=== PATIENT | male | born 1955 | race Caucasian/White ===

== ENCOUNTER 2023-05-16 00:08 | Inpatient (IN) | payer MEDICARE, SELFPAY ==
[2023-05-16] VITALS (25 sets, daily range): BP systolic 68–131; BP diastolic 35–68; PULSE 85–136; RESP 15–25; TEMP 36.3–37.9; O2SAT 93–100; BMI 30.8
--- NOTE | ~2023-05-16 | US_ITS ---
US abdomen limited DATE: 05/16/2023 09:21 INDICATION: Gallbladder wall thickening on 05/16/2023 CT abdomen pelvis examination. Abdominal disten tion. TECHNIQUE: Real-time imaging of liver, pancreas, gallbladder areas COMPARISON: 05/16/2023 CT abdomen pelvis. FINDINGS: No hepatic space-occupying mass lesion is detected. Normal hepatopedal portal venous flow d irection. There is gallbladder wall thickening, measuring up to proxy 4.5 mm. No gallstones are identified. Neg ative sonographic Rock's sign. The common bile duct measures 4.9 mm, within normal range. The there is limited visualization of the left lobe of the liver and pancreas due to overlying bowel gas. IMPRESSION: Nonspecific gallbladder wall thickening; no cholelithiasis demonstrated Reviewed, dictated and finalized at [facility]. Reviewed, dictated and finalized at [facility]. IMPRESSION: Nonspecific gallbladder wall thickening; no cholelithiasis demonstr ated
--- NOTE | ~2023-05-16 | CT_ITS ---
EXAMINATION: CT abdomen pelvis wo con DATE: 05/16/2023 03:12 INDICATION: Abdominal distention TECHNIQUE: Computed tomography (CT) of the abdomen and pelvis was performed without intravenous contr ast. (There is contrast on board from earlier CTA chest examination today.) Automated exposure contro l and iterative reconstruction technique were employed. Exam dose: 1412.18 mGy-cm total exam DLP. COMPARISON: None. FINDINGS: There is prominent diffuse gallbladder wall thickening with mild pericholecystic fat strand ing suggesting possible acute cholecystitis. No bile duct or pancreatic duct dilatation. No hepatic or pancreatic space-occupying mass lesion. Nor mal splenic size. Normal morphology of the adrenal glands. Mild bilateral renal scarring. There is an indeterminate hypoattenuating exophytic up to 4 cm cystic mass along the posterior aspect of the upper pole of the left kidney with soft tissue capsule of varying thickness. Normal caliber of the abdominal aorta. No intraperitoneal or retroperitoneal or pelvic mass lesion or adenopathy or ascites. The urinary bladder is unremarkable. There is a very prominent amount of fecal material in the rectum and colon. The stool haven't distend ed rectum measures up to 8 cm diameter. No bowel obstruction or intraperitoneal free air is detected. Small fat-containing right inguinal hernia. Degenerative changes of the thoracic and lumbar spine. No suspicious osteolytic or osteoblastic lesions are noted. IMPRESSION: Chronic gallbladder wall thickening suggesting possible acute cholecystitis Prominent of fecal material in the colon; stool-distended rectum measuring up to 8 cm diameter Indeterminate 4 cm exophytic upper pole left renal cystic mass; consider further evaluation with cecilia l MRI Dr. Mccarty telephoned Dr. Cervantes, emergency room physician, on 05/16/2023 at 0849 hours and indicated that the 4 cm cystic lesion of the left kidney superior pole is indeterminate, cystic neoplasm canno t be excluded, and renal MRI should be considered. Reviewed, dictated and finalized at [facility]. Reviewed, dictated and finalized at [facility]. IMPRESSION: Chronic gallbladder wall thickening suggesting possible acute chol ecystitis Prominent of fecal material in the colon; stool-distended rectum measuring up t o 8 cm diameter Indeterminate 4 cm exophytic upper pole left renal cystic mass; consider furthe r evaluation with renal MRI Dr. Mccarty telephoned Dr. Cervantes, emergency room physician, on 05/16/2023 at 08 49 hours and indicated that the 4 cm cystic lesion of the left kidney superior pole is indeterminate, cystic neoplasm cannot be excluded, and renal MRI should be considered.
--- NOTE | ~2023-05-16 | XR_ITS ---
XR chest 2V DATE: 05/16/2023 01:14 INDICATION: Shortness of breath TECHNIQUE: Portable upright AP chest on 05/16/2023 and 0105 hours COMPARISON: 12/08/2007 PA and lateral chest FINDINGS: Stimulator devices overlie each side of the chest with leads extending cephalad bilaterally . Normal heart size. There is moderate elevation right leaf of the diaphragm. No pulmonary infiltrate or consolidation, pleural effusion or pulmonary vascular congestion or pneumo thorax is evident. IMPRESSION: No active cardiopulmonary disease Reviewed, dictated and finalized at location A.
--- NOTE | ~2023-05-16 | US_ITS ---
EXAMINATION: US perc cholecystostomy w imag DATE: 05/17/2023 15:46 INDICATION: Acute cholecystitis TECHNIQUE: The procedure including the risks and benefits was discussed with the patient. Risks discu ssed included bleeding including hemorrhage and bile peritonitis. Oral and written consent were obtai vilma. The patient was confirmed to be receiving appropriate antibiotic coverage. The skin overlying t he liver and gallbladder was prepped and draped in usual sterile fashion. Anesthetic was administere d with 1% lidocaine subcutaneously. An 8.5 Fr catheter was inserted into the gallbladder by trocar t echnique. The metal stiffener and trocar needle were removed, and the pigtail tip was locked. Bile wa s aspirated and sent for culture. The catheter was stitched to the skin with suture. Antibiotic ointm ent and a sterile dressing were applied. There were no immediate complications. FINDINGS: The gallbladder is dilated with wall thickening and stones and sludge, consistent with acut e cholecystitis. Ultrasound images demonstrate the catheter within the gallbladder. 55 mL cloudy dark yellowish bile was aspirated. The catheter was then attached to suction drainage and was transient m inimal amount of additional fluid at the conclusion of the procedure. Final images show the formed pi gtail catheter tip in the now largely decompressed gallbladder. IMPRESSION: 1. Successful ultrasound-guided cholecystostomy tube placement. 2. 55 mL bile was sent for aerobic, anaerobic, and fungal cultures. 3. The catheter will be managed by Dr. Camara. A catheter cholangiogram may be performed not less than 48 hours after tube placement if clinically indicated to assess cystic duct patency. If cholecystect ca is not eventually performed and the infectious episode has resolved, the tube may be removed over a guidewire, preferably not less than 3 weeks after placement to allow time for a mature catheter tr act to form to prevent bile leakage and peritonitis. Reviewed, dictated and finalized at location A. IMPRESSION: 1. Successful ultrasound-guided cholecystostomy tube placement. 2. 55 mL bile was sent for aerobic, anaerobic, and fungal cultures. 3. The catheter will be managed by Dr. Camara. A catheter cholangiogram may be pe rformed not less than 48 hours after tube placement if clinically indicated to assess cystic duct patency. If cholecystectomy is not eventually performed and the infectious episode has resolved, the tube may be removed over a guidewire, preferably not less than 3 weeks after placement to allow time for a mature ca theter tract to form to prevent bile leakage and peritonitis.
--- NOTE | ~2023-05-16 | US_ITS ---
US renal BI 05/17/2023 16:39 Procedure: Realtime transabdominal ultrasound of the kidneys and bladder. Indication: Renal cyst Comparison: Ultrasound dated 05/16/2023 Findings: Renal echotexture is normal bilaterally without hydronephrosis, contour deforming mass or r enal calculus. The right kidney measures 10.1 cm and left kidney measures 8.8 cm. Bladder within nor mal limits. There is a hypoechoic left renal mass measuring 3.5 cm with echogenic debris dependently. There is posterior acoustic enhancement. Impression: 1: Complicated 3.5 cm cyst of the left kidney. Recommend correlation with MRI without and with contra st. Reviewed, dictated and finalized at location A. Impression: 1: Complicated 3.5 cm cyst of the left kidney. Recommend correlation with MRI w ithout and with contrast.
--- NOTE | ~2023-05-16 | XR_ITS ---
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 RESULT: Lines, tubes, and devices: Bilateral stimulator packs, leads extend cephalad out of the [id number] w. Right upper quadrant pigtail drain. Lungs and pleura: Low volumes with crowding. Granulomatous calcifications. Cardiomediastinal silhouette: Stable. Other: No acute osseous or upper abdominal finding. IMPRESSION: No acute cardiopulmonary process. Reviewed, dictated and finalized at location K. PROFESSOR
--- NOTE | ~2023-05-16 | US_ITS ---
EXAMINATION:US venous doppler LE BI INDICATION:Leg swelling TECHNIQUE: Multiple grayscale, color flow and Doppler images of the right and left lower extremity de ep venous systems were obtained and reviewed. COMPARISON:No prior studies for comparison. FINDINGS: The common femoral, superficial femoral and popliteal veins demonstrate normal respiratory variation, augmentation and compressibility. Color flow is also seen within the posterior tibial, pe roneal, greater saphenous and profunda veins. IMPRESSION: 1: No lower extremity deep venous thrombosis. Reviewed, dictated and finalized at location A.
--- NOTE | ~2023-05-16 | CT_ITS ---
EXAMINATION: CTA chest PE protocol DATE: 05/16/2023 02:12 INDICATION: Shortness of breath. TECHNIQUE: Computed tomography angiography (CTA) of the chest was performed with 100 mL Omnipaque-350 intravenous contrast timed to evaluate the pulmonary arteries. Coronal maximum intensity projection 3D-reconstructions were created by the technologist. Automated exposure control and iterative reconst ruction technique were employed. Exam dose: 790.39 mGy-cm total exam DLP. COMPARISON: 05/16/2020 portable AP chest FINDINGS: There is diagnostic contrast enhancement of the pulmonary arteries. Motion limits evaluatio n of the right lower lobe for pulmonary emboli but otherwise no pulmonary embolism is identified. No thoracic aortic aneurysm or dissection is detected. Normal heart size. No pericardial or pleural e ffusion. No hilar or mediastinal mass lesion or lymphadenopathy. There is elevation of the right diaphragm. There is patchy right lower lobe infiltrate and/atelectasis and minimal dependent left lower lobe ate lectasis. There is thickening of the wall of the gallbladder suggesting possible acute cholecystitis. Consider gallbladder ultrasound examination for further evaluation. Normal morphology of the adrenal glands. Bilateral anterior chest wall stimulator devices with leads extending cephalad. IMPRESSION: No evidence of pulmonary embolism is detected Right lower lobe patchy infiltrate and/or atelectasis Gallbladder wall thickening suggesting possible acute cholecystitis; consider gallbladder ultrasound examination Reviewed, dictated and finalized at Location A. Reviewed, dictated and finalized at location A. IMPRESSION: No evidence of pulmonary embolism is detected Right lower lobe patchy infiltrate and/or atelectasis Gallbladder wall thickening suggesting possible acute cholecystitis; consider g allbladder ultrasound examination
--- NOTE | ~2023-05-16 | XR_ITS ---
EXAMINATION: XR catheter cholangiogram DATE: 05/25/2023 09:03 INDICATION: Assess cystic duct patency TECHNIQUE: 8 fluoroscopic images of the right upper quadrant were obtained during injection of 35 mL Omnipaque 240 into the patient's existing percutaneous cholecystostomy tube. Contrast in bowel was th en aspirated from the gallbladder and the tube was flushed with 10 mL sterile saline and reattached t o gravity drainage. The amount of fluoroscopy time used during this procedure was 0.4 minutes. Total DAP was 4.7 Gycm^2 COMPARISON: Ultrasound dated 05/17/2023 FINDINGS: Contrast fills the gallbladder and delineates a nonobstructing mobile 8 mm gallstone initially at the neck of the gallbladder which is located at the fundus on the final image. Contrast fills the common bile duct which empties into the duodenum with no evident obstructing stones or strictures. There is some reflux of contrast into the normal-appearing biliary tree. IMPRESSION: 1. Patent cystic and common bile ducts with distal formed loop of the cholecystostomy tube and a nono bstructing 8 mm mobile gallstone within the gallbladder. Reviewed, dictated and finalized at location A. STAIN MIXER IMPRESSION: 1. Patent cystic and common bile ducts with distal formed loop of the cholecyst ostomy tube and a nonobstructing 8 mm mobile gallstone within the gallbladder.
--- NOTE | ~2023-05-16 | XR_ITS ---
EXAMINATION: XR chest 1V portable DATE: 05/17/2023 01:59 INDICATION: Shortness of breath. TECHNIQUE: A single frontal view of the chest was obtained. COMPARISON: Chest 2 views 05/16/2023, CT abdomen and pelvis 05/16/2023 FINDINGS: The lung volumes are small. There is elevation of right hemidiaphragm. There is mild atelec tasis at right lung base. No pleural effusion or pneumothorax. The heart size is normal. Calcified le ft hilar lymph nodes are consistent with old granulomatous disease. Electronic devices overlie the ch est bilaterally with wires extending in the neck. IMPRESSION: 1. Small lung volumes with relative mild elevation of right hemidiaphragm and mild atelectasis at rig ht lung base. Reviewed, dictated and finalized at location E. IMPRESSION: 1. Small lung volumes with relative mild elevation of right hemidiaphragm and m ild atelectasis at right lung base.
--- NOTE | 2023-05-16 00:31 | ECG_ITS ---
Measurements Intervals [place] Rate: 123 P: 22 [place]: 119 QRS: 0 QRSD: 98 T: 39 QT: 367 QTc: 527 Interpretive Statements POSSIBLE sINUS TACHYCARDIA MARKED bASELINE ARTIFACT AFFECTS INTERPRETATION POOR R-WAVE PROGRESSION ABNORMAL ECG COMPARED TO ECG 05/31/2019 16:41:53 SINUS TACHYCARDIA NOW PRESENT Electronically Signed On 05-16-2023 13:42:47 CDT by Shawn Montano M.D.
--- NOTE | 2023-05-16 00:39 | ED.GENADULT ---
HPI - General Adult General Chief complaint: Chest Pain Stated complaint: sob Time Seen by Provider: 05/16/23 00:14 Source: patient Mode of arrival: EMS Limitations: no limitations History of Present Illness HPI narrative: 67-year-old male with history of advanced Parkinson's disease presenting to emergency department for shortness of breath. Has been going on all day long today Got worse over the last few hours. Reportedly he has not taken his carbidopa levodopa today. This has happened few times in the past and they are not sure exactly what causes it. He does not have a history of asthma or COPD. Denies any chest pain. Says he feels like his muscles are very rigid. All other symptoms and complaints are negative as per ROS. Related Data Home Medications Medication Instructions Recorded Confirmed gabapentin 100 mg capsule mg 05/16/23 Allergies Allergy/AdvReac Type Severity Reaction Status Date / Time No Known Allergies Allergy Unknown Verified 12/16/07 15:53 NKFA Allergy Unknown Uncoded 03/07/07 15:41 Review of Systems Review of Systems: All systems reviewed & are unremarkable except as noted in HPI and below PMFSH Past Medical History Medical History Arthritis Diabetes mellitus Kidney stones Parkinson's disease Right knee meniscal tear Surgical History Surgical History H/O arthroscopy of right knee Hx of transurethral resection of prostate S/P deep brain stimulator placement Social History Social History Gender identity (if verbalized by the patient): Male Exam Narrative: Constitutional: Generally well appearing, no acute distress Head: Atraumatic, no deformities. Eyes: Pupils equal, round, and reactive to light. Neck: Supple, no tracheal deviation, no JVD. ENMT: Mucous membranes moist Cardiovascular: S1, S2 auscultated. No murmurs, rubs, or gallops. No S3/S4. Normal Distal pulses. No peripheral edema. Respiratory: Mild respiratory distress with minimal chest rise and fall, mostly only moving through the abdomen with breathing. Lungs are clear with no wheezes, rales, rhonchi. Gastrointestinal: Abdomen was soft and non-tender. Non-distended. No rebound or guarding. Genitourinary: Deferred Musculoskeletal: Normal muscle tone and bulk. No obvious deformities or tenderness over extremities. Skin: No rashes. Neurological: Diffusely stiff musculature. Sensation intact throughout. Difficulty moving extremities due to muscle stiffness Mental Status: Awake, alert and oriented x3. Follows commands Course Vital Signs Vital signs: Vital Signs Temperature 37.9 C H 05/16/23 00:09 Pulse Rate 136 H 05/16/23 00:09 Respiratory Rate 25 H 05/16/23 00:09 Blood Pressure 120/68 05/16/23 00:09 Pulse Oximetry 100 05/16/23 00:09 Oxygen Delivery Room Air 05/16/23 00:09 Temperature 37.9 C H 05/16/23 00:09 Pulse Rate 100 05/16/23 06:16 Respiratory Rate 15 05/16/23 06:16 Blood Pressure 104/58 L 05/16/23 06:16 Pulse Oximetry 96 05/16/23 06:16 Oxygen Delivery Room Air 05/16/23 00:09 Medical Decision Making [facility] Narrative Medical decision making narrative: 67-year-old male presenting with difficulty breathing today. He did not take his carbidopa levodopa for his Parkinson's today. This has happened once in the past. On exam, he is diffusely stiff musculature. Family reports this is not typical of him and he usually can get around pretty well. Lungs are clear but he is not moving his chest very much with breathing. His abdomen is moving muscles with breathing. Saturating well on room air however. He is tachycardic. My suspicion initially is Parkinson's crisis as he did not take his medication this morning. Will give him a dose of carbidopa levodopa. Family has no idea what his current dos
[2023-05-16 00:50] LABS: Basophils Percent Auto 0.3 % (0.2-1.2); Eosinophils Percent Auto 0.1 % (0-4.4); Hematocrit 44.9 % (42.0-52.0); Hemoglobin 13.2 g/dL (14.0-18.0); Immature Granulocyte Absolute 0.01 K/mm3 (0.00-0.031); Immature Granulocyte Percent A 0.1 % (0-0.5); Lymphocytes Absolute Auto 0.62 K/mm3 (0.9-3.2); Lymphocytes Percent Auto 8.7 % (18.3-44.2); Mean Corpuscular HGB Conc 29.4 g/dl (32-36); Mean Corpuscular Hemoglobin 25.7 pg (26-34); Mean Corpuscular Volume 87.5 fl (80-100); Mean Platelet Volume 10.2 fl (7.4-10.4); Monocytes Percent Auto 0.3 % (2.6-8.5); Neutrophils Absolute Auto 6.4 K/mm3 (1.3-6.7); Neutrophils Percent Auto 90.5 % (45.5-73.1); Platelet Count Result 444 k/mm3 (150-375); Red Blood Count 5.13 M/mm3 (4.6-6.20); White Blood Count 7.1 K/mm3 (4.5-10.0)
[2023-05-16 01:02] LABS: INR 1.1; Prothrombin Time 14.6 Seconds (11.1-14.7)
[2023-05-16 01:03] LABS: Partial Thromboplastin Time 22.9 SECONDS (22.3-36.8)
[2023-05-16] MEDS: CARBIDOPA/LEVODOPA 25/100 MG CR TABLET 1 TABLET PO (01:05)
[2023-05-16] MEDS: SODIUM CHLORIDE 0.9% IV 1,000 ML 999 ML IV CONT (01:05)
[2023-05-16 01:18] LABS: Troponin I < 0.012 ng/mL (0.000-0.034)
[2023-05-16 01:27] LABS: Influenza A QL RT-PCR Negative (Negative); Influenza B QL RT-PCR Negative (Negative); RSV RNA, RT-PCR Negative (Negative); SARS-CoV-2 RNA PCR Negative (Negative)
[2023-05-16 01:49] LABS: Alanine Aminotransferase 42 U/L (6-50); Albumin Level 4.5 g/dL (3.5-5.1); Alkaline Phosphatase 133 U/L (38-126); Anion Gap 25 mmol/L (8-16); Aspartate Amino Transferase 52 U/L (17-59); Bilirubin,Total 0.9 mg/dL (0.2-1.3); Blood Urea Nitrogen 16 mg/dL (9-20); Calcium 9.6 mg/dL (8.4-10.2); Carbon Dioxide 15 mmol/L (22-30); Chloride 97 mmol/L (98-107); Estimated CRCL calculation 64 ml/min; Estimated Glomerular Filt Rate > 60; Glucose 347 mg/dL (65-110); Lipase 66 U/L (23-300); Potassium 4.1 mmol/L (3.4-5.0); Sodium 137 mmol/L (137-145)
[2023-05-16 04:16] LABS: Troponin I 0.035 ng/mL (0.000-0.034)
[2023-05-16] MEDS: SODIUM CHLORIDE 0.9% IV 500 ML 999 ML IV CONT (04:25)
[2023-05-16 06:18] LABS: Fractional Inspired Oxygen 21 %; HCO3 VBG 20.8 mEq/l (24.0-30.0); PO2 VBG 50.8 mmHg (35.0-45.0)
[2023-05-16 06:22] LABS: Device ROOM AIR; PCO2 VBG 29.2 mmHg (42.0-48.0)
[2023-05-16 06:31] LABS: Beta-Hydroxybutyrate/Acetoacetate 0.36 mmol/L (0.02-0.27)
--- NOTE | 2023-05-16 06:40 | PC.NURSE ---
Bedside glucose is 335. ERP and primary RN notified.
[2023-05-16 06:41] LABS: Glucose Point of Care 335 mg/dl (65-105)
[2023-05-16 06:50] LABS: Appearance Urine Clear (Clear); Bacteria Urine None Seen /hpf; Bilirubin Urine Negative (Negative); Blood Urine Trace (Negative); Color Urine Yellow (Yellow); Glucose Urine UA 3+ mg/dL (Negative); Ketones Urine 1+ mg/dL (Negative); Leukocyte Esterase Ur Negative LEU/UL (Negative); Nitrate Urine Negative (Negative); Protein Urine 1+ mg/dL (Negative); RBC Urine 0-2 /hpf (0-2); Squamous Epithelial Cell Urine None seen /hpf (Few); WBC Urine 0-5 /hpf; pH Urine 6.5 (5.0-9.0)
[2023-05-16] MEDS: INSULIN HUMAN REGULAR (*BKC) 100 UNITS/ML 10 UNITS SUB-Q (06:59)
[2023-05-16 07:03] LABS: Add Urine Microscopic? YES; Specific Grav Ur 1.057 (1.001-1.035)
[2023-05-16] MEDS: SODIUM CHLORIDE 0.9% IV 1,000 ML 125 ML IV CONT (07:03)
--- NOTE | 2023-05-16 09:16 | ADMGEN ---
This patient, Jayden Cherry, was admitted to IMU Room 205-02. Patient/family oriented to hospital policies and general routines including ID bracelet, bed and alarms, visiting hours, pain management, procedures, bathroom and other care routines, personal items, smoking policy, room service/diet, and visiting hours. Information on how to activate the Rapid Response Team has been discussed. Patient/Family are encouraged to report perceived risks to care and to ask questions if they do not understand what they are told or what they should do.
--- NOTE | 2023-05-16 11:25 | PM.IMHP ---
H&P: HPI History of Present Illness Date/Time: 05/16/23 11:25 Chief Complaint: SOB Narrative: 63-year-old male with past medical history of Parkinson's disease, type 2 diabetes was brought to ER because of shortness of breath. Patient was lethargic and was hardly able to provide history, however he said he came in because of SOB which was corroborated by a family member at bedside. He also complained of RUQ pain otherwise denies any dysuria, lightheadedness or falls. Patient is mostly wheelchair bound. ER eval notable for HR 123, EKG showed ST with acute ST-T changes, CTA Chest showed RLL infiltrates, CT AP showed possible Acute cholecystitis, fecal-distended colon, with left renal mass. US abd showed non specific gall bladder thickening with no cholecystitis. Patient was admitted prior to result of CT imagings. Review of Systems Review of Systems: all other systems were reviewed and negative except as noted in phillip HPI above e PMFSH Past Medical History Medical History Arthritis Diabetes mellitus Kidney stones Parkinson's disease Right knee meniscal tear Surgical History Surgical History H/O arthroscopy of right knee Hx of transurethral resection of prostate S/P deep brain stimulator placement Social History Social History Gender identity (if verbalized by the patient): Male Meds Home Medications and Allergies Home Medications Medication Instructions Recorded Confirmed Type amantadine HCl 100 mg capsule 100 mg PO DAILY 05/16/23 05/16/23 History carbidopa ER 50 mg-levodopa 200 mg tablet PO 05/16/23 History tablet,extended release cyanocobalamin (vitamin B-12) 100 100 mcg PO DAILY 05/16/23 05/16/23 History mcg tablet (Vitamin B-12) escitalopram oxalate 20 mg tablet mg 05/16/23 History gabapentin 100 mg capsule mg 05/16/23 History insulin degludec 200 unit/mL (3 unit subcut 05/16/23 History mL) subcutaneous pen (Tresiba FlexTouch U-200 insulin) memantine 10 mg tablet mg 05/16/23 History omeprazole 40 mg capsule,delayed mg 05/16/23 History release polyethylene glycol 3350 17 gram 17 g PO DAILY 05/16/23 05/16/23 History oral powder packet (Miralax) venlafaxine 150 mg mg PO 05/16/23 History capsule,extended release 24 hr vitamin B complex-vitamin C 100 tablet 05/16/23 History mg-folic acid 1 mg tablet zolpidem 10 mg tablet mg 05/16/23 History Allergies Allergy/AdvReac Type Severity Reaction Status Date / Time No Known Allergies Allergy Unknown Verified 12/16/07 15:53 NKFA Allergy Unknown Uncoded 03/07/07 15:41 Vital Signs Vital Signs - 24 hr 05/16/23 00:09 05/16/23 03:29 05/16/23 06:16 Temperature 100.2 F H Pulse Rate 136 H 110 H 100 Respiratory Rate 25 H 22 H 15 Blood Pressure 120/68 106/62 104/58 L Pulse Oximetry 100 95 96 Oxygen Delivery Room Air 05/16/23 07:05 05/16/23 07:00 05/16/23 08:00 Temperature Pulse Rate 96 96 93 Respiratory Rate 15 22 H 20 Blood Pressure 94/52 L 93/57 L 97/61 L Pulse Oximetry 96 93 98 Oxygen Delivery 05/16/23 09:00 05/16/23 09:32 Temperature 99.8 F H Pulse Rate 85 95 Respiratory Rate 16 22 H Blood Pressure 101/62 105/62 Pulse Oximetry 93 Oxygen Delivery Exam Narrative: General: alert but lethargic Eyes: EOMI, PERRLA ENNT External ears normal, Neck is supple, no masses, Respiratory systems: Clear to auscultation Cardiovascular S1, S2, normal rhythm, no murmur, rub, or gallop; no thrill or palpable murmurs on palpation. Gastrointestinal: soft, non-tender, and non-distended abdomen with no masses; BS present Skin: no rash, lesions, ulcerations, subcutaneous nodules or induration Musculoskeletal: upper extremities appears to be in contractures Neurologic: Alert and oriented x3, non focal Mental Status Exa
--- NOTE | 2023-05-16 11:31 | WPDURCON ---
Assessment and Plan Assessment and plan (1) Renal mass: Code(s): N28.89 - Other specified disorders of kidney and ureter Status: Acute Assessment and Plan: 4cm left renal mass is present. It appears cystic on my review of the images. After resolution of his current clinical issues, further follow up with US or dedicated renal mass protocol CT scan could be considered. MRI is likely contraindicated with the deep brain stimulator. Urology Consult Note HPI Date Seen: 05/16/23 Requesting Physician: Regina Allen DO Primary Care Provider: Phoenix Glasgow, Consult Narrative Narrative: Jayden Cherry is a 67 year old male currently admitted for shortness of breath and right sided abdominal pain who had an incidentally noted left renal mass. He has not had any left sided pain. No hematuria. He has long standing Parkinson's disease and has a deep brain stimulator. He is severely disabled due to the Parkinson's. Review of Systems Constitutional: Constitutional: Reports body ache(s) Respiratory: Respiratory: Reports dyspnea Gastrointestinal: Gastrointestinal: Reports abdominal pain PMFSH Past Medical History Medical History Arthritis Diabetes mellitus Kidney stones Parkinson's disease Right knee meniscal tear Surgical History Surgical History H/O arthroscopy of right knee Hx of transurethral resection of prostate S/P deep brain stimulator placement Social History Social History Gender identity (if verbalized by the patient): Male Meds Home Medications and Allergies Home Medications Medication Instructions Recorded Confirmed Type amantadine HCl 100 mg capsule 100 mg PO DAILY 05/16/23 05/16/23 History carbidopa ER 50 mg-levodopa 200 mg tablet PO 05/16/23 History tablet,extended release cyanocobalamin (vitamin B-12) 100 100 mcg PO DAILY 05/16/23 05/16/23 History mcg tablet (Vitamin B-12) escitalopram oxalate 20 mg tablet mg 05/16/23 History gabapentin 100 mg capsule mg 05/16/23 History insulin degludec 200 unit/mL (3 unit subcut 05/16/23 History mL) subcutaneous pen (Tresiba FlexTouch U-200 insulin) memantine 10 mg tablet mg 05/16/23 History omeprazole 40 mg capsule,delayed mg 05/16/23 History release polyethylene glycol 3350 17 gram 17 g PO DAILY 05/16/23 05/16/23 History oral powder packet (Miralax) venlafaxine 150 mg mg PO 05/16/23 History capsule,extended release 24 hr vitamin B complex-vitamin C 100 tablet 05/16/23 History mg-folic acid 1 mg tablet zolpidem 10 mg tablet mg 05/16/23 History Allergies Allergy/AdvReac Type Severity Reaction Status Date / Time No Known Allergies Allergy Unknown Verified 12/16/07 15:53 NKFA Allergy Unknown Uncoded 03/07/07 15:41 Vital Signs Vital Signs - 24 hr 05/16/23 00:09 05/16/23 03:29 05/16/23 06:16 Temperature 37.9 C H Pulse Rate 136 H 110 H 100 Respiratory Rate 25 H 22 H 15 Blood Pressure 120/68 106/62 104/58 L Pulse Oximetry 100 95 96 Oxygen Delivery Room Air 05/16/23 07:05 05/16/23 07:00 05/16/23 08:00 Temperature Pulse Rate 96 96 93 Respiratory Rate 15 22 H 20 Blood Pressure 94/52 L 93/57 L 97/61 L Pulse Oximetry 96 93 98 Oxygen Delivery 05/16/23 09:00 05/16/23 09:32 Temperature 37.7 C H Pulse Rate 85 95 Respiratory Rate 16 22 H Blood Pressure 101/62 105/62 Pulse Oximetry 93 Oxygen Delivery Exam Const: General: uncomfortable Resp: Effort & Inspection: normal respiratory effort Neuro: Other: slow speech Extrem: Other: contracted Psych: Affect: normal affect Results Labs 05/16/23 00:32 05/16/23 00:32 Labs: Short CBC 05/16/23 Range/Units 00:32 WBC 7.1 (4.5-10.0) K/mm3 Hgb 13.2 L (14.0-18.0) g/dL Hct 4
[2023-05-16] MEDS: levoFLOXacin 750 MG/D5W 150 ML 750 MG/150 ML BAG 100 MG IVPB (12:19)
[2023-05-16] MEDS: MORPHINE SULFATE (*CRX) 2 MG/ML INJ IV PUSH (14:38)
[2023-05-16] MEDS: metroNIDAZOLE 500 MG/ISO 100ML 500 MG/100 ML BAG 100 MG IVPB (14:40)
[2023-05-16 14:44] LABS: Glucose Point of Care 222 mg/dl (65-105)
--- NOTE | 2023-05-16 15:40 | PCOTNOTE ---
Spoke with pt. and family. Pt. is dependent for all ADLs and functional transfers with assistance from spouse, using dee lift and electric wheel chair for functional mobility. Spouse declines any needs for therapy services at this time. Nursing aware. Hospitalist notified and in agreement.
--- NOTE | 2023-05-16 15:44 | PM.CNGS ---
Assessment and Plan Assessment and plan (1) Abnormal findings on imaging of biliary tract: Code(s): R93.2 - Abnormal findings on diagnostic imaging of liver and biliary tract Status: Acute Assessment and Plan: CT scan as well as ultrasound of the right upper quadrant suspicious for acalculous cholecystitis. I discussed this with the patient's , his brother and his friend. Patient would not survive an abdominal surgery due to his advanced Parkinson's with severe stiffness, rigidity, and inability to mobilize secretions. I explained to the patient's that and hepatobiliary scan would be very helpful in determining cholecystitis. Should this study show cystic duct obstruction, an ultrasound-guided cholecystostomy tube could be placed by Radiology which would alleviate acute cholecystitis. I briefly discussed the management of that cholecystostomy tube with his . They would be in favor of that if indicated. Hepatobiliary scan will be done tomorrow and if positive, try to proceed with cholecystostomy tube placement. (2) Pneumonia: Qualifiers: Laterality: bilateral Lung location: unspecified part of lung Pneumonia type: due to unspecified organism Qualified Code(s): J18.9 - Pneumonia, unspecified organism Code(s): J18.9 - Pneumonia, unspecified organism Status: Acute Assessment and Plan: Shortness of breath with evidence of patchy right lower lobe infiltrate on CTA of the chest. Receiving antibiotics. (3) Parkinson's disease: Qualifiers: Dyskinesia presence: with dyskinesia Fluctuating manifestations: with fluctuating manifestations Qualified Code(s): G20.B2 - Parkinson's disease with dyskinesia, with fluctuations Code(s): G20.A1 - Parkinson's disease without dyskinesia, without mention of fluctuations Status: Chronic Assessment and Plan: Very advanced. Neurology to see. (4) Acute non-ST elevation myocardial infarction (NSTEMI): Code(s): I21.4 - Non-ST elevation (NSTEMI) myocardial infarction Status: Acute Assessment and Plan: Managed by medical service and possibly Cardiology. History of Present Illness Consult details Consult date: 05/16/23 Reason for consult: other (Abnormal biliary imaging) Requesting physician: Maria C Nur MD Narrative: Patient is a 67-year-old man who has advanced Parkinson's disease and came to the emergency room late last night with shortness of breath. He had a CTA of the chest which did not show a pulmonary embolism. It did show a patchy right lower lobe infiltrate as well as gallbladder wall thickening suspicious for cholecystitis. Patient had a cardiac workup as well and appears he has a NSTEMI. Chest x-ray and chest CT did not show pulmonary edema. Patient went on to have an ultrasound today of the gallbladder which again showed gallbladder wall thickening but no gallstones. It was concerning for cholecystitis. I spoke with patient's brother and close friend. Patient has had Parkinson's disease for 20 years. This is an exceptionally long time as 10 years is usually length of time before stiffness and spasticity with contractures set in. He did have a deep brain stimulator placed which may have helped prolonged his function with Parkinson's. His does tell me he has been contracted and very stiff for quite some time. He has trouble speaking as well as controlling his secretions. He mostly is in a wheelchair. He additionally has diabetes and takes insulin. Currently he is not really able to answer questions other than yes/no. He could not give me an answer as far as having any abdominal pain. He has not had any vomiting. He is seen now in consultation. Review of Systems Review of Systems: All systems reviewed & are unremarkable except as noted in HPI and below (As per HPI) ROS unobtainable: Yes unobtainable due to medical condition PMFSH Past Medical History Medical History (Re
[2023-05-16 16:57] LABS: Glucose Point of Care 176 mg/dl (65-105)
[2023-05-16] MEDS: VANCOMYCIN 1,000 MG/NS 250 ML 1,000 MG/250 ML BAG 250 MG IVPB (18:39)
[2023-05-16] MEDS: VANCOMYCIN 1,250 MG/NS 250 ML 1,250 MG/250 ML BAG 166.67 MG IVPB (20:39)
[2023-05-16] MEDS: SODIUM CHLORIDE 0.9% IV 500 ML IV CONT ×2 (21:08→22:18)
[2023-05-16 21:19] LABS: Glucose Point of Care 175 mg/dl (65-105)
[2023-05-16 21:29] LABS: Lactic Acid Reflex 3.2 mmol/L (0.7-2.0)
[2023-05-16 21:36] LABS: Anion Gap 11 mmol/L (8-16); Blood Urea Nitrogen 27 mg/dL (9-20); Calcium 8.1 mg/dL (8.4-10.2); Carbon Dioxide 18 mmol/L (22-30); Chloride 101 mmol/L (98-107); Estimated CRCL calculation 47 ml/min; Estimated Glomerular Filt Rate 47; Glucose 162 mg/dL (65-110); Potassium 3.8 mmol/L (3.4-5.0); Sodium 130 mmol/L (137-145)
[2023-05-16 21:55] LABS: Hemoglobin A1C 9.7 % (<5.7)
--- NOTE | 2023-05-16 22:08 | ECG_ITS ---
Measurements Intervals [place] Rate: 94 P: [place]: 0 QRS: 5 QRSD: 93 T: 8 QT: 342 QTc: 429 Interpretive Statements SUPRAVENTRICULAR RHYTHM ARTIFACT GREATLY LIMITS INTERPRETATION ABNORMAL ECG COMPARED TO ECG 05/16/2023 01:42:31 SUPRAVENTRICULAR RHYTHM NOW PRESENT Electronically Signed On 05-17-2023 8:50:30 CDT by Bill Moy M.D.
[2023-05-16] MEDS: ENOXAPARIN 100 MG/ML SYRINGE 90 MG SUB-Q (22:37)
[2023-05-16 22:44] LABS: MRSA (PCR) NOT DETECTED (NOT DETECTE)
[2023-05-16 23:15] LABS: Creatine Kinase 3008 U/L (55-170)
--- NOTE | 2023-05-16 23:34 | PC.NURSE ---
Spoke with Es Cherry (spouse). Advised her that the patient has had blood pressures in the 70s systolic since I came on shift. I have been in contact with Bela FALL regarding changes. NS 1000 ml fluid bolus given without improvement in blood pressure. Patient denies chest pain. Troponin has gone from 0.090 to 11.5, CK 3008, creatinine 1.1-1.5, Lactic 3.2. EKG was done however unable to read due to artifact from the patient's brain stimulator. Plan is to transfer the patient to ICU 4 for insertion of central line and vasopressors. I will be calling cardiology to get them on board. Patient and are in agreement of treatment plan.
--- NOTE | 2023-05-16 23:50 | P.PNCROSS_ITS ---
Event Note Event Note Event Note: I received a call from the patient's nurse with reports of soft blood pressures. Chart was extensively reviewed. Patient presented to the emergency department with shortness of breath and chest pain, admitted for ?cardiac rule out.? He developed a low-grade fever overnight. Chest x-ray and urinalysis were not concerning for infection. CT of the abdomen and pelvis showed chronic gallbladder wall thickening with suggestions of possible acute cholecystitis. He was started on levofloxacin, metronidazole, and vancomycin. Blood cultures are pending. HIDA scan has been ordered for a.m.. Troponin was noted to be elevated and a repeat troponin this evening was 11.50. EKG is unreadable due to artifact from his neurostimulator. Over the course of the evening his blood pressures have gradually declined. He was given a 1 L bolus of normal saline though his blood pressures remain in the 70 systolic. Aside from feeling tired and mild abdominal pain, the patient has no current complaints. He looks chronically ill and nontoxic. Pupils are reactive. He has mild nystagmus, more so on the left with occasional twitching of the left eyelid. Mucous membranes are tacky. He is in a regular rate and rhythm. Lung sounds are coarse anteriorly. He has masked facies and is stiff and rigid. Pulses intact. Extremities are warm. I had a discussion with the patient and he and his are amenable to central line placement for vasopressor therapy. Case was discussed withantonio Quintero, i ntensivist, and he agrees with the plan and has accepted the patient in consult to the ICU for shock. Differential diagnosis includes septic shock due to cholecystitis though cardiogenic shock is a consideration given marked increase in troponin albeit he is not having any chest discomfort. Cardiology will also be consulted. He was started on enoxaparin 1 milligram/kilogram b.i.d. I will ask the nurse to do noninvasive cardiac output monitoring to see if he will be further volume responsive. Critical Care Time Critical Care Time: Yes Total Critical Care Time: 35 Attestation: Due to a high probability of clinically significant, life threatening deterioration, the patient required my highest level of preparedness to intervene emergently and I personally spent this critical care time directly and personally managing the patient. This critical care time included obtaining a history; examining the patient; pulse oximetry; ordering and review of studies; arranging urgent treatment with development of a management plan; evaluation of patient's response to treatment; frequent reassessment; and discussions with other providers. It was exclusive of separately billable procedures and treating other patients and teaching time. Please see Assessment and Plan section and the rest of the note for further information on patient assessment and treatment.
[2023-05-17] VITALS (36 sets, daily range): BP systolic 78–153; BP diastolic 51–75; PULSE 82–108; RESP 13–25; TEMP 36.6–37.4; O2SAT 94–98
--- NOTE | 2023-05-17 | ECHO_ITS ---
Patient Info Name: Jayden Cherry Age: 67 years : 1955 Gender: Male Ht: 67 in Wt: 202 lbs BSA: 2.11 m2 HR: 94 bpm BP: 122 / 71 mmHg Heart Rhythm: Sinus Rhythm Technical Quality: Fair Exam Date: 05/17/2023 7:48 AM Exam Location: [facility] Patient Status: Inpatient Admit Date: 05/17/2023 Staff Ordering Physician: Regina Allen DO Director Print: Sharon Troncoso RDCS Attending Provider: Regina Allen DO Referring Physician: Alejandro GUNN; Exam Type: CA echo dop color flow w con Study Info Indications - shock Complete two-dimensional, color flow and Doppler transthoracic echocardiogram is performed with contrast to opacify the left ventricle and to improve the deliniation of the left ventricle endocardial borders. Contrast/Agitated Saline Contrast/Ag. Saline: Definity Amount: 2.00 ml Administered By: Sharon Troncoso RDCS Existing IV Access: Yes IV Access Condition: patent with no signs of infiltration Summary 1. Left ventricular chamber dimension is normal. 2. Left ventricular systolic function is normal, estimated at 60-65%. 3. There is moderately increased left ventricular wall thickness. 4. The left ventricular diastolic function is grade I diastolic dysfunction. 5. The basal inferolateral wall, and mid inferolateral wall are hypokinetic. 6. The mitral valve annulus is mildly calcified. 7. There is moderate aortic valve sclerosis. 8. There is mild tricuspid valve regurgitation. Left Ventricle Left ventricular chamber dimension is normal. Left ventricular systolic function is normal, estimated at 60-65%. There is moderately increased left ventricular wall thickness. The left ventricular diastolic function is grade I diastolic dysfunction. The basal inferolateral wall, and mid inferolateral wall are hypokinetic. All other castillo appear normal. Right Ventricle Right ventricular chamber dimension is normal. Right ventricular systolic function is normal. Left Atria Left atrial chamber dimension is normal. Right Atria Right atrial chamber dimension is normal. Atrial Septum Intact interatrial septum visualized by color flow imaging. Aortic Valve The aortic valve is trileaflet. There is moderate aortic valve sclerosis. There is no aortic valve stenosis. There is trace aortic valve regurgitation. Pulmonic Valve The pulmonic valve is normal. There is no pulmonic valve stenosis. There is trace pulmonic regurgitation. Mitral Valve There is no mitral valve stenosis. There is trace mitral valve regurgitation. The mitral valve annulus is mildly calcified. Tricuspid Valve The tricuspid valve leaflets are normal. There is no significant tricuspid valve stenosis. There is mild tricuspid valve regurgitation. Pericardium/Pleural The pericardium appears normal. There is no pericardial effusion. Inferior Vena Cava Normal inferior vena cava with >50% collapse upon inspiration consistent with normal right atrial pressure, 10 mmHg. Aorta The aortic root size at the sinus of Valsalva is normal. Left Ventricular Outflow Tract Name Value Normal LVOT 2D LVOT Diameter 2.14 cm LVOT Doppler LVOT Peak Gradient
--- NOTE | 2023-05-17 00:17 | PC.NURSE ---
Spoke with Dr. Montano regarding the patient. Update given, all questions answered, EKGs sent to Dr. Montano for evaluation.
[2023-05-17 00:18] LABS: Reflex Lactic Acid Yes or No Add Lactic
[2023-05-17] MEDS: metroNIDAZOLE 500 MG/ISO 100ML 500 MG/100 ML BAG 100 MG IVPB ×4 (00:19→21:24)
[2023-05-17] MEDS: SODIUM CHLORIDE 0.9% IV 1,000 ML 125 ML IV CONT (00:20)
--- NOTE | 2023-05-17 00:31 | PC.NURSE ---
This patient, Jayden Cherry, was transferred to ICU 4 on 05/16/23 at 2345. Personal belongings sent with patient. Report given to Johny CROCKER. Appropriate documentation sent with patient.
--- NOTE | 2023-05-17 00:33 | ECG_ITS ---
Measurements Intervals Irma Rate: 95 P: DE: 0 QRS: 221 QRSD: 94 T: -5 QT: 326 QTc: 410 Interpretive Statements SINUS RHYTHM ARTIFACT LIMITS INTERPRETATION ABNORMAL ECG COMPARED TO ECG 05/16/2023 22:30:14 ATRIAL FLUTTER NOW PRESENT Electronically Signed On 05-17-2023 8:51:26 CDT by Bill Moy M.D.
[2023-05-17 00:54] LABS: Lactic Acid 3.5 mmol/L (0.7-2.0)
[2023-05-17 01:18] LABS: Vancomycin Trough 26.1 ug/mL (10.0-20.0)
--- NOTE | 2023-05-17 01:30 | PC.NURSE ---
Addendum entered by Johny Sykes RN 05/17/23 03:02: Patient had been previously anticoagulated with dosed Lovenox. Agree to give 325 Aspirin chewable. Continue with Levophed if needed. Original Note: Dr. Adrian updated regarding labs, vitals, patient condition, medications. Agree with current plan of care. If patient develops chest, notify cardiology.
[2023-05-17] MEDS: NOREPINEPHRINE 8 MG/D5W 250 ML 8 MG/250 ML BAG 9.38 MG IV CONT (01:49)
--- NOTE | 2023-05-17 02:00 | PC.NURSE ---
Patient started on Low dose Levophed for blood pressure support as patient is not fluid responsive via cheetah.
[2023-05-17] MEDS: ALBUTEROL SULFATE NEB 2.5 MG/3 ML INH INHALATION ×2 (02:04→23:24)
[2023-05-17] MEDS: IPRATROPIUM BR 0.02% INH SOLN 0.5 MG/2.5 ML VIAL INHALATION ×2 (02:04→23:24)
--- NOTE | 2023-05-17 02:42 | P.PCNBED_ITS ---
Procedures Central Line Placement Right Femoral: Central Line Date: 05/17/23 Central Line Time: 01:15 Discussed w/ the patient/family/POA,the placement of a central venous catheter, including its clinical necessity/indication & associated potential risks, benifits and alternatives.: Yes The patient/family/POA understand(s) and acknowledge(s) the need to proceed with central venous catheter insertion as an important element of the patient's clinical management.: Yes Consent: I have discussed with the patient and/or surrogate, the non-emergent placement of a central venous catheter, including its clinical necessity/indication and associated potential risks and complications. The patient and/or surrogate understand(s) and acknowledge(s) the need to proceed with central venous catheter insertion as an important element of the patient's clinical management. Time Out Performed: Yes Patient Position: trendelenburg Patient placed on monitor/pulse ox: Yes Provider Prep: mask, sterile gown, sterile gloves, Max. sterile barrier precautions, cap and hand hygiene with conventional soap/water or alcohol based hand rub Central line prep: 2% Chlorhexidine scrub Local anesthesia used: lidocaine 1% Amount of anesthesia used (ml): 4 Sterile US Technique with sterile gel/sterile probe covers: Yes Central line lumen inserted: triple English: 7 Length (cm): 20 Depth of Insertion (cm): 19 Post Procedure: sutured in place, good blood return, all ports aspirated, flushed, capped, transparent dressing, hemostatic product, antimicrobial product, securement product and aseptic technique maintained throughout procedure
[2023-05-17] MEDS: ASPIRIN 81 MG CHEWABLE TABLET 324 MG PO (02:43)
--- NOTE | 2023-05-17 02:51 | PM.EVENT ---
Event Note Event Note Event Note: A took over care the patient after patient was transferred to the ICU. Patient remained hypotensive. She does score demonstrate 3% indicating a non fluid responsive state. The patient's blood pressures were in the 80s systolic. Obtain consent for central line placement. Due to patient having bilateral deep brain stimulators in place I avoided in IJ and placed femoral line. The patient remained hypotensive after line placement in blood pressures actually dropped to the low 70s. Levophed has been ordered. Lactic acid is high but stable. The patient's troponin had climbed to 11 tendon repeat was 12.5. I feel patient's troponin elevation is secondary to shock and hypotension. The patient reports pain in his right upper quadrant and lower ribs with deep breathing. The patient seemed to be involuntary guarding right upper quadrant. CT demonstrated chronic gallbladder wall thickening possible acute cholecystitis. The patient is on appropriate antibiotic therapy. However, cardiogenic shock cannot be ruled out. Cardiology has been consulted. Patient is or even placed on full-dose Lovenox. Will give the patient another full-dose aspirin as had been more than 24 hours since his last aspirin therapy given his significant jump in troponin this evening. Echocardiogram has been ordered for a.m.. Patient's case was discussed with Cardiology who agrees with plan. PE: patient is tachypneic with respiratory rate in the upper 20s. Accessory muscle use. Some pursed lip breathing. Nasal cannula place. Mucous membranes are dry, no oral pharyngeal erythema, pupils are equal and reactive, patient is slow to respond but alert oriented x4. Patient is having moments of confusion with episodic hypotension. Patient does have mottling of the lower extremities with generalized pallor. Skin is warm to touch. Abdomen is distended with voluntary guarding of the right upper quadrant. He decreased breath sounds. Body wall edema noted on ultrasound and with palpation of the thigh and pubic area. No significant edema of the thighs or calves. After procedure was completed echo discuss the patient's case with the patient's family members in the waiting room. All questions were answered. Assessment and Plan: 1. Shock: Septic versus cardiogenic. Echocardiogram order. Continue pressure support with Levophed. Continue monitor troponins. Cardiology has been consulted. Antibiotic coverage as discussed above. Cultures are pending. Will stop additional IV fluids as chest x-ray was reviewed and demonstrated pulmonary vascular congestion. Acute also confirmed patient is not in a fluid responsive state. 2. Non-STEMI: Continue therapeutic Lovenox. Aspirin provided. Cardiology consulted. Monitor troponins. Echocardiogram ordered. 3. Acute cholecystitis: Acute cholecystitis suspected. Patient is not stable enough for HIDA scan at this time. Continue antibiotic therapy 4. Acute hypoxic respiratory failure: Continue supplemental oxygen support. Nebulize treatment has been provided. Chest x-ray reviewed. Viral PCRs negative. 5. Elevated CK: Differential includes rhabdomyolysis due to immobility and Parkinson's verses cardiac leak. Patient is not a candidate for additional IV fluid administration at this time due to evidence of pulmonary edema. Will monitor urine output closely and repeat CK and creatinine in a.m. 45 minutes was spent in critical care activities. Due to a high probability of clinically significant, life threatening deterioration, the patient required my highest level of preparedness to intervene emergently and I personally spent this critical care time directly and personally managing the patient. This critical care time included obtaining a history; examining the patient; pulse oximetry; ordering and review of studies; arranging urgent treatment with development of a management plan; evaluation of patient's response to
[2023-05-17] MEDS: CENTRAL LINE FLUSH 10 ML IV PUSH ×4 (05:08→20:12)
[2023-05-17 05:20] LABS: Hematocrit 32.4 % (42.0-52.0); Hemoglobin 10.1 g/dL (14.0-18.0); Mean Corpuscular HGB Conc 31.2 g/dl (32-36); Mean Corpuscular Volume 83.5 fl (80-100); Mean Platelet Volume 9.9 fl (7.4-10.4); Platelet Count Result 225 k/mm3 (150-375); Red Blood Count 3.88 M/mm3 (4.6-6.20); Red Cell Distribution Width 14.5 % (11.5-14.5); White Blood Count 15.3 K/mm3 (4.5-10.0)
[2023-05-17 05:29] LABS: Lactic Acid Reflex 2.7 mmol/L (0.7-2.0)
[2023-05-17 05:31] LABS: INR 1.6; Prothrombin Time 20.2 Seconds (11.1-14.7)
[2023-05-17 05:32] LABS: Partial Thromboplastin Time 50.9 SECONDS (22.3-36.8)
[2023-05-17 05:35] LABS: Alanine Aminotransferase 65 U/L (6-50); Albumin Level 2.9 g/dL (3.5-5.1); Alkaline Phosphatase 102 U/L (38-126); Anion Gap 9 mmol/L (8-16); Aspartate Amino Transferase 186 U/L (17-59); Bilirubin,Total 0.6 mg/dL (0.2-1.3); Blood Urea Nitrogen 29 mg/dL (9-20); Calcium 7.8 mg/dL (8.4-10.2); Carbon Dioxide 21 mmol/L (22-30); Chloride 103 mmol/L (98-107); Estimated CRCL calculation 48 ml/min; Estimated Glomerular Filt Rate 47; Glucose 191 mg/dL (65-110); Magnesium 1.8 mg/dL (1.6-2.3); Sodium 133 mmol/L (137-145)
[2023-05-17 06:05] LABS: Creatine Kinase 4560 U/L (55-170)
--- NOTE | 2023-05-17 07:11 | PCPTNOTE ---
Per OT note on 05/16/23: Pt is dependent at baseline and no therapy services indicated. PT orders discharged this date.
[2023-05-17 07:36] LABS: Glucose Point of Care 173 mg/dl (65-105)
[2023-05-17] MEDS: PERFLUTREN LIPID MICROSPHERES 1.5 ML VIAL DILUTED TO 10 ML TOTAL VOLUME IV PUSH (08:10)
--- NOTE | 2023-05-17 09:10 | WPDCNINT ---
Assessment and Plan Assessment and plan (1) Shock: Code(s): R57.9 - Shock, unspecified Status: Acute Assessment and Plan: Patient transferred to ICU due to hypotension and appears to have shock which is likely combination of sepsis with possible cardiogenic component He received fluids but was not further responsive to fluid as per NICOM assessment CTA chest on admission was negative for PE. Will check lower extremity Dopplers to rule out any DVT since patient is bedridden He was started on Levophed will be titrated to maintain mean arterial pressure Echocardiogram has been ordered to evaluate cardiac function Check procalcitonin level UA was not suggestive of UTI. Blood cultures have been sent CT scan shows right lower lobe infiltrate which could be an aspiration pneumonia Continue empiric antibiotics vancomycin Levaquin and Flagyl (2) Acute non-ST elevation myocardial infarction (NSTEMI): Code(s): I21.4 - Non-ST elevation (NSTEMI) myocardial infarction Status: Acute Assessment and Plan: Patient presented with mildly elevated troponin which has been gradually increasing. EKGs have been unhelpful due to artifact from his brain stimulator. Chest pain that he has been having is noncardiac in nature He was given Lovenox last night will switch him to heparin infusion Echo has been done this morning and report is pending Continue aspirin Cardiology has been consulted and is currently evaluating patient Hold beta-ada due to hypotension, hold statin due to elevated transaminases CTA chest was negative for PE (3) Parkinson's disease: Qualifiers: Dyskinesia presence: with dyskinesia Fluctuating manifestations: with fluctuating manifestations Qualified Code(s): G20.B2 - Parkinson's disease with dyskinesia, with fluctuations Code(s): G20.A1 - Parkinson's disease without dyskinesia, without mention of fluctuations Status: Chronic Assessment and Plan: Continue Sinemet Consult speech for swallow evaluation (4) Pneumonia: Qualifiers: Laterality: bilateral Lung location: unspecified part of lung Pneumonia type: due to unspecified organism Qualified Code(s): J18.9 - Pneumonia, unspecified organism Code(s): J18.9 - Pneumonia, unspecified organism Status: Acute Assessment and Plan: See above (5) Renal mass: Code(s): N28.89 - Other specified disorders of kidney and ureter Status: Acute Assessment and Plan: CT scan Indeterminate 4 cm exophytic upper pole left renal cystic mass; consider further evaluation with renal MRI Patient seen by Urology. Will order ultrasound (6) Diabetes mellitus: Code(s): E11.9 - Type 2 diabetes mellitus without complications Status: Acute Assessment and Plan: Start sliding scale insulin. Resume Lantus (7) Cholecystitis: Code(s): K81.9 - Cholecystitis, unspecified Status: Acute Assessment and Plan: CT - IMPRESSION:? Chronic gallbladder wall thickening suggesting possible acute cholecystitis Right upper quadrant ultrasound- Nonspecific gallbladder wall thickening; no cholelithiasis demonstrated? Patient seen by general surgery. HIDA scan ordered for this morning. Plan for cholecystostomy tube if HIDA scan is positive Continue antibiotics as above Plan DVT prophylaxis -heparin infusion Stress ulcer prophylaxis -Protonix Nutrition -start diet following speech evaluation Code Status -patient wishes to be Full Code Incentive spirometry, will wait another 24 hours to consult physical therapy, occupational therapy, will order EzPAP Total Critical Care Time - 45 minutes Due to a high probability of clinically significant, life threatening deterioration, the patient required my highest level of preparedness to intervene emergently and I personally spent this critical care time directly and personally managing the patient. This critical care time included stanley
--- NOTE | 2023-05-17 09:28 | PM.CNCAR ---
Assessment and Plan Assessment and plan (1) Acute non-ST elevation myocardial infarction (NSTEMI): Code(s): I21.4 - Non-ST elevation (NSTEMI) myocardial infarction Status: Acute Assessment and Plan: Patient has troponins that are currently greater than 15. He is hypotensive and probably his septic shock related to cholecystitis. His troponin though indicate significant underlying coronary disease independent of if this is a primary or secondary event. Echocardiogram was ordered will be reviewed. Heparin drip to be initiated per protocol after gallbladder drain is placed. Aspirin 81 mg p.o. daily to be given also. Will start him on a atorvastatin 40 mg daily. Will check a lipid panel. At this point patient is a full code. Unable to give beta-blockers or nitrates at this point given hypotension. pressors as needed. Continue to trend troponins to peak (2) Parkinson's disease: Qualifiers: Dyskinesia presence: with dyskinesia Fluctuating manifestations: with fluctuating manifestations Qualified Code(s): G20.B2 - Parkinson's disease with dyskinesia, with fluctuations Code(s): G20.A1 - Parkinson's disease without dyskinesia, without mention of fluctuations Status: Chronic Assessment and Plan: Neurostimulator in place (3) Shock: Code(s): R57.9 - Shock, unspecified Status: Acute Assessment and Plan: Probably septic. Antibiotics on board (4) Diabetes mellitus: Code(s): E11.9 - Type 2 diabetes mellitus without complications Status: Acute Assessment and Plan: Significant diabetes with neuropathy. Treatment per hospitalist and arc welder History of Present Illness History of Present Illness Consult date/time: 05/17/23 09:28 Requesting physician: Rajan Quintero MD Consult reason: chest pain, shortness of breath and Other (Non-STEMI) Reason For Visit: Cardiac Ruleout Narrative: Date of service 05/17/2023 Reason consultation: Non STEMI, elevated troponin, shortness of breath EF Requesting physician: Dr. Quintero Patient is a 67-year-old male who presented to the hospital because of shortness of breath and chest pain. Patient also has been having some abdominal pain. Patient presented to the hospital yesterday. Shortness of breath started rather abruptly 2 days ago. He also has significant pain on the right side with deep breathing. He is not had known cardiac issues. Does have a history of frequent syncope related to orthostasis and coughing. He has chronic lower extremity swelling over the past 3 years. It is improving number he elevates his legs. He does have significant underlying health issues including Parkinson's disease with neurostimulator in place, neuropathy, diabetes, family history of heart disease and former smoker. He does not describe any paroxysmal nocturnal dyspnea or orthopnea. CT scan of the chest is concerning for cholecystitis. General surgery is involved. There was a plan to have a HIDA scan today however last night he decompensated and patient became significantly hypotensive with blood pressure systolic in the 60s. He was temporarily started on pressors which did stabilize his BP. He was also significantly short of breath at the time. Troponins were initially elevated have continued to rise to over 15. He currently is lying in bed with family at bedside it appears more stable. Pressors have been weaned off. He still feels a bit short of breath and has pleuritic chest pain. Review of Systems Review of Systems: All systems reviewed & are unremarkable except as noted in HPI and below Constitutional: Constitutional: Denies body ache(s) Eyes: Eyes: Denies blurry vision ENT: Denies nasal congestion Cardiovascular: Cardiovascular: Reports chest pain and Reports leg edema Respiratory: Respiratory: Reports dyspnea Gastrointestinal: Gastrointestinal: Reports abdominal pain Genitourinary: Genitourinary: Denies hemat
[2023-05-17] MEDS: ATORVASTATIN 40 MG TABLET PO (10:00)
[2023-05-17] MEDS: PANTOPRAZOLE SODIUM IV 40 MG VIAL IV PUSH (10:00)
[2023-05-17] MEDS: ASPIRIN 325 MG ENTERIC TABLET PO (10:00)
[2023-05-17] MEDS: CARBIDOPA/LEVODOPA 25/100 MG TABLET 1 TABLET PO (10:00)
--- NOTE | 2023-05-17 10:25 | PCSTNOTE ---
Bedside Swallow cannot be performed in the morning secondary to gall bladder drain placement. Will check in the afternoon.
--- NOTE | 2023-05-17 10:35 | IVDEFINITY ---
Prior to administration of IV Definity the patient was educated on the risks and benefits of the imaging enhancing agent including potential adverse side effects. The patient verbalized understanding. Allergies were verified. No exclusion criteria were identified and at least one of the following inclusion criteria were met: 1) physician request, 2) patient technically difficult to image (per the [place] [employer] guidelines of two or more segments not discernable within the apical view), or 3) questionable left ventricular function. ?
[2023-05-17 10:56] LABS: Cholesterol 98 mg/dL (0-200); HDL Direct 30 mg/dL; Triglycerides 118 mg/dL (<150)
[2023-05-17 11:00] LABS: INR 1.6
[2023-05-17 11:07] LABS: LDL Cholesterol Direct 37 mg/dL
--- NOTE | 2023-05-17 11:45 | ECG_ITS ---
Measurements Intervals [place] Rate: 100 P: 40 CT: 140 QRS: 7 QRSD: 109 T: 21 QT: 335 QTc: 432 Interpretive Statements SIGNIFICANT BASELINE ARTIFACT WHICH LIMITS INTERPRETATION POSSIBLY SINUS TACHYCARDIA WITH FREQUENT VENTRICULAR PREMATURE COMPLEXES COMPARED TO ECG 05/17/2023 00:40:57 PVCS NOW PRESENT Electronically Signed On 05-18-2023 11:21:24 CDT by Lexi Crystal M.D.
[2023-05-17 12:04] LABS: Glucose Point of Care 156 mg/dl (65-105)
[2023-05-17] MEDS: levoFLOXacin 750 MG/D5W 150 ML 750 MG/150 ML BAG 100 MG IVPB (12:13)
--- NOTE | 2023-05-17 12:35 | PM.PNGS ---
Progress Note: A&P Assessment and Plan (1) Shock: Code(s): R57.9 - Shock, unspecified Status: Acute Assessment and Plan: Patient developed hypotension and appears to have septic shock. Possible source of sepsis could be acalculous cholecystitis versus pneumonia. Discussed the case with the Senior Firmware Engineer and Dr. Camara. The imaging does suggests possible acalculous cholecystitis and he has significant RUQ tenderness on exam. His hypotension worsened overnight and he was transferred to ICU for vasopressors. We will go ahead and cancel the HIDA scan and proceed with ultrasound-guided percutaneous cholecystostomy tube placement today in Radiology. I spoke with the Radiologist about his INR of 1.6 and he last received therapeutic-dosed Lovenox last night around 10 pm. They will proceed with the procedure today. Patient is being weaned off the Levophed this morning. Continue broad-spectrum IV antibiotics and ICU management. Blood cultures pending. (2) Acalculous cholecystitis: Code(s): K81.9 - Cholecystitis, unspecified Status: Acute Assessment and Plan: Proceed with US-guided percutaneous cholecystostomy tube placement in Radiology today. Discussed the plan with the patient and his this morning, who agrees. Will keep him NPO for now. (3) Pneumonia: Qualifiers: Laterality: bilateral Lung location: unspecified part of lung Pneumonia type: due to unspecified organism Qualified Code(s): J18.9 - Pneumonia, unspecified organism Code(s): J18.9 - Pneumonia, unspecified organism Status: Acute Assessment and Plan: Shortness of breath with evidence of patchy right lower lobe infiltrate on CTA of the chest. Receiving antibiotics. (4) Parkinson's disease: Qualifiers: Dyskinesia presence: with dyskinesia Fluctuating manifestations: with fluctuating manifestations Qualified Code(s): G20.B2 - Parkinson's disease with dyskinesia, with fluctuations Code(s): G20.A1 - Parkinson's disease without dyskinesia, without mention of fluctuations Status: Chronic Assessment and Plan: Very advanced. (5) Acute non-ST elevation myocardial infarction (NSTEMI): Code(s): I21.4 - Non-ST elevation (NSTEMI) myocardial infarction Status: Acute Assessment and Plan: Cardiology evaluated the patient this morning. Echo ordered and plan to start heparin infusion following cholecystostomy tube placement. Okay to start heparin infusion 4 hours after placement of the cholecystostomy tube. Plan I have discussed the patient's case and plan of care with Dr. Camara. Subjective Subjective Date/Time Seen: 05/17/23 09:35 Patient reports: afebrile (since 0900 on 05/16) Interval history: This is a 67 year old man with a history of severe Parkinson's disease and type 2 diabetes mellitus who presented yesterday with complaints of shortness of breath and RUQ abdominal pain. Workup showed evidence on CTA of gallbladder wall thickening suspicious for cholecystitis. He was also found to have NSTEMI and Shock with hypotension. He subsequently had a central line placed and was transferred to ICU for vasopressors. We were consulted for possible acute cholecystitis. Chart reviewed. He was seen earlier this morning and was being titrated nearly off the levophed drip (only on 1 mcg/min). His blood pressure was stable at that time. His daughter and are at the bedside. He denies any abdominal pain but is limited on providing any additional information given his Parkinson's. Review of Systems Review of Systems: ROS unobtainable: Yes unobtainable due to medical condition Exam Const: General: comfortable and no acute distress GI: Inspection: non-distended GI Palp: Yes Soft to palpation, Yes Tenderness to palpation present (GI) (RUQ), Yes Guarding due to palpation present (GI) (RUQ) and No Rebound tenderness present Auscultation: normal bowel sounds Objective Data Vital Signs Vital
[2023-05-17 12:42] LABS: IFOB Positive Control Positive; Immunochemical Fecal Occult Bl Negative (N)
[2023-05-17 16:33] LABS: Glucose Point of Care 224 mg/dl (65-105)
[2023-05-17] MEDS: MORPHINE SULFATE (*CRX) 2 MG/ML INJ IV PUSH ×2 (16:37→20:13)
[2023-05-17] MEDS: INSULIN ASPART (*BKC) 100 UNITS/ML SUB-Q (17:29)
[2023-05-17] MEDS: CARBIDOPA/LEVODOPA 25/100 MG CR TABLET 2 TABLET PO (20:11)
[2023-05-17] MEDS: MEMANTINE 10 MG TABLET PO (20:11)
[2023-05-17] MEDS: INSULIN GLARGINE (*BKC) 100 UNITS/ML 15 UNITS SUB-Q (20:12)
[2023-05-17 20:39] LABS: Partial Thromboplastin Time 40.9 SECONDS (22.3-36.8)
[2023-05-17] MEDS: HEPARIN SOD/D5W 100 UNITS/ML 25,000 UNITS/250 ML BAG 10 UNITS IV CONT (21:24)
[2023-05-18] VITALS (17 sets, daily range): BP systolic 87–122; BP diastolic 55–70; PULSE 79–97; RESP 12–26; TEMP 36.6–37.2; O2SAT 93–99
[2023-05-18] MEDS: MORPHINE SULFATE (*CRX) 2 MG/ML INJ IV PUSH ×3 (00:19→20:58)
[2023-05-18 00:24] LABS: Glucose Point of Care 156 mg/dl (65-105)
[2023-05-18 03:46] LABS: Hematocrit 32.5 % (42.0-52.0); Mean Corpuscular HGB Conc 30.8 g/dl (32-36); Mean Corpuscular Hemoglobin 25.8 pg (26-34); Mean Corpuscular Volume 83.8 fl (80-100); Platelet Count Result 189 k/mm3 (150-375); Red Blood Count 3.88 M/mm3 (4.6-6.20); Red Cell Distribution Width 14.6 % (11.5-14.5); White Blood Count 11.3 K/mm3 (4.5-10.0)
[2023-05-18 03:56] LABS: Alanine Aminotransferase 13 U/L (6-50); Albumin Level 2.8 g/dL (3.5-5.1); Alkaline Phosphatase 97 U/L (38-126); Anion Gap 6 mmol/L (8-16); Aspartate Amino Transferase 128 U/L (17-59); Bilirubin,Total 0.4 mg/dL (0.2-1.3); Blood Urea Nitrogen 22 mg/dL (9-20); Calcium 8.1 mg/dL (8.4-10.2); Carbon Dioxide 24 mmol/L (22-30); Chloride 103 mmol/L (98-107); Estimated CRCL calculation 64 ml/min; Estimated Glomerular Filt Rate > 60; Glucose 175 mg/dL (65-110); Magnesium 2.1 mg/dL (1.6-2.3); Potassium 3.5 mmol/L (3.4-5.0); Sodium 133 mmol/L (137-145)
[2023-05-18] MEDS: metroNIDAZOLE 500 MG/ISO 100ML 500 MG/100 ML BAG 100 MG IVPB ×3 (06:17→21:44)
[2023-05-18] MEDS: CENTRAL LINE FLUSH 10 ML IV PUSH ×4 (06:18→21:56)
[2023-05-18] MEDS: MEMANTINE 10 MG TABLET PO ×2 (09:31→20:58)
[2023-05-18] MEDS: CARBIDOPA/LEVODOPA 25/100 MG TABLET 1 TABLET PO (09:31)
[2023-05-18] MEDS: ASPIRIN 325 MG ENTERIC TABLET PO (09:31)
[2023-05-18] MEDS: PANTOPRAZOLE SODIUM IV 40 MG VIAL IV PUSH (09:31)
[2023-05-18] MEDS: ATORVASTATIN 40 MG TABLET PO (09:31)
[2023-05-18] MEDS: polyethylene glycoL 3350 17 GM POWD.PACK PO (09:32)
[2023-05-18 11:20] LABS: Partial Thromboplastin Time 68.1 SECONDS (22.3-36.8)
--- NOTE | 2023-05-18 11:20 | WPDINTPN ---
Progress Note: A&P Assessment and Plan (1) Shock: Code(s): R57.9 - Shock, unspecified Status: Acute Assessment and Plan: 05/17: Patient transferred to ICU due to hypotension and appears to have shock which is likely combination of sepsis with possible cardiogenic component -He received fluids but was not further responsive to fluid as per NICOM assessment -: CTA chest on admission was negative for PE. -lower extremity venous Dopplers were negative for DVTs bilaterally -weaning Levophed will be titrated to maintain mean arterial pressure > 65 mmHg for adequate end organ perfusion UA was not suggestive of UTI. 05/16: Blood cultures negative so far 05/17: Culture from gallbladder pending 05/17: Cholecystostomy placed by IR -Continue empiric antibiotics vancomycin Levaquin and Flagyl (05/16) 05/17/2023: Echocardiogram Summary ? 1. Left ventricular chamber dimension is normal. ? 2. Left ventricular systolic function is normal, estimated at 60-65%. ? 3. There is moderately increased left ventricular wall thickness. ? 4. The left ventricular diastolic function is grade I diastolic dysfunction. ? 5. The basal inferolateral wall, and mid inferolateral wall are hypokinetic. ? 6. The mitral valve annulus is mildly calcified. ? 7. There is moderate aortic valve sclerosis. ? 8. There is mild tricuspid valve regurgitation. (2) Acute non-ST elevation myocardial infarction (NSTEMI): Code(s): I21.4 - Non-ST elevation (NSTEMI) myocardial infarction Status: Acute Assessment and Plan: Patient presented with mildly elevated troponin which has been gradually increasing. EKGs have been unhelpful due to artifact from his brain stimulator. Chest pain that he has been having is noncardiac in nature -on heparin infusion -echocardiogram as above -troponins peak at 15.700 at now down to 3.540 this morning -cardiology following the patient, will discuss, echocardiogram did show basal inferior lateral and mid inferolateral wall hypokinesis -Hold beta-ada due to hypotension, -hold statin due to elevated transaminases -CTA chest was negative for PE (3) Parkinson's disease: Qualifiers: Dyskinesia presence: with dyskinesia Fluctuating manifestations: with fluctuating manifestations Qualified Code(s): G20.B2 - Parkinson's disease with dyskinesia, with fluctuations Code(s): G20.A1 - Parkinson's disease without dyskinesia, without mention of fluctuations Status: Chronic Assessment and Plan: Continue Sinemet Speech evaluation was done for bedside swallow, recommended pureed diet (4) Pneumonia: Qualifiers: Laterality: bilateral Lung location: unspecified part of lung Pneumonia type: due to unspecified organism Qualified Code(s): J18.9 - Pneumonia, unspecified organism Code(s): J18.9 - Pneumonia, unspecified organism Status: Acute Assessment and Plan: See above (5) Renal mass: Code(s): N28.89 - Other specified disorders of kidney and ureter Status: Acute Assessment and Plan: CT scan Indeterminate 4 cm exophytic upper pole left renal cystic mass; consider further evaluation with renal MRI -appreciate urology evaluation and recommendation, patient may require an ultrasound or a dedicated renal mass protocol CT scan as MRI is contraindicated with deep brain stimulator 05/17/2023: Renal ultrasound: Complicated 3.5 cm cyst of the left kidney. Recommend correlation with MRI without and with contrast. (6) Diabetes mellitus: Code(s): E11.9 - Type 2 diabetes mellitus without complications Status: Acute Assessment and Plan: Continue sliding scale insulin. -continue Lantus (7) Cholecystitis: Code(s): K81.9 - Cholecystitis, unspecified Status: Acute Assessment and Plan: CT - IMPRESSION:? Chronic gallbladder wall thickening suggesting possible acute cholecystitis Right upper quadrant ultrasound- N
--- NOTE | 2023-05-18 11:43 | PCSTNOTE ---
Please refer to the Bedside Swallow Evaluation in the EMR. Please note, silent aspiration cannot be ruled out at bedside.
[2023-05-18 12:04] LABS: Glucose Point of Care 222 mg/dl (65-105)
[2023-05-18] MEDS: INSULIN ASPART (*BKC) 100 UNITS/ML SUB-Q ×2 (12:37→22:27)
[2023-05-18] MEDS: levoFLOXacin 750 MG/D5W 150 ML 750 MG/150 ML BAG 100 MG IVPB (12:44)
[2023-05-18] MEDS: HEPARIN SODIUM 5,000 UNITS/ML VIAL 3000 UNITS IV PUSH (12:44)
--- NOTE | 2023-05-18 13:08 | PM.PNCARD ---
Progress Note: A&P Assessment and Plan (1) Acute non-ST elevation myocardial infarction (NSTEMI): Code(s): I21.4 - Non-ST elevation (NSTEMI) myocardial infarction Status: Acute Assessment and Plan: Patient has elevated troponins that peaked at 15.7 on 05/17, now downtrending.? He is hypotensive and probably his septic shock is related to cholecystitis.? His troponin though indicates significant underlying coronary disease independent if this is a primary or secondary event. Echocardiogram shows LVEF 60-65%, with hypokinesis of the basal inferolateral wall and the mid inferolateral wall. Recommend to continue ASA once daily, high intensity statin. Will eventually need ischemic evaluation once he has recovered from his acute illnesses. (2) Parkinson's disease: Qualifiers: Dyskinesia presence: with dyskinesia Fluctuating manifestations: with fluctuating manifestations Qualified Code(s): G20.B2 - Parkinson's disease with dyskinesia, with fluctuations Code(s): G20.A1 - Parkinson's disease without dyskinesia, without mention of fluctuations Status: Chronic Assessment and Plan: Neurostimulator in place (3) Shock: Code(s): R57.9 - Shock, unspecified Status: Acute Assessment and Plan: Probably septic.? Antibiotics on board. Management as per Shop Teacher. (4) Diabetes mellitus: Code(s): E11.9 - Type 2 diabetes mellitus without complications Status: Acute Assessment and Plan: Significant diabetes with neuropathy.? Treatment per Hospitalist and Shop Teacher Plan Recommendations discussed with Shop Teacher, Dr. Kirby. Subjective Date/time seen: 05/18/23 13:08 Interval history: Reason for visit: NSTEMI HPI: Patient is a 67-year-old male who presented to the hospital because of shortness of breath and chest pain.? Patient also has been having some abdominal pain.? Patient presented to the hospital yesterday.? Shortness of breath started rather abruptly 2 days ago.? He also has significant pain on the right side with deep breathing.? He is not had known cardiac issues.? Does have a history of frequent syncope related to orthostasis and coughing.? He has chronic lower extremity swelling over the past 3 years.? It is improving number he elevates his legs.? He does have significant underlying health issues including Parkinson's disease with neurostimulator in place, neuropathy, diabetes, family history of heart disease and former smoker.? He does not describe any paroxysmal nocturnal dyspnea or orthopnea.? CT scan of the chest is concerning for cholecystitis.? General surgery is involved.? There was a plan to have a HIDA scan today however last night he decompensated and patient became significantly hypotensive with blood pressure systolic in the 60s.? He was temporarily started on pressors which did stabilize his BP.? He was also significantly short of breath at the time.? Troponins were initially elevated have continued to rise to over 15.? He currently is lying in bed with family at bedside it appears more stable.? Pressors have been weaned off.? He still feels a bit short of breath and has pleuritic chest pain. Date of service 05/18: Patient reports abdominal pain with coughing only. No chest pain. Review of Systems Review of Systems: All systems reviewed & are unremarkable except as noted in HPI and below (HPI) Exam Const: General: no acute distress HENMT: Mouth: Yes moist mucous membranes Eyes: General: appearance normal, both eyes and all related structures Sclera: sclerae normal Neck: Neck: supple Resp: Effort & Inspection: normal respiratory effort Cardio: Rate: regular rate Rhythm: regular rhythm Neuro: Speech: normal speech Psych: Mental Status: mental status grossly normal Objective Data Vital Signs Vital Signs: Vital Signs - 24 hr 05/17/23 14:00 05/17/23 14:00 05/17/23 14:00 Temperature 37.1 C Pulse Rate 94 94 94 Res
--- NOTE | 2023-05-18 13:33 | PM.PNGS ---
Progress Note: A&P Assessment and Plan (1) Shock: Code(s): R57.9 - Shock, unspecified Status: Acute Assessment and Plan: Cardiology feels this is more consistent with septic shock rather than cardiogenic. Patient on broad-spectrum antibiotics for urinary, pulmonary, or biliary source. Improved but still on Levophed and seems to be very sensitive to decreasing dose. Discussed with cafe or restaurant manager, Dr. Kirby. (2) Acute non-ST elevation myocardial infarction (NSTEMI): Code(s): I21.4 - Non-ST elevation (NSTEMI) myocardial infarction Status: Acute Assessment and Plan: Cardiology following. Patient on heparin drip. (3) Acalculous cholecystitis: Code(s): K81.9 - Cholecystitis, unspecified Status: Acute Assessment and Plan: Cholecystostomy tube placed yesterday and is working well. Draining green bile. No purulent fluid noted. Bile cultures pending. Continue antibiotics for presumptive diagnosis of acute cholecystitis. Patient did not have gallstones on imaging. (4) Parkinson's disease: Qualifiers: Dyskinesia presence: with dyskinesia Fluctuating manifestations: with fluctuating manifestations Qualified Code(s): G20.B2 - Parkinson's disease with dyskinesia, with fluctuations Code(s): G20.A1 - Parkinson's disease without dyskinesia, without mention of fluctuations Status: Chronic Assessment and Plan: Has had Parkinson's for 20 years and has deep brain stimulator. Patient has significant rigidity and contractures. (5) Diabetes mellitus: Code(s): E11.9 - Type 2 diabetes mellitus without complications Status: Chronic (6) Pneumonia: Qualifiers: Laterality: bilateral Lung location: unspecified part of lung Pneumonia type: due to unspecified organism Qualified Code(s): J18.9 - Pneumonia, unspecified organism Code(s): J18.9 - Pneumonia, unspecified organism Status: Acute Assessment and Plan: Noted on CTA done on admission for shortness of breath. Requiring less oxygen and breathing better. On broad-spectrum antibiotics. Subjective Subjective Date/Time Seen: 05/18/23 13:33 Post Op day: 1 (Placement cholecystostomy tube) Interval history: Patient much more awake and verbalizing more today. Appears more comfortable. Not voicing any complaints. Patient's has not voiced any complaints. Review of Systems Review of Systems: ROS unobtainable: Yes unobtainable due to medical condition Exam Const: General: comfortable, awake, lethargic, average body habitus (Contracted) and well nourished Orientation/consciousness: confusion and lethargic GI: Inspection: non-distended and other (Drainage catheter site looks good, draining green bile) GI Palp: Yes Firmness to palpation present (GI) and Yes Tenderness to palpation present (GI) (Right upper quadrant and catheter site) Objective Data Vital Signs Vital Signs: Vital Signs - 24 hr 05/17/23 14:00 05/17/23 14:00 05/17/23 14:00 Temperature 37.1 C Pulse Rate 94 94 94 Respiratory Rate 19 19 Blood Pressure 100/61 100/61 Pulse Oximetry 96 96 Oxygen Delivery Oxygen Flow Rate 05/17/23 16:00 05/17/23 16:00 05/17/23 16:00 Temperature 37.4 C Pulse Rate 93 93 93 Respiratory Rate 20 20 Blood Pressure 100/54 L Pulse Oximetry 96 96 Oxygen Delivery Nasal Cannula Oxygen Flow Rate 1 05/17/23 18:00 05/17/23 18:00 05/17/23 15:00 Temperature Pulse Rate 90 90 96 Respiratory Rate 18 Blood Pressure 104/60 117/71 Pulse Oximetry 94 Oxygen Delivery Oxygen Flow Rate 05/17/23 17:00 05/17/23 18:30 05/17/23 20:04 Temperature Pulse Rate 88 90 Respiratory Rate Blood Pressure 94/54 L 109/63 Pulse Oximetry 94 Oxygen Delivery Nasal Cannula Oxygen Flow Rate 1 05/17/23 20:12 05/17/23 20:00 05/17/23 20:00 Temperature Pulse Rate 90 90 92 Respiratory Rate 18 Blood Pressure 90/61 L Pulse
[2023-05-18 14:13] LABS: Vancomycin Trough 9.8 ug/mL (10.0-20.0)
[2023-05-18 16:39] LABS: Glucose Point of Care 196 mg/dl (65-105)
[2023-05-18 18:30] LABS: Partial Thromboplastin Time 99.2 SECONDS (22.3-36.8)
[2023-05-18] MEDS: HEPARIN SOD/D5W 100 UNITS/ML 25,000 UNITS/250 ML BAG 12 UNITS IV CONT (19:24)
[2023-05-18] MEDS: INSULIN GLARGINE (*BKC) 100 UNITS/ML 15 UNITS SUB-Q (20:58)
[2023-05-18] MEDS: CARBIDOPA/LEVODOPA 25/100 MG CR TABLET 2 TABLET PO (20:58)
[2023-05-18 21:57] LABS: Glucose Point of Care 220 mg/dl (65-105)
[2023-05-19] VITALS (13 sets, daily range): BP systolic 93–122; BP diastolic 60–74; PULSE 74–98; RESP 12–22; TEMP 36.6–37.2; O2SAT 94–100
[2023-05-19 00:35] LABS: Partial Thromboplastin Time 105.4 SECONDS (22.3-36.8)
[2023-05-19] MEDS: MORPHINE SULFATE (*CRX) 2 MG/ML INJ IV PUSH (02:18)
[2023-05-19] MEDS: CENTRAL LINE FLUSH 10 ML IV PUSH ×4 (03:52→20:53)
[2023-05-19 06:13] LABS: Basophils Absolute Auto 0.1 K/mm3 (0.0-0.1); Basophils Percent Auto 0.5 % (0.2-1.2); Eosinophils Absolute Auto 0.6 K/mm3 (0-0.3); Eosinophils Percent Auto 5.1 % (0-4.4); Hematocrit 31.9 % (42.0-52.0); Hemoglobin 9.8 g/dL (14.0-18.0); Immature Granulocyte Absolute 0.17 K/mm3 (0.00-0.031); Immature Granulocyte Percent A 1.6 % (0-0.5); Lymphocytes Absolute Auto 1.01 K/mm3 (0.9-3.2); Lymphocytes Percent Auto 9.5 % (18.3-44.2); Mean Corpuscular HGB Conc 30.7 g/dl (32-36); Mean Corpuscular Hemoglobin 25.7 pg (26-34); Mean Corpuscular Volume 83.7 fl (80-100); Mean Platelet Volume 10.2 fl (7.4-10.4); Monocytes Absolute Auto 0.4 K/mm3 (0.1-0.6); Monocytes Percent Auto 3.7 % (2.6-8.5); Neutrophils Absolute Auto 8.5 K/mm3 (1.3-6.7); Neutrophils Percent Auto 79.6 % (45.5-73.1); Platelet Count Result 191 k/mm3 (150-375); Red Blood Count 3.81 M/mm3 (4.6-6.20); Red Cell Distribution Width 14.6 % (11.5-14.5); White Blood Count 10.7 K/mm3 (4.5-10.0)
[2023-05-19] MEDS: metroNIDAZOLE 500 MG/ISO 100ML 500 MG/100 ML BAG 100 MG IVPB ×3 (06:18→22:46)
[2023-05-19 06:22] LABS: Alanine Aminotransferase 9 U/L (6-50); Albumin Level 2.7 g/dL (3.5-5.1); Alkaline Phosphatase 88 U/L (38-126); Anion Gap 3 mmol/L (8-16); Aspartate Amino Transferase 55 U/L (17-59); Bilirubin,Total 0.3 mg/dL (0.2-1.3); Blood Urea Nitrogen 16 mg/dL (9-20); Carbon Dioxide 27 mmol/L (22-30); Chloride 102 mmol/L (98-107); Estimated CRCL calculation 70 ml/min; Estimated Glomerular Filt Rate > 60; Glucose 255 mg/dL (65-110); Phosphorus 2.2 mg/dL (2.5-4.5); Potassium 3.4 mmol/L (3.4-5.0); Sodium 132 mmol/L (137-145)
[2023-05-19 06:26] LABS: Partial Thromboplastin Time 104.9 SECONDS (22.3-36.8)
[2023-05-19] MEDS: INSULIN ASPART (*BKC) 100 UNITS/ML SUB-Q ×2 (08:08→17:16)
[2023-05-19] MEDS: PANTOPRAZOLE SODIUM IV 40 MG VIAL IV PUSH (08:08)
[2023-05-19] MEDS: CARBIDOPA/LEVODOPA 25/100 MG TABLET 1 TABLET PO (08:09)
[2023-05-19] MEDS: ASPIRIN 325 MG ENTERIC TABLET PO (08:09)
[2023-05-19] MEDS: ATORVASTATIN 40 MG TABLET PO (08:10)
[2023-05-19] MEDS: MEMANTINE 10 MG TABLET PO ×2 (08:10→20:52)
[2023-05-19 08:24] LABS: Glucose Point of Care 209 mg/dl (65-105)
--- NOTE | 2023-05-19 09:33 | PM.PNCARD ---
Progress Note: A&P Assessment and Plan (1) Acute non-ST elevation myocardial infarction (NSTEMI): Code(s): I21.4 - Non-ST elevation (NSTEMI) myocardial infarction Status: Acute Assessment and Plan: Patient has elevated troponins that peaked at 15.7 on 05/17, now downtrending.? He is hypotensive and probably has septic shock related to cholecystitis.? His troponin though indicates significant underlying coronary disease independent if this is a primary or secondary event. Echocardiogram shows LVEF 60-65%, with hypokinesis of the basal inferolateral wall and the mid inferolateral wall. Recommend to continue ASA once daily, high intensity statin. Will eventually need ischemic evaluation once he has recovered from his acute illnesses. (2) Parkinson's disease: Qualifiers: Dyskinesia presence: with dyskinesia Fluctuating manifestations: with fluctuating manifestations Qualified Code(s): G20.B2 - Parkinson's disease with dyskinesia, with fluctuations Code(s): G20.A1 - Parkinson's disease without dyskinesia, without mention of fluctuations Status: Chronic Assessment and Plan: Neurostimulator in place (3) Shock: Code(s): R57.9 - Shock, unspecified Status: Acute Assessment and Plan: Probably septic.? Antibiotics on board. Management as per Hand Drawer In. (4) Diabetes mellitus: Code(s): E11.9 - Type 2 diabetes mellitus without complications Status: Chronic Assessment and Plan: Significant diabetes with neuropathy.? Treatment per Hospitalist and Hand Drawer In (5) Hypokalemia: Code(s): E87.6 - Hypokalemia Status: Acute Assessment and Plan: Potassium 3.4 today. KCL 40 mEq p.o. times 1 to be given Plan Recommendations discussed with Hand Drawer In, Dr. Kirby. Subjective Date/time seen: 05/19/23 09:33 Interval history: Reason for visit: NSTEMI HPI: Patient is a 67-year-old male who presented to the hospital because of shortness of breath and chest pain.? Patient also has been having some abdominal pain.? Patient presented to the hospital yesterday.? Shortness of breath started rather abruptly 2 days ago.? He also has significant pain on the right side with deep breathing.? He is not had known cardiac issues.? Does have a history of frequent syncope related to orthostasis and coughing.? He has chronic lower extremity swelling over the past 3 years.? It is improving number he elevates his legs.? He does have significant underlying health issues including Parkinson's disease with neurostimulator in place, neuropathy, diabetes, family history of heart disease and former smoker.? He does not describe any paroxysmal nocturnal dyspnea or orthopnea.? CT scan of the chest is concerning for cholecystitis.? General surgery is involved.? There was a plan to have a HIDA scan today however last night he decompensated and patient became significantly hypotensive with blood pressure systolic in the 60s.? He was temporarily started on pressors which did stabilize his BP.? He was also significantly short of breath at the time.? Troponins were initially elevated have continued to rise to over 15.? He currently is lying in bed with family at bedside it appears more stable.? Pressors have been weaned off.? He still feels a bit short of breath and has pleuritic chest pain. Date of service 05/18: Patient reports abdominal pain with coughing only. No chest pain. Date of service 05/19/2023: Still with some chest pain with coughing. No shortness of breath. Abdominal pain is better Review of Systems Review of Systems: All systems reviewed & are unremarkable except as noted in HPI and below (HPI) Constitutional: Constitutional: Denies body ache(s) and Denies excessive sweating Eyes: Eyes: Denies blurry vision ENT: Denies nasal congestion Cardiovascular: Cardiovascular: Reports chest pain, Reports leg edema and Reports dyspnea Respiratory: Respiratory: Reports
--- NOTE | 2023-05-19 11:35 | WPDINTPN ---
Progress Note: A&P Assessment and Plan (1) Shock: Code(s): R57.9 - Shock, unspecified Status: Acute Assessment and Plan: 05/17: Patient transferred to ICU due to hypotension and appears to have shock which is likely combination of sepsis with possible cardiogenic component -He received fluids but was not further responsive to fluid as per NICOM assessment -: CTA chest on admission was negative for PE. -lower extremity venous Dopplers were negative for DVTs bilaterally -weaning Levophed will be titrated to maintain mean arterial pressure > 65 mmHg for adequate end organ perfusion UA was not suggestive of UTI. 05/16: Blood cultures negative so far 05/17: Culture from gallbladder pending 05/17: Cholecystostomy placed by IR -Continue Levaquin and Flagyl (05/16) -05/19: Will discontinue vancomycin as blood cultures are negative and MRSA screen is negative 05/17/2023: Echocardiogram Summary ? 1. Left ventricular chamber dimension is normal. ? 2. Left ventricular systolic function is normal, estimated at 60-65%. ? 3. There is moderately increased left ventricular wall thickness. ? 4. The left ventricular diastolic function is grade I diastolic dysfunction. ? 5. The basal inferolateral wall, and mid inferolateral wall are hypokinetic. ? 6. The mitral valve annulus is mildly calcified. ? 7. There is moderate aortic valve sclerosis. ? 8. There is mild tricuspid valve regurgitation. (2) Acute non-ST elevation myocardial infarction (NSTEMI): Code(s): I21.4 - Non-ST elevation (NSTEMI) myocardial infarction Status: Acute Assessment and Plan: Patient presented with mildly elevated troponin which has been gradually increasing. EKGs have been unhelpful due to artifact from his brain stimulator. Chest pain that he has been having is noncardiac in nature -on heparin infusion -echocardiogram as above -troponins peak at 15.700 at now down to 3.540 this morning -cardiology following the patient, will discuss, echocardiogram did show basal inferior lateral and mid inferolateral wall hypokinesis. He will require ischemic workup, after the acute illness -Hold beta-ada since he just came off Levophed approximately 24 hours -started on statin, as his LFTs improving -CTA chest was negative for PE (3) Parkinson's disease: Qualifiers: Dyskinesia presence: with dyskinesia Fluctuating manifestations: with fluctuating manifestations Qualified Code(s): G20.B2 - Parkinson's disease with dyskinesia, with fluctuations Code(s): G20.A1 - Parkinson's disease without dyskinesia, without mention of fluctuations Status: Chronic Assessment and Plan: Continue Sinemet -patient has deep brain stimulators Speech evaluation was done for bedside swallow, recommended pureed diet (4) Pneumonia: Qualifiers: Laterality: bilateral Lung location: unspecified part of lung Pneumonia type: due to unspecified organism Qualified Code(s): J18.9 - Pneumonia, unspecified organism Code(s): J18.9 - Pneumonia, unspecified organism Status: Acute Assessment and Plan: See above (5) Renal mass: Code(s): N28.89 - Other specified disorders of kidney and ureter Status: Acute Assessment and Plan: CT scan Indeterminate 4 cm exophytic upper pole left renal cystic mass; consider further evaluation with renal MRI -appreciate urology evaluation and recommendation, patient may require an ultrasound or a dedicated renal mass protocol CT scan as MRI is contraindicated with deep brain stimulator 05/17/2023: Renal ultrasound: Complicated 3.5 cm cyst of the left kidney. Recommend correlation with MRI without and with contrast. (6) Diabetes mellitus: Code(s): E11.9 - Type 2 diabetes mellitus without complications Status: Chronic Assessment and Plan: Continue sliding scale insulin. -continue Lantus (7) Cholecystitis: Code(s): K81.9 - Cholecysti
[2023-05-19] MEDS: POTASSIUM CHLORIDE 20 MEQ PACKET (FOR LIQUID) 40 MEQ PO (11:42)
[2023-05-19 11:43] LABS: Glucose Point of Care 194 mg/dl (65-105)
[2023-05-19] MEDS: levoFLOXacin 750 MG/D5W 150 ML 750 MG/150 ML BAG 100 MG IVPB (11:49)
--- NOTE | 2023-05-19 13:57 | PM.PNGS ---
Progress Note: A&P Assessment and Plan (1) Acalculous cholecystitis: Code(s): K81.9 - Cholecystitis, unspecified Status: Acute Assessment and Plan: Biliary drainage tube in place and working well. Results of bile cultures are pending but showing mixed elie and g negative rods. (2) Acute non-ST elevation myocardial infarction (NSTEMI): Code(s): I21.4 - Non-ST elevation (NSTEMI) myocardial infarction Status: Acute Assessment and Plan: Heparin drip has been stopped. Patient can be transferred to intermediate care unit once bed available. (3) Parkinson's disease: Qualifiers: Dyskinesia presence: with dyskinesia Fluctuating manifestations: with fluctuating manifestations Qualified Code(s): G20.B2 - Parkinson's disease with dyskinesia, with fluctuations Code(s): G20.A1 - Parkinson's disease without dyskinesia, without mention of fluctuations Status: Chronic Assessment and Plan: Back on home medications (4) Pneumonia: Qualifiers: Laterality: bilateral Lung location: unspecified part of lung Pneumonia type: due to unspecified organism Qualified Code(s): J18.9 - Pneumonia, unspecified organism Code(s): J18.9 - Pneumonia, unspecified organism Status: Acute Assessment and Plan: Possible right lower lobe pneumonia. On antibiotics. Subjective Subjective Date/Time Seen: 05/19/23 13:57 Post Op day: 2 (Cholecystostomy tube placement) Patient reports: feels better, pain is less (Abdominal pain much improved), tolerating liquids well (Tolerating pure eat diet fair) and afebrile Review of Systems Review of Systems: All systems reviewed & are unremarkable except as noted in HPI and below (HPI) Exam Const: General: comfortable, awake and tired appearing GI: Inspection: non-distended and incision (Biliary tube draining bile as expected) GI Palp: Yes Firmness to palpation present (GI) (Stiffness, spasticity) and No Tenderness to palpation present (GI) Objective Data Vital Signs Vital Signs: Vital Signs - 24 hr 05/18/23 14:00 05/18/23 14:00 05/18/23 16:00 Temperature 36.9 C Pulse Rate 95 97 80 Respiratory Rate 17 12 Blood Pressure 93/58 L 95/62 L Pulse Oximetry 95 97 Oxygen Delivery Oxygen Flow Rate 05/18/23 16:00 05/18/23 18:00 05/18/23 18:00 Temperature Pulse Rate 81 85 85 Respiratory Rate 15 Blood Pressure 107/65 Pulse Oximetry 95 Oxygen Delivery Oxygen Flow Rate 05/18/23 16:00 05/18/23 19:43 05/18/23 20:00 Temperature Pulse Rate 84 84 Respiratory Rate 14 14 Blood Pressure Pulse Oximetry 96 99 99 Oxygen Delivery Nasal Cannula Nasal Cannula Nasal Cannula Oxygen Flow Rate 1 1 1 05/18/23 20:00 05/18/23 22:00 05/18/23 20:00 Temperature 36.9 C Pulse Rate 82 84 84 Respiratory Rate 18 Blood Pressure 116/63 Pulse Oximetry 95 Oxygen Delivery Oxygen Flow Rate 05/18/23 22:00 05/18/23 23:23 05/19/23 00:00 Temperature 37.2 C Pulse Rate 84 79 80 Respiratory Rate 15 13 Blood Pressure 102/61 99/65 L Pulse Oximetry 98 97 95 Oxygen Delivery Nasal Cannula Oxygen Flow Rate 1 05/19/23 02:00 05/19/23 00:00 05/19/23 02:00 Temperature Pulse Rate 81 80 80 Respiratory Rate 13 Blood Pressure 120/66 Pulse Oximetry 96 Oxygen Delivery Oxygen Flow Rate 05/19/23 04:00 05/19/23 04:00 05/19/23 06:00 Temperature 36.9 C Pulse Rate 77 79 78 Respiratory Rate 12 13 Blood Pressure 101/61 Pulse Oximetry 94 94 Oxygen Delivery Nasal Cannula Oxygen Flow Rate 1 05/19/23 06:00 05/19/23 08:00 05/19/23 08:00 Temperature 36.6 C Pulse Rate 78 74 Respiratory Rate 13 12 Blood Pressure 108/67 93/65 L Pulse Oximetry 97 97 97 Oxygen Delivery Nasal Cannula Oxygen Flow Rate 1 05/19/23 09:49 05/19/23 10:00 05/19/23 08:00 Temperature Pulse Rate 92 78 Respiratory Rate 12 Blood Pressure 104/65 Pulse Oximetry 9
[2023-05-19 17:41] LABS: Glucose Point of Care 231 mg/dl (65-105)
[2023-05-19] MEDS: INSULIN GLARGINE (*BKC) 100 UNITS/ML 15 UNITS SUB-Q (20:51)
[2023-05-19] MEDS: CARBIDOPA/LEVODOPA 25/100 MG CR TABLET 2 TABLET PO (20:52)
[2023-05-19 21:08] LABS: Glucose Point of Care 199 mg/dl (65-105)
[2023-05-20] VITALS (15 sets, daily range): BP systolic 123–139; BP diastolic 62–81; PULSE 73–92; RESP 14–23; TEMP 36.2–37.1; O2SAT 95–100
[2023-05-20] MEDS: CENTRAL LINE FLUSH 10 ML IV PUSH ×4 (06:16→21:00)
[2023-05-20] MEDS: metroNIDAZOLE 500 MG/ISO 100ML 500 MG/100 ML BAG 100 MG IVPB ×2 (06:16→13:01)
[2023-05-20 06:18] LABS: Hematocrit 35.7 % (42.0-52.0); Mean Corpuscular HGB Conc 30.8 g/dl (32-36); Mean Corpuscular Hemoglobin 25.5 pg (26-34); Mean Corpuscular Volume 82.6 fl (80-100); Mean Platelet Volume 10.5 fl (7.4-10.4); Platelet Count Result 220 k/mm3 (150-375); Red Blood Count 4.32 M/mm3 (4.6-6.20); Red Cell Distribution Width 14.3 % (11.5-14.5); White Blood Count 9.3 K/mm3 (4.5-10.0)
[2023-05-20 06:34] LABS: Alanine Aminotransferase 10 U/L (6-50); Albumin Level 2.9 g/dL (3.5-5.1); Alkaline Phosphatase 102 U/L (38-126); Anion Gap 6 mmol/L (8-16); Aspartate Amino Transferase 34 U/L (17-59); Bilirubin,Total 0.5 mg/dL (0.2-1.3); Blood Urea Nitrogen 13 mg/dL (9-20); Calcium 8.5 mg/dL (8.4-10.2); Carbon Dioxide 25 mmol/L (22-30); Chloride 104 mmol/L (98-107); Estimated CRCL calculation 78 ml/min; Estimated Glomerular Filt Rate > 60; Glucose 171 mg/dL (65-110); Magnesium 1.9 mg/dL (1.6-2.3); Potassium 3.5 mmol/L (3.4-5.0); Sodium 135 mmol/L (137-145)
[2023-05-20] MEDS: PANTOPRAZOLE SODIUM IV 40 MG VIAL IV PUSH (08:42)
[2023-05-20] MEDS: ATORVASTATIN 40 MG TABLET PO (08:42)
[2023-05-20] MEDS: ASPIRIN 325 MG ENTERIC TABLET PO (08:42)
[2023-05-20] MEDS: CARBIDOPA/LEVODOPA 25/100 MG TABLET 1 TABLET PO (08:42)
[2023-05-20] MEDS: MEMANTINE 10 MG TABLET PO ×2 (08:42→21:21)
[2023-05-20] MEDS: polyethylene glycoL 3350 17 GM POWD.PACK PO (08:43)
[2023-05-20 09:00] LABS: Glucose Point of Care 165 mg/dl (65-105)
--- NOTE | 2023-05-20 09:08 | PM.PNCARD ---
Progress Note: A&P Assessment and Plan (1) Acute non-ST elevation myocardial infarction (NSTEMI): Code(s): I21.4 - Non-ST elevation (NSTEMI) myocardial infarction Status: Acute Assessment and Plan: Now off of pressors. Continue aspirin, statin. Will start low-dose beta-ada in the form metoprolol tartrate 12.5 mg p.o. b.i.d. His troponins indicate significant underlying coronary disease independent if this is a primary or secondary event. Echocardiogram shows LVEF 60-65%, with hypokinesis of the basal inferolateral wall and the mid inferolateral wall. Will eventually need ischemic evaluation once he has recovered from his acute illnesses. (2) Parkinson's disease: Qualifiers: Dyskinesia presence: with dyskinesia Fluctuating manifestations: with fluctuating manifestations Qualified Code(s): G20.B2 - Parkinson's disease with dyskinesia, with fluctuations Code(s): G20.A1 - Parkinson's disease without dyskinesia, without mention of fluctuations Status: Chronic Assessment and Plan: Neurostimulator in place (3) Shock: Code(s): R57.9 - Shock, unspecified Status: Acute Assessment and Plan: Probably septic.? Antibiotics on board. Management as per Gridcap Machine Operator. (4) Diabetes mellitus: Code(s): E11.9 - Type 2 diabetes mellitus without complications Status: Chronic Assessment and Plan: Significant diabetes with neuropathy.? Treatment per Hospitalist and [employer] Machine Operator (5) Hypokalemia: Code(s): E87.6 - Hypokalemia Status: Acute Assessment and Plan: Potassium 3.5 today. KCL 40 mEq p.o. times 1 to be given today Plan Recommendations discussed with Grid[employer] Machine Operator, Dr. Kirby. Subjective Date/time seen: 05/20/23 09:08 Interval history: Reason for visit: NSTEMI HPI: Patient is a 67-year-old male who presented to the hospital because of shortness of breath and chest pain.? Patient also has been having some abdominal pain.? Patient presented to the hospital yesterday.? Shortness of breath started rather abruptly 2 days ago.? He also has significant pain on the right side with deep breathing.? He is not had known cardiac issues.? Does have a history of frequent syncope related to orthostasis and coughing.? He has chronic lower extremity swelling over the past 3 years.? It is improving number he elevates his legs.? He does have significant underlying health issues including Parkinson's disease with neurostimulator in place, neuropathy, diabetes, family history of heart disease and former smoker.? He does not describe any paroxysmal nocturnal dyspnea or orthopnea.? CT scan of the chest is concerning for cholecystitis.? General surgery is involved.? There was a plan to have a HIDA scan today however last night he decompensated and patient became significantly hypotensive with blood pressure systolic in the 60s.? He was temporarily started on pressors which did stabilize his BP.? He was also significantly short of breath at the time.? Troponins were initially elevated have continued to rise to over 15.? He currently is lying in bed with family at bedside it appears more stable.? Pressors have been weaned off.? He still feels a bit short of breath and has pleuritic chest pain. Date of service 05/18: Patient reports abdominal pain with coughing only. No chest pain. Date of service 05/19/2023: Still with some chest pain with coughing. No shortness of breath. Abdominal pain is better Date of service 05/20/2023: More awake alert today also. Still as chest pain with coughing. No shortness of breath. Review of Systems Review of Systems: All systems reviewed & are unremarkable except as noted in HPI and below (HPI) Constitutional: Constitutional: Denies body ache(s) and Denies excessive sweating Eyes: Eyes: Denies blurry vision ENT: Denies nasal congestion Cardiovascular: Cardiovascular: Reports chest pain, Reports leg edema and Reports dyspnea
[2023-05-20 11:51] LABS: Glucose Point of Care 207 mg/dl (65-105)
[2023-05-20] MEDS: ONDANSETRON INJ 4 MG/2 ML VIAL IV PUSH (12:22)
[2023-05-20] MEDS: levoFLOXacin 750 MG/D5W 150 ML 750 MG/150 ML BAG 100 MG IVPB (13:01)
[2023-05-20] MEDS: POTASSIUM CHLORIDE 20 MEQ PACKET (FOR LIQUID) 40 MEQ PO (13:01)
--- NOTE | 2023-05-20 16:25 | PM.PNGS ---
Progress Note: A&P Assessment and Plan (1) Acalculous cholecystitis: Code(s): K81.9 - Cholecystitis, unspecified Status: Acute Assessment and Plan: Continue biliary drain via cholecystostomy tube and IV antibiotics. Patient improving. He is not a surgical candidate. Plan on cholecystostomy tube contrast injection next week to evaluate patency of cystic duct. (2) Acute non-ST elevation myocardial infarction (NSTEMI): Code(s): I21.4 - Non-ST elevation (NSTEMI) myocardial infarction Status: Acute (3) Parkinson's disease: Qualifiers: Dyskinesia presence: with dyskinesia Fluctuating manifestations: with fluctuating manifestations Qualified Code(s): G20.B2 - Parkinson's disease with dyskinesia, with fluctuations Code(s): G20.A1 - Parkinson's disease without dyskinesia, without mention of fluctuations Status: Chronic (4) Diabetes mellitus: Code(s): E11.9 - Type 2 diabetes mellitus without complications Status: Chronic (5) Pneumonia: Qualifiers: Laterality: bilateral Lung location: unspecified part of lung Pneumonia type: due to unspecified organism Qualified Code(s): J18.9 - Pneumonia, unspecified organism Code(s): J18.9 - Pneumonia, unspecified organism Status: Acute Subjective Subjective Date/Time Seen: 05/20/23 16:25 Post Op day: 3 (Day 3 status post cholecystostomy tube) Patient reports: pain is less, bowel movement (3 BM so far today), nausea (Given Zofran and this is improved somewhat, had poor appetite with the nausea) and afebrile Review of Systems Review of Systems: All systems reviewed & are unremarkable except as noted in HPI and below (HPI) Exam Const: General: comfortable, no acute distress, alert and awake Nutritional Appearance: well nourished GI: Inspection: non-distended and incision (Biliary drain site looks good, draining bile as before) GI Palp: Yes Soft to palpation and No Tenderness to palpation present (GI) Objective Data Vital Signs Vital Signs: Vital Signs - 24 hr 05/19/23 18:00 05/19/23 20:29 05/19/23 20:00 Temperature Pulse Rate 78 84 Respiratory Rate Blood Pressure Pulse Oximetry 100 Oxygen Delivery Nasal Cannula Oxygen Flow Rate 1 05/19/23 20:00 05/20/23 00:00 05/20/23 00:00 Temperature 36.6 C 36.7 C Pulse Rate 84 87 Respiratory Rate 15 16 Blood Pressure 122/74 128/68 Pulse Oximetry 97 98 97 Oxygen Delivery Room Air Oxygen Flow Rate 05/20/23 00:00 05/20/23 03:42 05/20/23 04:00 Temperature Pulse Rate 88 81 Respiratory Rate Blood Pressure Pulse Oximetry 99 Oxygen Delivery Room Air Oxygen Flow Rate 05/20/23 04:00 05/20/23 09:06 05/20/23 08:00 Temperature 36.9 C Pulse Rate 81 88 Respiratory Rate 14 Blood Pressure 127/71 Pulse Oximetry 99 100 Oxygen Delivery Room Air Room Air Oxygen Flow Rate 05/20/23 08:00 05/20/23 10:00 05/20/23 08:00 Temperature 37.1 C Pulse Rate 92 87 92 Respiratory Rate 18 Blood Pressure 135/75 Pulse Oximetry 100 Oxygen Delivery Oxygen Flow Rate 05/20/23 12:00 05/20/23 12:00 05/20/23 14:00 Temperature Pulse Rate 86 84 Respiratory Rate Blood Pressure Pulse Oximetry Oxygen Delivery Room Air Oxygen Flow Rate Intake/Output Intake/Output: Intake & Output 05/17/23 05/18/23 05/19/23 05/20/23 23:59 23:59 23:59 23:59 Intake Total 650 1400 1890 590 Output Total 1150 1470 2900 1440 Balance - -850 Meds/Results Medications: Active Medications Generic Name Dose Route Start Last Admin Trade Name Freq PRN Reason Stop Dose Admin Albuterol 2.5 mg 05/17/23 20:47 05/17/23 23:24 Albuterol Sulfate Neb 2.5 Mg/3 Ml Inh INHALATION 2.5 mg Q6HRT PRN Administration Shortness Of Breath Aspirin 325 mg 05/17/23 09:00 05/20/23 08:42 Aspirin 325 Mg Enteric Tablet PO 325 mg QAM JOSE DAVID Administration Atorvasta
--- NOTE | 2023-05-20 16:58 | PC.NURSE ---
This patient, Jayden Cherry, was received from ICU 4 on 05/20/23 at 1652. Patient/family oriented to unit policies and routines
--- NOTE | 2023-05-20 17:43 | PC.NURSE ---
This patient, Jayden Cherry, was transferred to [facility] on 05/20/23 at 1652. Personal belongings sent with patient. Report given to Cris. Appropriate documentation sent with patient.
--- NOTE | 2023-05-20 20:49 | PM.IMPN ---
Progress Note: A&P Assessment and Plan (1) Hypokalemia: Code(s): E87.6 - Hypokalemia Status: Acute (2) Acalculous cholecystitis: Code(s): K81.9 - Cholecystitis, unspecified Status: Acute (3) Cholecystitis: Code(s): K81.9 - Cholecystitis, unspecified Status: Acute (4) Diabetes mellitus: Code(s): E11.9 - Type 2 diabetes mellitus without complications Status: Chronic (5) Shock: Code(s): R57.9 - Shock, unspecified Status: Acute (6) Renal mass: Code(s): N28.89 - Other specified disorders of kidney and ureter Status: Acute (7) Acute non-ST elevation myocardial infarction (NSTEMI): Code(s): I21.4 - Non-ST elevation (NSTEMI) myocardial infarction Status: Acute (8) Parkinson's disease: Qualifiers: Dyskinesia presence: with dyskinesia Fluctuating manifestations: with fluctuating manifestations Qualified Code(s): G20.B2 - Parkinson's disease with dyskinesia, with fluctuations Code(s): G20.A1 - Parkinson's disease without dyskinesia, without mention of fluctuations Status: Chronic (9) Pneumonia: Qualifiers: Laterality: bilateral Lung location: unspecified part of lung Pneumonia type: due to unspecified organism Qualified Code(s): J18.9 - Pneumonia, unspecified organism Code(s): J18.9 - Pneumonia, unspecified organism Status: Acute Plan (1) Shock: ?Code(s): R57.9 - Shock, unspecified ?Status:?Acute ?Assessment and Plan: 05/17: Patient transferred to ICU due to hypotension and appears to have shock which is likely combination of sepsis with possible cardiogenic component -He received fluids but was not further responsive to fluid as per NICOM assessment -: CTA chest on admission was negative for PE.? -lower extremity venous Dopplers were negative for DVTs bilaterally -weaning Levophed will be titrated to maintain mean arterial pressure > 65 mmHg for adequate end organ perfusion UA was not suggestive of UTI. 05/16:? Blood cultures negative so far 05/17:? Culture from gallbladder pending 05/17:? Cholecystostomy placed by IR -Continue Levaquin and Flagyl (05/16) -05/19:? Will discontinue vancomycin as blood cultures are negative and MRSA screen is negative 05/17/2023: Echocardiogram Summary ? 1. Left ventricular chamber dimension is normal. ? 2. Left ventricular systolic function is normal, estimated at 60-65%. ? 3. There is moderately increased left ventricular wall thickness. ? 4. The left ventricular diastolic function is grade I diastolic dysfunction. ? 5. The basal inferolateral wall, and mid inferolateral wall are hypokinetic. ? 6. The mitral valve annulus is mildly calcified. ? 7. There is moderate aortic valve sclerosis. ? 8. There is mild tricuspid valve regurgitation. (2) Acute non-ST elevation myocardial infarction (NSTEMI): ?Code(s): I21.4 - Non-ST elevation (NSTEMI) myocardial infarction ?Status:?Acute ?Assessment and Plan: Patient presented with mildly elevated troponin which has been gradually increasing.? EKGs have been unhelpful due to artifact from his brain stimulator.? Chest pain that he has been having is noncardiac in nature -on heparin infusion -echocardiogram as above -troponins peak at 15.700 at now down to 3.540 this morning -cardiology following the patient, will discuss, echocardiogram did show basal inferior lateral and mid inferolateral wall hypokinesis.? He will require ischemic workup, after the acute illness -Hold beta-ada since he just came off Levophed approximately 24 hours -started on statin, as his LFTs improving -CTA chest was negative for PE 05/20 Per Cardiology Now off of pressors.? Continue aspirin, statin.? Will start low-dose beta-ada in the form metoprolol tartrate 12.5 mg p.o. b.i.d. His troponins indicate significant underlying coronary disease independent if this is a primary or secondary event. Echocar
[2023-05-20 21:11] LABS: Glucose Point of Care 185 mg/dl (65-105)
[2023-05-20] MEDS: metroNIDAZOLE 250 MG TABLET 500 MG PO (21:21)
[2023-05-20] MEDS: CARBIDOPA/LEVODOPA 25/100 MG CR TABLET 2 TABLET PO (21:21)
[2023-05-20] MEDS: METOPROLOL TARTRATE 12.5 MG TABLET PO (21:21)
[2023-05-20] MEDS: INSULIN GLARGINE (*BKC) 100 UNITS/ML 15 UNITS SUB-Q (21:22)
[2023-05-21] VITALS (22 sets, daily range): BP systolic 102–120; BP diastolic 56–65; PULSE 71–90; RESP 18–22; TEMP 36.6–37.1; O2SAT 94–98
[2023-05-21] MEDS: CENTRAL LINE FLUSH 10 ML IV PUSH (05:34)
[2023-05-21] MEDS: metroNIDAZOLE 250 MG TABLET 500 MG PO ×3 (05:34→20:46)
[2023-05-21 05:42] LABS: Hematocrit 33.5 % (42.0-52.0); Hemoglobin 10.6 g/dL (14.0-18.0); Mean Corpuscular HGB Conc 31.6 g/dl (32-36); Mean Corpuscular Volume 82.1 fl (80-100); Mean Platelet Volume 10.3 fl (7.4-10.4); Platelet Count Result 241 k/mm3 (150-375); Red Blood Count 4.08 M/mm3 (4.6-6.20); Red Cell Distribution Width 14.6 % (11.5-14.5); White Blood Count 9.3 K/mm3 (4.5-10.0)
[2023-05-21 05:57] LABS: Alanine Aminotransferase 9 U/L (6-50); Albumin Level 2.7 g/dL (3.5-5.1); Alkaline Phosphatase 98 U/L (38-126); Anion Gap 2 mmol/L (8-16); Aspartate Amino Transferase 46 U/L (17-59); Bilirubin,Total 0.4 mg/dL (0.2-1.3); Blood Urea Nitrogen 13 mg/dL (9-20); Calcium 8.1 mg/dL (8.4-10.2); Carbon Dioxide 26 mmol/L (22-30); Chloride 105 mmol/L (98-107); Estimated CRCL calculation 76 ml/min; Estimated Glomerular Filt Rate > 60; Glucose 162 mg/dL (65-110); Magnesium 1.8 mg/dL (1.6-2.3); Potassium 3.6 mmol/L (3.4-5.0); Sodium 133 mmol/L (137-145)
[2023-05-21 08:40] LABS: Glucose Point of Care 149 mg/dl (65-105)
[2023-05-21] MEDS: METOPROLOL TARTRATE 12.5 MG TABLET PO (08:53)
[2023-05-21] MEDS: ASPIRIN 325 MG ENTERIC TABLET PO (08:53)
[2023-05-21] MEDS: PANTOPRAZOLE SODIUM IV 40 MG VIAL IV PUSH (08:54)
[2023-05-21] MEDS: MEMANTINE 10 MG TABLET PO ×2 (08:55→20:46)
[2023-05-21] MEDS: ATORVASTATIN 40 MG TABLET PO (08:55)
[2023-05-21] MEDS: CARBIDOPA/LEVODOPA 25/100 MG TABLET 1 TABLET PO (08:55)
--- NOTE | 2023-05-21 09:02 | PM.PNCARD ---
Progress Note: A&P Assessment and Plan (1) Acute non-ST elevation myocardial infarction (NSTEMI): Code(s): I21.4 - Non-ST elevation (NSTEMI) myocardial infarction Status: Acute Assessment and Plan: Now off of pressors. Continue aspirin, statin. Will increase metoprolol tartrate 25 mg p.o. b.i.d. His troponins indicate significant underlying coronary disease independent if this is a primary or secondary event. Echocardiogram shows LVEF 60-65%, with hypokinesis of the basal inferolateral wall and the mid inferolateral wall. I discussed with the patient's as well as the patient ischemic evaluation. Offered stress testing but he wishes to defer at this point. He is not symptomatic and while he may have underlying coronary disease, he wishes to be treated medically at this stage. Will reduce aspirin 81 mg p.o. daily (2) Parkinson's disease: Qualifiers: Dyskinesia presence: with dyskinesia Fluctuating manifestations: with fluctuating manifestations Qualified Code(s): G20.B2 - Parkinson's disease with dyskinesia, with fluctuations Code(s): G20.A1 - Parkinson's disease without dyskinesia, without mention of fluctuations Status: Chronic Assessment and Plan: Neurostimulator in place (3) Shock: Code(s): R57.9 - Shock, unspecified Status: Acute Assessment and Plan: Probably septic.? Antibiotics on board. Management as per Quarry Extraction Worker. (4) Diabetes mellitus: Code(s): E11.9 - Type 2 diabetes mellitus without complications Status: Chronic Assessment and Plan: Significant diabetes with neuropathy.? Treatment per Hospitalist and Quarry Extraction Worker (5) Hypokalemia: Code(s): E87.6 - Hypokalemia Status: Acute Assessment and Plan: Potassium 3.6 today. KCL 40 mEq p.o. times 1 to be given today Plan Recommendations discussed with Quarry Extraction Worker, Dr. Kirby. Subjective Date/time seen: 05/21/23 09:02 Interval history: Reason for visit: NSTEMI HPI: Patient is a 67-year-old male who presented to the hospital because of shortness of breath and chest pain.? Patient also has been having some abdominal pain.? Patient presented to the hospital yesterday.? Shortness of breath started rather abruptly 2 days ago.? He also has significant pain on the right side with deep breathing.? He is not had known cardiac issues.? Does have a history of frequent syncope related to orthostasis and coughing.? He has chronic lower extremity swelling over the past 3 years.? It is improving number he elevates his legs.? He does have significant underlying health issues including Parkinson's disease with neurostimulator in place, neuropathy, diabetes, family history of heart disease and former smoker.? He does not describe any paroxysmal nocturnal dyspnea or orthopnea.? CT scan of the chest is concerning for cholecystitis.? General surgery is involved.? There was a plan to have a HIDA scan today however last night he decompensated and patient became significantly hypotensive with blood pressure systolic in the 60s.? He was temporarily started on pressors which did stabilize his BP.? He was also significantly short of breath at the time.? Troponins were initially elevated have continued to rise to over 15.? He currently is lying in bed with family at bedside it appears more stable.? Pressors have been weaned off.? He still feels a bit short of breath and has pleuritic chest pain. Date of service 05/18: Patient reports abdominal pain with coughing only. No chest pain. Date of service 05/19/2023: Still with some chest pain with coughing. No shortness of breath. Abdominal pain is better Date of service 05/20/2023: More awake alert today also. Still as chest pain with coughing. No shortness of breath. Date of service 05/21/2023: Doing fine. No chest pain or shortness of breath. Tolerating beta-ada Review of Systems Review of Systems: All systems reviewed & are unremark
[2023-05-21] MEDS: POTASSIUM CHLORIDE 20 MEQ PACKET (FOR LIQUID) 40 MEQ PO (11:00)
--- NOTE | 2023-05-21 11:43 | PM.PNGS ---
Progress Note: A&P Assessment and Plan (1) Acalculous cholecystitis: Code(s): K81.9 - Cholecystitis, unspecified Status: Acute Assessment and Plan: Greatly improved after having cholecystostomy tube placed. No plans for any changes this weekend. Probably Wednesday or Wednesday will get biliary drain dye study to evaluate patency of cystic duct. (2) Acute non-ST elevation myocardial infarction (NSTEMI): Code(s): I21.4 - Non-ST elevation (NSTEMI) myocardial infarction Status: Acute (3) Parkinson's disease: Qualifiers: Dyskinesia presence: with dyskinesia Fluctuating manifestations: with fluctuating manifestations Qualified Code(s): G20.B2 - Parkinson's disease with dyskinesia, with fluctuations Code(s): G20.A1 - Parkinson's disease without dyskinesia, without mention of fluctuations Status: Chronic (4) Pneumonia: Qualifiers: Laterality: bilateral Lung location: unspecified part of lung Pneumonia type: due to unspecified organism Qualified Code(s): J18.9 - Pneumonia, unspecified organism Code(s): J18.9 - Pneumonia, unspecified organism Status: Acute Subjective Subjective Date/Time Seen: 05/21/23 11:43 Post Op day: 4 (Cholecystostomy tube placement 05/17/2023) Patient reports: feels better, tolerating a regular diet (Eating better, pureed diet) and afebrile Review of Systems Review of Systems: All systems reviewed & are unremarkable except as noted in HPI and below (HPI) Exam Const: General: comfortable, alert and awake GI: Inspection: non-distended and incision (Cholecystostomy tube continues to drain bile) GI Palp: Yes Soft to palpation and No Tenderness to palpation present (GI) Objective Data Vital Signs Vital Signs: Vital Signs - 24 hr 05/20/23 12:00 05/20/23 12:00 05/20/23 14:00 Temperature Pulse Rate 86 84 Respiratory Rate Blood Pressure Pulse Oximetry Oxygen Delivery Room Air 05/20/23 16:00 05/20/23 12:00 05/20/23 16:00 Temperature 36.7 C 36.6 C Pulse Rate 86 81 Respiratory Rate 23 H 19 Blood Pressure 123/71 139/81 Pulse Oximetry 100 100 Oxygen Delivery Room Air 05/20/23 16:00 05/20/23 17:33 05/20/23 18:00 Temperature 36.2 C L Pulse Rate 83 84 81 Respiratory Rate 22 H Blood Pressure 126/74 Pulse Oximetry Oxygen Delivery 05/20/23 20:08 05/20/23 20:00 05/20/23 21:21 Temperature 36.2 C L Pulse Rate 82 82 84 Respiratory Rate 20 20 Blood Pressure 124/62 Pulse Oximetry 95 95 Oxygen Delivery Room Air 05/20/23 20:00 05/20/23 22:00 05/21/23 00:00 Temperature 36.7 C Pulse Rate 79 73 72 Respiratory Rate 18 Blood Pressure 102/56 L Pulse Oximetry 95 Oxygen Delivery 05/21/23 00:00 05/21/23 00:00 05/21/23 02:00 Temperature Pulse Rate 73 73 76 Respiratory Rate 18 Blood Pressure Pulse Oximetry 95 Oxygen Delivery Room Air 05/21/23 03:47 05/21/23 04:00 05/21/23 04:00 Temperature Pulse Rate 81 81 79 Respiratory Rate 18 18 Blood Pressure 115/61 Pulse Oximetry 98 98 Oxygen Delivery Room Air 05/21/23 05:56 05/21/23 07:45 05/21/23 08:29 Temperature 37.0 C Pulse Rate 77 82 80 Respiratory Rate 20 Blood Pressure 117/61 Pulse Oximetry 95 95 Oxygen Delivery Room Air 05/21/23 08:53 05/21/23 08:00 05/21/23 08:00 Temperature Pulse Rate 83 83 83 Respiratory Rate 20 Blood Pressure Pulse Oximetry 95 Oxygen Delivery Room Air 05/21/23 10:00 05/21/23 11:38 Temperature 37.1 C Pulse Rate 78 79 Respiratory Rate 20 Blood Pressure 115/65 Pulse Oximetry 94 Oxygen Delivery Intake/Output Intake/Output: Intake & Output 05/18/23 05/19/23 05/20/23 05/21/23 23:59 23:59 23:59 23:59 Intake Total 1400 1890 590 540 Output Total 1470 2900 1440 840 [place]anner -70 -1010 -850 -300 Meds/Results Medications: Active Medications Generic Name Dose Route Start Last Admin Trade Name Freq
[2023-05-21 12:15] LABS: Glucose Point of Care 139 mg/dl (65-105)
--- NOTE | 2023-05-21 14:50 | PM.IMPN ---
Progress Note: A&P Assessment and Plan (1) Hypokalemia: Code(s): E87.6 - Hypokalemia Status: Acute (2) Acalculous cholecystitis: Code(s): K81.9 - Cholecystitis, unspecified Status: Acute (3) Cholecystitis: Code(s): K81.9 - Cholecystitis, unspecified Status: Acute (4) Diabetes mellitus: Code(s): E11.9 - Type 2 diabetes mellitus without complications Status: Chronic (5) Shock: Code(s): R57.9 - Shock, unspecified Status: Acute (6) Renal mass: Code(s): N28.89 - Other specified disorders of kidney and ureter Status: Acute (7) Acute non-ST elevation myocardial infarction (NSTEMI): Code(s): I21.4 - Non-ST elevation (NSTEMI) myocardial infarction Status: Acute (8) Parkinson's disease: Qualifiers: Dyskinesia presence: with dyskinesia Fluctuating manifestations: with fluctuating manifestations Qualified Code(s): G20.B2 - Parkinson's disease with dyskinesia, with fluctuations Code(s): G20.A1 - Parkinson's disease without dyskinesia, without mention of fluctuations Status: Chronic (9) Pneumonia: Qualifiers: Laterality: bilateral Lung location: unspecified part of lung Pneumonia type: due to unspecified organism Qualified Code(s): J18.9 - Pneumonia, unspecified organism Code(s): J18.9 - Pneumonia, unspecified organism Status: Acute Plan # septic Shock/cardiogenic shock: 05/17: Patient transferred to ICU due to hypotension and appears to have shock which is likely combination of sepsis with possible cardiogenic component -He received fluids but was not further responsive to fluid as per NICOM assessment -: CTA chest on admission was negative for PE.? -lower extremity venous Dopplers were negative for DVTs bilaterally required vasopressor UA was not suggestive of UTI. 05/16:? Blood cultures negative so far 05/17:? Culture from gallbladder pending 05/17:? Cholecystostomy placed by IR on Levaquin and Flagyl (05/16) discontinued vancomycin as blood cultures negative and MRSA screen negative. 05/17/2023: Echocardiogram Summary ? 1. Left ventricular chamber dimension is normal. ? 2. Left ventricular systolic function is normal, estimated at 60-65%. ? 3. There is moderately increased left ventricular wall thickness. ? 4. The left ventricular diastolic function is grade I diastolic dysfunction. ? 5. The basal inferolateral wall, and mid inferolateral wall are hypokinetic. ? 6. The mitral valve annulus is mildly calcified. ? 7. There is moderate aortic valve sclerosis. ? 8. There is mild tricuspid valve regurgitation. # Acute non-ST elevation myocardial infarction (NSTEMI): Patient presented with mildly elevated troponin which has been gradually increasing.? EKGs have been unhelpful due to artifact from his brain stimulator.? Chest pain that he has been having is noncardiac in nature treated with heparin infusion -echocardiogram as above -troponins peak at 15.700 at now downtrending. cardiology consulted. ischemic workup refsued by the patient. on aspirin, statin, low dose beta ada # Parkinson's disease: Continue Sinemet -patient has deep brain stimulators Speech evaluation was done for bedside swallow, recommended pureed diet # Pneumonia: treated with antibioics. # Renal mass: CT scan Indeterminate 4 cm exophytic upper pole left renal cystic mass; consider further evaluation with renal MRI -appreciate urology evaluation and recommendation, patient may require an ultrasound or a dedicated renal mass protocol CT scan as?MRI is contraindicated with deep brain stimulator 05/17/2023: Renal ultrasound:?Complicated 3.5 cm cyst of the left kidney. Recommend correlation with MRI without and with contrast. # Diabetes mellitus: Continue sliding scale insulin.? -continue Lantus # Acute Cholecystitis: CT -?IMPRESSION:? Chronic gallbladder wall thickening suggesting possible acute cholecystitis Right u
[2023-05-21] MEDS: levoFLOXacin 750 MG TABLET PO (15:10)
[2023-05-21 17:16] LABS: Glucose Point of Care 253 mg/dl (65-105)
[2023-05-21 19:59] LABS: Glucose Point of Care 230 mg/dl (65-105)
[2023-05-21] MEDS: INSULIN ASPART (*BKC) 100 UNITS/ML SUB-Q (20:44)
[2023-05-21] MEDS: INSULIN GLARGINE (*BKC) 100 UNITS/ML 15 UNITS SUB-Q (20:45)
[2023-05-21] MEDS: CARBIDOPA/LEVODOPA 25/100 MG CR TABLET 2 TABLET PO (20:45)
[2023-05-21] MEDS: METOPROLOL TARTRATE 25 MG TABLET PO (20:46)
[2023-05-22] VITALS (12 sets, daily range): BP systolic 102–117; BP diastolic 50–66; PULSE 69–84; RESP 14–16; TEMP 35.8–37.2; O2SAT 96–100
[2023-05-22] MEDS: traZODone HCL 50 MG TABLET PO (04:03)
[2023-05-22 05:02] LABS: Hematocrit 36.4 % (42.0-52.0); Hemoglobin 11.2 g/dL (14.0-18.0); Mean Corpuscular HGB Conc 30.8 g/dl (32-36); Mean Corpuscular Hemoglobin 25.2 pg (26-34); Mean Platelet Volume 10.1 fl (7.4-10.4); Platelet Count Result 284 k/mm3 (150-375); Red Blood Count 4.44 M/mm3 (4.6-6.20); Red Cell Distribution Width 14.4 % (11.5-14.5); White Blood Count 9.7 K/mm3 (4.5-10.0)
[2023-05-22 05:14] LABS: Alanine Aminotransferase 9 U/L (6-50); Alkaline Phosphatase 100 U/L (38-126); Anion Gap 7 mmol/L (8-16); Aspartate Amino Transferase 41 U/L (17-59); Bilirubin,Total 0.4 mg/dL (0.2-1.3); Blood Urea Nitrogen 12 mg/dL (9-20); Calcium 8.3 mg/dL (8.4-10.2); Carbon Dioxide 25 mmol/L (22-30); Chloride 103 mmol/L (98-107); Estimated CRCL calculation 74 ml/min; Estimated Glomerular Filt Rate > 60; Glucose 145 mg/dL (65-110); Magnesium 1.9 mg/dL (1.6-2.3); Potassium 3.5 mmol/L (3.4-5.0); Sodium 135 mmol/L (137-145)
[2023-05-22] MEDS: metroNIDAZOLE 250 MG TABLET 500 MG PO ×3 (05:47→20:57)
[2023-05-22 08:24] LABS: Glucose Point of Care 134 mg/dl (65-105)
--- NOTE | 2023-05-22 09:15 | PM.PNCARD ---
Progress Note: A&P Assessment and Plan (1) Acute non-ST elevation myocardial infarction (NSTEMI): Code(s): I21.4 - Non-ST elevation (NSTEMI) myocardial infarction Status: Acute Assessment and Plan: Now off of pressors. Continue aspirin, statin. Continue metoprolol tartrate 25 mg p.o. b.i.d. His troponins indicate significant underlying coronary disease independent if this is a primary or secondary event. Echocardiogram shows LVEF 60-65%, with hypokinesis of the basal inferolateral wall and the mid inferolateral wall. I discussed with the patient as well as the patient ischemic evaluation. Offered stress testing but he wishes to defer at this point. He is not symptomatic and while he may have underlying coronary disease, he wishes to be treated medically at this stage. (2) Parkinson's disease: Qualifiers: Dyskinesia presence: with dyskinesia Fluctuating manifestations: with fluctuating manifestations Qualified Code(s): G20.B2 - Parkinson's disease with dyskinesia, with fluctuations Code(s): G20.A1 - Parkinson's disease without dyskinesia, without mention of fluctuations Status: Chronic Assessment and Plan: Neurostimulator in place (3) Shock: Code(s): R57.9 - Shock, unspecified Status: Acute Assessment and Plan: Probably septic.? Antibiotics on board. Management as per Reverse Unit Operator Fisherman. (4) Diabetes mellitus: Code(s): E11.9 - Type 2 diabetes mellitus without complications Status: Chronic Assessment and Plan: Significant diabetes with neuropathy.? Treatment per Hospitalist and Reverse Unit Operator Fisherman (5) Hypokalemia: Code(s): E87.6 - Hypokalemia Status: Acute Assessment and Plan: Potassium 3.5 today. Additional potassium chloride 40 mg p.o. x1 today. Subjective Date/time seen: 05/22/23 09:15 Interval history: Reason for visit: NSTEMI HPI: Patient is a 67-year-old male who presented to the hospital because of shortness of breath and chest pain.? Patient also has been having some abdominal pain.? Patient presented to the hospital yesterday.? Shortness of breath started rather abruptly 2 days ago.? He also has significant pain on the right side with deep breathing.? He is not had known cardiac issues.? Does have a history of frequent syncope related to orthostasis and coughing.? He has chronic lower extremity swelling over the past 3 years.? It is improving number he elevates his legs.? He does have significant underlying health issues including Parkinson's disease with neurostimulator in place, neuropathy, diabetes, family history of heart disease and former smoker.? He does not describe any paroxysmal nocturnal dyspnea or orthopnea.? CT scan of the chest is concerning for cholecystitis.? General surgery is involved.? There was a plan to have a HIDA scan today however last night he decompensated and patient became significantly hypotensive with blood pressure systolic in the 60s.? He was temporarily started on pressors which did stabilize his BP.? He was also significantly short of breath at the time.? Troponins were initially elevated have continued to rise to over 15.? He currently is lying in bed with family at bedside it appears more stable.? Pressors have been weaned off.? He still feels a bit short of breath and has pleuritic chest pain. Date of service 05/18: Patient reports abdominal pain with coughing only. No chest pain. Date of service 05/19/2023: Still with some chest pain with coughing. No shortness of breath. Abdominal pain is better Date of service 05/20/2023: More awake alert today also. Still as chest pain with coughing. No shortness of breath. Date of service 05/21/2023: Doing fine. No chest pain or shortness of breath. Tolerating beta-ada Date of service 05/22/2023: Little tired this morning. No chest pain or shortness of breath Review of Systems Review of Systems: All systems reviewed & are unremarkable e
[2023-05-22] MEDS: POTASSIUM CHLORIDE 20 MEQ PACKET (FOR LIQUID) 40 MEQ PO (09:55)
[2023-05-22] MEDS: MEMANTINE 10 MG TABLET PO ×2 (09:56→20:57)
[2023-05-22] MEDS: CARBIDOPA/LEVODOPA 25/100 MG TABLET 1 TABLET PO (09:56)
[2023-05-22] MEDS: ATORVASTATIN 40 MG TABLET PO (09:56)
[2023-05-22] MEDS: polyethylene glycoL 3350 17 GM POWD.PACK PO (09:56)
[2023-05-22] MEDS: ASPIRIN 81 MG ENTERIC TABLET PO (09:56)
[2023-05-22] MEDS: METOPROLOL TARTRATE 25 MG TABLET PO ×2 (09:57→20:54)
[2023-05-22] MEDS: PANTOPRAZOLE SODIUM IV 40 MG VIAL IV PUSH (09:57)
[2023-05-22 12:03] LABS: Glucose Point of Care 179 mg/dl (65-105)
[2023-05-22] MEDS: VITAMIN B CMPLX/VIT C/FOLIC AC 1 CAPSULE 1 CAP PO (14:54)
[2023-05-22] MEDS: levoFLOXacin 750 MG TABLET PO (14:54)
[2023-05-22] MEDS: GABAPENTIN 100 MG CAPSULE PO ×2 (14:54→17:03)
--- NOTE | 2023-05-22 15:49 | P.PNIM_ITS ---
Progress Note: A&P Assessment and Plan (1) Hypokalemia: Code(s): E87.6 - Hypokalemia Status: Acute (2) Acalculous cholecystitis: Code(s): K81.9 - Cholecystitis, unspecified Status: Acute (3) Cholecystitis: Code(s): K81.9 - Cholecystitis, unspecified Status: Acute (4) Diabetes mellitus: Code(s): E11.9 - Type 2 diabetes mellitus without complications Status: Chronic (5) Shock: Code(s): R57.9 - Shock, unspecified Status: Acute (6) Renal mass: Code(s): N28.89 - Other specified disorders of kidney and ureter Status: Acute (7) Acute non-ST elevation myocardial infarction (NSTEMI): Code(s): I21.4 - Non-ST elevation (NSTEMI) myocardial infarction Status: Acute (8) Parkinson's disease: Qualifiers: Dyskinesia presence: with dyskinesia Fluctuating manifestations: with fluctuating manifestations Qualified Code(s): G20.B2 - Parkinson's disease with dyskinesia, with fluctuations Code(s): G20.A1 - Parkinson's disease without dyskinesia, without mention of fluctuations Status: Chronic (9) Pneumonia: Qualifiers: Laterality: bilateral Lung location: unspecified part of lung Pneumonia type: due to unspecified organism Qualified Code(s): J18.9 - Pneumonia, unspecified organism Code(s): J18.9 - Pneumonia, unspecified organism Status: Acute Plan # septic Shock/cardiogenic shock: 05/17: Patient transferred to ICU due to hypotension and appears to have shock which is likely combination of sepsis with possible cardiogenic component -He received fluids but was not further responsive to fluid as per NICOM assessment -: CTA chest on admission was negative for PE.? -lower extremity venous Dopplers were negative for DVTs bilaterally required vasopressor UA was not suggestive of UTI. 05/16:? Blood cultures negative so far 05/17:? Culture from gallbladder pending 05/17:? Cholecystostomy placed by IR on Levaquin and Flagyl (05/16) discontinued vancomycin as blood cultures negative and MRSA screen negative. 05/17/2023: Echocardiogram Summary ? 1. Left ventricular chamber dimension is normal. ? 2. Left ventricular systolic function is normal, estimated at 60-65%. ? 3. There is moderately increased left ventricular wall thickness. ? 4. The left ventricular diastolic function is grade I diastolic dysfunction. ? 5. The basal inferolateral wall, and mid inferolateral wall are hypokinetic. ? 6. The mitral valve annulus is mildly calcified. ? 7. There is moderate aortic valve sclerosis. ? 8. There is mild tricuspid valve regurgitation. # Acute non-ST elevation myocardial infarction (NSTEMI): Patient presented with mildly elevated troponin which has been gradually increasing.? EKGs have been unhelpful due to artifact from his brain stimulator.? Chest pain that he has been having is noncardiac in nature treated with heparin infusion -echocardiogram as above -troponins peak at 15.700 at now downtrending. cardiology consulted. ischemic workup refsued by the patient. on aspirin, statin, low dose beta ada # Parkinson's disease: Continue Sinemet -patient has deep brain stimulators Speech evaluation was done for bedside swallow, recommended pureed diet Resume his home medication. Okay to use home supply # Pneumonia: treated with antibioics. # Renal mass: CT scan Indeterminate 4 cm exophytic upper pole left renal cystic mass; consider further evaluation with renal MRI -appreciate urology evaluation and recommendation, patient may require an ultrasound
[2023-05-22 16:28] LABS: Glucose Point of Care 219 mg/dl (65-105)
[2023-05-22] MEDS: INSULIN ASPART (*BKC) 100 UNITS/ML SUB-Q (17:03)
--- NOTE | 2023-05-22 17:40 | PC.NURSE ---
This patient, Jayden Cherry, was transferred to [ [id number]] on 05/22/23 at 1713. Personal belongings sent with patient. Report given to [ Lorie CROCKER]. Appropriate documentation sent with patient.
[2023-05-22] MEDS: INSULIN GLARGINE (*BKC) 100 UNITS/ML 15 UNITS SUB-Q (20:53)
[2023-05-22] MEDS: ZOLPIDEM TARTRATE (*CRX) 5 MG TABLET 10 MG PO (20:54)
[2023-05-22] MEDS: CARBIDOPA/LEVODOPA 25/100 MG CR TABLET 2 TABLET PO (20:57)
[2023-05-22 21:49] LABS: Glucose Point of Care 252 mg/dl (65-105)
--- NOTE | 2023-05-23 01:11 | PC.NURSE ---
Daylight Savings Time For Daylight Savings Time Ending in the Fall - Clocks are moved back. For Daylight Savings Time Beginning in the Spring - Clocks are moved ahead. For [facility], the time of change occurs at 0200 hrs. Time is taken from the cost recorder. This entry on the patient's chart recognizes the change in time reflected during documentation. Example: 2 entries for vital signs may be charted for 0200 hrs.
[2023-05-23] MEDS: metroNIDAZOLE 250 MG TABLET 500 MG PO ×3 (05:00→21:34)
[2023-05-23 06:00] VITALS: BP 111/61; PULSE 71; RESP 12; TEMP 35.8; O2SAT 96
[2023-05-23 06:39] LABS: Basophils Absolute Auto 0.1 K/mm3 (0.0-0.1); Basophils Percent Auto 0.5 % (0.2-1.2); Eosinophils Absolute Auto 0.2 K/mm3 (0-0.3); Eosinophils Percent Auto 1.4 % (0-4.4); Immature Granulocyte Percent A 4.8 % (0-0.5); Lymphocytes Absolute Auto 2.11 K/mm3 (0.9-3.2); Lymphocytes Percent Auto 14.5 % (18.3-44.2); Mean Corpuscular HGB Conc 31.4 g/dl (32-36); Mean Corpuscular Hemoglobin 25.9 pg (26-34); Mean Corpuscular Volume 82.5 fl (80-100); Mean Platelet Volume 10.1 fl (7.4-10.4); Monocytes Absolute Auto 0.6 K/mm3 (0.1-0.6); Monocytes Percent Auto 4.1 % (2.6-8.5); Neutrophils Absolute Auto 10.9 K/mm3 (1.3-6.7); Neutrophils Percent Auto 74.7 % (45.5-73.1); Platelet Count Result 295 k/mm3 (150-375); Red Blood Count 4.24 M/mm3 (4.6-6.20); Red Cell Distribution Width 14.7 % (11.5-14.5); White Blood Count 14.6 K/mm3 (4.5-10.0)
[2023-05-23 06:48] LABS: Alanine Aminotransferase 7 U/L (6-50); Albumin Level 2.9 g/dL (3.5-5.1); Alkaline Phosphatase 87 U/L (38-126); Anion Gap 5 mmol/L (8-16); Aspartate Amino Transferase 27 U/L (17-59); Bilirubin,Total 0.4 mg/dL (0.2-1.3); Blood Urea Nitrogen 12 mg/dL (9-20); Calcium 8.2 mg/dL (8.4-10.2); Carbon Dioxide 25 mmol/L (22-30); Chloride 104 mmol/L (98-107); Estimated CRCL calculation 67 ml/min; Estimated Glomerular Filt Rate > 60; Glucose 162 mg/dL (65-110); Potassium 3.9 mmol/L (3.4-5.0); Sodium 134 mmol/L (137-145)
--- NOTE | 2023-05-23 07:55 | PM.PNCARD ---
Progress Note: A&P Assessment and Plan (1) Acute non-ST elevation myocardial infarction (NSTEMI): Code(s): I21.4 - Non-ST elevation (NSTEMI) myocardial infarction Status: Acute Assessment and Plan: Now off of pressors. Continue aspirin, statin. Continue metoprolol tartrate 25 mg p.o. b.i.d. His troponins indicate significant underlying coronary disease independent if this is a primary or secondary event. Echocardiogram shows LVEF 60-65%, with hypokinesis of the basal inferolateral wall and the mid inferolateral wall. I discussed with the patient as well as the patient ischemic evaluation. Offered stress testing but he wishes to defer at this point. He is not symptomatic and while he may have underlying coronary disease, he wishes to be treated medically at this stage. (2) Parkinson's disease: Qualifiers: Dyskinesia presence: with dyskinesia Fluctuating manifestations: with fluctuating manifestations Qualified Code(s): G20.B2 - Parkinson's disease with dyskinesia, with fluctuations Code(s): G20.A1 - Parkinson's disease without dyskinesia, without mention of fluctuations Status: Chronic Assessment and Plan: Neurostimulator in place (3) Shock: Code(s): R57.9 - Shock, unspecified Status: Acute Assessment and Plan: Probably septic.? Antibiotics on board. Management as per Tire Mold Engraver. (4) Diabetes mellitus: Code(s): E11.9 - Type 2 diabetes mellitus without complications Status: Chronic Assessment and Plan: Significant diabetes with neuropathy.? Treatment per Hospitalist and Tire Mold Engraver (5) Hypokalemia: Code(s): E87.6 - Hypokalemia Status: Acute Assessment and Plan: Potassium today is 3.9. No additional potassium to be given today Subjective Date/time seen: 05/23/23 07:55 Interval history: Reason for visit: NSTEMI HPI: Patient is a 67-year-old male who presented to the hospital because of shortness of breath and chest pain.? Patient also has been having some abdominal pain.? Patient presented to the hospital yesterday.? Shortness of breath started rather abruptly 2 days ago.? He also has significant pain on the right side with deep breathing.? He is not had known cardiac issues.? Does have a history of frequent syncope related to orthostasis and coughing.? He has chronic lower extremity swelling over the past 3 years.? It is improving number he elevates his legs.? He does have significant underlying health issues including Parkinson's disease with neurostimulator in place, neuropathy, diabetes, family history of heart disease and former smoker.? He does not describe any paroxysmal nocturnal dyspnea or orthopnea.? CT scan of the chest is concerning for cholecystitis.? General surgery is involved.? There was a plan to have a HIDA scan today however last night he decompensated and patient became significantly hypotensive with blood pressure systolic in the 60s.? He was temporarily started on pressors which did stabilize his BP.? He was also significantly short of breath at the time.? Troponins were initially elevated have continued to rise to over 15.? He currently is lying in bed with family at bedside it appears more stable.? Pressors have been weaned off.? He still feels a bit short of breath and has pleuritic chest pain. Date of service 05/18: Patient reports abdominal pain with coughing only. No chest pain. Date of service 05/19/2023: Still with some chest pain with coughing. No shortness of breath. Abdominal pain is better Date of service 05/20/2023: More awake alert today also. Still as chest pain with coughing. No shortness of breath. Date of service 05/21/2023: Doing fine. No chest pain or shortness of breath. Tolerating beta-ada Date of service 05/22/2023: Little tired this morning. No chest pain or shortness of breath Date of service 05/23/2023: Resting comfortably. No chest pain Review of Systems
[2023-05-23 08:27] LABS: Glucose Point of Care 161 mg/dl (65-105)
[2023-05-23 08:44] VITALS: PULSE 80
[2023-05-23] MEDS: ASPIRIN 81 MG ENTERIC TABLET PO (08:44)
[2023-05-23] MEDS: VITAMIN B CMPLX/VIT C/FOLIC AC 1 CAPSULE 1 CAP PO (08:44)
[2023-05-23] MEDS: METOPROLOL TARTRATE 25 MG TABLET PO ×2 (08:44→21:33)
[2023-05-23] MEDS: GABAPENTIN 100 MG CAPSULE PO ×3 (08:45→16:51)
[2023-05-23] MEDS: CARBIDOPA/LEVODOPA 25/100 MG TABLET 1 TABLET PO (08:45)
[2023-05-23] MEDS: AMANTADINE HCL 100 MG CAPSULE PO (08:45)
[2023-05-23] MEDS: PANTOPRAZOLE 40 MG TABLET PO ×2 (08:45→16:51)
[2023-05-23] MEDS: ESCITALOPRAM OXALATE 10 MG TABLET 20 MG PO (08:45)
[2023-05-23] MEDS: ATORVASTATIN 40 MG TABLET PO (08:46)
[2023-05-23] MEDS: ENOXAPARIN 40 MG/0.4 ML SYRINGE SUB-Q (08:46)
[2023-05-23] MEDS: MEMANTINE 10 MG TABLET PO ×2 (08:47→21:34)
[2023-05-23] MEDS: polyethylene glycoL 3350 17 GM POWD.PACK PO (08:47)
[2023-05-23] MEDS: VENLAFAXINE HCL XR 75 MG CAP.ER.24H 150 MG PO (08:47)
--- NOTE | 2023-05-23 10:59 | PM.IMPN ---
Progress Note: A&P Assessment and Plan (1) Hypokalemia: Code(s): E87.6 - Hypokalemia Status: Acute (2) Acalculous cholecystitis: Code(s): K81.9 - Cholecystitis, unspecified Status: Acute (3) Cholecystitis: Code(s): K81.9 - Cholecystitis, unspecified Status: Acute (4) Diabetes mellitus: Code(s): E11.9 - Type 2 diabetes mellitus without complications Status: Chronic (5) Shock: Code(s): R57.9 - Shock, unspecified Status: Acute (6) Renal mass: Code(s): N28.89 - Other specified disorders of kidney and ureter Status: Acute (7) Acute non-ST elevation myocardial infarction (NSTEMI): Code(s): I21.4 - Non-ST elevation (NSTEMI) myocardial infarction Status: Acute (8) Parkinson's disease: Qualifiers: Dyskinesia presence: with dyskinesia Fluctuating manifestations: with fluctuating manifestations Qualified Code(s): G20.B2 - Parkinson's disease with dyskinesia, with fluctuations Code(s): G20.A1 - Parkinson's disease without dyskinesia, without mention of fluctuations Status: Chronic (9) Pneumonia: Qualifiers: Laterality: bilateral Lung location: unspecified part of lung Pneumonia type: due to unspecified organism Qualified Code(s): J18.9 - Pneumonia, unspecified organism Code(s): J18.9 - Pneumonia, unspecified organism Status: Acute Plan # septic Shock/cardiogenic shock: 05/17: Patient transferred to ICU due to hypotension and appears to have shock which is likely combination of sepsis with possible cardiogenic component -He received fluids but was not further responsive to fluid as per NICOM assessment -: CTA chest on admission was negative for PE.? -lower extremity venous Dopplers were negative for DVTs bilaterally required vasopressor UA was not suggestive of UTI. 05/16:? Blood cultures negative so far 05/17:? Culture from gallbladder pending 05/17:? Cholecystostomy placed by IR on Levaquin and Flagyl (05/16) discontinued vancomycin as blood cultures negative and MRSA screen negative. 05/17/2023: Echocardiogram Summary ? 1. Left ventricular chamber dimension is normal. ? 2. Left ventricular systolic function is normal, estimated at 60-65%. ? 3. There is moderately increased left ventricular wall thickness. ? 4. The left ventricular diastolic function is grade I diastolic dysfunction. ? 5. The basal inferolateral wall, and mid inferolateral wall are hypokinetic. ? 6. The mitral valve annulus is mildly calcified. ? 7. There is moderate aortic valve sclerosis. ? 8. There is mild tricuspid valve regurgitation. # Acute non-ST elevation myocardial infarction (NSTEMI): Patient presented with mildly elevated troponin which has been gradually increasing.? EKGs have been unhelpful due to artifact from his brain stimulator.? Chest pain that he has been having is noncardiac in nature treated with heparin infusion -echocardiogram as above -troponins peak at 15.700 at now downtrending. cardiology consulted. ischemic workup refsued by the patient. on aspirin, statin, low dose beta ada Cardiology following # Parkinson's disease: Continue Sinemet -patient has deep brain stimulators Speech evaluation was done for bedside swallow, recommended pureed diet Resume his home medication. Okay to use home supply # Pneumonia: treated with antibiotics. # Renal mass: CT scan Indeterminate 4 cm exophytic upper pole left renal cystic mass; consider further evaluation with renal MRI -appreciate urology evaluation and recommendation, patient may require an ultrasound or a dedicated renal mass protocol CT scan as?MRI is contraindicated with deep brain stimulator 05/17/2023: Renal ultrasound:?Complicated 3.5 cm cyst of the left kidney. Recommend correlation with MRI without and with contrast. # Diabetes mellitus: Continue sliding scale insulin.? -continue Lantus # Acute Cholecystitis: CT -?IMPRESSION:? Chronic
[2023-05-23 11:58] LABS: Glucose Point of Care 199 mg/dl (65-105)
--- NOTE | 2023-05-23 12:16 | PHAR ---
HOME MED: NUEDEXTA 20-10 MG CAPSULE; TAKE ONE CAPSULE BY MOUTH EVERY DAY. VERIFIED BY PHARMACY.
[2023-05-23] MEDS: MAGNES & ALUM HYD/SIMETH/DIPHENHYD/LIDOCAINE 119 ML MOUTHWASH BY MOUTH ×3 (12:45→21:35)
[2023-05-23] MEDS: levoFLOXacin 750 MG TABLET PO (13:05)
[2023-05-23 14:00] VITALS: BP 92/52; PULSE 70; RESP 14; TEMP 36.9; O2SAT 96
[2023-05-23] MEDS: INSULIN ASPART (*BKC) 100 UNITS/ML SUB-Q (16:56)
[2023-05-23 16:59] LABS: Glucose Point of Care 249 mg/dl (65-105)
[2023-05-23 21:00] LABS: Glucose Point of Care 247 mg/dl (65-105)
[2023-05-23 21:33] VITALS: PULSE 80
[2023-05-23] MEDS: ZOLPIDEM TARTRATE (*CRX) 5 MG TABLET 10 MG PO (21:33)
[2023-05-23] MEDS: CARBIDOPA/LEVODOPA 25/100 MG CR TABLET 2 TABLET PO (21:33)
[2023-05-23] MEDS: INSULIN GLARGINE (*BKC) 100 UNITS/ML 15 UNITS SUB-Q (21:35)
[2023-05-23 22:00] VITALS: BP 109/56; PULSE 72; RESP 20; TEMP 36.2; O2SAT 93
[2023-05-24] VITALS (7 sets, daily range): BP systolic 106–116; BP diastolic 56–66; PULSE 68–86; RESP 16–20; TEMP 35.8–37.1; O2SAT 90–96
[2023-05-24] MEDS: MAGNES & ALUM HYD/SIMETH/DIPHENHYD/LIDOCAINE 119 ML MOUTHWASH BY MOUTH ×5 (05:00→21:32)
[2023-05-24] MEDS: metroNIDAZOLE 250 MG TABLET 500 MG PO ×3 (06:04→21:31)
[2023-05-24 07:01] LABS: Basophils Absolute Auto 0.1 K/mm3 (0.0-0.1); Basophils Percent Auto 0.3 % (0.2-1.2); Eosinophils Absolute Auto 0.2 K/mm3 (0-0.3); Eosinophils Percent Auto 1.2 % (0-4.4); Hematocrit 35.9 % (42.0-52.0); Hemoglobin 11.2 g/dL (14.0-18.0); Immature Granulocyte Absolute 0.54 K/mm3 (0.00-0.031); Immature Granulocyte Percent A 3.1 % (0-0.5); Lymphocytes Absolute Auto 1.73 K/mm3 (0.9-3.2); Mean Corpuscular HGB Conc 31.2 g/dl (32-36); Mean Corpuscular Hemoglobin 25.7 pg (26-34); Mean Corpuscular Volume 82.5 fl (80-100); Mean Platelet Volume 10.2 fl (7.4-10.4); Monocytes Absolute Auto 0.4 K/mm3 (0.1-0.6); Monocytes Percent Auto 2.5 % (2.6-8.5); Neutrophils Absolute Auto 14.3 K/mm3 (1.3-6.7); Neutrophils Percent Auto 82.9 % (45.5-73.1); Platelet Count Result 332 k/mm3 (150-375); Red Blood Count 4.35 M/mm3 (4.6-6.20); Red Cell Distribution Width 14.6 % (11.5-14.5); White Blood Count 17.3 K/mm3 (4.5-10.0)
[2023-05-24 07:07] LABS: Alanine Aminotransferase 8 U/L (6-50); Albumin Level 3.2 g/dL (3.5-5.1); Alkaline Phosphatase 80 U/L (38-126); Anion Gap 4 mmol/L (8-16); Aspartate Amino Transferase 26 U/L (17-59); Bilirubin,Total 0.6 mg/dL (0.2-1.3); Blood Urea Nitrogen 14 mg/dL (9-20); Calcium 8.4 mg/dL (8.4-10.2); Carbon Dioxide 25 mmol/L (22-30); Chloride 104 mmol/L (98-107); Estimated CRCL calculation 76 ml/min; Estimated Glomerular Filt Rate > 60; Glucose 163 mg/dL (65-110); Potassium 4.1 mmol/L (3.4-5.0); Sodium 133 mmol/L (137-145)
[2023-05-24 07:28] LABS: Glucose Point of Care 163 mg/dl (65-105)
[2023-05-24] MEDS: PANTOPRAZOLE 40 MG TABLET PO ×2 (08:33→16:54)
[2023-05-24] MEDS: VENLAFAXINE HCL XR 75 MG CAP.ER.24H 150 MG PO (08:33)
[2023-05-24] MEDS: ASPIRIN 81 MG ENTERIC TABLET PO (08:33)
[2023-05-24] MEDS: ESCITALOPRAM OXALATE 10 MG TABLET 20 MG PO (08:33)
[2023-05-24] MEDS: METOPROLOL TARTRATE 25 MG TABLET PO ×2 (08:33→21:31)
[2023-05-24] MEDS: ATORVASTATIN 40 MG TABLET PO (08:33)
[2023-05-24] MEDS: GABAPENTIN 100 MG CAPSULE PO ×3 (08:33→16:54)
[2023-05-24] MEDS: CARBIDOPA/LEVODOPA 25/100 MG TABLET 1 TABLET PO (08:33)
[2023-05-24] MEDS: VITAMIN B CMPLX/VIT C/FOLIC AC 1 CAPSULE 1 CAP PO (08:33)
[2023-05-24] MEDS: AMANTADINE HCL 100 MG CAPSULE PO (08:34)
[2023-05-24] MEDS: MEMANTINE 10 MG TABLET PO ×2 (08:34→21:31)
[2023-05-24] MEDS: ENOXAPARIN 40 MG/0.4 ML SYRINGE SUB-Q (08:40)
--- NOTE | 2023-05-24 10:02 | PCNWS ---
Weekly nutritional screen. Patient is tolerating current Diabetic consistent carb diet, minced and moist level 5 consistency with adequate intake at 75-100% most meals. No weight loss reported. Blood sugars fairly controlled. No nutritional needs at this time.
[2023-05-24 11:31] LABS: Glucose Point of Care 255 mg/dl (65-105)
--- NOTE | 2023-05-24 12:04 | PM.PNGS ---
Progress Note: A&P Assessment and Plan (1) Acalculous cholecystitis: Code(s): K81.9 - Cholecystitis, unspecified Status: Acute Assessment and Plan: Pretty much resolved with cholecystostomy tube. Will go ahead and get cholecystogram tomorrow to assess patency of cystic duct. Recommend patient stay in the hospital until Wednesday. Will go home with cholecystostomy tube. (2) Parkinson's disease: Qualifiers: Dyskinesia presence: with dyskinesia Fluctuating manifestations: with fluctuating manifestations Qualified Code(s): G20.B2 - Parkinson's disease with dyskinesia, with fluctuations Code(s): G20.A1 - Parkinson's disease without dyskinesia, without mention of fluctuations Status: Chronic (3) Pneumonia: Qualifiers: Laterality: bilateral Lung location: unspecified part of lung Pneumonia type: due to unspecified organism Qualified Code(s): J18.9 - Pneumonia, unspecified organism Code(s): J18.9 - Pneumonia, unspecified organism Status: Acute (4) Acute non-ST elevation myocardial infarction (NSTEMI): Code(s): I21.4 - Non-ST elevation (NSTEMI) myocardial infarction Status: Acute (5) Diabetes mellitus: Code(s): E11.9 - Type 2 diabetes mellitus without complications Status: Chronic Subjective Subjective Date/Time Seen: 05/24/23 12:04 Post Op day: #7 (Placement cholecystostomy tube) Patient reports: no new complaints, feels better, pain is less (Denies abdominal pain), tolerating a regular diet (Tolerating minced and moist diabetic diet), bowel movement and afebrile Review of Systems Review of Systems: All systems reviewed & are unremarkable except as noted in HPI and below (HPI) Exam Const: General: cooperative, comfortable, awake and well nourished GI: Inspection: incision (Biliary catheter looks good, draining bile as expected) GI Palp: Yes Firmness to palpation present (GI) and No Tenderness to palpation present (GI) Objective Data Vital Signs Vital Signs: Vital Signs - 24 hr 05/23/23 14:00 05/23/23 21:33 05/23/23 22:00 Temperature 36.9 C 36.2 C L Pulse Rate 70 80 72 Respiratory Rate 14 20 Blood Pressure 92/52 L 109/56 L Pulse Oximetry 96 93 Oxygen Delivery 05/24/23 06:00 05/24/23 08:33 05/24/23 08:00 Temperature 35.9 C L Pulse Rate 71 72 Respiratory Rate 16 Blood Pressure 106/66 Pulse Oximetry 90 Oxygen Delivery Room Air Intake/Output Intake/Output: Intake & Output 05/22/23 05/23/23 05/23/23 05/24/23 00:59 00:59 23:59 23:59 Intake Total 240 Output Total 725 Balance -485 Meds/Results Medications: Active Medications Generic Name Dose Route Start Last Admin Trade Name Freq PRN Reason Stop Dose Admin Albuterol 2.5 mg 05/17/23 20:47 05/17/23 23:24 Albuterol Sulfate Neb 2.5 Mg/3 Ml Inh INHALATION 2.5 mg Q6HRT PRN Administration Shortness Of Breath Amantadine HCl 100 mg 05/23/23 09:00 05/24/23 08:34 Amantadine Hcl 100 Mg Capsule PO 100 mg DAILY JOSE DAVID Administration Aspirin 81 mg 05/22/23 09:00 05/24/23 08:33 Aspirin 81 Mg Enteric Tablet PO 81 mg QAM JOSE DAVID Administration Atorvastatin Calcium 40 mg 05/17/23 09:00 05/24/23 08:33 Atorvastatin 40 Mg Tablet PO 40 mg DAILY JOSE DAVID Administration Bisacodyl 10 mg 05/17/23 10:18 Bisacodyl 10 Mg Suppository RECTAL QAM PRN Constipation Carbidopa/Levodopa 1 tablet 05/17/23 09:00 05/24/23 08:33 Carbidopa/Levodopa 25/100 Mg Tablet PO 1 tablet DAILY JOSE DAVID Administration Carbidopa/Levodopa 2 tablet 05/17/23 21:00 05/23/23 21:33 Carbidopa/Levodopa 25/100 Mg Cr Tablet PO 2 tablet HS JOSE DAVID Administration Dextrose 12.5 gm 05/16/23 11:43 Dextrose 50% 25 Gm/50 Ml Syringe IV PUSH PRN PRN Hypoglycemia Protocol Docusate Sodium 100 mg 05/17/23 10:18 Docusate Sodium 100 Mg Capsule PO Q12H PRN Constipation Enoxaparin S
[2023-05-24] MEDS: INSULIN ASPART (*BKC) 100 UNITS/ML SUB-Q ×2 (12:20→17:21)
--- NOTE | 2023-05-24 13:17 | PM.IMPN ---
Progress Note: A&P Assessment and Plan (1) Hypokalemia: Code(s): E87.6 - Hypokalemia Status: Acute (2) Acalculous cholecystitis: Code(s): K81.9 - Cholecystitis, unspecified Status: Acute (3) Cholecystitis: Code(s): K81.9 - Cholecystitis, unspecified Status: Acute (4) Diabetes mellitus: Code(s): E11.9 - Type 2 diabetes mellitus without complications Status: Chronic (5) Shock: Code(s): R57.9 - Shock, unspecified Status: Acute (6) Renal mass: Code(s): N28.89 - Other specified disorders of kidney and ureter Status: Acute (7) Acute non-ST elevation myocardial infarction (NSTEMI): Code(s): I21.4 - Non-ST elevation (NSTEMI) myocardial infarction Status: Acute (8) Parkinson's disease: Qualifiers: Dyskinesia presence: with dyskinesia Fluctuating manifestations: with fluctuating manifestations Qualified Code(s): G20.B2 - Parkinson's disease with dyskinesia, with fluctuations Code(s): G20.A1 - Parkinson's disease without dyskinesia, without mention of fluctuations Status: Chronic (9) Pneumonia: Qualifiers: Laterality: bilateral Lung location: unspecified part of lung Pneumonia type: due to unspecified organism Qualified Code(s): J18.9 - Pneumonia, unspecified organism Code(s): J18.9 - Pneumonia, unspecified organism Status: Acute Plan # septic Shock/cardiogenic shock: 05/17: Patient transferred to ICU due to hypotension and appears to have shock which is likely combination of sepsis with possible cardiogenic component -He received fluids but was not further responsive to fluid as per NICOM assessment -: CTA chest on admission was negative for PE.? -lower extremity venous Dopplers were negative for DVTs bilaterally required vasopressor UA was not suggestive of UTI. 05/16:? Blood cultures negative so far 05/17:? Culture from gallbladder pending 05/17:? Cholecystostomy placed by IR on Levaquin and Flagyl (05/16) discontinued vancomycin as blood cultures negative and MRSA screen negative. 05/17/2023: Echocardiogram Summary ? 1. Left ventricular chamber dimension is normal. ? 2. Left ventricular systolic function is normal, estimated at 60-65%. ? 3. There is moderately increased left ventricular wall thickness. ? 4. The left ventricular diastolic function is grade I diastolic dysfunction. ? 5. The basal inferolateral wall, and mid inferolateral wall are hypokinetic. ? 6. The mitral valve annulus is mildly calcified. ? 7. There is moderate aortic valve sclerosis. ? 8. There is mild tricuspid valve regurgitation. Leukocytosis has worsened She has a Dyer catheter which was placed on admission. Will check UA fungal I being a I it aches the possibility Will also do chest x-ray done no new respiratory symptoms. He does have some cough which is chronic. # Acute non-ST elevation myocardial infarction (NSTEMI): Patient presented with mildly elevated troponin which has been gradually increasing.? EKGs have been unhelpful due to artifact from his brain stimulator.? Chest pain that he has been having is noncardiac in nature treated with heparin infusion -echocardiogram as above -troponins peak at 15.700 at now downtrending. cardiology consulted. ischemic workup refsued by the patient. on aspirin, statin, low dose beta ada Cardiology following # Parkinson's disease: Continue Sinemet -patient has deep brain stimulators Speech evaluation was done for bedside swallow, recommended pureed diet Resume his home medication. Okay to use home supply # Pneumonia: treated with antibiotics. # Renal mass: CT scan Indeterminate 4 cm exophytic upper pole left renal cystic mass; consider further evaluation with renal MRI -appreciate urology evaluation and recommendation, patient may require an ultrasound or a dedicated renal mass protocol CT scan as?MRI is contraindicated with deep brain stimulator 05/17/2023:
[2023-05-24] MEDS: levoFLOXacin 750 MG TABLET PO (14:16)
[2023-05-24 16:18] LABS: Glucose Point of Care 201 mg/dl (65-105)
[2023-05-24 18:52] LABS: Appearance Urine Clear (Clear); Bacteria Urine None Seen /hpf; Bilirubin Urine Negative (Negative); Blood Urine Negative (Negative); Calcium Oxalate Crystals Urine Present /hpf; Color Urine Dark Yellow (Yellow); Glucose Urine UA 1+ mg/dL (Negative); Ketones Urine Trace mg/dL (Negative); Leukocyte Esterase Ur 1+ LEU/UL (NEGATIVE); Nitrate Urine Negative (Negative); Protein Urine Trace mg/dL (Negative); Specific Grav Ur 1.027 (1.001-1.035); Squamous Epithelial Cell Urine Occasional /hpf (Few); Urobilinogen Urine 0.2 mg/dL (<2.0); WBC Urine 21-50 /hpf (0-3)
[2023-05-24 18:56] LABS: Add Urine Microscopic? YES
[2023-05-24 21:25] LABS: Glucose Point of Care 234 mg/dl (65-105)
[2023-05-24] MEDS: INSULIN GLARGINE (*BKC) 100 UNITS/ML 15 UNITS SUB-Q (21:31)
[2023-05-24] MEDS: ZOLPIDEM TARTRATE (*CRX) 5 MG TABLET 10 MG PO (21:31)
[2023-05-24] MEDS: CARBIDOPA/LEVODOPA 25/100 MG CR TABLET 2 TABLET PO (21:31)
[2023-05-25] MEDS: MAGNES & ALUM HYD/SIMETH/DIPHENHYD/LIDOCAINE 119 ML MOUTHWASH BY MOUTH ×6 (01:00→22:22)
[2023-05-25 06:00] VITALS: BP 113/62; PULSE 81; RESP 20; TEMP 36.4; O2SAT 96
[2023-05-25] MEDS: metroNIDAZOLE 250 MG TABLET 500 MG PO ×3 (06:46→22:22)
[2023-05-25 07:14] LABS: Basophils Absolute Auto 0.1 K/mm3 (0.0-0.1); Basophils Percent Auto 0.4 % (0.2-1.2); Eosinophils Absolute Auto 0.2 K/mm3 (0-0.3); Eosinophils Percent Auto 0.9 % (0-4.4); Hematocrit 37.6 % (42.0-52.0); Hemoglobin 11.5 g/dL (14.0-18.0); Immature Granulocyte Absolute 0.29 K/mm3 (0.00-0.031); Immature Granulocyte Percent A 1.5 % (0-0.5); Lymphocytes Absolute Auto 1.69 K/mm3 (0.9-3.2); Lymphocytes Percent Auto 8.9 % (18.3-44.2); Mean Corpuscular HGB Conc 30.6 g/dl (32-36); Mean Corpuscular Hemoglobin 25.3 pg (26-34); Mean Corpuscular Volume 82.8 fl (80-100); Mean Platelet Volume 10.3 fl (7.4-10.4); Monocytes Absolute Auto 0.4 K/mm3 (0.1-0.6); Monocytes Percent Auto 2.1 % (2.6-8.5); Neutrophils Absolute Auto 16.5 K/mm3 (1.3-6.7); Neutrophils Percent Auto 86.2 % (45.5-73.1); Platelet Count Result 372 k/mm3 (150-375); Red Blood Count 4.54 M/mm3 (4.6-6.20); Red Cell Distribution Width 14.6 % (11.5-14.5); White Blood Count 19.1 K/mm3 (4.5-10.0)
[2023-05-25 07:27] LABS: Alanine Aminotransferase 9 U/L (6-50); Albumin Level 3.4 g/dL (3.5-5.1); Alkaline Phosphatase 85 U/L (38-126); Anion Gap 8 mmol/L (8-16); Aspartate Amino Transferase 24 U/L (17-59); Bilirubin,Total 0.5 mg/dL (0.2-1.3); Blood Urea Nitrogen 18 mg/dL (9-20); Calcium 8.8 mg/dL (8.4-10.2); Carbon Dioxide 24 mmol/L (22-30); Chloride 103 mmol/L (98-107); Estimated CRCL calculation 60 ml/min; Estimated Glomerular Filt Rate > 60; Glucose 191 mg/dL (65-110); Magnesium 2.1 mg/dL (1.6-2.3); Sodium 135 mmol/L (137-145)
[2023-05-25 07:59] LABS: Glucose Point of Care 184 mg/dl (65-105)
--- NOTE | 2023-05-25 09:16 | PM.PNCARD ---
Progress Note: A&P Assessment and Plan (1) Acute non-ST elevation myocardial infarction (NSTEMI): Code(s): I21.4 - Non-ST elevation (NSTEMI) myocardial infarction Status: Acute Assessment and Plan: His troponin levels at presentation indicate significant underlying coronary disease independent if this is a primary or secondary event. Echocardiogram shows LVEF 60-65%, with hypokinesis of the basal inferolateral wall and the mid inferolateral wall. Ischemic evaluation has been discussed with the patient as well as the patient's . Offered stress testing but he wishes to defer at this point. He is not symptomatic and while he may have underlying coronary disease, he wishes to be treated medically at this stage. Continue aspirin, statin. Continue metoprolol tartrate 25 mg p.o. b.i.d. Will arrange outpatient follow up in our office. Cardiology will sign off. Please call with questions (2) Parkinson's disease: Qualifiers: Dyskinesia presence: with dyskinesia Fluctuating manifestations: with fluctuating manifestations Qualified Code(s): G20.B2 - Parkinson's disease with dyskinesia, with fluctuations Code(s): G20.A1 - Parkinson's disease without dyskinesia, without mention of fluctuations Status: Chronic Assessment and Plan: Neurostimulator in place (3) Shock: Code(s): R57.9 - Shock, unspecified Status: Acute Assessment and Plan: Probably septic.? Antibiotics on board. Management as per Manager Clinical Services. (4) Diabetes mellitus: Code(s): E11.9 - Type 2 diabetes mellitus without complications Status: Chronic Assessment and Plan: Significant diabetes with neuropathy.? Treatment per Hospitalist and Manager Clinical Services (5) Hypokalemia: Code(s): E87.6 - Hypokalemia Status: Acute Assessment and Plan: Potassium today is 3.9. No additional potassium to be given today Subjective Date/time seen: 05/25/23 09:16 Interval history: Reason for visit: NSTEMI HPI: Patient is a 67-year-old male who presented to the hospital because of shortness of breath and chest pain.? Patient also has been having some abdominal pain.? Patient presented to the hospital yesterday.? Shortness of breath started rather abruptly 2 days ago.? He also has significant pain on the right side with deep breathing.? He is not had known cardiac issues.? Does have a history of frequent syncope related to orthostasis and coughing.? He has chronic lower extremity swelling over the past 3 years.? It is improving number he elevates his legs.? He does have significant underlying health issues including Parkinson's disease with neurostimulator in place, neuropathy, diabetes, family history of heart disease and former smoker.? He does not describe any paroxysmal nocturnal dyspnea or orthopnea.? CT scan of the chest is concerning for cholecystitis.? General surgery is involved.? There was a plan to have a HIDA scan today however last night he decompensated and patient became significantly hypotensive with blood pressure systolic in the 60s.? He was temporarily started on pressors which did stabilize his BP.? He was also significantly short of breath at the time.? Troponins were initially elevated have continued to rise to over 15.? He currently is lying in bed with family at bedside it appears more stable.? Pressors have been weaned off.? He still feels a bit short of breath and has pleuritic chest pain. Date of service 05/18: Patient reports abdominal pain with coughing only. No chest pain. Date of service 05/19/2023: Still with some chest pain with coughing. No shortness of breath. Abdominal pain is better Date of service 05/20/2023: More awake alert today also. Still as chest pain with coughing. No shortness of breath. Date of service 05/21/2023: Doing fine. No chest pain or shortness of breath. Tolerating beta-ada Date of service 05/22/2023: Little tired this morning. No chest
[2023-05-25] MEDS: polyethylene glycoL 3350 17 GM POWD.PACK PO (09:18)
[2023-05-25] MEDS: ASPIRIN 81 MG ENTERIC TABLET PO (09:21)
[2023-05-25] MEDS: ATORVASTATIN 40 MG TABLET PO (09:22)
[2023-05-25] MEDS: PANTOPRAZOLE 40 MG TABLET PO ×2 (09:22→17:43)
[2023-05-25] MEDS: VITAMIN B CMPLX/VIT C/FOLIC AC 1 CAPSULE 1 CAP PO (09:22)
[2023-05-25] MEDS: CARBIDOPA/LEVODOPA 25/100 MG TABLET 1 TABLET PO (09:22)
[2023-05-25] MEDS: METOPROLOL TARTRATE 25 MG TABLET PO ×2 (09:22→20:50)
[2023-05-25] MEDS: AMANTADINE HCL 100 MG CAPSULE PO (09:23)
[2023-05-25] MEDS: VENLAFAXINE HCL XR 75 MG CAP.ER.24H 150 MG PO (09:23)
[2023-05-25] MEDS: MEMANTINE 10 MG TABLET PO ×2 (09:23→20:52)
[2023-05-25] MEDS: ESCITALOPRAM OXALATE 10 MG TABLET 20 MG PO (09:24)
[2023-05-25] MEDS: ENOXAPARIN 40 MG/0.4 ML SYRINGE SUB-Q (09:26)
[2023-05-25] MEDS: GABAPENTIN 100 MG CAPSULE PO ×3 (09:28→17:43)
[2023-05-25 11:24] LABS: Glucose Point of Care 200 mg/dl (65-105)
[2023-05-25 14:00] VITALS: BP 99/55; PULSE 72; RESP 20; TEMP 35.9; O2SAT 96
--- NOTE | 2023-05-25 14:42 | PM.IMPN ---
Progress Note: A&P Assessment and Plan (1) Hypokalemia: Code(s): E87.6 - Hypokalemia Status: Acute (2) Acalculous cholecystitis: Code(s): K81.9 - Cholecystitis, unspecified Status: Acute (3) Cholecystitis: Code(s): K81.9 - Cholecystitis, unspecified Status: Acute (4) Diabetes mellitus: Code(s): E11.9 - Type 2 diabetes mellitus without complications Status: Chronic (5) Shock: Code(s): R57.9 - Shock, unspecified Status: Acute (6) Renal mass: Code(s): N28.89 - Other specified disorders of kidney and ureter Status: Acute (7) Acute non-ST elevation myocardial infarction (NSTEMI): Code(s): I21.4 - Non-ST elevation (NSTEMI) myocardial infarction Status: Acute (8) Parkinson's disease: Qualifiers: Dyskinesia presence: with dyskinesia Fluctuating manifestations: with fluctuating manifestations Qualified Code(s): G20.B2 - Parkinson's disease with dyskinesia, with fluctuations Code(s): G20.A1 - Parkinson's disease without dyskinesia, without mention of fluctuations Status: Chronic (9) Pneumonia: Qualifiers: Laterality: bilateral Lung location: unspecified part of lung Pneumonia type: due to unspecified organism Qualified Code(s): J18.9 - Pneumonia, unspecified organism Code(s): J18.9 - Pneumonia, unspecified organism Status: Acute Plan # septic Shock/cardiogenic shock: 05/17: Patient transferred to ICU due to hypotension and appears to have shock which is likely combination of sepsis with possible cardiogenic component -He received fluids but was not further responsive to fluid as per NICOM assessment -: CTA chest on admission was negative for PE.? -lower extremity venous Dopplers were negative for DVTs bilaterally required vasopressor UA was not suggestive of UTI. 05/16:? Blood cultures negative so far 05/17:? Culture from gallbladder pending 05/17:? Cholecystostomy placed by IR on Levaquin and Flagyl (05/16) discontinued vancomycin as blood cultures negative and MRSA screen negative. 05/17/2023: Echocardiogram Summary ? 1. Left ventricular chamber dimension is normal. ? 2. Left ventricular systolic function is normal, estimated at 60-65%. ? 3. There is moderately increased left ventricular wall thickness. ? 4. The left ventricular diastolic function is grade I diastolic dysfunction. ? 5. The basal inferolateral wall, and mid inferolateral wall are hypokinetic. ? 6. The mitral valve annulus is mildly calcified. ? 7. There is moderate aortic valve sclerosis. ? 8. There is mild tricuspid valve regurgitation. Leukocytosis has worsened She has a Dyer catheter which was placed on admission. Urinalysis with some WBCs present. Will remove Dyer Chest x-ray with no acute findings # Acute non-ST elevation myocardial infarction (NSTEMI): Patient presented with mildly elevated troponin which has been gradually increasing.? EKGs have been unhelpful due to artifact from his brain stimulator.? Chest pain that he has been having is noncardiac in nature treated with heparin infusion -echocardiogram as above -troponins peak at 15.700 at now downtrending. cardiology consulted. ischemic workup refsued by the patient. on aspirin, statin, low dose beta ada Cardiology following # Parkinson's disease: Continue Sinemet -patient has deep brain stimulators Speech evaluation was done for bedside swallow, recommended pureed diet Resume his home medication. Okay to use home supply # Pneumonia: treated with antibiotics. # Renal mass: CT scan Indeterminate 4 cm exophytic upper pole left renal cystic mass; consider further evaluation with renal MRI -appreciate urology evaluation and recommendation, patient may require an ultrasound or a dedicated renal mass protocol CT scan as?MRI is contraindicated with deep brain stimulator 05/17/2023: Renal ultrasound:?Complicated 3.5 cm cyst of the left kidney. Recommend
[2023-05-25] MEDS: [UNRECOGNIZED DRUG - REMARK] 1 EACH XX (15:01)
[2023-05-25] MEDS: levoFLOXacin 750 MG TABLET PO (15:01)
--- NOTE | 2023-05-25 16:16 | ECG_ITS ---
Measurements Intervals [place] Rate: 72 P: HI: 0 QRS: 154 QRSD: 100 T: 32 QT: 366 QTc: 401 Interpretive Statements PROBABLY SINUS RHYTHM (BASELINE ARTIFACT LIMITS INTERPRETATION) BASELINE ARTIFACT- I, II, III, AVR, AVL, AVF, V1-V6 ATYPICAL ECG COMPARED TO ECG 05/17/2023 12:43:16 HEART RATE HAS DECREASED Electronically Signed On 05-25-2023 16:50:55 [employer] by Mor Clemens D.O.
[2023-05-25 16:40] LABS: Glucose Point of Care 210 mg/dl (65-105)
--- NOTE | 2023-05-25 17:00 | PM.PNGS ---
Progress Note: A&P Assessment and Plan (1) Cholelithiasis and cholecystitis without obstruction: Qualifiers: Cholelithiasis location: gallbladder Cholecystitis acuity: acute Qualified Code(s): K80.00 - Calculus of gallbladder with acute cholecystitis without obstruction Code(s): K80.10 - Calculus of gallbladder with chronic cholecystitis without obstruction Status: Acute Assessment and Plan: Cholangiogram through the biliary catheter now shows at least 1 gallstone in the gallbladder. So patient likely had acute cholecystitis with gallbladder obstruction from gallstone. Currently the stone is mobile and both the cystic duct and common bile duct are patent and draining. Okay for patient to go home with biliary catheter. I will, in the discharge instructions, have the patient's to progressively cap the biliary catheter until it is fully capped for 24 hours. If there is no abdominal pain or nausea, I will take out the biliary catheter the following week in the office. Also, will have home health go out to re-dress the biliary catheter in 1 week. They will need to go out every 1-2 weeks to change the dressing until the catheter is out. Okay to discharge tomorrow or thereafter from my standpoint. Subjective Subjective Date/Time Seen: 05/25/23 17:01 Post Op day: #8 (Cholecystostomy tube placement) Patient reports: no new complaints, feels better, tolerating a regular diet, bowel movement and afebrile Review of Systems Review of Systems: All systems reviewed & are unremarkable except as noted in HPI and below (HPI) Exam Const: General: cooperative, comfortable, no acute distress, alert and awake GI: Inspection: incision (Pigtail catheter site dressing intact, pigtail draining bile.) GI Palp: Yes Firmness to palpation present (GI), No Tenderness to palpation present (GI), No Guarding due to palpation present (GI) and No Rebound tenderness present Objective Data Vital Signs Vital Signs: Vital Signs - 24 hr 05/24/23 21:31 05/24/23 21:35 05/25/23 06:00 Temperature 37.1 C 36.4 C L Pulse Rate 86 79 81 Respiratory Rate 20 20 Blood Pressure 114/56 L 113/62 Pulse Oximetry 94 96 Oxygen Delivery 05/25/23 08:00 05/25/23 14:00 Temperature 35.9 C L Pulse Rate 72 Respiratory Rate 20 Blood Pressure 99/55 L Pulse Oximetry 96 Oxygen Delivery Room Air Intake/Output Intake/Output: Intake & Output 05/23/23 05/23/23 05/24/23 05/25/23 00:59 23:59 23:59 23:59 Intake Total 360 548 Output Total 975 355 Balance -615 193 Meds/Results Medications: Active Medications Generic Name Dose Route Start Last Admin Trade Name Freq PRN Reason Stop Dose Admin Albuterol 2.5 mg 05/17/23 20:47 05/17/23 23:24 Albuterol Sulfate Neb 2.5 Mg/3 Ml Inh INHALATION 2.5 mg Q6HRT PRN Administration Shortness Of Breath Amantadine HCl 100 mg 05/23/23 09:00 05/25/23 09:23 Amantadine Hcl 100 Mg Capsule PO 100 mg DAILY JOSE DAVID Administration Aspirin 81 mg 05/22/23 09:00 05/25/23 09:21 Aspirin 81 Mg Enteric Tablet PO 81 mg QAM JOSE DAVID Administration Atorvastatin Calcium 40 mg 05/17/23 09:00 05/25/23 09:22 Atorvastatin 40 Mg Tablet PO 40 mg DAILY JOSE DAVID Administration Bisacodyl 10 mg 05/17/23 10:18 Bisacodyl 10 Mg Suppository RECTAL QAM PRN Constipation Carbidopa/Levodopa 1 tablet 05/17/23 09:00 05/25/23 09:22 Carbidopa/Levodopa 25/100 Mg Tablet PO 1 tablet DAILY JOSE DAVID Administration Carbidopa/Levodopa 2 tablet 05/17/23 21:00 05/24/23 21:31 Carbidopa/Levodopa 25/100 Mg Cr Tablet PO 2 tablet HS JOSE DAVID Administration Dextrose 12.5 gm 05/16/23 11:43 Dextrose 50% 25 Gm/50 Ml Syringe IV PUSH PRN PRN Hypoglycemia Protocol Docusate Sodium 100 mg 05/17/23 10:18 Docusate Sodium 100 Mg Capsule PO Q12H PRN Constipation Enoxaparin Sodium 40 mg 05/23/23 09:00 05/25/23 09:26 Enoxaparin
[2023-05-25] MEDS: PIPERACILLIN/TAZ 4.5G/NS 100ML 4.5 GM/100 ML BAG IVPB (17:43)
[2023-05-25] MEDS: INSULIN ASPART (*BKC) 100 UNITS/ML SUB-Q (17:43)
[2023-05-25 20:00] VITALS: PULSE 74; RESP 20; O2SAT 94
[2023-05-25 20:50] VITALS: PULSE 70
[2023-05-25] MEDS: ZOLPIDEM TARTRATE (*CRX) 5 MG TABLET 10 MG PO (20:52)
[2023-05-25] MEDS: CARBIDOPA/LEVODOPA 25/100 MG CR TABLET 2 TABLET PO (20:52)
[2023-05-25] MEDS: INSULIN GLARGINE (*BKC) 100 UNITS/ML 15 UNITS SUB-Q (21:27)
[2023-05-25 21:38] LABS: Glucose Point of Care 220 mg/dl (65-105)
[2023-05-25 22:00] VITALS: BP 104/65; PULSE 74; RESP 20; TEMP 36.8; O2SAT 94
[2023-05-25] MEDS: FLUCONAZOLE 100 MG TABLET PO (22:29)
[2023-05-26] MEDS: PIPERACILLIN/TAZ 4.5G/NS 100ML 4.5 GM/100 ML BAG IVPB ×3 (00:21→12:50)
[2023-05-26] MEDS: MAGNES & ALUM HYD/SIMETH/DIPHENHYD/LIDOCAINE 119 ML MOUTHWASH BY MOUTH ×4 (00:22→12:52)
[2023-05-26] MEDS: metroNIDAZOLE 250 MG TABLET 500 MG PO ×2 (05:16→12:52)
[2023-05-26 06:00] VITALS: BP 108/61; PULSE 71; RESP 18; TEMP 36.9; O2SAT 96
[2023-05-26 06:05] LABS: Basophils Absolute Auto 0.1 K/mm3 (0.0-0.1); Basophils Percent Auto 0.4 % (0.2-1.2); Eosinophils Absolute Auto 0.3 K/mm3 (0-0.3); Eosinophils Percent Auto 1.8 % (0-4.4); Hematocrit 36.7 % (42.0-52.0); Hemoglobin 11.2 g/dL (14.0-18.0); Immature Granulocyte Absolute 0.17 K/mm3 (0.00-0.031); Lymphocytes Absolute Auto 1.62 K/mm3 (0.9-3.2); Lymphocytes Percent Auto 9.9 % (18.3-44.2); Mean Corpuscular HGB Conc 30.5 g/dl (32-36); Mean Corpuscular Hemoglobin 25.6 pg (26-34); Mean Platelet Volume 10.3 fl (7.4-10.4); Monocytes Absolute Auto 0.4 K/mm3 (0.1-0.6); Monocytes Percent Auto 2.4 % (2.6-8.5); Neutrophils Absolute Auto 13.8 K/mm3 (1.3-6.7); Neutrophils Percent Auto 84.5 % (45.5-73.1); Platelet Count Result 368 k/mm3 (150-375); Red Blood Count 4.37 M/mm3 (4.6-6.20); Red Cell Distribution Width 14.7 % (11.5-14.5); White Blood Count 16.4 K/mm3 (4.5-10.0)
[2023-05-26 06:20] LABS: Alanine Aminotransferase 7 U/L (6-50); Albumin Level 3.3 g/dL (3.5-5.1); Alkaline Phosphatase 77 U/L (38-126); Anion Gap 6 mmol/L (8-16); Aspartate Amino Transferase 26 U/L (17-59); Bilirubin,Total 0.6 mg/dL (0.2-1.3); Blood Urea Nitrogen 17 mg/dL (9-20); Calcium 8.5 mg/dL (8.4-10.2); Carbon Dioxide 26 mmol/L (22-30); Chloride 104 mmol/L (98-107); Estimated CRCL calculation 60 ml/min; Estimated Glomerular Filt Rate > 60; Glucose 166 mg/dL (65-110); Sodium 136 mmol/L (137-145)
[2023-05-26 07:45] LABS: Glucose Point of Care 181 mg/dl (65-105)
[2023-05-26] MEDS: ENOXAPARIN 40 MG/0.4 ML SYRINGE SUB-Q (09:36)
[2023-05-26] MEDS: polyethylene glycoL 3350 17 GM POWD.PACK PO (09:36)
[2023-05-26] MEDS: ASPIRIN 81 MG ENTERIC TABLET PO (09:37)
[2023-05-26] MEDS: VENLAFAXINE HCL XR 75 MG CAP.ER.24H 150 MG PO (09:37)
[2023-05-26] MEDS: AMANTADINE HCL 100 MG CAPSULE PO (09:37)
[2023-05-26] MEDS: METOPROLOL TARTRATE 25 MG TABLET PO (09:37)
[2023-05-26] MEDS: MEMANTINE 10 MG TABLET PO (09:37)
[2023-05-26] MEDS: ESCITALOPRAM OXALATE 10 MG TABLET 20 MG PO (09:37)
[2023-05-26] MEDS: GABAPENTIN 100 MG CAPSULE PO ×2 (09:37→12:51)
[2023-05-26] MEDS: VITAMIN B CMPLX/VIT C/FOLIC AC 1 CAPSULE 1 CAP PO (09:37)
[2023-05-26] MEDS: PANTOPRAZOLE 40 MG TABLET PO (09:38)
[2023-05-26] MEDS: ATORVASTATIN 40 MG TABLET PO (09:38)
[2023-05-26] MEDS: CARBIDOPA/LEVODOPA 25/100 MG TABLET 1 TABLET PO (09:38)
[2023-05-26 11:33] LABS: Glucose Point of Care 215 mg/dl (65-105)
[2023-05-26] MEDS: INSULIN ASPART (*BKC) 100 UNITS/ML SUB-Q (12:10)
[2023-05-26 14:00] VITALS: BP 102/61; PULSE 70; RESP 18; TEMP 35.8; O2SAT 100
--- NOTE | 2023-05-26 15:35 | P.DS_ITS ---
DS: Admitting Diagnosis Discharge Date 05/26/23 Admitting Diagnosis Sepsis Cholecystitis DS: Discharge Diagnosis Discharge Diagnosis (1) Hypokalemia: Code(s): E87.6 - Hypokalemia Status: Acute (2) Acalculous cholecystitis: Code(s): K81.9 - Cholecystitis, unspecified Status: Ruled-out (3) Cholecystitis: Code(s): K81.9 - Cholecystitis, unspecified Status: Acute (4) Diabetes mellitus: Code(s): E11.9 - Type 2 diabetes mellitus without complications Status: Chronic (5) Shock: Code(s): R57.9 - Shock, unspecified Status: Acute (6) Renal mass: Code(s): N28.89 - Other specified disorders of kidney and ureter Status: Acute (7) Acute non-ST elevation myocardial infarction (NSTEMI): Code(s): I21.4 - Non-ST elevation (NSTEMI) myocardial infarction Status: Acute (8) Parkinson's disease: Qualifiers: Dyskinesia presence: with dyskinesia Fluctuating manifestations: with fluctuating manifestations Qualified Code(s): G20.B2 - Parkinson's disease with dyskinesia, with fluctuations Code(s): G20.A1 - Parkinson's disease without dyskinesia, without mention of fluctuations Status: Chronic (9) Pneumonia: Qualifiers: Laterality: bilateral Lung location: unspecified part of lung Pneumonia type: due to unspecified organism Qualified Code(s): J18.9 - Pneumonia, unspecified organism Code(s): J18.9 - Pneumonia, unspecified organism Status: Acute Plan # septic Shock/cardiogenic shock: 05/17: Patient transferred to ICU due to hypotension and appears to have shock which is likely combination of sepsis with possible cardiogenic component -He received fluids but was not further responsive to fluid as per NICOM assessment -: CTA chest on admission was negative for PE.? -lower extremity venous Dopplers were negative for DVTs bilaterally required vasopressor UA was not suggestive of UTI. 05/16:? Blood cultures negative so far 05/17:? Culture from gallbladder pending 05/17:? Cholecystostomy placed by IR on Levaquin and Flagyl (05/16) discontinued vancomycin as blood cultures negative and MRSA screen negative. 05/17/2023: Echocardiogram Summary ? 1. Left ventricular chamber dimension is normal. ? 2. Left ventricular systolic function is normal, estimated at 60-65%. ? 3. There is moderately increased left ventricular wall thickness. ? 4. The left ventricular diastolic function is grade I diastolic dysfunction. ? 5. The basal inferolateral wall, and mid inferolateral wall are hypokinetic. ? 6. The mitral valve annulus is mildly calcified. ? 7. There is moderate aortic valve sclerosis. ? 8. There is mild tricuspid valve regurgitation. Leukocytosis has worsened She has a Dyer catheter which was placed on admission. Urinalysis with some WBCs present. Will remove Dyer Chest x-ray with no acute findings # Acute non-ST elevation myocardial infarction (NSTEMI): Patient presented with mildly elevated troponin which has been gradually increasing.? EKGs have been unhelpful due to artifact from his brain stimulator.? Chest pain that he has been having is noncardiac in nature treated with heparin infusion -echocardiogram as above -troponins peak at 15.700 at now downtrending. cardiology consulted. ischemic workup refsued by the patient. on aspirin, statin, low dose beta ada Cardiology following # Parkinson's disease: Continue Sinemet -patient has deep brain stimulators Speech evaluation was done for bedside swallow, recommended thao
== END 2023-05-26 16:18 | disposition home health service (06) | DRG 871 ==
LOC: ANHED 06:51 → ANHIMU 11:01 → ANHICU 05-17 00:02 → ANHIMU 05-20 16:50 → ANH3MEDSUR 05-22 17:11
PROVIDERS: Internal Medicine; Internal Medicine Cardiovascular Disease; Physician Assistant; Admitting Provider Internal Medicine; Emergency Provider Emergency Medicine; PCP Internal Medicine; Visit Provider Internal Medicine
DX: A41.9 Sepsis, unspecified organism (principal); I21.4 Non-ST elevation (NSTEMI) myocardial infarction; J18.9 Pneumonia, unspecified organism; R65.21 Severe sepsis with septic shock; R57.0 Cardiogenic shock; J96.01 Acute respiratory failure with hypoxia; K80.00 Calculus of gallbladder with acute cholecystitis without obstruction; I25.10 Atherosclerotic heart disease of native coronary artery without angina pectoris; N28.89 Other specified disorders of kidney and ureter; G20.A1 Parkinson's disease without dyskinesia, without mention of fluctuations; E11.42 Type 2 diabetes mellitus with diabetic polyneuropathy; K12.1 Other forms of stomatitis; Z20.822 Contact with and (suspected) exposure to COVID-19; M19.90 Unspecified osteoarthritis, unspecified site; E87.6 Hypokalemia; K59.00 Constipation, unspecified; R07.89 Other chest pain; Z96.82 Presence of neurostimulator; Z53.29 Procedure and treatment not carried out because of patient's decision for other reasons
CPT/HCPCS: 36415; 47490; 47531; 71045; 71046; 71275; 74176; 76705; 76775; 80048; 80053; 80061; 80202; 81001; 82010; 82274; 82550; 82803; 82948; 83036; 83605; 83690; 83735; 84100; 84484; 85025; 85027; 85610; 85730; 86850; 86900; 86901; 87040; 87070; 87075; 87076; 87077; 87086; 87102; 87186; 87205; 87206; 87637; 87641; 92610; 93005; 93970; 94640; 96361; 99285; A9270; C1729; C1751; C8929; C9113; G0378; J1644; J1650; J1815; J1836; J1956; J2270; J2405; J2543; J3370; J7030; J7040; Q9957; Q9966; Q9967

== ENCOUNTER 2023-10-05 13:02 | Outpatient (CLI) | payer MEDICARE, SELFPAY ==
--- NOTE | ~2023-10-05 | CT_ITS ---
CT of the Abdomen: Indication: Renal cyst Technique: 2.5 mm axial scans were obtained through the abdomen prior to and following intravenous a dministration of 100 cc of Omnipaque 350. Dose reduction technique was used on this scan by utilizing automated exposure control and iterative reconstruction technique. The dose-length product (DLP) was 1474.51 mGy-cm. COMPARISON: 05/16/2023 Findings: Scans through the lung bases demonstrates stable 3 mm right middle lobe pulmonary nodule. The liver, spleen, pancreas, gallbladder, adrenals and right kidney are within normal limits. 3.3 cm cystic left renal mass is present, with increased thin peripheral enhancement for a renal cyst than i s typically seen, but the lesion is stable from prior exam. No evidence of aortic aneurysm. No lymph adenopathy. Visualized bowel loops are unremarkable. No ascites. Impression: Stable 3.3 cm cystic left renal mass, most compatible with benign lesion. Consider additional annual follow-up ultrasound or CT to confirm stability. Reviewed, dictated and finalized at [facility]. Impression: Stable 3.3 cm cystic left renal mass, most compatible with benign lesion. Consi marc additional annual follow-up ultrasound or CT to confirm stability.
[2023-10-05 13:48] LABS: Estimated Glomerular Filt Rate > 60
== END 2023-10-05 13:03 | disposition home or self-care (01) ==
PROVIDERS: PCP Internal Medicine; Visit Provider Urology
DX: N28.1 Cyst of kidney, acquired (principal)
CPT/HCPCS: 74170; Q9967

== ENCOUNTER 2024-03-11 12:10 | Inpatient (IN) | payer MEDICARE, SELFPAY ==
[2024-03-11] VITALS (12 sets, daily range): BP systolic 112–152; BP diastolic 62–86; PULSE 80–87; RESP 14–22; TEMP 36.4–36.9; O2SAT 88–100; BMI 27.6
--- NOTE | ~2024-03-11 | XR_ITS ---
Clinical Indication: Hypoxia PA and lateral views of the chest: Comparison: 03/11/2024 Findings: Probable mild right basilar/right perihilar haziness. Left lung clear. Cardiomediastinal s ilhouette is within normal limits. Bones and soft tissues are unremarkable. Impression: Mild right basilar pulmonary edema versus atelectasis, or possibly pneumonia. Correlate clinically. Reviewed, dictated and finalized at location . Impression: Mild right basilar pulmonary edema versus atelectasis, or possibly pneumonia. C orrelate clinically.
--- NOTE | ~2024-03-11 | XR_ITS ---
Supine and upright views of the abdomen Clinical history: Abdominal distention Findings: Multiple air distended loops of bowel are present, nonspecific appearance overall. No defin ite free air. Cholecystostomy catheter present in the right upper quadrant. No abnormal mass lesion o r calcification is seen. Osseous structures are intact. Impression: Nonspecific bowel gas pattern. Questionable generalized ileus. Cholecystostomy tube. Reviewed, dictated and finalized at location . Impression: Nonspecific bowel gas pattern. Questionable generalized ileus. Cholecystostomy tube.
--- NOTE | ~2024-03-11 | CT_ITS ---
EXAMINATION: CT abdomen pelvis w con DATE: 03/11/2024 14:19 INDICATION: right sided AP TECHNIQUE: Computed tomography (CT) of the abdomen and pelvis was performed with 100 mL Omnipaque-350 intravenous contrast. Automated exposure control and iterative reconstruction technique were employe d. The dose-length product was 1110.65 mGy-cm. COMPARISON: 10/05/2023. FINDINGS: Lower thorax: Bibasilar dependent atelectasis. Coronary artery calcification. Liver: Normal. Biliary/Gallbladder: Gallbladder wall edema and mucosal hyperemia. 10 mm intramural hyperdensity, lik varghese gallstone No bile duct dilation. Pancreas: No mass or duct dilation. Spleen: Normal. Adrenals:No mass. Kidneys: Simple right upper pole cyst. 3.9 cm low-density left upper pole lesion, with a tiny associa diogo wall calcification and the suggestion of a thin septum. GI tract: Dilation of the mid and distal sigmoid. The rectum is dilated up to 8.5 cm. Large volume of colonic stool. Mild associated wall colonic thickening. No significant surrounding inflammatory pope ge. No small dilation. Small appendix versus appendiceal stump. Diverticulosis without diverticulitis . Mesentery/Peritoneum: No ascites, mass, or free air. Retroperitoneum: No mass. Pelvis: Partially distended urinary bladder with wall thickening. Prostatomegaly. Soft Tissues: Soft tissues and body wall unremarkable. Bones: No acute osseous finding. IMPRESSION: Likely acute cholecystitis. Stable complicated left upper pole renal cystic lesion. Prior recommendation for annual follow-up whi ch should occur in September 2024 is unchanged. Likely fecal impaction. A rectal mass is not excluded. Associated sigmoid and rectal wall thickening, as can occur with early stercoral colitis. Reviewed, dictated and finalized at location [facility]. IMPRESSION: Likely acute cholecystitis. Stable complicated left upper pole renal cystic lesion. Prior recommendation fo r annual follow-up which should occur in September 2024 is unchanged. Likely fecal impaction. A rectal mass is not excluded. Associated sigmoid and r ectal wall thickening, as can occur with early stercoral colitis.
--- NOTE | ~2024-03-11 | US_ITS ---
EXAMINATION: US perc cholecystostomy w imag DATE: 03/13/2024 11:46 INDICATION: Acute cholecystitis TECHNIQUE: The procedure including the risks and benefits was discussed with the patient. Risks discu ssed included bleeding including hemorrhage and bile peritonitis. Oral and written consent were obtai vilma. The patient was confirmed to be receiving appropriate antibiotic coverage. The skin overlying t he gallbladder was prepped and draped in usual sterile fashion. Anesthetic was administered with 1% lidocaine subcutaneously. An 8.5 Fr catheter was inserted into the gallbladder by trocar technique. T he metal stiffener and trocar needle were removed, and the pigtail tip was locked. Bile was aspirated and sent for culture. The catheter was stitched to the skin with suture. Antibiotic ointment and a s terile dressing were applied. There were no immediate complications. FINDINGS: The there is diffuse gallbladder wall thickening consistent with acute cholecystitis. Ultra sound images demonstrate the catheter within the gallbladder. 29 mL of dark brown-colored bile was as pirated. Final images show the formed pigtail catheter tip in the gallbladder. IMPRESSION: 1. Successful ultrasound-guided cholecystostomy tube placement. 2. 29 mL bile was sent for aerobic, anaerobic, and fungal cultures. 3. The catheter will be managed by Dr. Salazar. A catheter cholangiogram may be performed not less than 48 hours after tube placement if clinically indicated to assess cystic duct patency. If cholecystect ca is not eventually performed and the infectious episode has resolved, the tube may be removed over a guidewire, preferably not less than 3 weeks after placement to allow time for a mature catheter tr act to form to prevent bile leakage and peritonitis. Reviewed, dictated and finalized at location A. IMPRESSION: 1. Successful ultrasound-guided cholecystostomy tube placement. 2. 29 mL bile was sent for aerobic, anaerobic, and fungal cultures. 3. The catheter will be managed by Dr. Salazar. A catheter cholangiogram may be pe rformed not less than 48 hours after tube placement if clinically indicated to assess cystic duct patency. If cholecystectomy is not eventually performed and the infectious episode has resolved, the tube may be removed over a guidewire, preferably not less than 3 weeks after placement to allow time for a mature ca theter tract to form to prevent bile leakage and peritonitis.
--- NOTE | ~2024-03-11 | XR_ITS ---
EXAMINATION: XR chest 2V Exam Date/Time: 03/11/2024 14:15 CDT HISTORY: SOA/DIFFICULT PT Comparison: 05/24/2023. RESULT: Lines, tubes, and devices: Bilateral upper chest stimulator packs, with leads traversing cephalad ou t of the [id number]. Lungs and pleura: Low volume with crowding and bibasilar atelectasis, otherwise clear. Cardiomediastinal silhouette: Stable. Other: No acute osseous or upper abdominal finding. IMPRESSION: No acute cardiopulmonary process. Reviewed, dictated and finalized at location K.
--- NOTE | 2024-03-11 12:31 | ECG_ITS ---
Test Date: 2024-03-11 16:10:21 Measurements Intervals [place] Rate: 80 P: 30 FL: 121 QRS: 209 QRSD: 101 T: 218 QT: 397 QTc: 458 Interpretive Statements ECG IS UNINTERPRETABLE DUE TO SIGNIFICANT ARTIFACT Electronically Signed On 03-12-2024 10:33:15 CDT by Lexi Crystal M.D.
[2024-03-11] MEDS: ONDANSETRON INJ 4 MG/2 ML VIAL IV PUSH ×2 (13:20→21:58)
[2024-03-11] MEDS: MORPHINE SULFATE (*CRX) 4 MG/ML INJ IV PUSH (13:20)
[2024-03-11 13:37] LABS: Basophils Absolute Auto 0.1 K/mm3 (0.0-0.1); Basophils Percent Auto 0.3 % (0.2-1.2); Eosinophils Percent Auto 0.1 % (0-4.4); Hematocrit 37.5 % (42.0-52.0); Hemoglobin 11.8 g/dL (14.0-18.0); Immature Granulocyte Absolute 0.14 K/mm3 (0.00-0.031); Immature Granulocyte Percent A 0.9 % (0-0.5); Lymphocytes Absolute Auto 0.53 K/mm3 (0.9-3.2); Lymphocytes Percent Auto 3.5 % (18.3-44.2); Mean Corpuscular HGB Conc 31.5 g/dl (32-36); Mean Corpuscular Hemoglobin 27.7 pg (26-34); Mean Platelet Volume 10.1 fl (7.4-10.4); Monocytes Absolute Auto 0.5 K/mm3 (0.1-0.6); Monocytes Percent Auto 3.1 % (2.6-8.5); Neutrophils Absolute Auto 14.1 K/mm3 (1.3-6.7); Neutrophils Percent Auto 92.1 % (45.5-73.1); Platelet Count Result 311 k/mm3 (150-375); Red Blood Count 4.26 M/mm3 (4.6-6.20); Red Cell Distribution Width 14.1 % (11.5-14.5); White Blood Count 15.3 K/mm3 (4.5-10.0)
[2024-03-11 13:46] LABS: Add Urine Microscopic? NO; Appearance Urine Clear (Clear); Bilirubin Urine Negative (Negative); Blood Urine Negative (Negative); Color Urine Yellow (Yellow); Glucose Urine UA 3+ mg/dL (Negative); Ketones Urine Negative (Negative); Leukocyte Esterase Ur Negative LEU/UL (Negative); Nitrate Urine Negative (Negative); Protein Urine Negative (Negative); Specific Grav Ur 1.013 (1.001-1.035); Urobilinogen Urine 0.2 mg/dL (<2.0); pH Urine 5.5 (5.0-9.0)
[2024-03-11 13:47] LABS: Alanine Aminotransferase 11 U/L (6-50); Albumin Level 3.9 g/dL (3.5-5.1); Alkaline Phosphatase 159 U/L (38-126); Anion Gap 9 mmol/L (4-12); Aspartate Amino Transferase 22 U/L (17-59); Bilirubin,Total 0.7 mg/dL (0.2-1.3); Blood Urea Nitrogen 15 mg/dL (9-20); Calcium 8.8 mg/dL (8.4-10.2); Carbon Dioxide 28 mmol/L (22-30); Chloride 98 mmol/L (98-107); Estimated CRCL calculation 70 ml/min; Estimated Glomerular Filt Rate > 60; Glucose 310 mg/dL (65-110); Lipase 35 U/L (23-300); Potassium 4.9 mmol/L (3.4-5.0); Sodium 135 mmol/L (137-145)
[2024-03-11 13:51] LABS: INR 1.1; Prothrombin Time 14.2 Seconds (11.1-14.7)
[2024-03-11 13:52] LABS: Partial Thromboplastin Time 24.4 Seconds (22.3-36.8)
--- NOTE | 2024-03-11 14:48 | ED_ITS ---
HPI - General Adult General Chief complaint: Unspecified Stated complaint: SOB Time Seen by Provider: 03/11/24 12:13 History of Present Illness HPI narrative: patient is a 68-year-old male with Parkinson's and dementia who presents ER with severe upper abdominal pain. Sudden onset. Located in a right upper quadrant epigastrium. No radiation. No fevers or chills. Patient speaks sl owly due to his Parkinson's and reports this is normal. Patient had a cholecystostomy tube for cholecystitis last year but had no follow-up surgery due to comorbid conditions. Related Data Home Medications Medication Instructions Recorded Confirmed amantadine HCl 100 mg capsule 100 mg PO DAILY 05/16/23 03/11/24 carbidopa 25 mg-levodopa 100 mg 1 tablet PO DAILY 05/16/23 03/11/24 tablet (Sinemet) carbidopa ER 50 mg-levodopa 200 mg 2 tablet PO HS 05/16/23 03/11/24 tablet,extended release escitalopram oxalate 20 mg tablet 20 mg PO DAILY 05/16/23 03/11/24 gabapentin 100 mg capsule 100 mg PO TID 05/16/23 03/11/24 ibuprofen 200 mg tablet 600 mg PO Q6H PRN Pain 05/16/23 03/11/24 insulin degludec 200 unit/mL (3 10 unit subcut DAILY 05/16/23 03/11/24 mL) subcutaneous pen (Tresiba FlexTouch U-200 insulin) memantine 10 mg tablet 10 mg PO Q12H 05/16/23 03/11/24 omeprazole 40 mg capsule,delayed 40 mg PO DAILY 05/16/23 03/11/24 release polyethylene glycol 3350 17 gram 17 g PO DAILY 05/16/23 03/11/24 oral powder packet (Miralax) venlafaxine 150 mg 150 mg PO DAILY 05/16/23 03/11/24 capsule,extended release 24 hr vitamin B complex-vitamin C 100 1 tablet PO DAILY 05/16/23 03/11/24 mg-folic acid 1 mg tablet zolpidem 10 mg tablet 10 mg PO HS 05/16/23 03/11/24 dextromethorphan 20 mg-quinidine 1 cap PO DAILY 05/22/23 03/11/24 10 mg capsule (Nuedexta) Allergies Allergy/AdvReac Type Severity Reaction Status Date / Time No Known Allergies Allergy Unknown Verified 06/24/23 09:04 NKFA Allergy Unknown Unknown Uncoded 06/24/23 09:04 Review of Systems Review of Systems: ROS unobtainable: Yes unobtainable due to medical condition PMFSH Past Medical History Medical History Arthritis Diabetes mellitus Kidney stones Parkinson's disease Right knee meniscal tear Surgical History Surgical History H/O arthroscopy of right knee History of cholecystectomy Hx of transurethral resection of prostate S/P deep brain stimulator placement Family History Family History Mother Acute myocardial infarction Social History Social History Smoking status: Never smoker Alcohol intake: never Substance use: never Gender identity (if verbalized by the patient): Male Spiritual care concerns: No Exam Narrative: GENERAL: Chronically ill-appearing, well-nourished, and in mildacute distress. HEAD: Normocephalic, atraumatic. ENT: Mucous membranes moist. NECK: Supple. CHEST: Clear to auscultation. No respiratory distress. HEART: Regular rate and rhythm. Normal peripheral pulses. ABDOMEN: Soft, tender palpation right upper quadrant epigastrium with guarding, nondistended. SKIN: Warm, dry, no rash. NEURO: Alert and oriented x2. PSYCH: Normal mood and affect. Course Course Emergency Course: pain improved with morphine. Admit to hospitalist service. General surgery consulted. NPO. IV Zosyn ordered for antibiotic coverage. Vital Signs Vital signs: Vital Signs Pulse Rate 87 03/11/24 12:20 Respiratory Rate 22 H 03/11/24 12:20 Blood Pressure 149/86 H 03/11/24 12:20 Pulse Oximetry 100 03/11/24 12:20 Temperature 98.4 F 03/11/24 21:08 Pulse Rate 81 03/11/24 21:08 Respiratory Rate 14 03/11/24 21:08 Blood Pressure 125/62 03/11/24 21:08 Pulse Oximetry 93 03/11/24 21:08 Oxygen Delivery Nasal Cannula 03/11/24 17:20 Oxygen Flow Rate 3 03/11/24 17:20 Medical Decision Making Vital Signs Vital Signs: Vital Signs Pulse Rate 87 03/11/24 12:20 Respiratory Rate 22 H 03/11/24 12:20 Blood Pressure 149/86 H 03/11/24 12:20 Pulse Oximetry 100 03/11/24 12:20 Temperature 98.4 F 03/11/24 21:08 Pulse Rate 81 03/11/24 21:08 Respiratory Rate 14 03/11/24 21:08 Blood Pressure 125/62 03/11/24 21:08 Pulse Oximetry 93 03/11/24 21:08 Oxygen Delivery Nasal Cannula 03/11/24 17:20 Oxygen Flow Rate 3 03/11/24 17:20 Lab Data 03/11/24 13:31 03/11/24 13:31 Labs: Lab Results 03/11/24 03/11/24 Range/Units 13:31 13:38 WBC 15.3 H (4.5-10.0) K/mm3 RBC 4.26 L (4.6-6.20) M/mm3 Hgb 11.8 L (14.0-18.0) g/dL Hct 37.5 L (42.0-52.0) % MCV 88.0 (80-100) fl MCH 27.7 (26-34) pg MCHC 31.5 L (32-36) g/dl RDW 14.1 (11.5-14.5) % Plt Count 311 (150-375) k/mm3 MPV 10.1 (7.4-10.4) fl Immature Gran % (Auto) 0.9 H (0-0.5) % Neut % (Auto) 92.1 H (45.5-73.1) % Lymph % (Auto) 3.5 L (18.3-44.2) % [place] % (Auto) 3.1 (2.6-8.5) % Eos % (Auto) 0.1 (0-4.4) % Baso % (Auto) 0.3 (0.2-1.2) % Lymph # (Auto) 0.53 L (0.9-3.2) K/mm3 [place] # (Auto) 0.5 (0.1-0.6) K/mm3 Eos # (Auto) 0.0 (0-0.3) K/mm3 Baso # (Auto) 0.1 (0.0-0.1) K/mm3 Abs Immat Gran (auto) 0.14 H (0.00-0.031) K/mm3 Absolute Neuts (auto) 14.1 H (1.3-6.7) K/mm3 Absolute Nucleated RBC 0.000 (0.0-0.012) K/mm3 Nucleated RBC % 0.0 (0.0-0.2) % PT 14.2 (11.1-14.7) Seconds INR 1.1 APTT 24.4 (22.3-36.8) Seconds Sodium 135 L (137-145) mmol/L Potassium 4.9 (3.4-5.0) mmol/L Chloride 98 (98-107) mmol/L Carbon Dioxide 28 (22-30) mmol/L Anion Gap 9 (4-12) mmol/L BUN 15 (9-20) mg/dL Creatinine 0.90 (0.7-1.3) mg/dL Estim Creat Clear Calc 70 ml/min Estimated GFR > 60 (59 - ) Glucose 310 H (65-110) mg/dL Calcium 8.8 (8.4-10.2) mg/dL Total Bilirubin 0.7 (0.2-1.3) mg/dL AST 22 (17-59) U/L ALT 11 (6-50) U/L Alkaline Phosphatase 159 H (38-126) U/L Total Protein 7.0 (6.3-8.2) g/dL Albumin 3.9 (3.5-5.1) g/dL Lipase 35 (23-300) U/L Urine Color Yellow (Yellow) Urine Appearance Clear (Clear) Urine pH 5.5 (5.0-9.0) Ur Specific [place] 1.013 (1.001-1.035) Urine Protein Negative (Negative) mg/dL Urine Glucose (UA) 3+ H (Negative) mg/dL Urine Ketones Negative (Negative) mg/dL Ur Blood (Man) Negative (Negative) Urine Nitrate Negative (Negative) Urine Bilirubin Negative (Negative) Urine Urobilinogen 0.2 (<2.0) mg/dL Leukocyte Esterase Rfl Negative (Negative) NAYELY/UL Imaging Data Radiologist's impression: ITS Impressions Abdomen/Pelvis CT 03/11/24 14:22 IMPRESSION: Likely acute cholecystitis. Stable complicated left upper pole renal cystic lesion. Prior recommendation for annual follow-up which should occur in September 2024 is unchanged. Likely fecal impaction. A rectal mass is not excluded. Associated sigmoid and rectal wall thickening, as can occur with early stercoral colitis. Chest X-Ray 03/11/24 14:34 IMPRESSION: No acute cardiopulmonary process. Discharge Plan Discharge Clinical Impression: Cholecystitis Patient Disposition: Still a Patient Condition: Stable
[2024-03-11] MEDS: PIPERACILLN/TAZ 3.375GM/NS50ML 3.375 GM/50 ML BAG IVPB ×2 (15:55→22:00)
--- NOTE | 2024-03-11 17:20 | ADMGEN ---
This patient, Jayden Cherry, was admitted to [facility] Surg Room 302-01. Patient/family oriented to hospital policies and general routines including ID bracelet, bed and alarms, visiting hours, pain management, procedures, bathroom and other care routines, personal items, smoking policy, room service/diet, and visiting hours. Information on how to activate the Rapid Response Team has been discussed. Patient/Family are encouraged to report perceived risks to care and to ask questions if they do not understand what they are told or what they should do.
[2024-03-11] MEDS: SODIUM CHLORIDE 0.9% IV 1,000 ML 125 ML IV CONT (17:47)
[2024-03-11 20:01] LABS: Glucose Point of Care 256 mg/dl (65-105)
--- NOTE | 2024-03-11 20:18 | P.HP_ITS ---
H&P: HPI History of Present Illness Date/Time: 03/11/24 20:18 Chief Complaint: Shortness breath Narrative: 68-year-old male with a PMHx: of arthritis, type 2 diabetes on insulin, Parkinson's disease presented to the emergency room with complaints of ongoing SOB. Patient is unable to provide HPI, spouse by the bedside provides most of the HPI reporting patient lives at home, she is his primary caregiver. She reports patient becoming more fatigued and weak along with notable SOB and complaints of stomach pain. She denies any fever chills or chest pain. She reports patient had an episode similar to this 1 year ago. She states patient is incontinent she reports giving him daily MiraLax but states if she adds anything else his stools become very loose. In the ED: Initial vital signs, 97.9, MO 82, RR 21, 100% on RA, b/p: 149/86, initial lab results revealed WBC 15.3, sodium 135, UA unremarkable with + 3 glucose, CXR reveals no acute cardiopulmonary process, abdominal pelvis CT reveals acute cholecystitis, stable complicated left upper pole renal cystic lesion, fecal impaction or rectal mass not excluded associated sigmoid and rectal wall thickening could represent early stercoral colitis. Review of Systems Review of Systems: All systems reviewed & are unremarkable except as noted in HPI and below PMFSH Past Medical History Medical History Arthritis Diabetes mellitus Kidney stones Parkinson's disease Right knee meniscal tear Surgical History Surgical History H/O arthroscopy of right knee History of cholecystectomy Hx of transurethral resection of prostate S/P deep brain stimulator placement Family History Family History Mother Acute myocardial infarction Social History Social History Smoking status: Never smoker Alcohol intake: never Substance use: never Gender identity (if verbalized by the patient): Male Spiritual care concerns: No Meds Home Medications and Allergies Home Medications Medication Instructions Recorded Confirmed Type amantadine HCl 100 mg capsule 100 mg PO DAILY 05/16/23 03/11/24 History carbidopa 25 mg-levodopa 100 mg 1 tablet PO DAILY 05/16/23 03/11/24 History tablet (Sinemet) carbidopa ER 50 mg-levodopa 200 mg 2 tablet PO HS 05/16/23 03/11/24 History tablet,extended release escitalopram oxalate 20 mg tablet 20 mg PO DAILY 05/16/23 03/11/24 History gabapentin 100 mg capsule 100 mg PO TID 05/16/23 03/11/24 History ibuprofen 200 mg tablet 600 mg PO Q6H PRN Pain 05/16/23 03/11/24 History insulin degludec 200 unit/mL (3 10 unit subcut DAILY 05/16/23 03/11/24 History mL) subcutaneous pen (Tresiba FlexTouch U-200 insulin) memantine 10 mg tablet 10 mg PO Q12H 05/16/23 03/11/24 History omeprazole 40 mg capsule,delayed 40 mg PO DAILY 05/16/23 03/11/24 History release polyethylene glycol 3350 17 gram 17 g PO DAILY 05/16/23 03/11/24 History oral powder packet (Miralax) venlafaxine 150 mg 150 mg PO DAILY 05/16/23 03/11/24 History capsule,extended release 24 hr vitamin B complex-vitamin C 100 1 tablet PO DAILY 05/16/23 03/11/24 History mg-folic acid 1 mg tablet zolpidem 10 mg tablet 10 mg PO HS 05/16/23 03/11/24 History dextromethorphan 20 mg-quinidine 1 cap PO DAILY 05/22/23 03/11/24 History 10 mg capsule (Nuedexta) Allergies Allergy/AdvReac Type Severity Reaction Status Date / Time No Known Allergies Allergy Unknown Verified 06/24/23 09:04 NKFA Allergy Unknown Unknown Uncoded 06/24/23 09:04 Vital Signs Vital Signs - 24 hr 03/11/24 12:20 03/11/24 15:40 03/11/24 15:40 Temperature Pulse Rate 87 Respiratory Rate 22 H Blood Pressure 149/86 H Pulse Oximetry 100 88 L 93 Oxygen Delivery Room Air Nasal Cannula Oxygen Flow Rate 3 03/11/24 17:20 03/11/24 12:31 03/11/24 13:01 Temperature 97.9 F Pulse Rate 85 82 Respiratory Rate 22 H 21 H Blood Pressure 120/69 135/65 Pulse Oximetry 97 96 94 Oxygen Delivery Nasal Cannula Oxygen Flow Rate 3 03/11/24 14:01 03/11/24 15:00 03/11/24 16:00 Temperature 97.9 F 97.9 F 97.7 F Pulse Rate 82 82 82 Respiratory Rate 19 16 16 Blood Pressure 152/72 H 136/70 126/78 Pulse Oximetry 94 98 95 Oxygen Delivery Oxygen Flow Rate 03/11/24 16:46 03/11/24 17:30 Temperature 97.6 F 98.5 F Pulse Rate 80 84 Respiratory Rate 19 18 Blood Pressure 112/68 145/69 H Pulse Oximetry 95 97 Oxygen Delivery Oxygen Flow Rate Exam Narrative: General: A chronically ill appearing, bilateral hand contraction gentlemen, lying in the bed with NC in place in no acute distress spouse is by the bedside HEENT: PERRL, EOMI. Oral mucosa dry. Neck: Supple. No midline cervical tenderness. Respiratory: Respirations are non- labored and lungs are clear to auscultation bilaterally. Cardiovascular: Regular rate and rhythm with S1-S2. Gastrointestinal: Abdomen is non-tender, and distended with positive bowel sounds. Skin: Warm and dry. No rash or lesions on limited exam. Extremities: No cyanosis, clubbing, or edema. Radial and pedal pulses intact. Neurological: Alert and oriented. Psychiatric: Pleasant and cooperative with normal mood and affect. Judgment and insight intact. H&P: Results Labs Labs: Short CBC 03/11/24 Range/Units 13:31 WBC 15.3 H (4.5-10.0) K/mm3 Hgb 11.8 L (14.0-18.0) g/dL Hct 37.5 L (42.0-52.0) % Plt Count 311 (150-375) k/mm3 BMP 03/11/24 13:31 Sodium 135 L Potassium 4.9 Chloride 98 Carbon Dioxide 28 BUN 15 Creatinine 0.90 Glucose 310 H Calcium 8.8 Liver Function 03/11/24 Range/Units 13:31 Total Bilirubin 0.7 (0.2-1.3) mg/dL AST 22 (17-59) U/L ALT 11 (6-50) U/L Alkaline Phosphatase 159 H (38-126) U/L Albumin 3.9 (3.5-5.1) g/dL Urine 03/11/24 Range/Units 13:38 Urine Color Yellow (Yellow) Urine Appearance Clear (Clear) Urine pH 5.5 (5.0-9.0) Ur Specific [place] 1.013 (1.001-1.035) Urine Protein Negative (Negative) mg/dL Urine Glucose (UA) 3+ H (Negative) mg/dL Pulse Oximetry SpO2 results: 100% Attestation: I personally reviewed and interpreted this pulse oximetry as follows: Assessment and Plan Assessment and plan (1) Cholelithiasis and cholecystitis without obstruction: Qualifiers: Cholecystitis acuity: acute Cholelithiasis location: gallbladder Qualified Code(s): K80.00 - Calculus of gallbladder with acute cholecystitis without obstruction Code(s): K80.10 - Calculus of gallbladder with chronic cholecystitis without obstruction Status: Acute Assessment and Plan: -consult to GI appreciate recommendation and plan -NPO -blood cultures were not drawn prior to 1st dose zosyn -continue Zosyn q.6 hours IVPB pharmacy dosed -continue to monitor CBC, CMP (2) Fecal impaction: Code(s): K56.41 - Fecal impaction Status: Acute Assessment and Plan: as evidenced by CT scan -soap yuliana enema -continue docusate sod p.o. q 12 hrs -continue IVF Plan Continue home medications: VTE Prophylaxis: SCDs DIET: NPO Anticipated hospital stay: > 2 days Code Status: DNI Hospitalist [facility] Advance Care Plan I have confirmed that the patient's Advanced Care Plan is present, code status is documented, or surrogate decision maker is listed in patient medical record.: Yes Medication Reconciliation I have utilized all available resources to obtain, update and review the patients current medications (includes all prescriptions, OTC, herbals, cannabis, and nutritional supplements).: Yes
[2024-03-11] MEDS: CARBIDOPA/LEVODOPA 25/100 MG CR TABLET 2 TABLET PO (21:59)
[2024-03-11] MEDS: MORPHINE SULFATE (*CRX) 2 MG/ML INJ IV PUSH (21:59)
[2024-03-11] MEDS: GABAPENTIN 100 MG CAPSULE PO (22:00)
[2024-03-11 22:02] LABS: Hemoglobin A1C 8.8 % (<5.7)
[2024-03-12] MEDS: SODIUM CHLORIDE 0.9% IV 1,000 ML 125 ML IV CONT ×2 (02:13→17:22)
[2024-03-12 06:00] VITALS: BP 109/54; PULSE 87; RESP 14; TEMP 37.5; O2SAT 93
[2024-03-12 06:34] LABS: Basophils Percent Auto 0.1 % (0.2-1.2); Eosinophils Percent Auto 0.2 % (0-4.4); Hematocrit 33.2 % (42.0-52.0); Hemoglobin 10.1 g/dL (14.0-18.0); Immature Granulocyte Absolute 0.12 K/mm3 (0.00-0.031); Immature Granulocyte Percent A 0.9 % (0-0.5); Lymphocytes Absolute Auto 0.68 K/mm3 (0.9-3.2); Lymphocytes Percent Auto 5.4 % (18.3-44.2); Mean Corpuscular HGB Conc 30.4 g/dl (32-36); Mean Corpuscular Hemoglobin 26.9 pg (26-34); Mean Corpuscular Volume 88.3 fl (80-100); Mean Platelet Volume 10.5 fl (7.4-10.4); Monocytes Absolute Auto 0.4 K/mm3 (0.1-0.6); Neutrophils Absolute Auto 11.5 K/mm3 (1.3-6.7); Neutrophils Percent Auto 90.4 % (45.5-73.1); Platelet Count Result 266 k/mm3 (150-375); Red Blood Count 3.76 M/mm3 (4.6-6.20); Red Cell Distribution Width 14.3 % (11.5-14.5); White Blood Count 12.7 K/mm3 (4.5-10.0)
[2024-03-12] MEDS: PIPERACILLN/TAZ 3.375GM/NS50ML 3.375 GM/50 ML BAG IVPB ×3 (06:36→17:22)
[2024-03-12 06:43] LABS: Alanine Aminotransferase 7 U/L (6-50); Albumin Level 3.2 g/dL (3.5-5.1); Alkaline Phosphatase 106 U/L (38-126); Anion Gap 9 mmol/L (4-12); Aspartate Amino Transferase 21 U/L (17-59); Bilirubin,Total 1.2 mg/dL (0.2-1.3); Blood Urea Nitrogen 18 mg/dL (9-20); Calcium 8.2 mg/dL (8.4-10.2); Carbon Dioxide 25 mmol/L (22-30); Chloride 98 mmol/L (98-107); Estimated CRCL calculation 70 ml/min; Estimated Glomerular Filt Rate > 60; Glucose 198 mg/dL (65-110); Potassium 4.1 mmol/L (3.4-5.0); Sodium 132 mmol/L (137-145)
[2024-03-12 06:47] LABS: Glucose Point of Care 206 mg/dl (65-105)
[2024-03-12 08:47] VITALS: O2SAT 93
[2024-03-12 09:55] VITALS: O2SAT 94
[2024-03-12] MEDS: GABAPENTIN 100 MG CAPSULE PO (09:55)
[2024-03-12] MEDS: VENLAFAXINE HCL XR 75 MG CAP.ER.24H 150 MG PO (09:55)
[2024-03-12] MEDS: AMANTADINE HCL 100 MG CAPSULE PO (09:56)
[2024-03-12] MEDS: PANTOPRAZOLE 40 MG TABLET PO (09:56)
[2024-03-12] MEDS: CARBIDOPA/LEVODOPA 25/100 MG TABLET 1 TABLET PO (09:56)
[2024-03-12] MEDS: MORPHINE SULFATE (*CRX) 2 MG/ML INJ IV PUSH (10:00)
--- NOTE | 2024-03-12 11:41 | WPDCN ---
Assessment and Plan Assessment and plan (1) Acute calculous cholecystitis: Code(s): K80.00 - Calculus of gallbladder with acute cholecystitis without obstruction Status: Acute Assessment and Plan: Patient appears to have acute cholecystitis secondary to cholelithiasis again. Imaging on CT review is hyperemia of the mucosa of the gallbladder with the being distended with thickened wall and a gallstone. White blood cell count is mildly elevated consistent with cholecystitis as well. Pain is in the correct place in the right upper quadrant. Given his prior history of having had a marker infarction without ischemic workup per Cardiology in addition to his debilitation from his consents disease I think he would be best served by placement of a cholecystostomy to by the radiologist. Continue IV antibiotics for now and NPO for today. Try to get the cholecystostomy tube placed tomorrow by Radiology if he resolves this cholecystitis with a cholecystostomy tube and he undergoes cardiac evaluation for ischemic disease and is a surgical candidate then since he has had 2 episodes of cholecystitis with placement cholecystostomy tube was then for the induration for elective laparoscopic cholecystectomy can be considered. This was discussed in detail with the patient's is at the bedside and she agrees to the plan. (2) Fecal impaction: Code(s): K56.41 - Fecal impaction Status: Acute HPI Data of Consult Date/Time: 03/12/24 11:41 Requesting Physician: Elizabeth Ndiaye APRN Primary Care Provider: Phoenix GlasgowMD Consult Narrative Reason for consult: Acute cholecystitis secondary to cholelithiasis Narrative: Jayden Cehrry is a 68 year old male who was admitted to the hospital yesterday with abdominal pain and found to have acute cholecystitis secondary to cholelithiasis. He was admitted to the hospital in April and May of 2023 for the same problem and was treated with decompression gallbladder with a cholecystostomy tube. At that time he underwent cardiac evaluation because he likely had a myocardial infarction. Discussions with the patient's about further ischemic workup was not performed as the patient's deferred further workup. Patient liver enzymes are normal. White blood cell count is mildly elevated 15,000 on admission but is 12,000 this morning. He is awake and alert. His other medical conditions include severe Parkinson's disease. Also has contracture of the right upper extremity. Patient was seen back in follow-up Dr. Camara in the cholecystostomy tube was removed in the office. It was felt that patient was a poor candidate for elective laparoscopic cholecystectomy given his consent disease. On the CT scan the patient has also been have a pt of hard stool within his colon. There was some mild thickening of the sigmoid colon and rectum wall with possible stercoral colitis. Patient was given some enemas in the emergency room and not had much results. He is to get another enema later today. Review of Systems Review of Systems: The remainder of the review of systems to include constitutional, HEENT, cardiovascular, respiratory, GI, , integumentary, musculoskeletal, endocrine, immunologic, hematologic, psychiatric, and neurologic are all negative except for which is mentioned above in the HPI. [facility] Past Medical History Medical History Arthritis Diabetes mellitus Kidney stones Parkinson's disease Right knee meniscal tear Surgical History Surgical History H/O arthroscopy of right knee History of cholecystectomy Hx of transurethral resection of prostate S/P deep brain stimulator placement Family History Family History Mother Acute myocardial infarction Social History Social History Smoking status: Never smoker Alcohol intake: never Substance use: never Gender identity (if verbalized by the patient): Male Spiritual care concerns: No Meds Home Medications and Allergies Home Medications Medication Instructions Recorded Confirmed Type amantadine HCl 100 mg capsule 100 mg PO DAILY 05/16/23 03/11/24 History carbidopa 25 mg-levodopa 100 mg 1 tablet PO DAILY 05/16/23 03/11/24 History tablet (Sinemet) carbidopa ER 50 mg-levodopa 200 mg 2 tablet PO HS 05/16/23 03/11/24 History tablet,extended release escitalopram oxalate 20 mg tablet 20 mg PO DAILY 05/16/23 03/11/24 History gabapentin 100 mg capsule 100 mg PO TID 05/16/23 03/11/24 History ibuprofen 200 mg tablet 600 mg PO Q6H PRN Pain 05/16/23 03/11/24 History insulin degludec 200 unit/mL (3 10 unit subcut DAILY 05/16/23 03/11/24 History mL) subcutaneous pen (Tresiba FlexTouch U-200 insulin) memantine 10 mg tablet 10 mg PO Q12H 05/16/23 03/11/24 History omeprazole 40 mg capsule,delayed 40 mg PO DAILY 05/16/23 03/11/24 History release polyethylene glycol 3350 17 gram 17 g PO DAILY 05/16/23 03/11/24 History oral powder packet (Miralax) venlafaxine 150 mg 150 mg PO DAILY 05/16/23 03/11/24 History capsule,extended release 24 hr vitamin B complex-vitamin C 100 1 tablet PO DAILY 05/16/23 03/11/24 History mg-folic acid 1 mg tablet zolpidem 10 mg tablet 10 mg PO HS 05/16/23 03/11/24 History atorvastatin 40 mg tablet 40 mg PO DAILY 03/12/24 03/12/24 History dextromethorphan 20 mg-quinidine 1 cap PO DAILY 03/12/24 03/12/24 History 10 mg capsule (Nuedexta) metoprolol tartrate 25 mg tablet 25 mg PO Q12H 03/12/24 03/12/24 History quetiapine 25 mg tablet 75 mg PO HS 03/12/24 03/12/24 History Allergies Allergy/AdvReac Type Severity Reaction Status Date / Time No Known Allergies Allergy Unknown Verified 06/24/23 09:04 NKFA Allergy Unknown Unknown Uncoded 06/24/23 09:04 Vital Signs Vital Signs - 24 hr 03/11/24 12:20 03/11/24 15:40 03/11/24 15:40 Temperature Pulse Rate 87 Respiratory Rate 22 H Blood Pressure 149/86 H Pulse Oximetry 100 88 L 93 Oxygen Delivery Room Air Nasal Cannula Oxygen Flow Rate 3 03/11/24 17:20 03/11/24 12:31 03/11/24 13:01 Temperature 36.6 C Pulse Rate 85 82 Respiratory Rate 22 H 21 H Blood Pressure 120/69 135/65 Pulse Oximetry 97 96 94 Oxygen Delivery Nasal Cannula Oxygen Flow Rate 3 03/11/24 14:01 03/11/24 15:00 03/11/24 16:00 Temperature 36.6 C 36.6 C 36.5 C Pulse Rate 82 82 82 Respiratory Rate 19 16 16 Blood Pressure 152/72 H 136/70 126/78 Pulse Oximetry 94 98 95 Oxygen Delivery Oxygen Flow Rate 03/11/24 16:46 03/11/24 17:30 03/11/24 21:08 Temperature 36.4 C 36.9 C 36.9 C Pulse Rate 80 84 81 Respiratory Rate 19 18 14 Blood Pressure 112/68 145/69 H 125/62 Pulse Oximetry 95 97 93 Oxygen Delivery Oxygen Flow Rate 03/12/24 06:00 03/11/24 20:00 03/12/24 08:47 Temperature 37.5 C Pulse Rate 87 Respiratory Rate 14 Blood Pressure 109/54 L Pulse Oximetry 93 93 93 Oxygen Delivery Nasal Cannula Nasal Cannula Oxygen Flow Rate 3 3 Exam Const: General: comfortable and no acute distress HENMT: Ears: TM's normal bilaterally Face/Nose/Sinus: Normal nares present Mouth: Yes moist mucous membranes Eyes: General: appearance normal, both eyes and all related structures Sclera: sclerae normal Neck: Neck: supple and no JVD Resp: Effort & Inspection: normal respiratory effort Auscultation: clear to auscultation bilaterally Cardio: Rate: regular rate Rhythm: regular rhythm GI: Other: Abdomen is soft and mildly distended. He has some tenderness to palpation right upper quadrant with some minimal guarding but no peritoneal signs. No masses appreciated. Skin: General skin exam: normal color and no rashes or lesions noted Neuro: Motor exam (neuro): Normal motor muscle tone present throughout Other: Patient has some cogwheel rigidity of his upper and lower extremities due to his Parkinson's. Extrem: General: normal to inspection Other: Contraction of the right upper extremity. Psych: Other: Patient is awake and oriented x3. His responses are slow due to his Parkinson's. Results Labs 03/12/24 05:38 03/12/24 05:38 Labs: Short CBC 03/11/24 03/12/24 Range/Units 13:31 05:38 WBC 15.3 H 12.7 H (4.5-10.0) K/mm3 Hgb 11.8 L 10.1 L (14.0-18.0) g/dL Hct 37.5 L 33.2 L (42.0-52.0) % Plt Count 311 266 (150-375) k/mm3 BMP 03/11/24 03/12/24 13:31 05:38 Sodium 135 L 132 L Potassium 4.9 4.1 Chloride 98 98 Carbon Dioxide 28 25 BUN 15 18 Creatinine 0.90 0.90 Glucose 310 H 198 H Calcium 8.8 8.2 L Liver Function 03/11/24 03/12/24 Range/Units 13:31 05:38 Total Bilirubin 0.7 1.2 (0.2-1.3) mg/dL AST 22 21 (17-59) U/L ALT 11 7 (6-50) U/L Alkaline Phosphatase 159 H 106 (38-126) U/L Albumin 3.9 3.2 L (3.5-5.1) g/dL Urine 03/11/24 Range/Units 13:38 Urine Color Yellow (Yellow) Urine Appearance Clear (Clear) Urine pH 5.5 (5.0-9.0) Ur Specific [place] 1.013 (1.001-1.035) Urine Protein Negative (Negative) mg/dL Urine Glucose (UA) 3+ H (Negative) mg/dL Imaging Radiologist's impression: EXAMINATION: CT abdomen pelvis w con DATE: 03/11/2024 14:19 INDICATION: right sided AP TECHNIQUE: Computed tomography (CT) of the abdomen and pelvis was performed with 100 mL Omnipaque-350 intravenous contrast. Automated exposure control and iterative reconstruction technique were employed. The dose-length product was 1110.65 mGy-cm. COMPARISON: 10/05/2023. FINDINGS: Lower thorax: Bibasilar dependent atelectasis. Coronary artery calcification. Liver: Normal. Biliary/Gallbladder: Gallbladder wall edema and mucosal hyperemia. 10 mm intramural hyperdensity, likely gallstone No bile duct dilation. Pancreas: No mass or duct dilation. Spleen: Normal. Adrenals:No mass. Kidneys: Simple right upper pole cyst. 3.9 cm low-density left upper pole lesion, with a tiny associated wall calcification and the suggestion of a thin septum. GI tract: Dilation of the mid and distal sigmoid. The rectum is dilated up to 8.5 cm. Large volume of colonic stool. Mild associated wall colonic thickening. No significant surrounding inflammatory change. No small dilation. Small appendix versus appendiceal stump. Diverticulosis without diverticulitis. Mesentery/Peritoneum: No ascites, mass, or free air. Retroperitoneum: No mass. Pelvis: Partially distended urinary bladder with wall thickening. Prostatomegaly. Soft Tissues: Soft tissues and body wall unremarkable. Bones: No acute osseous finding. IMPRESSION: Likely acute cholecystitis. Stable complicated left upper pole renal cystic lesion. Prior recommendation for annual follow-up which should occur in September 2024 is unchanged. Likely fecal impaction. A rectal mass is not excluded. Associated sigmoid and rectal wall thickening, as can occur with early stercoral colitis. Reviewed, dictated and finalized at location K.
[2024-03-12 12:06] LABS: Glucose Point of Care 176 mg/dl (65-105)
[2024-03-12 14:00] VITALS: BP 142/65; PULSE 86; RESP 16; TEMP 38.2; O2SAT 94
--- NOTE | 2024-03-12 16:19 | PM.IMPN ---
Progress Note: A&P Assessment and Plan (1) Cholelithiasis and cholecystitis without obstruction: Qualifiers: Cholelithiasis location: gallbladder Cholecystitis acuity: acute Qualified Code(s): K80.00 - Calculus of gallbladder with acute cholecystitis without obstruction Code(s): K80.10 - Calculus of gallbladder with chronic cholecystitis without obstruction Status: Acute Assessment and Plan: -consult to GI appreciate recommendation and plan - CT abdomen shows likely acute cholecystitis -NPO -blood cultures were not drawn prior to 1st dose zosyn -continue Zosyn q.6 hours IVPB pharmacy dosed -continue to monitor CBC, CMP - surgery would like IR to place biliary drain as patient had an NSTEMI in May. during that time they had deferred stress testing. plan will be to place biliary drain now and since this is his 2nd episode of cholecystitis if he can arrange for cardiac clearance outpatient laparoscopic cholecystectomy can be performed. (2) Fecal impaction: Code(s): K56.41 - Fecal impaction Status: Acute Assessment and Plan: as evidenced by CT scan -soap yuliana enema. minimal response -continue docusate sod p.o. q 12 hrs, Senna HS, MiraLax daily - repeat enema today with lactulose -continue IVF Plan Continue home medications: VTE Prophylaxis: SCD, add Lovenox after IR procedure DIET: NPO Anticipated hospital stay: > 2 days Code Status: DNI Subjective Date/time seen: 03/12/24 16:19 Interval history: Very pleasant gentleman 68 years old with a past medical history of arthritis, diabetes, Parkinson's disease with placement deep brain stimulator presents to the hospital with complaints of right upper quadrant pain. They are concerns for cholecystitis. He also has constipation with Stercoral colitis. General surgery has been consulted. 03/12: patient is resting bed with his at the bedside. He lives at home with her and she provides care for him along with her son. He complains of midepigastric to right upper quadrant abdominal pain with intermittent nausea. He also has shortness of breath and is unable to take a deep breath because of the abdominal pain. He has been having constipation as of late and feels like he needs to have a bowel movement. Review of Systems Review of Systems: All systems reviewed & are unremarkable except as noted in HPI and below Exam Narrative: General: Chronically ill, contracted, elderly, frail HEENT: normocephalic, atraumatic. Mucous membranes moist. EOMI, PERRLA, bilateral sclera anicteric, no conjunctival injection. Neck supple without JVD, lymphadenopathy, or bruit. Respiratory: clear but diminished on auscultation bilaterally. No rales/rhonic/wheezes. Cardiovascular: Regular rate and rhythm, normal S1-S2 upon auscultation. No murmurs, rubs, or clicks. PMI is nondisplaced, capillary refill less than 3 second. Abdomen: Soft, round, no pulsatile masses, nondistended and nontender. No rebound, no guarding. No CVA tenderness, no hepatosplenomegaly. Bowel sounds present to all four quadrants. No high pitch or tinkling sounds, resonant to percussion. Extremities: No cyanosis, clubbing, or edema present. Pulses are palpable 2/2. Active ROM to all four extremities with generalized weakness. Hands are contracted. Neuro: Alert and orientated x 4. PERRLA. Cranial nerves 2-12 intact without focal deficit. Skin: Warm, dry, and intact, without rash, erythema, or lesion. Lines: PIV Incisions: Psych: pleasant, cooperative, Delayed speech response, flataffect, no hallucinations, no dysarthria Objective Data Vital Signs Vital Signs: Vital Signs - 24 hr 03/11/24 17:20 03/11/24 16:46 03/11/24 17:30 Temperature 97.6 F 98.5 F Pulse Rate 80 84 Respiratory Rate 19 18 Blood Pressure 112/68 145/69 H Pulse Oximetry 97 95 97 Oxygen Delivery Nasal Cannula Oxygen Flow Rate 3 03/11/24 21:08 03/12/24 06:00 03/11/24 20:00 Temperature 98.4 F 99.5 F Pulse Rate 81 87 Respiratory Rate 14 14 Blood Pressure 125/62 109/54 L Pulse Oximetry 93 93 93 Oxygen Delivery Nasal Cannula Oxygen Flow Rate 3 03/12/24 08:47 03/12/24 09:55 03/12/24 14:00 Temperature 100.8 F H Pulse Rate 86 Respiratory Rate 16 Blood Pressure 142/65 H Pulse Oximetry 93 94 94 Oxygen Delivery Nasal Cannula Nasal Cannula Oxygen Flow Rate 3 3 Intake/Output Intake/Output: Intake & Output 03/09/24 03/10/24 03/11/24 03/12/24 23:59 23:59 23:59 23:59 Intake Total 50 1050 Output Total 200 518 Balance -150 532 Meds/Results Medications: Active Medications Generic Name Dose Route Start Last Admin Trade Name Freq PRN Reason Stop Dose Admin Amantadine HCl 100 mg 03/12/24 09:00 03/12/24 09:56 Amantadine Hcl 100 Mg Capsule PO 100 mg DAILY JOSE DAVID Administration Carbidopa/Levodopa 2 tablet 03/11/24 21:25 03/11/24 21:59 Carbidopa/Levodopa 25/100 Mg Cr Tablet PO 2 tablet HS JOSE DAVID Administration Carbidopa/Levodopa 1 tablet 03/12/24 09:00 03/12/24 09:56 Carbidopa/Levodopa 25/100 Mg Tablet PO 1 tablet DAILY JOSE DAVID Administration Dextrose 12.5 gm 03/11/24 21:22 Dextrose 50% 25 Gm/50 Ml Syringe IV PUSH PRN PRN Hypoglycemia Protocol Docusate Sodium 100 mg 03/12/24 09:00 03/12/24 09:42 Docusate Sodium 100 Mg Capsule PO Not Given Q12HR JOSE DAVID Gabapentin 100 mg 03/11/24 21:30 03/12/24 16:04 Gabapentin 100 Mg Capsule PO Not Given TID JOSE DAVID Glucagon 1 mg 03/11/24 21:22 Glucagon For Inj 1 Mg Vial IM PRN PRN Hypoglycemia Protocol Glucose 15 gm 03/11/24 21:22 Glucose Oral Gel 15 Gm Of Glucse In 37.5 Gm Tube PO PRN PRN Hypoglycemia Protocol Sodium Chloride 1,000 mls @ 125 mls/hr 03/11/24 15:50 03/12/24 02:13 Normal Saline Iv IV CONT 125 mls/hr .Q8H JOSE DAVID Administration Dextrose 1,000 mls @ 100 mls/hr 03/11/24 21:22 Dextrose 5% 1,000 Ml IVPB PRN PRN Hypoglycemia Protocol Piperacillin/Tazobactam/Dextrose 3.375 gm in 50 mls @ 100 mls/hr 03/12/24 06:00 03/12/24 12:45 Zosyn 3.375 Gm/Ns 50 Ml IVPB 100 mls/hr Q6HR JOSE DAVID Administration Insulin Glargine 10 units 03/12/24 09:00 03/12/24 12:14 Insulin Glargine (*Bkc) 100 Units/Ml SUB-Q Not Given DAILY [facility] Morphine Sulfate 2 mg 03/11/24 15:50 03/12/24 10:00 Morphine Sulfate (*Crx) 2 Mg/Ml Inj IV PUSH 2 mg Q2H PRN Administration Pain Rated 7-10 Ondansetron HCl 4 mg 03/11/24 15:50 03/11/24 21:58 Ondansetron Inj 4 Mg/2 Ml Vial IV PUSH 4 mg Q4H PRN Administration Nausea Pantoprazole Sodium 40 mg 03/12/24 09:00 03/12/24 16:04 Pantoprazole 40 Mg Tablet PO Not Given BID [facility] Polyethylene Glycol 17 gm 03/12/24 09:00 03/12/24 13:55 Polyethylene Glycol 3350 17 Gm Powd.Pack PO Not Given DAILY [facility] Venlafaxine HCl 150 mg 03/12/24 09:00 03/12/24 09:55 Venlafaxine Hcl Xr 75 Mg Cap.Er.24h PO 150 mg DAILY JOSE DAVID Administration Vitamin B Complex/Folic Acid 1 cap 03/12/24 09:00 03/12/24 13:55 Vitamin B Cmplx/Vit C/Folic Ac 1 Capsule PO Not Given DAILY [facility] Radiology Results: ITS Impressions Abdomen/Pelvis CT 03/11/24 14:22 IMPRESSION: Likely acute cholecystitis. Stable complicated left upper pole renal cystic lesion. Prior recommendation for annual follow-up which should occur in September 2024 is unchanged. Likely fecal impaction. A rectal mass is not excluded. Associated sigmoid and rectal wall thickening, as can occur with early stercoral colitis. Chest X-Ray 03/11/24 14:34 IMPRESSION: No acute cardiopulmonary process. Labs Labs: Laboratory Results - last 24 hr 03/11/24 03/11/24 03/12/24 13:30 19:51 05:38 WBC 12.7 H RBC 3.76 L Hgb 10.1 L Hct 33.2 L MCV 88.3 MCH 26.9 MCHC 30.4 L RDW 14.3 Plt Count 266 MPV 10.5 H Immature Gran % (Auto) 0.9 H Neut % (Auto) 90.4 H Lymph % (Auto) 5.4 L Bartholomew % (Auto) 3.0 Eos % (Auto) 0.2 Baso % (Auto) 0.1 L Lymph # (Auto) 0.68 L Bartholomew # (Auto) 0.4 Eos # (Auto) 0.0 Baso # (Auto) 0.0 Abs Immat Gran (auto) 0.12 H Absolute Neuts (auto) 11.5 H Absolute Nucleated RBC 0.000 Nucleated RBC % 0.0 Sodium 132 L Potassium 4.1 Chloride 98 Carbon Dioxide 25 Anion Gap 9 BUN 18 Creatinine 0.90 Estim Creat Clear Calc 70 Estimated GFR > 60 Glucose 198 H POC Capillary Glucose 256 H Hemoglobin A1c 8.8 H Calcium 8.2 L Total Bilirubin 1.2 AST 21 ALT 7 Alkaline Phosphatase 106 Total Protein 6.0 L Albumin 3.2 L 03/12/24 03/12/24 06:44 11:59 WBC RBC Hgb Hct MCV MCH MCHC RDW Plt Count MPV Immature Gran % (Auto) Neut % (Auto) Lymph % (Auto) Bartholomew % (Auto) Eos % (Auto) Baso % (Auto) Lymph # (Auto) Bartholomew # (Auto) Eos # (Auto) Baso # (Auto) Abs Immat Gran (auto) Absolute Neuts (auto) Absolute Nucleated RBC Nucleated RBC % Sodium Potassium Chloride Carbon Dioxide Anion Gap BUN Creatinine Estim Creat Clear Calc Estimated GFR Glucose POC Capillary Glucose 206 H 176 H Hemoglobin A1c Calcium Total Bilirubin AST ALT Alkaline Phosphatase Total Protein Albumin
[2024-03-12] MEDS: LACTULOSE ENEMA 200 GM/1,000 ML ENEMA RECTAL (17:22)
[2024-03-12] MEDS: SODIUM CHLORIDE 0.9% IV 1,000 ML 75 ML IV CONT (17:47)
[2024-03-12 20:04] LABS: Glucose Point of Care 166 mg/dl (65-105)
[2024-03-12] MEDS: QUEtiapine FUMARATE 25 MG TABLET 75 MG PO (20:47)
[2024-03-12 20:48] VITALS: PULSE 77
[2024-03-12] MEDS: SENNA/DOCUSATE SODIUM TABLET 1 TAB PO (20:48)
[2024-03-12] MEDS: DOCUSATE SODIUM 100 MG CAPSULE PO (20:48)
[2024-03-12] MEDS: METOPROLOL TARTRATE 25 MG TABLET PO (20:48)
[2024-03-12] MEDS: ZOLPIDEM TARTRATE (*CRX) 5 MG TABLET 10 MG PO (20:48)
[2024-03-12] MEDS: MEMANTINE 10 MG TABLET PO (20:48)
[2024-03-12] MEDS: CARBIDOPA/LEVODOPA 25/100 MG CR TABLET 2 TABLET PO (20:48)
[2024-03-12 21:25] VITALS: BP 158/79; PULSE 77; RESP 16; TEMP 37.2; O2SAT 98
[2024-03-13] VITALS (16 sets, daily range): BP systolic 100–164; BP diastolic 54–74; PULSE 73–78; RESP 15–20; TEMP 36.2–36.8; O2SAT 89–95
[2024-03-13 01:41] LABS: Glucose Point of Care 133 mg/dl (65-105)
[2024-03-13] MEDS: PIPERACILLN/TAZ 3.375GM/NS50ML 3.375 GM/50 ML BAG IVPB ×5 (05:16→23:30)
[2024-03-13 06:39] LABS: Glucose Point of Care 130 mg/dl (65-105)
[2024-03-13 06:53] LABS: Basophils Percent Auto 0.2 % (0.2-1.2); Eosinophils Absolute Auto 0.1 K/mm3 (0-0.3); Eosinophils Percent Auto 1.5 % (0-4.4); Hematocrit 30.7 % (42.0-52.0); Hemoglobin 9.4 g/dL (14.0-18.0); Immature Granulocyte Absolute 0.04 K/mm3 (0.00-0.031); Immature Granulocyte Percent A 0.5 % (0-0.5); Lymphocytes Absolute Auto 0.84 K/mm3 (0.9-3.2); Lymphocytes Percent Auto 10.2 % (18.3-44.2); Mean Corpuscular HGB Conc 30.6 g/dl (32-36); Mean Corpuscular Hemoglobin 26.9 pg (26-34); Mean Platelet Volume 10.2 fl (7.4-10.4); Monocytes Absolute Auto 0.1 K/mm3 (0.1-0.6); Monocytes Percent Auto 1.5 % (2.6-8.5); Neutrophils Absolute Auto 7.1 K/mm3 (1.3-6.7); Neutrophils Percent Auto 86.1 % (45.5-73.1); Platelet Count Result 222 k/mm3 (150-375); Red Blood Count 3.49 M/mm3 (4.6-6.20); Red Cell Distribution Width 14.3 % (11.5-14.5); White Blood Count 8.3 K/mm3 (4.5-10.0)
[2024-03-13 07:12] LABS: Albumin Level 2.8 g/dL (3.5-5.1); Alkaline Phosphatase 102 U/L (38-126); Anion Gap 8 mmol/L (4-12); Aspartate Amino Transferase 17 U/L (17-59); Bilirubin,Total 1.1 mg/dL (0.2-1.3); Blood Urea Nitrogen 16 mg/dL (9-20); Calcium 8.3 mg/dL (8.4-10.2); Carbon Dioxide 26 mmol/L (22-30); Chloride 99 mmol/L (98-107); Estimated CRCL calculation 70 ml/min; Estimated Glomerular Filt Rate > 60; Glucose 116 mg/dL (65-110); INR 1.4; Potassium 3.7 mmol/L (3.4-5.0); Prothrombin Time 17.5 Seconds (11.1-14.7); Sodium 133 mmol/L (137-145)
[2024-03-13 07:32] LABS: Alanine Aminotransferase < 6 U/L (6-50)
--- NOTE | 2024-03-13 08:15 | P.PNIM_ITS ---
Progress Note: A&P Assessment and Plan (1) Cholelithiasis and cholecystitis without obstruction: Qualifiers: Cholecystitis acuity: acute Cholelithiasis location: gallbladder Qualified Code(s): K80.00 - Calculus of gallbladder with acute cholecystitis without obstruction Code(s): K80.10 - Calculus of gallbladder with chronic cholecystitis without obstruction Status: Acute Assessment and Plan: -consult to GI appreciate recommendation and plan - CT abdomen shows likely acute cholecystitis -NPO---advance to clears -blood cultures were not drawn prior to 1st dose zosyn -continue Zosyn q.6 hours IVPB pharmacy dosed -continue to monitor CBC, CMP - surgery would like IR to place biliary drain as patient had an NSTEMI in May. during that time they had deferred stress testing. plan will be to place biliary drain now and since this is his 2nd episode of cholecystitis if he can arrange for cardiac clearance outpatient laparoscopic cholecystectomy can be performed. (2) Fecal impaction: Code(s): K56.41 - Fecal impaction Status: Acute Assessment and Plan: as evidenced by CT scan -soap yuliana enema. minimal response -continue docusate sod p.o. q 12 hrs, Senna HS, MiraLax daily - repeat enema today with lactulose -continue IVF Plan Continue home medications: VTE Prophylaxis: SCD, add Lovenox after IR procedure DIET: NPO Anticipated hospital stay: > 2 days Code Status: DNI Subjective Date/time seen: 03/13/24 08:15 Interval history: Very pleasant gentleman 68 years old with a past medical history of arthritis, diabetes, Parkinson's disease with placement deep brain stimulator presents to the hospital with complaints of right upper quadrant pain. They are concerns for cholecystitis. He also has constipation with Stercoral colitis. General surgery has been consulted. 03/12: patient is resting bed with his at the bedside. He lives at home with her and she provides care for him along with her son. He complains of midepigastric to right upper quadrant abdominal pain with intermittent nausea. He also has shortness of breath and is unable to take a deep breath because of the abdominal pain. He has been having constipation as of late and feels like he needs to have a bowel movement. 03/13: Patient is rather drowsy today. He opens his eyes to physical stimulation. His says this happens him sometimes when he takes his sleeping pill. He appears dusky on 2 L NC. He is going for his bili drain. His reports a bowel movement yesterday after the enema. Review of Systems Review of Systems: All systems reviewed & are unremarkable except as noted in HPI and below Exam Narrative: General: Chronically ill, contracted, elderly, frail HEENT: normocephalic, atraumatic. Mucous membranes moist. EOMI, PERRLA, bilateral sclera anicteric, no conjunctival injection. Neck supple without JVD, lymphadenopathy, or bruit. Respiratory: clear but diminished on auscultation bilaterally. No rales/rhonic/wheezes. Cardiovascular: Regular rate and rhythm, normal S1-S2 upon auscultation. No murmurs, rubs, or clicks. PMI is nondisplaced, capillary refill less than 3 second. Abdomen: Soft, round, no pulsatile masses, nondistended and nontender. No rebound, no guarding. No CVA tenderness, no hepatosplenomegaly. Bowel sounds present to all four quadrants. No high pitch or tinkling sounds, resonant to percussion. Extremities: No cyanosis, clubbing, or edema present. Pulses are palpable 2/2. Active ROM to all four extremities with generalized weakness. Hands are contracted. Neuro: drowsy PERRLA. Cranial nerves 2-12 intact without focal deficit. Skin: Warm, dry, and intact, without rash, erythema, or lesion. Lines: PIV Incisions: Psych: Delayed speech response, flat affect, no hallucinations, no dysarthria, drowsy Objective Data Vital Signs Vital Signs: Vital Signs - 24 hr 03/12/24 08:47 03/12/24 09:55 03/12/24 14:00 Temperature 100.8 F H Pulse Rate 86 Respiratory Rate 16 Blood Pressure 142/65 H Pulse Oximetry 93 94 94 Oxygen Delivery Nasal Cannula Nasal Cannula Oxygen Flow Rate 3 3 03/12/24 20:48 03/12/24 21:25 03/13/24 06:00 Temperature 99.0 F 97.2 F L Pulse Rate 77 77 78 Respiratory Rate 16 17 Blood Pressure 158/79 H 108/54 L Pulse Oximetry 98 94 Oxygen Delivery Oxygen Flow Rate 03/13/24 08:00 03/13/24 08:04 03/13/24 08:07 Temperature Pulse Rate Respiratory Rate Blood Pressure Pulse Oximetry 95 94 89 L Oxygen Delivery Nasal Cannula Nasal Cannula Room Air Oxygen Flow Rate 3 1 03/13/24 08:09 Temperature Pulse Rate Respiratory Rate Blood Pressure Pulse Oximetry 93 Oxygen Delivery Nasal Cannula Oxygen Flow Rate 1 Intake/Output Intake/Output: Intake & Output 03/10/24 03/11/24 03/12/24 03/13/24 23:59 23:59 23:59 23:59 Intake Total 50 2202.1 50 Output Total 200 618 650 Balance -150 1584.1 -600 Meds/Results Medications: Active Medications Generic Name Dose Route Start Last Admin Trade Name Freq PRN Reason Stop Dose Admin Amantadine HCl 100 mg 03/12/24 09:00 03/12/24 09:56 Amantadine Hcl 100 Mg Capsule PO 100 mg DAILY JOSE DAVID Administration Atorvastatin Calcium 40 mg 03/13/24 09:00 Atorvastatin 40 Mg Tablet PO DAILY JOSE DAVID Carbidopa/Levodopa 2 tablet 03/11/24 21:25 03/12/24 20:48 Carbidopa/Levodopa 25/100 Mg Cr Tablet PO 2 tablet HS JOSE DAVID Administration Carbidopa/Levodopa 1 tablet 03/12/24 09:00 03/12/24 09:56 Carbidopa/Levodopa 25/100 Mg Tablet PO 1 tablet DAILY JOSE DAVID Administration Dextrose 12.5 gm 03/11/24 21:22 Dextrose 50% 25 Gm/50 Ml Syringe IV PUSH PRN PRN Hypoglycemia Protocol Docusate Sodium 100 mg 03/12/24 09:00 03/12/24 20:48 Docusate Sodium 100 Mg Capsule PO 100 mg Q12HR JOSE DAVID Administration Enoxaparin Sodium 40 mg 03/13/24 09:00 03/13/24 07:46 Enoxaparin 40 Mg/0.4 Ml Syringe SUB-Q Not Given DAILY JOSE DAVID Escitalopram Oxalate 20 mg 03/13/24 09:00 Escitalopram Oxalate 10 Mg Tablet PO DAILY JOSE DAVID Gabapentin 100 mg 03/11/24 21:30 03/12/24 16:04 Gabapentin 100 Mg Capsule PO Not Given TID JOSE DAVID Glucagon 1 mg 03/11/24 21:22 Glucagon For Inj 1 Mg Vial IM PRN PRN Hypoglycemia Protocol Glucose 15 gm 03/11/24 21:22 Glucose Oral Gel 15 Gm Of Glucse In 37.5 Gm Tube PO PRN PRN Hypoglycemia Protocol Sodium Chloride 1,000 mls @ 75 mls/hr 03/11/24 15:50 03/12/24 17:47 Normal Saline Iv IV CONT 75 mls/hr .[id number] JOSE DAVID Administration Dextrose 1,000 mls @ 100 mls/hr 03/11/24 21:22 Dextrose 5% 1,000 Ml IVPB PRN PRN Hypoglycemia Protocol Piperacillin/Tazobactam/Dextrose 3.375 gm in 50 mls @ 100 mls/hr 03/12/24 06:00 03/13/24 05:16 Zosyn 3.375 Gm/Ns 50 Ml IVPB 100 mls/hr Q6HR JOSE DAVID Administration Insulin Glargine 10 units 03/12/24 09:00 03/13/24 07:56 Insulin Glargine (*Bkc) 100 Units/Ml SUB-Q Not Given DAILY JOSE DAVID Memantine 10 mg 03/12/24 21:00 03/12/24 20:48 Memantine 10 Mg Tablet PO 10 mg Q12HR JOSE DAVID Administration Metoprolol Tartrate 25 mg 03/12/24 21:00 03/12/24 20:48 Metoprolol Tartrate 25 Mg Tablet PO 25 mg Q12H JOSE DAVID Administration Miscellaneous Information 1 each 03/12/24 00:01 Dextromethorphan-Quinidine [Nuedexta] 20-10 Mg Capsule Is Nonformulary. Can He Use Home [place] XX 04/11/24 00:00 CLARIFY JOSE DAVID Morphine Sulfate 2 mg 03/11/24 15:50 03/12/24 10:00 Morphine Sulfate (*Crx) 2 Mg/Ml Inj IV PUSH 2 mg Q2H PRN Administration Pain Rated 7-10 Non-Formulary Medication 1 cap 03/13/24 09:00 Dextromethorphan-Quinidine [Nuedexta] PO 04/12/24 08:59 DAILY JOSE DAVID Ondansetron HCl 4 mg 03/11/24 15:50 03/11/24 21:58 Ondansetron Inj 4 Mg/2 Ml Vial IV PUSH 4 mg Q4H PRN Administration Nausea Pantoprazole Sodium 40 mg 03/12/24 09:00 03/12/24 16:04 Pantoprazole 40 Mg Tablet PO Not Given BID JOS EDAVID Polyethylene Glycol 17 gm 03/12/24 09:00 03/12/24 13:55 Polyethylene Glycol 3350 17 Gm Powd.Pack PO Not Given DAILY JOSE DAVID Quetiapine Fumarate 75 mg 03/12/24 21:00 03/12/24 20:47 Quetiapine Fumarate 25 Mg Tablet PO 75 mg HS JOSE DAVID Administration Senna/Docusate Sodium 1 tab 03/12/24 21:00 03/12/24 20:48 Senna/Docusate Sodium Tablet PO 1 tab HS JOSE DAVID Administration Venlafaxine HCl 150 mg 03/12/24 09:00 03/12/24 09:55 Venlafaxine Hcl Xr 75 Mg Cap.Er.24h PO 150 mg DAILY JOSE DAVID Administration Vitamin B Complex/Folic Acid 1 cap 03/12/24 09:00 03/12/24 13:55 Vitamin B Cmplx/Vit C/Folic Ac 1 Capsule PO Not Given DAILY JOSE DAVID Zolpidem Tartrate 10 mg 03/12/24 21:00 03/12/24 20:48 Zolpidem Tartrate (*Crx) 5 Mg Tablet PO 10 mg HS JOSE DAVID Administration Radiology Results: ITS Impressions Abdomen/Pelvis CT 03/11/24 14:22 IMPRESSION: Likely acute cholecystitis. Stable complicated left upper pole renal cystic lesion. Prior recommendation for annual follow-up which should occur in September 2024 is unchanged. Likely fecal impaction. A rectal mass is not excluded. Associated sigmoid and rectal wall thickening, as can occur with early stercoral colitis. Chest X-Ray 03/11/24 14:34 IMPRESSION: No acute cardiopulmonary process. Labs Labs: Laboratory Results - last 24 hr 03/12/24 03/12/24 03/13/24 11:59 20:01 01:39 WBC RBC Hgb Hct MCV MCH MCHC RDW Plt Count MPV Immature Gran % (Auto) Neut % (Auto) Lymph % (Auto) [place] % (Auto) Eos % (Auto) Baso % (Auto) Lymph # (Auto) [place] # (Auto) Eos # (Auto) Baso # (Auto) Abs Immat Gran (auto) Absolute Neuts (auto) Absolute Nucleated RBC Nucleated RBC % PT INR Sodium Potassium Chloride Carbon Dioxide Anion Gap BUN Creatinine Estim Creat Clear Calc Estimated GFR Glucose POC Capillary Glucose 176 H 166 H 133 H Calcium Total Bilirubin AST ALT Alkaline Phosphatase Total Protein Albumin Blood Type Antibody Screen 03/13/24 03/13/24 06:12 06:28 WBC 8.3 RBC 3.49 L Hgb 9.4 L Hct 30.7 L MCV 88.0 MCH 26.9 MCHC 30.6 L RDW 14.3 Plt Count 222 MPV 10.2 Immature Gran % (Auto) 0.5 Neut % (Auto) 86.1 H Lymph % (Auto) 10.2 L [place] % (Auto) 1.5 L Eos % (Auto) 1.5 Baso % (Auto) 0.2 Lymph # (Auto) 0.84 L [place] # (Auto) 0.1 Eos # (Auto) 0.1 Baso # (Auto) 0.0 Abs Immat Gran (auto) 0.04 H Absolute Neuts (auto) 7.1 H Absolute Nucleated RBC 0.000 Nucleated RBC % 0.0 PT 17.5 H D INR 1.4 Sodium 133 L Potassium 3.7 Chloride 99 Carbon Dioxide 26 Anion Gap 8 BUN 16 Creatinine 0.90 Estim Creat Clear Calc 70 Estimated GFR > 60 Glucose 116 H POC Capillary Glucose 130 H Calcium 8.3 L Total Bilirubin 1.1 AST 17 ALT < 6 L Alkaline Phosphatase 102 Total Protein 6.0 L Albumin 2.8 L Blood Type O Positive Antibody Screen Negative
--- NOTE | 2024-03-13 09:51 | WPDPN ---
Progress Note: A&P Assessment and Plan (1) Acute calculous cholecystitis: Code(s): K80.00 - Calculus of gallbladder with acute cholecystitis without obstruction Status: Acute Assessment and Plan: Patient has acute cholecystitis secondary to cholelithiasis. He also was very debilitated due to his advanced Parkinson's disease. Will need to have another cholecystostomy tube placed by radiologist to drain the gallbladder and bridged to further cardiac workup. He has not had an ischemic workup for his heart and that will need to be done as an outpatient to evaluate his fitness for an elective cholecystectomy. Continue IV antibiotics. Order has been placed to have Radiology place a cholecystostomy tube. Subjective Date/time seen: 03/13/24 09:51 Interval history: Patient without acute changes overnight. No fevers. He still complains of having some right upper quadrant pain. White blood count is normalized. Liver enzymes are still normal. Exam GI: Other: Abdomen is obese and soft. Mild tenderness palpation right upper quadrant. Gallbladder is not palpable. No generalized peritoneal signs. Objective Data Vital Signs Vital Signs: Vital Signs - 24 hr 03/12/24 09:55 03/12/24 14:00 03/12/24 20:48 Temperature 38.2 C H Pulse Rate 86 77 Respiratory Rate 16 Blood Pressure 142/65 H Pulse Oximetry 94 94 Oxygen Delivery Nasal Cannula Oxygen Flow Rate 3 03/12/24 21:25 03/13/24 06:00 03/13/24 08:00 Temperature 37.2 C 36.2 C L Pulse Rate 77 78 Respiratory Rate 16 17 Blood Pressure 158/79 H 108/54 L Pulse Oximetry 98 94 95 Oxygen Delivery Nasal Cannula Oxygen Flow Rate 3 03/13/24 08:04 03/13/24 08:07 03/13/24 08:09 Temperature Pulse Rate Respiratory Rate Blood Pressure Pulse Oximetry 94 89 L 93 Oxygen Delivery Nasal Cannula Room Air Nasal Cannula Oxygen Flow Rate 1 1 Intake/Output Intake/Output: Intake & Output 03/10/24 03/11/24 03/12/24 03/13/24 23:59 23:59 23:59 23:59 Intake Total 50 2202.1 50 Output Total 200 618 650 Balance -150 1584.1 -600 Meds/Results Medications: Active Medications Generic Name Dose Route Start Last Admin Trade Name Freq PRN Reason Stop Dose Admin Amantadine HCl 100 mg 03/12/24 09:00 08/25/24 09:56 Amantadine Hcl 100 Mg Capsule PO 100 mg DAILY JOSE DAVID Administration Atorvastatin Calcium 40 mg 03/13/24 09:00 Atorvastatin 40 Mg Tablet PO DAILY JOSE DAVID Carbidopa/Levodopa 2 tablet 03/11/24 21:25 03/12/24 20:48 Carbidopa/Levodopa 25/100 Mg Cr Tablet PO 2 tablet HS JOSE DAVID Administration Carbidopa/Levodopa 1 tablet 03/12/24 09:00 03/12/24 09:56 Carbidopa/Levodopa 25/100 Mg Tablet PO 1 tablet DAILY JOSE DAVID Administration Dextrose 12.5 gm 03/11/24 21:22 Dextrose 50% 25 Gm/50 Ml Syringe IV PUSH PRN PRN Hypoglycemia Protocol Docusate Sodium 100 mg 03/12/24 09:00 03/12/24 20:48 Docusate Sodium 100 Mg Capsule PO 100 mg Q12HR JOSE DAVID Administration Enoxaparin Sodium 40 mg 03/13/24 09:00 03/13/24 07:46 Enoxaparin 40 Mg/0.4 Ml Syringe SUB-Q Not Given DAILY [facility] Escitalopram Oxalate 20 mg 03/13/24 09:00 Escitalopram Oxalate 10 Mg Tablet PO DAILY [facility] Gabapentin 100 mg 03/11/24 21:30 03/12/24 16:04 Gabapentin 100 Mg Capsule PO Not Given TID [facility] Glucagon 1 mg 03/11/24 21:22 Glucagon For Inj 1 Mg Vial IM PRN PRN Hypoglycemia Protocol Glucose 15 gm 03/11/24 21:22 Glucose Oral Gel 15 Gm Of Glucse In 37.5 Gm Tube PO PRN PRN Hypoglycemia Protocol Sodium Chloride 1,000 mls @ 75 mls/hr 03/11/24 15:50 03/12/24 17:47 Normal Saline Iv IV CONT 75 mls/hr .[id number] JOSE DAVID Administration Dextrose 1,000 mls @ 100 mls/hr 03/11/24 21:22 Dextrose 5% 1,000 Ml IVPB PRN PRN Hypoglycemia Protocol Piperacillin/Tazobactam/Dextrose 3.375 gm in 50 mls @ 100 mls/hr 03/12/24 06:00 03/13/24 05:16 Zosyn 3.375 Gm/Ns 50 Ml IVPB 100 mls/hr Q6HR JOSE DAVID Administration Insulin Glargine 10 units 03/12/24 09:00 03/13/24 07:56 Insulin Glargine (*Bkc) 100 Units/Ml SUB-Q Not Given DAILY JOSE DAVID Memantine 10 mg 03/12/24 21:00 03/12/24 20:48 Memantine 10 Mg Tablet PO 10 mg Q12HR JOSE DAVID Administration Metoprolol Tartrate 25 mg 03/12/24 21:00 03/12/24 20:48 Metoprolol Tartrate 25 Mg Tablet PO 25 mg Q12H JOSE DAVID Administration Miscellaneous Information 1 each 03/12/24 00:01 Dextromethorphan-Quinidine [Nuedexta] 20-10 Mg Capsule Is Nonformulary. Can He Use Home [place] XX 04/11/24 00:00 CLARIFY [facility] Morphine Sulfate 2 mg 03/11/24 15:50 03/12/24 10:00 Morphine Sulfate (*Crx) 2 Mg/Ml Inj IV PUSH 2 mg Q2H PRN Administration Pain Rated 7-10 Non-Formulary Medication 1 cap 03/13/24 09:00 Dextromethorphan-Quinidine [Nuedexta] PO 04/12/24 08:59 DAILY [facility] Ondansetron HCl 4 mg 03/11/24 15:50 03/11/24 21:58 Ondansetron Inj 4 Mg/2 Ml Vial IV PUSH 4 mg Q4H PRN Administration Nausea Pantoprazole Sodium 40 mg 03/12/24 09:00 03/12/24 16:04 Pantoprazole 40 Mg Tablet PO Not Given BID [facility] Polyethylene Glycol 17 gm 03/12/24 09:00 03/12/24 13:55 Polyethylene Glycol 3350 17 Gm Powd.Pack PO Not Given DAILY [facility] Quetiapine Fumarate 75 mg 03/12/24 21:00 03/12/24 20:47 Quetiapine Fumarate 25 Mg Tablet PO 75 mg HS JOSE DAVID Administration Senna/Docusate Sodium 1 tab 03/12/24 21:00 03/12/24 20:48 Senna/Docusate Sodium Tablet PO 1 tab HS JOSE DAVID Administration Venlafaxine HCl 150 mg 03/12/24 09:00 03/12/24 09:55 Venlafaxine Hcl Xr 75 Mg Cap.Er.24h PO 150 mg DAILY JOSE DAVID Administration Vitamin B Complex/Folic Acid 1 cap 03/12/24 09:00 03/12/24 13:55 Vitamin B Cmplx/Vit C/Folic Ac 1 Capsule PO Not Given DAILY JOSE DAVID Radiology Results: ITS Impressions Abdomen/Pelvis CT 03/11/24 14:22 IMPRESSION: Likely acute cholecystitis. Stable complicated left upper pole renal cystic lesion. Prior recommendation for annual follow-up which should occur in September 2024 is unchanged. Likely fecal impaction. A rectal mass is not excluded. Associated sigmoid and rectal wall thickening, as can occur with early stercoral colitis. Chest X-Ray 03/11/24 14:34 IMPRESSION: No acute cardiopulmonary process. Labs Labs: Laboratory Results - last 24 hr 03/12/24 03/12/24 03/13/24 11:59 20:01 01:39 WBC RBC Hgb Hct MCV MCH MCHC RDW Plt Count MPV Immature Gran % (Auto) Neut % (Auto) Lymph % (Auto) [place] % (Auto) Eos % (Auto) Baso % (Auto) Lymph # (Auto) [place] # (Auto) Eos # (Auto) Baso # (Auto) Abs Immat Gran (auto) Absolute Neuts (auto) Absolute Nucleated RBC Nucleated RBC % PT INR Sodium Potassium Chloride Carbon Dioxide Anion Gap BUN Creatinine Estim Creat Clear Calc Estimated GFR Glucose POC Capillary Glucose 176 H 166 H 133 H Calcium Total Bilirubin AST ALT Alkaline Phosphatase Total Protein Albumin Blood Type Antibody Screen 03/13/24 03/13/24 06:12 06:28 WBC 8.3 RBC 3.49 L Hgb 9.4 L Hct 30.7 L MCV 88.0 MCH 26.9 MCHC 30.6 L RDW 14.3 Plt Count 222 MPV 10.2 Immature Gran % (Auto) 0.5 Neut % (Auto) 86.1 H Lymph % (Auto) 10.2 L [place] % (Auto) 1.5 L Eos % (Auto) 1.5 Baso % (Auto) 0.2 Lymph # (Auto) 0.84 L [place] # (Auto) 0.1 Eos # (Auto) 0.1 Baso # (Auto) 0.0 Abs Immat Gran (auto) 0.04 H Absolute Neuts (auto) 7.1 H Absolute Nucleated RBC 0.000 Nucleated RBC % 0.0 PT 17.5 H D INR 1.4 Sodium 133 L Potassium 3.7 Chloride 99 Carbon Dioxide 26 Anion Gap 8 BUN 16 Creatinine 0.90 Estim Creat Clear Calc 70 Estimated GFR > 60 Glucose 116 H POC Capillary Glucose 130 H Calcium 8.3 L Total Bilirubin 1.1 AST 17 ALT < 6 L Alkaline Phosphatase 102 Total Protein 6.0 L Albumin 2.8 L Blood Type O Positive Antibody Screen Negative
--- NOTE | 2024-03-13 10:34 | PC.NURSE ---
Pt. down to ultrasound via bed for ultrasound guided drain placement.
--- NOTE | 2024-03-13 11:25 | SUR.OPER ---
Ultrasound placed drain to gallbladder done with local anesthesia. No IV sedation given. Pt julieta procedure well. Drain secured and open per radiologist. Pt now on O2 1 lpm n/c as he was prior to arrival. IV site patent and intact and now locked. Pt will be transported to hospital room via bed by radiology transport team.
--- NOTE | 2024-03-13 12:01 | PC.NURSE ---
Pt. back from ultrasound at 11:50 via bed.
--- NOTE | 2024-03-13 12:20 | PHAR ---
Pharmacy verified home med: * Use from home * Dextromethorphan-Quinidine [Nuedexta] 20-10 mg cap - take 1 capsule by mouth once daily
--- NOTE | 2024-03-13 12:23 | PC.NURSE ---
Home med Nuedexta placed in patient's middle closet in room 302.
[2024-03-13 12:24] LABS: Alveolar/Arterial O2 Gradient 51.6 mmHg; Base Excess ABG -0.2 mEq/l (+/-2.0); Fractional Inspired Oxygen 24 %; HCO3 ABG 24.2 mEq/l (22.0-26.0); Oxygen Content ABG 13.2 %vol (16.0-22.0); Oxygen Saturation ABG 95.1 % (95.0-100.0); Oxyhemoglobin 94.1 % THb (90.0-100.0); PCO2 ABG 38.4 mmHg (35.0-45.0); PO2 ABG 73.8 mmHg (80.0-100.0); PO2 FiO2 Ratio Arterial Blood 3.08 %; Total Hemoglobin 9.9 g/dL (12.0-18.0); pH ABG 7.417 (7.350-7.450)
[2024-03-13 12:26] LABS: Device NASAL CANNULA; Modified Allen's Test Pass; Site Drawn LEFT RADIAL
[2024-03-13 13:02] LABS: Glucose Point of Care 111 mg/dl (65-105)
[2024-03-13] MEDS: SODIUM CHLORIDE 0.9% IV 1,000 ML 75 ML IV CONT (14:15)
[2024-03-13 18:42] LABS: Glucose Point of Care 172 mg/dl (65-105)
[2024-03-13] MEDS: PANTOPRAZOLE 40 MG TABLET PO (20:33)
[2024-03-13] MEDS: CARBIDOPA/LEVODOPA 25/100 MG CR TABLET 2 TABLET PO (20:33)
[2024-03-13] MEDS: GABAPENTIN 100 MG CAPSULE PO (20:33)
[2024-03-13] MEDS: METOPROLOL TARTRATE 25 MG TABLET PO (20:35)
[2024-03-13] MEDS: MEMANTINE 10 MG TABLET PO (20:35)
[2024-03-13] MEDS: QUEtiapine FUMARATE 25 MG TABLET 75 MG PO (20:35)
[2024-03-13] MEDS: SENNA/DOCUSATE SODIUM TABLET 1 TAB PO (20:36)
[2024-03-13] MEDS: DOCUSATE SODIUM 100 MG CAPSULE PO (20:36)
[2024-03-13 22:01] LABS: Glucose Point of Care 163 mg/dl (65-105)
[2024-03-14] VITALS (7 sets, daily range): BP systolic 105–162; BP diastolic 43–78; PULSE 71–74; RESP 16; TEMP 36.4–37.1; O2SAT 90–94
[2024-03-14] MEDS: SODIUM CHLORIDE 0.9% IV 1,000 ML 75 ML IV CONT ×2 (05:15→20:47)
[2024-03-14] MEDS: PIPERACILLN/TAZ 3.375GM/NS50ML 3.375 GM/50 ML BAG IVPB ×3 (05:21→17:04)
--- NOTE | 2024-03-14 07:44 | PM.IMPN ---
Progress Note: A&P Assessment and Plan (1) Cholelithiasis and cholecystitis without obstruction: Qualifiers: Cholecystitis acuity: acute Cholelithiasis location: gallbladder Qualified Code(s): K80.00 - Calculus of gallbladder with acute cholecystitis without obstruction Code(s): K80.10 - Calculus of gallbladder with chronic cholecystitis without obstruction Status: Acute Assessment and Plan: Consult to GI appreciate recommendation and plan. CT abdomen showed likely acute cholecystitis -NPO---advance to clears -blood cultures were not drawn prior to 1st dose zosyn, follow cultures, oral antibiotics if susceptible, previously gallbladder cultures were susceptible to augmentin -continue Zosyn q.6 hours IVPB pharmacy dosed -continue to monitor CBC, CMP - surgery would like IR to place biliary drain as patient had an NSTEMI in May. during that time they had deferred stress testing. plan will be to place biliary drain now and since this is his 2nd episode of cholecystitis if he can arrange for cardiac clearance outpatient laparoscopic cholecystectomy can be performed. --Family teaching about drain care. Home health after follow up (2) Fecal impaction: Code(s): K56.41 - Fecal impaction Status: Acute Assessment and Plan: as evidenced by CT scan -soap yuliana enema. minimal response -continue docusate sod p.o. q 12 hrs, Senna HS<2 tabs BID, MiraLax daily<BID - repeat enema BID with lactulose -continue IVF (3) Urinary retention: Code(s): R33.9 - Retention of urine, unspecified Status: Acute Assessment and Plan: Cullen placed for retention. Constipation may be contributing --Treatment of constipation --Void trial, bladder scan q6, replace cullen with urology follow up if needed Plan Continue home medications: VTE Prophylaxis: SCD, add Lovenox after IR procedure DIET: NPO Anticipated hospital stay: > 2 days Code Status: DNI Time Spent With Patient Time: 45 minutes Subjective Date/time seen: 03/14/24 07:44 Interval history: Eating breakfast. Mild abdominal discomfort upper abdomen, + bowel. Family reports only a small BM a few days ago after enemas, none since. CT showed stercoral colitis--needs a more aggressive bowel regimen Surgery following for acute cholecystitis without obstruction--s/p cholecystomy tube, draining. Family needs teaching for tube care. Clarify if flushes needed after discharge. Discharge soon, cultures pending, on zosyn Cullen was placed for retention, Void trial and bladder scans today. Review of Systems Review of Systems: All systems reviewed & are unremarkable except as noted in HPI and below Exam Narrative: General: Chronically ill, contracted, elderly, frail HEENT: normocephalic, atraumatic. Mucous membranes moist. EOMI, PERRLA, bilateral sclera anicteric, no conjunctival injection. Neck supple without JVD, lymphadenopathy, or bruit. Respiratory: clear but diminished on auscultation bilaterally. No rales/rhonic/wheezes. Cardiovascular: Regular rate and rhythm, normal S1-S2 upon auscultation. No murmurs, rubs, or clicks. PMI is nondisplaced, capillary refill less than 3 second. Abdomen: Soft, round, no pulsatile masses, slightly distended and tender to upper abdomen. No rebound, no guarding. No CVA tenderness, no hepatosplenomegaly. Bowel sounds present to all four quadrants. No high pitch or tinkling sounds, resonant to percussion. Drain with yellow fluid and sediment to right abdomen Extremities: No cyanosis, clubbing, or edema present. Pulses are palpable 2/2. Active ROM to all four extremities with generalized weakness. Hands are contracted. Neuro: drowsy PERRLA. Cranial nerves 2-12 intact without focal deficit. Skin: Warm, dry, and intact, without rash, erythema, or lesion. Lines: PIV Incisions: Psych: Delayed speech response, flat affect, no hallucinations, no dysarthria, drowsy Objective Data Vital Signs Vital Signs: Vital Signs - 24 hr 03/13/24 08:00 03/13/24 08:04 03/13/24 08:07 Temperature Pulse Rate Respiratory Rate Blood Pressure Pulse Oximetry 95 94 89 L Oxygen Delivery Nasal Cannula Nasal Cannula Room Air Oxygen Flow Rate 3 1 03/13/24 08:09 03/13/24 09:51 03/13/24 10:55 Temperature Pulse Rate 74 Respiratory Rate 16 Blood Pressure 118/60 Pulse Oximetry 93 90 95 Oxygen Delivery Nasal Cannula Nasal Cannula Nasal Cannula Oxygen Flow Rate 1 1 2 03/13/24 11:10 03/13/24 11:35 03/13/24 11:15 Temperature 98.2 F Pulse Rate 73 73 73 Respiratory Rate 15 16 15 Blood Pressure 121/61 100/58 L 113/58 L Pulse Oximetry 95 95 95 Oxygen Delivery Nasal Cannula Nasal Cannula Oxygen Flow Rate 2 2 03/13/24 11:20 03/13/24 11:25 03/13/24 15:19 Temperature 98.0 F Pulse Rate 74 74 73 Respiratory Rate 15 15 20 Blood Pressure 104/57 L 112/57 L 138/74 Pulse Oximetry 94 94 94 Oxygen Delivery Nasal Cannula Nasal Cannula Oxygen Flow Rate 2 1 03/13/24 20:35 03/13/24 20:00 03/13/24 20:50 Temperature 97.5 F L Pulse Rate 73 77 Respiratory Rate 20 Blood Pressure 164/74 H Pulse Oximetry 94 95 Oxygen Delivery Nasal Cannula Oxygen Flow Rate 1 03/14/24 05:10 Temperature 97.6 F Pulse Rate 73 Respiratory Rate 16 Blood Pressure 155/78 H Pulse Oximetry 91 Oxygen Delivery Oxygen Flow Rate Intake/Output Intake/Output: Intake & Output 03/11/24 03/12/24 03/13/24 03/14/24 23:59 23:59 23:59 23:59 Intake Total 50 2202.1 1740 1290 Output Total 602 989 3274 1062 Balance -150 1584.1 -39 228 Meds/Results Medications: Active Medications Generic Name Dose Route Start Last Admin Trade Name Freq PRN Reason Stop Dose Admin Amantadine HCl 100 mg 03/12/24 09:00 03/13/24 13:13 Amantadine Hcl 100 Mg Capsule PO Not Given DAILY [facility] Atorvastatin Calcium 40 mg 03/13/24 09:00 03/13/24 13:13 Atorvastatin 40 Mg Tablet PO Not Given DAILY JOSE DAVID Carbidopa/Levodopa 2 tablet 03/11/24 21:25 03/13/24 20:33 Carbidopa/Levodopa 25/100 Mg Cr Tablet PO 2 tablet [facility] Administration Carbidopa/Levodopa 1 tablet 03/12/24 09:00 03/13/24 13:13 Carbidopa/Levodopa 25/100 Mg Tablet PO Not Given DAILY JOSE DAVID Dextrose 12.5 gm 03/11/24 21:22 Dextrose 50% 25 Gm/50 Ml Syringe IV PUSH PRN PRN Hypoglycemia Protocol Docusate Sodium 100 mg 03/12/24 09:00 03/13/24 20:36 Docusate Sodium 100 Mg Capsule PO 100 mg Q12HR JOSE DAVID Administration Enoxaparin Sodium 40 mg 03/13/24 09:00 03/13/24 07:46 Enoxaparin 40 Mg/0.4 Ml Syringe SUB-Q Not Given DAILY [facility] Escitalopram Oxalate 20 mg 03/13/24 09:00 03/13/24 13:13 Escitalopram Oxalate 10 Mg Tablet PO Not Given DAILY [facility] Gabapentin 100 mg 03/11/24 21:30 03/13/24 20:33 Gabapentin 100 Mg Capsule PO 100 mg TID JOSE DAVID Administration Glucagon 1 mg 03/11/24 21:22 Glucagon For Inj 1 Mg Vial IM PRN PRN Hypoglycemia Protocol Glucose 15 gm 03/11/24 21:22 Glucose Oral Gel 15 Gm Of Glucse In 37.5 Gm Tube PO PRN PRN Hypoglycemia Protocol Sodium Chloride 1,000 mls @ 75 mls/hr 03/11/24 15:50 03/14/24 05:45 Normal Saline Iv IV CONT Not Given .[id number] [facility] Dextrose 1,000 mls @ 100 mls/hr 03/11/24 21:22 Dextrose 5% 1,000 Ml IVPB PRN PRN Hypoglycemia Protocol Piperacillin/Tazobactam/Dextrose 3.375 gm in 50 mls @ 100 mls/hr 03/12/24 06:00 03/14/24 05:21 Zosyn 3.375 Gm/Ns 50 Ml IVPB 100 mls/hr Q6HR JOSE DAVID Administration Insulin Glargine 10 units 03/12/24 09:00 03/13/24 07:56 Insulin Glargine (*Bkc) 100 Units/Ml SUB-Q Not Given DAILY [facility] Lactulose 200 gm 03/13/24 10:50 Lactulose Enema 200 Gm/1,000 Ml Enema RECTAL ONCE PRN Constipation Memantine 10 mg 03/12/24 21:00 03/13/24 20:35 Memantine 10 Mg Tablet PO 10 mg Q12HR [facility] Administration Metoprolol Tartrate 25 mg 03/12/24 21:00 03/13/24 20:35 Metoprolol Tartrate 25 Mg Tablet PO 25 mg Q12H JOSE DAVID Administration Morphine Sulfate 2 mg 03/11/24 15:50 03/12/24 10:00 Morphine Sulfate (*Crx) 2 Mg/Ml Inj IV PUSH 2 mg Q2H PRN Administration Pain Rated 7-10 * Home Med * 1 cap 03/13/24 12:20 03/13/24 20:33 Dextromethorphan- PO 04/12/24 12:19 1 cap Quinidine [Nuedexta] DAILY JOSE DAVID Administration 20-10 Mg Cap Ondansetron HCl 4 mg 03/11/24 15:50 03/11/24 21:58 Ondansetron Inj 4 Mg/2 Ml Vial IV PUSH 4 mg Q4H PRN Administration Nausea Pantoprazole Sodium 40 mg 03/12/24 09:00 03/13/24 20:33 Pantoprazole 40 Mg Tablet PO 40 mg BID JOSE DAVID Administration Polyethylene Glycol 17 gm 03/12/24 09:00 03/13/24 13:14 Polyethylene Glycol 3350 17 Gm Powd.Pack PO Not Given DAILY JOSE DAVID Quetiapine Fumarate 75 mg 03/12/24 21:00 03/13/24 20:35 Quetiapine Fumarate 25 Mg Tablet PO 75 mg HS JOSE DAVID Administration Senna/Docusate Sodium 1 tab 03/12/24 21:00 03/13/24 20:36 Senna/Docusate Sodium Tablet PO 1 tab HS JOSE DAVID Administration Venlafaxine HCl 150 mg 03/12/24 09:00 03/13/24 13:14 Venlafaxine Hcl Xr 75 Mg Cap.Er.24h PO Not Given DAILY JOSE DAVID Vitamin B Complex/Folic Acid 1 cap 03/12/24 09:00 03/13/24 13:14 Vitamin B Cmplx/Vit C/Folic Ac 1 Capsule PO Not Given DAILY [facility] Radiology Results: ITS Impressions Abdomen/Pelvis CT 03/11/24 14:22 IMPRESSION: Likely acute cholecystitis. Stable complicated left upper pole renal cystic lesion. Prior recommendation for annual follow-up which should occur in September 2024 is unchanged. Likely fecal impaction. A rectal mass is not excluded. Associated sigmoid and rectal wall thickening, as can occur with early stercoral colitis. Chest X-Ray 03/11/24 14:34 IMPRESSION: No acute cardiopulmonary process. Cholecystostomy 03/13/24 13:58 IMPRESSION: 1. Successful ultrasound-guided cholecystostomy tube placement. 2. 29 mL bile was sent for aerobic, anaerobic, and fungal cultures. 3. The catheter will be managed by Dr. Salazar. A catheter cholangiogram may be performed not less than 48 hours after tube placement if clinically indicated to assess cystic duct patency. If cholecystectomy is not eventually performed and the infectious episode has resolved, the tube may be removed over a guidewire, preferably not less than 3 weeks after placement to allow time for a mature catheter tract to form to prevent bile leakage and peritonitis. Labs Labs: Laboratory Results - last 24 hr 03/13/24 03/13/24 03/13/24 06:12 12:13 12:29 Puncture Site Left radial ABG pH 7.417 ABG pCO2 38.4 ABG pO2 73.8 L ABG PO2/FiO2 Ratio 3.08 ABG HCO3 24.2 ABG O2 Saturation 95.1 ABG O2 Content 13.2 L ABG Base Excess -0.2 A-a Gradient 51.6 Oxyhemoglobin 94.1 Total Hemoglobin 9.9 L O2 Delivery Device Nasal cannula O2 Liters/Min 1.0 FiO2 24 POC Capillary Glucose 111 H Blood Type O Positive Antibody Screen Negative 03/13/24 03/13/24 18:33 20:56 Puncture Site ABG pH ABG pCO2 ABG pO2 ABG PO2/FiO2 Ratio ABG HCO3 ABG O2 Saturation ABG O2 Content ABG Base Excess A-a Gradient Oxyhemoglobin Total Hemoglobin O2 Delivery Device O2 Liters/Min FiO2 POC Capillary Glucose 172 H 163 H Blood Type Antibody Screen Hospitalist MIPS Advance Care Plan I have confirmed that the patient's Advanced Care Plan is present, code status is documented, or surrogate decision maker is listed in patient medical record.: Yes Medication Reconciliation I have utilized all available resources to obtain, update and review the patients current medications (includes all prescriptions, OTC, herbals, cannabis, and nutritional supplements).: Yes
[2024-03-14 07:48] LABS: Albumin Level 2.8 g/dL (3.5-5.1); Alkaline Phosphatase 95 U/L (38-126); Anion Gap 7 mmol/L (4-12); Aspartate Amino Transferase 16 U/L (17-59); Bilirubin,Total 0.9 mg/dL (0.2-1.3); Blood Urea Nitrogen 13 mg/dL (9-20); Carbon Dioxide 25 mmol/L (22-30); Chloride 103 mmol/L (98-107); Estimated CRCL calculation 78 ml/min; Estimated Glomerular Filt Rate > 60; Glucose 181 mg/dL (65-110); Potassium 3.5 mmol/L (3.4-5.0); Sodium 135 mmol/L (137-145)
[2024-03-14 08:02] LABS: Basophils Percent Auto 0.3 % (0.2-1.2); Eosinophils Absolute Auto 0.4 K/mm3 (0-0.3); Hematocrit 32.3 % (42.0-52.0); Immature Granulocyte Absolute 0.02 K/mm3 (0.00-0.031); Immature Granulocyte Percent A 0.3 % (0-0.5); Lymphocytes Absolute Auto 0.79 K/mm3 (0.9-3.2); Lymphocytes Percent Auto 12.8 % (18.3-44.2); Mean Corpuscular Hemoglobin 27.2 pg (26-34); Mean Corpuscular Volume 87.8 fl (80-100); Mean Platelet Volume 10.4 fl (7.4-10.4); Monocytes Absolute Auto 0.2 K/mm3 (0.1-0.6); Monocytes Percent Auto 2.9 % (2.6-8.5); Neutrophils Absolute Auto 4.8 K/mm3 (1.3-6.7); Neutrophils Percent Auto 77.7 % (45.5-73.1); Platelet Count Result 243 k/mm3 (150-375); Red Blood Count 3.68 M/mm3 (4.6-6.20); Red Cell Distribution Width 14.3 % (11.5-14.5); White Blood Count 6.2 K/mm3 (4.5-10.0)
[2024-03-14 08:24] LABS: Alanine Aminotransferase < 6 U/L (6-50)
[2024-03-14 08:28] LABS: Glucose Point of Care 181 mg/dl (65-105)
[2024-03-14] MEDS: GABAPENTIN 100 MG CAPSULE PO ×3 (08:33→16:38)
[2024-03-14] MEDS: PANTOPRAZOLE 40 MG TABLET PO ×2 (08:33→16:38)
[2024-03-14] MEDS: CARBIDOPA/LEVODOPA 25/100 MG TABLET 1 TABLET PO (08:33)
[2024-03-14] MEDS: DOCUSATE SODIUM 100 MG CAPSULE PO (08:33)
[2024-03-14] MEDS: ATORVASTATIN 40 MG TABLET PO (08:33)
[2024-03-14] MEDS: VITAMIN B CMPLX/VIT C/FOLIC AC 1 CAPSULE 1 CAP PO (08:33)
[2024-03-14] MEDS: polyethylene glycoL 3350 17 GM POWD.PACK PO (08:33)
[2024-03-14] MEDS: MEMANTINE 10 MG TABLET PO ×2 (08:33→20:51)
[2024-03-14] MEDS: INSULIN GLARGINE (*BKC) 100 UNITS/ML 10 UNITS SUB-Q (08:33)
[2024-03-14] MEDS: ENOXAPARIN 40 MG/0.4 ML SYRINGE SUB-Q (08:33)
[2024-03-14] MEDS: VENLAFAXINE HCL XR 75 MG CAP.ER.24H 150 MG PO (08:34)
[2024-03-14] MEDS: ESCITALOPRAM OXALATE 10 MG TABLET 20 MG PO (08:34)
[2024-03-14] MEDS: AMANTADINE HCL 100 MG CAPSULE PO (08:34)
[2024-03-14] MEDS: METOPROLOL TARTRATE 25 MG TABLET PO ×2 (08:34→20:51)
[2024-03-14 11:53] LABS: Glucose Point of Care 267 mg/dl (65-105)
--- NOTE | 2024-03-14 15:17 | WPDPN ---
Progress Note: A&P Assessment and Plan (1) Acute calculous cholecystitis: Code(s): K80.00 - Calculus of gallbladder with acute cholecystitis without obstruction Status: Acute Assessment and Plan: We will reassess tomorrow but if he is doing better he can likely be discharged home with a cholecystostomy tube in place with a course of oral antibiotics. If they wish to proceed with evaluation for elective laparoscopic cholecystectomy that he will need to undergo ischemic cardiac workup by Dr. Moy as an outpatient. Subjective Date/time seen: 03/14/24 15:17 Interval history: Patient states he is feeling better today. He had a ultrasound guided cholecystostomy tube placed yesterday in Radiology to decompress the gallbladder. Cultures are pending. He has less right upper quadrant pain today. He is eating a low-fat diet without difficulty. No fever no tachycardia. White blood cell count remains normal. Liver enzymes are normal. Exam GI: Other: Abdomen is soft and nondistended. Cholecystostomy tube in place the right upper quadrant. Output from the cholecystostomy tube is nonpurulent and nonbloody bile. Objective Data Vital Signs Vital Signs: Vital Signs - 24 hr 03/13/24 15:19 03/13/24 20:35 03/13/24 20:00 Temperature 36.7 C Pulse Rate 73 73 Respiratory Rate 20 Blood Pressure 138/74 Pulse Oximetry 94 94 Oxygen Delivery Nasal Cannula Oxygen Flow Rate 1 Fraction of Inspired Oxygen 03/13/24 20:50 03/14/24 05:10 03/14/24 08:09 Temperature 36.4 C L 36.4 C Pulse Rate 77 73 Respiratory Rate 20 16 Blood Pressure 164/74 H 155/78 H Pulse Oximetry 95 91 93 Oxygen Delivery Nasal Cannula Oxygen Flow Rate 1 Fraction of Inspired Oxygen 24 03/14/24 08:32 03/14/24 08:00 Temperature Pulse Rate Respiratory Rate Blood Pressure Pulse Oximetry 92 92 Oxygen Delivery Room Air Room Air Oxygen Flow Rate Fraction of Inspired Oxygen 21 Intake/Output Intake/Output: Intake & Output 03/11/24 03/12/24 03/13/24 03/14/24 23:59 23:59 23:59 23:59 Intake Total 50 2202.1 1740 1510 Output Total 143 252 9381 1262 Balance -150 1584.1 -39 248 Meds/Results Medications: Active Medications Generic Name Dose Route Start Last Admin Trade Name Freq PRN Reason Stop Dose Admin Amantadine HCl 100 mg 03/12/24 09:00 03/14/24 08:34 Amantadine Hcl 100 Mg Capsule PO 100 mg DAILY JOSE DAVID Administration Atorvastatin Calcium 40 mg 03/13/24 09:00 03/14/24 08:33 Atorvastatin 40 Mg Tablet PO 40 mg DAILY JOSE DAVID Administration Carbidopa/Levodopa 2 tablet 03/11/24 21:25 03/13/24 20:33 Carbidopa/Levodopa 25/100 Mg Cr Tablet PO 2 tablet HS JOSE DAVID Administration Carbidopa/Levodopa 1 tablet 03/12/24 09:00 03/14/24 08:33 Carbidopa/Levodopa 25/100 Mg Tablet PO 1 tablet DAILY JOSE DAVID Administration Dextrose 12.5 gm 03/11/24 21:22 Dextrose 50% 25 Gm/50 Ml Syringe IV PUSH PRN PRN Hypoglycemia Protocol Enoxaparin Sodium 40 mg 03/13/24 09:00 03/14/24 08:33 Enoxaparin 40 Mg/0.4 Ml Syringe SUB-Q 40 mg DAILY JOSE DAVID Administration Escitalopram Oxalate 20 mg 03/13/24 09:00 03/14/24 08:34 Escitalopram Oxalate 10 Mg Tablet PO 20 mg DAILY JOSE DAVID Administration Gabapentin 100 mg 03/11/24 21:30 03/14/24 11:59 Gabapentin 100 Mg Capsule PO 100 mg TID JOSE DAVID Administration Glucagon 1 mg 03/11/24 21:22 Glucagon For Inj 1 Mg Vial IM PRN PRN Hypoglycemia Protocol Glucose 15 gm 03/11/24 21:22 Glucose Oral Gel 15 Gm Of Glucse In 37.5 Gm Tube PO PRN PRN Hypoglycemia Protocol Sodium Chloride 1,000 mls @ 75 mls/hr 03/11/24 15:50 03/14/24 05:45 Normal Saline Iv IV CONT Not Given .[id number] JOSE DAVID Dextrose 1,000 mls @ 100 mls/hr 03/11/24 21:22 Dextrose 5% 1,000 Ml IVPB PRN PRN Hypoglycemia Protocol Piperacillin/Tazobactam/Dextrose 3.375 gm in 50 mls @ 100 mls/hr 03/12/24 06:00 03/14/24 12:29 Zosyn 3.375 Gm/Ns 50 Ml IVPB Infused Q6HR JOSE DAVID Infusion Insulin Glargine 10 units 03/12/24 09:00 03/14/24 08:33 Insulin Glargine (*Bkc) 100 Units/Ml SUB-Q 10 units DAILY JOSE DAVID Administration Lactulose 200 gm 03/14/24 10:06 Lactulose Enema 200 Gm/1,000 Ml Enema RECTAL BID PRN Constipation Memantine 10 mg 03/12/24 21:00 03/14/24 08:33 Memantine 10 Mg Tablet PO 10 mg Q12HR JOSE DAVID Administration Metoprolol Tartrate 25 mg 03/12/24 21:00 03/14/24 08:34 Metoprolol Tartrate 25 Mg Tablet PO 25 mg Q12H JOSE DAVID Administration Morphine Sulfate 2 mg 03/11/24 15:50 03/12/24 10:00 Morphine Sulfate (*Crx) 2 Mg/Ml Inj IV PUSH 2 mg Q2H PRN Administration Pain Rated 7-10 * Home Med * 1 cap 03/13/24 12:20 03/14/24 08:35 Dextromethorphan- PO 04/12/24 12:19 1 cap Quinidine [Nuedexta] DAILY JOSE DAVID Administration 20-10 Mg Cap Ondansetron HCl 4 mg 03/11/24 15:50 03/11/24 21:58 Ondansetron Inj 4 Mg/2 Ml Vial IV PUSH 4 mg Q4H PRN Administration Nausea Pantoprazole Sodium 40 mg 03/12/24 09:00 03/14/24 08:33 Pantoprazole 40 Mg Tablet PO 40 mg BID JOSE DAVID Administration Polyethylene Glycol 17 gm 03/14/24 17:00 Polyethylene Glycol 3350 17 Gm Powd.Pack PO BID JOSE DAVID Quetiapine Fumarate 75 mg 03/12/24 21:00 03/13/24 20:35 Quetiapine Fumarate 25 Mg Tablet PO 75 mg HS JOSE DAVID Administration Senna/Docusate Sodium 2 tab 03/14/24 17:00 Senna/Docusate Sodium Tablet PO BID JOSE DAVID Venlafaxine HCl 150 mg 03/12/24 09:00 03/14/24 08:34 Venlafaxine Hcl Xr 75 Mg Cap.Er.24h PO 150 mg DAILY JOSE DAVID Administration Vitamin B Complex/Folic Acid 1 cap 03/12/24 09:00 03/14/24 08:33 Vitamin B Cmplx/Vit C/Folic Ac 1 Capsule PO 1 cap DAILY JOSE DAVID Administration Radiology Results: ITS Impressions Abdomen/Pelvis CT 08/24/24 14:22 IMPRESSION: Likely acute cholecystitis. Stable complicated left upper pole renal cystic lesion. Prior recommendation for annual follow-up which should occur in September 2024 is unchanged. Likely fecal impaction. A rectal mass is not excluded. Associated sigmoid and rectal wall thickening, as can occur with early stercoral colitis. Chest X-Ray 03/11/24 14:34 IMPRESSION: No acute cardiopulmonary process. Cholecystostomy 03/13/24 13:58 IMPRESSION: 1. Successful ultrasound-guided cholecystostomy tube placement. 2. 29 mL bile was sent for aerobic, anaerobic, and fungal cultures. 3. The catheter will be managed by Dr. Salazar. A catheter cholangiogram may be performed not less than 48 hours after tube placement if clinically indicated to assess cystic duct patency. If cholecystectomy is not eventually performed and the infectious episode has resolved, the tube may be removed over a guidewire, preferably not less than 3 weeks after placement to allow time for a mature catheter tract to form to prevent bile leakage and peritonitis. Labs Labs: Laboratory Results - last 24 hr 03/13/24 03/13/24 03/14/24 18:33 20:56 06:50 WBC 6.2 RBC 3.68 L Hgb 10.0 L Hct 32.3 L MCV 87.8 MCH 27.2 MCHC 31.0 L RDW 14.3 Plt Count 243 MPV 10.4 Immature Gran % (Auto) 0.3 Neut % (Auto) 77.7 H Lymph % (Auto) 12.8 L [place] % (Auto) 2.9 Eos % (Auto) 6.0 H Baso % (Auto) 0.3 Lymph # (Auto) 0.79 L [place] # (Auto) 0.2 Eos # (Auto) 0.4 H Baso # (Auto) 0.0 Abs Immat Gran (auto) 0.02 Absolute Neuts (auto) 4.8 Absolute Nucleated RBC 0.000 Nucleated RBC % 0.0 Sodium 135 L Potassium 3.5 Chloride 103 Carbon Dioxide 25 Anion Gap 7 BUN 13 Creatinine 0.80 Estim Creat Clear Calc 78 Estimated GFR > 60 Glucose 181 H POC Capillary Glucose 172 H 163 H Calcium 8.0 L Total Bilirubin 0.9 AST 16 L ALT < 6 L Alkaline Phosphatase 95 Total Protein 6.0 L Albumin 2.8 L 03/14/24 03/14/24 07:55 11:44 WBC RBC Hgb Hct MCV MCH MCHC RDW Plt Count MPV Immature Gran % (Auto) Neut % (Auto) Lymph % (Auto) [place] % (Auto) Eos % (Auto) Baso % (Auto) Lymph # (Auto) [place] # (Auto) Eos # (Auto) Baso # (Auto) Abs Immat Gran (auto) Absolute Neuts (auto) Absolute Nucleated RBC Nucleated RBC % Sodium Potassium Chloride Carbon Dioxide Anion Gap BUN Creatinine Estim Creat Clear Calc Estimated GFR Glucose POC Capillary Glucose 181 H 267 H Calcium Total Bilirubin AST ALT Alkaline Phosphatase Total Protein Albumin
--- NOTE | 2024-03-14 15:39 | PC.NURSE ---
Pt. cullen removed this AM, due to void at 15:30. Pt unable to void at that time, bladder scan revealed 169 mL in bladder. Rita Pearson called and notified. Provider does not want cullen put back in at this time, orders obtained re-scan bladder at 20:00 and treat from there. PRN orders are in place to re-insert cullen catheter if >500mL in bladder.
[2024-03-14] MEDS: SENNA/DOCUSATE SODIUM TABLET 2 TAB PO (16:38)
[2024-03-14 17:03] LABS: Glucose Point of Care 206 mg/dl (65-105)
[2024-03-14 20:35] LABS: Glucose Point of Care 194 mg/dl (65-105)
[2024-03-14] MEDS: QUEtiapine FUMARATE 25 MG TABLET 75 MG PO (20:51)
[2024-03-14] MEDS: CARBIDOPA/LEVODOPA 25/100 MG CR TABLET 2 TABLET PO (20:52)
[2024-03-15] MEDS: PIPERACILLN/TAZ 3.375GM/NS50ML 3.375 GM/50 ML BAG IVPB ×3 (00:02→11:39)
[2024-03-15 05:25] VITALS: BP 167/77; PULSE 73; RESP 18; TEMP 36.4; O2SAT 94
[2024-03-15 06:46] LABS: Basophils Percent Auto 0.7 % (0.2-1.2); Eosinophils Absolute Auto 0.4 K/mm3 (0-0.3); Eosinophils Percent Auto 7.6 % (0-4.4); Hematocrit 31.9 % (42.0-52.0); Hemoglobin 9.8 g/dL (14.0-18.0); Immature Granulocyte Absolute 0.03 K/mm3 (0.00-0.031); Immature Granulocyte Percent A 0.5 % (0-0.5); Lymphocytes Percent Auto 15.5 % (18.3-44.2); Mean Corpuscular HGB Conc 30.7 g/dl (32-36); Mean Corpuscular Hemoglobin 26.8 pg (26-34); Mean Corpuscular Volume 87.2 fl (80-100); Mean Platelet Volume 10.3 fl (7.4-10.4); Monocytes Absolute Auto 0.2 K/mm3 (0.1-0.6); Monocytes Percent Auto 4.1 % (2.6-8.5); Neutrophils Absolute Auto 4.1 K/mm3 (1.3-6.7); Neutrophils Percent Auto 71.6 % (45.5-73.1); Platelet Count Result 262 k/mm3 (150-375); Red Blood Count 3.66 M/mm3 (4.6-6.20); Red Cell Distribution Width 14.2 % (11.5-14.5); White Blood Count 5.8 K/mm3 (4.5-10.0)
[2024-03-15 06:59] LABS: Albumin Level 2.8 g/dL (3.5-5.1); Alkaline Phosphatase 89 U/L (38-126); Anion Gap 6 mmol/L (4-12); Aspartate Amino Transferase 18 U/L (17-59); Bilirubin,Total 0.6 mg/dL (0.2-1.3); Blood Urea Nitrogen 10 mg/dL (9-20); Calcium 7.9 mg/dL (8.4-10.2); Carbon Dioxide 24 mmol/L (22-30); Chloride 105 mmol/L (98-107); Estimated CRCL calculation 89 ml/min; Estimated Glomerular Filt Rate > 60; Glucose 172 mg/dL (65-110); Potassium 3.2 mmol/L (3.4-5.0); Sodium 135 mmol/L (137-145)
[2024-03-15 07:14] LABS: Alanine Aminotransferase < 6 U/L (6-50)
[2024-03-15 08:00] VITALS: O2SAT 90
[2024-03-15] MEDS: ESCITALOPRAM OXALATE 10 MG TABLET 20 MG PO (08:14)
[2024-03-15] MEDS: MEMANTINE 10 MG TABLET PO ×2 (08:14→21:55)
[2024-03-15] MEDS: polyethylene glycoL 3350 17 GM POWD.PACK PO ×2 (08:14→18:22)
[2024-03-15] MEDS: ENOXAPARIN 40 MG/0.4 ML SYRINGE SUB-Q (08:14)
[2024-03-15] MEDS: VENLAFAXINE HCL XR 75 MG CAP.ER.24H 150 MG PO (08:14)
[2024-03-15] MEDS: GABAPENTIN 100 MG CAPSULE PO ×3 (08:14→18:21)
[2024-03-15] MEDS: ATORVASTATIN 40 MG TABLET PO (08:14)
[2024-03-15] MEDS: AMANTADINE HCL 100 MG CAPSULE PO (08:15)
[2024-03-15] MEDS: PANTOPRAZOLE 40 MG TABLET PO ×2 (08:15→18:22)
[2024-03-15] MEDS: METOPROLOL TARTRATE 25 MG TABLET PO ×2 (08:15→21:54)
[2024-03-15] MEDS: VITAMIN B CMPLX/VIT C/FOLIC AC 1 CAPSULE 1 CAP PO (08:15)
[2024-03-15] MEDS: CARBIDOPA/LEVODOPA 25/100 MG TABLET 1 TABLET PO (08:15)
[2024-03-15] MEDS: SENNA/DOCUSATE SODIUM TABLET 2 TAB PO ×2 (08:15→18:22)
[2024-03-15] MEDS: INSULIN GLARGINE (*BKC) 100 UNITS/ML 10 UNITS SUB-Q (08:19)
--- NOTE | 2024-03-15 10:19 | PM.IMPN ---
Progress Note: A&P Assessment and Plan (1) Cholelithiasis and cholecystitis without obstruction: Qualifiers: Cholecystitis acuity: acute Cholelithiasis location: gallbladder Qualified Code(s): K80.00 - Calculus of gallbladder with acute cholecystitis without obstruction Code(s): K80.10 - Calculus of gallbladder with chronic cholecystitis without obstruction Status: Acute Assessment and Plan: Consult to GI appreciate recommendation and plan. CT abdomen showed likely acute cholecystitis -NPO---advance to clears -blood cultures were not drawn prior to 1st dose zosyn, follow cultures, oral antibiotics if susceptible, previously gallbladder cultures were susceptible to augmentin -continue Zosyn q.6 hours IVPB pharmacy dosed -continue to monitor CBC, CMP - surgery would like IR to place biliary drain as patient had an NSTEMI in May. during that time they had deferred stress testing. plan will be to place biliary drain now and since this is his 2nd episode of cholecystitis if he can arrange for cardiac clearance outpatient laparoscopic cholecystectomy can be performed. --Family teaching about drain care. Home health after follow up (2) Fecal impaction: Code(s): K56.41 - Fecal impaction Status: Acute Assessment and Plan: as evidenced by CT scan -soap yuliana enema. minimal response. Had a large BM yesterday morning and small in the evening but abdomen still distended -continue docusate sod p.o. q 12 hrs, Senna HS<2 tabs BID, MiraLax daily<BID, add scheduled bisacodyl BID for 2 days - repeat enema hs with lactulose if no BM today -continue IVF (3) Urinary retention: Code(s): R33.9 - Retention of urine, unspecified Status: Acute Assessment and Plan: Dyer placed for retention. Constipation may be contributing. Had a BM yesterday. Dyer needed to be replaced overnight 2/2 urinary retention --Treatment of constipation --Failed void trial 03/15, Dyer replaced --Follow up if needed (4) Acute respiratory failure: Code(s): J96.00 - Acute respiratory failure, unspecified whether with hypoxia or hypercapnia Status: Acute Assessment and Plan: 90% on 1L O2, no oxygen at home Treat constipation, repeat x-ray in AM Plan Continue home medications: VTE Prophylaxis: SCD, add Lovenox after IR procedure DIET: NPO Anticipated hospital stay: > 2 days Code Status: DNI Time Spent With Patient Time: 35 minutes Subjective Date/time seen: 03/15/24 10:19 Interval history: Having BM's but abdomen still distended. Eating well. Gallbladder cultures pending, discharge pending results, growing GNB's. Needed to replace Dyer overnight Review of Systems Review of Systems: All systems reviewed & are unremarkable except as noted in HPI and below Exam Narrative: General: Chronically ill, contracted, elderly, frail HEENT: normocephalic, atraumatic. Mucous membranes moist. EOMI, PERRLA, bilateral sclera anicteric, no conjunctival injection. Neck supple without JVD, lymphadenopathy, or bruit. Respiratory: clear but diminished on auscultation bilaterally. No rales/rhonic/wheezes. Cardiovascular: Regular rate and rhythm, normal S1-S2 upon auscultation. No murmurs, rubs, or clicks. PMI is nondisplaced, capillary refill less than 3 second. Abdomen: Soft, round, no pulsatile masses, slightly distended and tender to upper abdomen. No rebound, no guarding. No CVA tenderness, no hepatosplenomegaly. Bowel sounds present to all four quadrants. No high pitch or tinkling sounds, resonant to percussion. Gallbladder drain with yellow fluid and sediment to right abdomen Extremities: No cyanosis, clubbing, or edema present. Pulses are palpable 2/2. Active ROM to all four extremities with generalized weakness. Hands are contracted. Neuro: drowsy PERRLA. Cranial nerves 2-12 intact without focal deficit. Skin: Warm, dry, and intact, without rash, erythema, or lesion. Lines: PIV Incisions: Psych: Delayed speech response, flat affect, no hallucinations, no dysarthria, drowsy Objective Data Vital Signs Vital Signs: Vital Signs - 24 hr 03/14/24 14:00 03/14/24 20:51 03/14/24 20:54 Temperature 98.8 F 98.2 F Pulse Rate 71 74 73 Respiratory Rate 16 16 Blood Pressure 105/43 L 162/72 H Pulse Oximetry 90 94 Oxygen Delivery Oxygen Flow Rate 03/15/24 05:25 03/15/24 08:00 Temperature 97.6 F Pulse Rate 73 Respiratory Rate 18 Blood Pressure 167/77 H Pulse Oximetry 94 90 Oxygen Delivery Nasal Cannula Oxygen Flow Rate 1 Intake/Output Intake/Output: Intake & Output 03/12/24 03/13/24 03/14/24 03/15/24 23:59 23:59 23:59 23:59 Intake Total 2202.1 1740 2800 490 Output Total 618 1779 1332 240 Balance 1584.1 -39 1468 250 Meds/Results Medications: Active Medications Generic Name Dose Route Start Last Admin Trade Name Freq PRN Reason Stop Dose Admin Amantadine HCl 100 mg 03/12/24 09:00 03/15/24 08:15 Amantadine Hcl 100 Mg Capsule PO 100 mg DAILY JOSE DAVID Administration Atorvastatin Calcium 40 mg 03/13/24 09:00 03/15/24 08:14 Atorvastatin 40 Mg Tablet PO 40 mg DAILY JOSE DAVID Administration Carbidopa/Levodopa 2 tablet 03/11/24 21:25 03/14/24 20:52 Carbidopa/Levodopa 25/100 Mg Cr Tablet PO 2 tablet HS JOSE DAVID Administration Carbidopa/Levodopa 1 tablet 03/12/24 09:00 03/15/24 08:15 Carbidopa/Levodopa 25/100 Mg Tablet PO 1 tablet DAILY JOSE DAVID Administration Dextrose 12.5 gm 03/11/24 21:22 Dextrose 50% 25 Gm/50 Ml Syringe IV PUSH PRN PRN Hypoglycemia Protocol Enoxaparin Sodium 40 mg 03/13/24 09:00 03/15/24 08:14 Enoxaparin 40 Mg/0.4 Ml Syringe SUB-Q 40 mg DAILY JOSE DAVID Administration Escitalopram Oxalate 20 mg 03/13/24 09:00 03/15/24 08:14 Escitalopram Oxalate 10 Mg Tablet PO 20 mg DAILY JOSE DAVID Administration Gabapentin 100 mg 03/11/24 21:30 03/15/24 08:14 Gabapentin 100 Mg Capsule PO 100 mg TID JOSE DAVID Administration Glucagon 1 mg 03/11/24 21:22 Glucagon For Inj 1 Mg Vial IM PRN PRN Hypoglycemia Protocol Glucose 15 gm 03/11/24 21:22 Glucose Oral Gel 15 Gm Of Glucse In 37.5 Gm Tube PO PRN PRN Hypoglycemia Protocol Sodium Chloride 1,000 mls @ 75 mls/hr 03/11/24 15:50 03/14/24 20:47 Normal Saline Iv IV CONT 75 mls/hr .[id number] JOSE DAVID Administration Dextrose 1,000 mls @ 100 mls/hr 03/11/24 21:22 Dextrose 5% 1,000 Ml IVPB PRN PRN Hypoglycemia Protocol Piperacillin/Tazobactam/Dextrose 3.375 gm in 50 mls @ 100 mls/hr 03/12/24 06:00 03/15/24 06:07 Zosyn 3.375 Gm/Ns 50 Ml IVPB 100 mls/hr Q6HR JOSE DAVID Administration Insulin Glargine 10 units 03/12/24 09:00 03/15/24 08:19 Insulin Glargine (*Bkc) 100 Units/Ml SUB-Q 10 units DAILY JOSE DAVID Administration Lactulose 200 gm 03/14/24 10:06 Lactulose Enema 200 Gm/1,000 Ml Enema RECTAL BID PRN Constipation Memantine 10 mg 03/12/24 21:00 03/15/24 08:14 Memantine 10 Mg Tablet PO 10 mg Q12HR JOSE DAVID Administration Metoprolol Tartrate 25 mg 03/12/24 21:00 03/15/24 08:15 Metoprolol Tartrate 25 Mg Tablet PO 25 mg Q12H JOSE DAVID Administration Morphine Sulfate 2 mg 03/11/24 15:50 03/12/24 10:00 Morphine Sulfate (*Crx) 2 Mg/Ml Inj IV PUSH 2 mg Q2H PRN Administration Pain Rated 7-10 * Home Med * 1 cap 03/13/24 12:20 03/15/24 08:16 Dextromethorphan- PO 04/12/24 12:19 1 cap Quinidine [Nuedexta] DAILY JOSE DAVID Administration 20-10 Mg Cap Ondansetron HCl 4 mg 03/11/24 15:50 03/11/24 21:58 Ondansetron Inj 4 Mg/2 Ml Vial IV PUSH 4 mg Q4H PRN Administration Nausea Pantoprazole Sodium 40 mg 03/12/24 09:00 03/15/24 08:15 Pantoprazole 40 Mg Tablet PO 40 mg BID JOSE DAVID Administration Polyethylene Glycol 17 gm 03/14/24 17:00 03/15/24 08:14 Polyethylene Glycol 3350 17 Gm Powd.Pack PO 17 gm BID JOSE DAVID Administration Quetiapine Fumarate 75 mg 03/12/24 21:00 03/14/24 20:51 Quetiapine Fumarate 25 Mg Tablet PO 75 mg HS JOSE DAVID Administration Senna/Docusate Sodium 2 tab 03/14/24 17:00 03/15/24 08:15 Senna/Docusate Sodium Tablet PO 2 tab BID JOSE DAVID Administration Venlafaxine HCl 150 mg 03/12/24 09:00 03/15/24 08:14 Venlafaxine Hcl Xr 75 Mg Cap.Er.24h PO 150 mg DAILY JOSE DAVID Administration Vitamin B Complex/Folic Acid 1 cap 03/12/24 09:00 03/15/24 08:15 Vitamin B Cmplx/Vit C/Folic Ac 1 Capsule PO 1 cap DAILY JOSE DAVID Administration Radiology Results: ITS Impressions Abdomen/Pelvis CT 03/11/24 14:22 IMPRESSION: Likely acute cholecystitis. Stable complicated left upper pole renal cystic lesion. Prior recommendation for annual follow-up which should occur in September 2024 is unchanged. Likely fecal impaction. A rectal mass is not excluded. Associated sigmoid and rectal wall thickening, as can occur with early stercoral colitis. Chest X-Ray 03/11/24 14:34 IMPRESSION: No acute cardiopulmonary process. Cholecystostomy 03/13/24 13:58 IMPRESSION: 1. Successful ultrasound-guided cholecystostomy tube placement. 2. 29 mL bile was sent for aerobic, anaerobic, and fungal cultures. 3. The catheter will be managed by Dr. Salazar. A catheter cholangiogram may be performed not less than 48 hours after tube placement if clinically indicated to assess cystic duct patency. If cholecystectomy is not eventually performed and the infectious episode has resolved, the tube may be removed over a guidewire, preferably not less than 3 weeks after placement to allow time for a mature catheter tract to form to prevent bile leakage and peritonitis. Labs Labs: Laboratory Results - last 24 hr 03/14/24 03/14/24 03/14/24 11:44 16:56 19:58 WBC RBC Hgb Hct MCV MCH MCHC RDW Plt Count MPV Immature Gran % (Auto) Neut % (Auto) Lymph % (Auto) [place] % (Auto) Eos % (Auto) Baso % (Auto) Lymph # (Auto) [place] # (Auto) Eos # (Auto) Baso # (Auto) Abs Immat Gran (auto) Absolute Neuts (auto) Absolute Nucleated RBC Nucleated RBC % Sodium Potassium Chloride Carbon Dioxide Anion Gap BUN Creatinine Estim Creat Clear Calc Estimated GFR Glucose POC Capillary Glucose 267 H 206 H 194 H Calcium Total Bilirubin AST ALT Alkaline Phosphatase Total Protein Albumin 03/15/24 05:50 WBC 5.8 RBC 3.66 L Hgb 9.8 L Hct 31.9 L MCV 87.2 MCH 26.8 MCHC 30.7 L RDW 14.2 Plt Count 262 MPV 10.3 Immature Gran % (Auto) 0.5 Neut % (Auto) 71.6 Lymph % (Auto) 15.5 L [place] % (Auto) 4.1 Eos % (Auto) 7.6 H Baso % (Auto) 0.7 Lymph # (Auto) 0.90 [place] # (Auto) 0.2 Eos # (Auto) 0.4 H Baso # (Auto) 0.0 Abs Immat Gran (auto) 0.03 Absolute Neuts (auto) 4.1 Absolute Nucleated RBC 0.000 Nucleated RBC % 0.0 Sodium 135 L Potassium 3.2 L Chloride 105 Carbon Dioxide 24 Anion Gap 6 BUN 10 Creatinine 0.70 Estim Creat Clear Calc 89 Estimated GFR > 60 Glucose 172 H POC Capillary Glucose Calcium 7.9 L Total Bilirubin 0.6 AST 18 ALT < 6 L Alkaline Phosphatase 89 Total Protein 6.0 L Albumin 2.8 L Quality VTE Prophylaxis VTE prophylaxis: pharmacologic ordered Hospitalist [facility] Advance Care Plan I have confirmed that the patient's Advanced Care Plan is present, code status is documented, or surrogate decision maker is listed in patient medical record.: Yes Medication Reconciliation I have utilized all available resources to obtain, update and review the patients current medications (includes all prescriptions, OTC, herbals, cannabis, and nutritional supplements).: Yes
[2024-03-15 11:27] LABS: Glucose Point of Care 206 mg/dl (65-105)
[2024-03-15] MEDS: SODIUM CHLORIDE 0.9% IV 1,000 ML 75 ML IV CONT (11:39)
[2024-03-15 14:00] VITALS: BP 123/69; PULSE 61; RESP 16; TEMP 36.2; O2SAT 95
--- NOTE | 2024-03-15 15:48 | P.PN_ITS ---
Progress Note: A&P Assessment and Plan (1) Acute calculous cholecystitis: Code(s): K80.00 - Calculus of gallbladder with acute cholecystitis without obstruction Status: Acute Assessment and Plan: Acute cholecystitis is resolving after decompression of the gallbladder with IR placed cholecystostomy tube. Output from the tube is nonpurulent bile. White blood cell count is normalized. I think we can convert over to oral antibiotics and he can be discharged home when he is medically optimized. The cholecystostomy tissues stay in place for at least another 3 weeks. At that time a cholecystostomy tube cholangiogram will be performed and then we can decide whether the tube can be removed. I did discuss with the patient as at the bedside that if proceeding with a elective laparoscopic cholecystectomy is desired then he will need to have an ischemic cardiac workup by his lithographer helper Dr. Moy to see if he is an operative candidate. Patient should follow-up see me in my office in about 7 to 10 days after discharge from the hospital. Subjective Date/time seen: 03/15/24 15:48 Interval history: Patient is doing well today. He is eating low-fat diet without any difficulty. Minimal pain upper quadrant. Cholecystostomy tube is draining nonpurulent bile. No fever. White blood count is normal. Liver enzymes are normal. Exam GI: Other: Abdomen is soft and nondistended. Right upper quadrant cholecystostomy tube in place. Output is nonpurulent bile. No peritoneal signs. Objective Data Vital Signs Vital Signs: Vital Signs - 24 hr 03/14/24 20:51 03/14/24 20:54 03/15/24 05:25 Temperature 36.8 C 36.4 C Pulse Rate 74 73 73 Respiratory Rate 16 18 Blood Pressure 162/72 H 167/77 H Pulse Oximetry 94 94 Oxygen Delivery Oxygen Flow Rate 03/15/24 08:00 Temperature Pulse Rate Respiratory Rate Blood Pressure Pulse Oximetry 90 Oxygen Delivery Nasal Cannula Oxygen Flow Rate 1 Intake/Output Intake/Output: Intake & Output 03/12/24 03/13/24 03/14/24 03/15/24 23:59 23:59 23:59 23:59 Intake Total 2202.1 1740 2800 1710 Output Total 618 1779 1332 240 Balance 1584.1 -39 1468 1470 Meds/Results Medications: Active Medications Generic Name Dose Route Start Last Admin Trade Name Freq PRN Reason Stop Dose Admin Amantadine HCl 100 mg 03/12/24 09:00 03/15/24 08:15 Amantadine Hcl 100 Mg Capsule PO 100 mg DAILY JOSE DAVID Administration Atorvastatin Calcium 40 mg 03/13/24 09:00 03/15/24 08:14 Atorvastatin 40 Mg Tablet PO 40 mg DAILY JOSE DAVID Administration Bisacodyl 10 mg 03/17/24 17:00 Bisacodyl 10 Mg Suppository RECTAL BID JOSE DAVID Carbidopa/Levodopa 2 tablet 03/11/24 21:25 03/14/24 20:52 Carbidopa/Levodopa 25/100 Mg Cr Tablet PO 2 tablet HS JOSE DAVID Administration Carbidopa/Levodopa 1 tablet 03/12/24 09:00 03/15/24 08:15 Carbidopa/Levodopa 25/100 Mg Tablet PO 1 tablet DAILY JOSE DAVID Administration Dextrose 12.5 gm 03/11/24 21:22 Dextrose 50% 25 Gm/50 Ml Syringe IV PUSH PRN PRN Hypoglycemia Protocol Enoxaparin Sodium 40 mg 03/13/24 09:00 03/15/24 08:14 Enoxaparin 40 Mg/0.4 Ml Syringe SUB-Q 40 mg DAILY JOSE DAVID Administration Enoxaparin Sodium 40 mg 03/16/24 09:00 Enoxaparin 40 Mg/0.4 Ml Syringe SUB-Q DAILY [facility] Escitalopram Oxalate 20 mg 03/13/24 09:00 03/15/24 08:14 Escitalopram Oxalate 10 Mg Tablet PO 20 mg DAILY JOSE DAVID Administration Gabapentin 100 mg 03/11/24 21:30 03/15/24 12:24 Gabapentin 100 Mg Capsule PO 100 mg TID JOSE DAVID Administration Glucagon 1 mg 03/11/24 21:22 Glucagon For Inj 1 Mg Vial IM PRN PRN Hypoglycemia Protocol Glucose 15 gm 03/11/24 21:22 Glucose Oral Gel 15 Gm Of Glucse In 37.5 Gm Tube PO PRN PRN Hypoglycemia Protocol Sodium Chloride 1,000 mls @ 75 mls/hr 03/11/24 15:50 03/15/24 11:39 Normal Saline Iv IV CONT 75 mls/hr .[id number] JOSE DAVID Administration Dextrose 1,000 mls @ 100 mls/hr 03/11/24 21:22 Dextrose 5% 1,000 Ml IVPB PRN PRN Hypoglycemia Protocol Piperacillin/Tazobactam/Dextrose 3.375 gm in 50 mls @ 100 mls/hr 03/12/24 06:00 03/15/24 12:09 Zosyn 3.375 Gm/Ns 50 Ml IVPB Infused Q6HR JOSE DAVID Infusion Insulin Glargine 10 units 03/12/24 09:00 03/15/24 08:19 Insulin Glargine (*Bkc) 100 Units/Ml SUB-Q 10 units DAILY JOSE DAVID Administration Lactulose 200 gm 03/14/24 10:06 Lactulose Enema 200 Gm/1,000 Ml Enema RECTAL BID PRN Constipation Memantine 10 mg 03/12/24 21:00 03/15/24 08:14 Memantine 10 Mg Tablet PO 10 mg Q12HR JOSE DAVID Administration Metoprolol Tartrate 25 mg 03/12/24 21:00 03/15/24 08:15 Metoprolol Tartrate 25 Mg Tablet PO 25 mg Q12H JOSE DAVID Administration Morphine Sulfate 2 mg 03/11/24 15:50 03/12/24 10:00 Morphine Sulfate (*Crx) 2 Mg/Ml Inj IV PUSH 2 mg Q2H PRN Administration Pain Rated 7-10 * Home Med * 1 cap 03/13/24 12:20 03/15/24 08:16 Dextromethorphan- PO 04/12/24 12:19 1 cap Quinidine [Nuedexta] DAILY JOSE DAVID Administration 20-10 Mg Cap Ondansetron HCl 4 mg 03/11/24 15:50 03/11/24 21:58 Ondansetron Inj 4 Mg/2 Ml Vial IV PUSH 4 mg Q4H PRN Administration Nausea Pantoprazole Sodium 40 mg 03/12/24 09:00 03/15/24 08:15 Pantoprazole 40 Mg Tablet PO 40 mg BID JOSE DAVID Administration Polyethylene Glycol 17 gm 03/14/24 17:00 03/15/24 08:14 Polyethylene Glycol 3350 17 Gm Powd.Pack PO 17 gm BID JOSE DAVID Administration Quetiapine Fumarate 75 mg 03/12/24 21:00 03/14/24 20:51 Quetiapine Fumarate 25 Mg Tablet PO 75 mg HS JOSE DAVID Administration Senna/Docusate Sodium 2 tab 03/14/24 17:00 03/15/24 08:15 Senna/Docusate Sodium Tablet PO 2 tab BID JOSE DAVID Administration Venlafaxine HCl 150 mg 03/12/24 09:00 03/15/24 08:14 Venlafaxine Hcl Xr 75 Mg Cap.Er.24h PO 150 mg DAILY JOSE DAVID Administration Vitamin B Complex/Folic Acid 1 cap 03/12/24 09:00 03/15/24 08:15 Vitamin B Cmplx/Vit C/Folic Ac 1 Capsule PO 1 cap DAILY JOSE DAVID Administration Radiology Results: ITS Impressions Abdomen/Pelvis CT 03/11/24 14:22 IMPRESSION: Likely acute cholecystitis. Stable complicated left upper pole renal cystic lesion. Prior recommendation for annual follow-up which should occur in September 2024 is unchanged. Likely fecal impaction. A rectal mass is not excluded. Associated sigmoid and rectal wall thickening, as can occur with early stercoral colitis. Chest X-Ray 03/11/24 14:34 IMPRESSION: No acute cardiopulmonary process. Cholecystostomy 03/13/24 13:58 IMPRESSION: 1. Successful ultrasound-guided cholecystostomy tube placement. 2. 29 mL bile was sent for aerobic, anaerobic, and fungal cultures. 3. The catheter will be managed by Dr. Salazar. A catheter cholangiogram may be performed not less than 48 hours after tube placement if clinically indicated to assess cystic duct patency. If cholecystectomy is not eventually performed and the infectious episode has resolved, the tube may be removed over a guidewire, preferably not less than 3 weeks after placement to allow time for a mature catheter tract to form to prevent bile leakage and peritonitis. Labs Labs: Laboratory Results - last 24 hr 03/14/24 03/14/24 03/15/24 16:56 19:58 05:50 WBC 5.8 RBC 3.66 L Hgb 9.8 L Hct 31.9 L MCV 87.2 MCH 26.8 MCHC 30.7 L RDW 14.2 Plt Count 262 MPV 10.3 Immature Gran % (Auto) 0.5 Neut % (Auto) 71.6 Lymph % (Auto) 15.5 L [place] % (Auto) 4.1 Eos % (Auto) 7.6 H Baso % (Auto) 0.7 Lymph # (Auto) 0.90 [place] # (Auto) 0.2 Eos # (Auto) 0.4 H Baso # (Auto) 0.0 Abs Immat Gran (auto) 0.03 Absolute Neuts (auto) 4.1 Absolute Nucleated RBC 0.000 Nucleated RBC % 0.0 Sodium 135 L Potassium 3.2 L Chloride 105 Carbon Dioxide 24 Anion Gap 6 BUN 10 Creatinine 0.70 Estim Creat Clear Calc 89 Estimated GFR > 60 Glucose 172 H POC Capillary Glucose 206 H 194 H Calcium 7.9 L Total Bilirubin 0.6 AST 18 ALT < 6 L Alkaline Phosphatase 89 Total Protein 6.0 L Albumin 2.8 L 03/15/24 11:16 WBC RBC Hgb Hct MCV MCH MCHC RDW Plt Count MPV Immature Gran % (Auto) Neut % (Auto) Lymph % (Auto) [place] % (Auto) Eos % (Auto) Baso % (Auto) Lymph # (Auto) [place] # (Auto) Eos # (Auto) Baso # (Auto) Abs Immat Gran (auto) Absolute Neuts (auto) Absolute Nucleated RBC Nucleated RBC % Sodium Potassium Chloride Carbon Dioxide Anion Gap BUN Creatinine Estim Creat Clear Calc Estimated GFR Glucose POC Capillary Glucose 206 H Calcium Total Bilirubin AST ALT Alkaline Phosphatase Total Protein Albumin
[2024-03-15 17:05] LABS: Glucose Point of Care 163 mg/dl (65-105)
[2024-03-15 20:09] LABS: Glucose Point of Care 179 mg/dl (65-105)
[2024-03-15 20:12] VITALS: BP 160/73; PULSE 64; RESP 14; TEMP 36.2; O2SAT 93
[2024-03-15 21:54] VITALS: PULSE 99
[2024-03-15] MEDS: QUEtiapine FUMARATE 25 MG TABLET 75 MG PO (21:54)
[2024-03-15] MEDS: AMOXICILLIN/CLAVULANATE K 875-125 MG TAB 1 TABLET PO (21:55)
[2024-03-15] MEDS: CARBIDOPA/LEVODOPA 25/100 MG CR TABLET 2 TABLET PO (21:55)
[2024-03-15 22:02] VITALS: O2SAT 92
[2024-03-16] VITALS (7 sets, daily range): BP systolic 153–175; BP diastolic 67–78; PULSE 65–70; RESP 16–20; TEMP 35.8–36.2; O2SAT 91–95
[2024-03-16 06:38] LABS: Hematocrit 33.8 % (42.0-52.0); Hemoglobin 10.2 g/dL (14.0-18.0); Red Blood Count 3.83 M/mm3 (4.6-6.20); White Blood Count 7.9 K/mm3 (4.5-10.0)
[2024-03-16 06:39] LABS: Basophils Percent Auto 0.4 % (0.2-1.2); Eosinophils Absolute Auto 0.5 K/mm3 (0-0.3); Eosinophils Percent Auto 5.8 % (0-4.4); Immature Granulocyte Absolute 0.09 K/mm3 (0.00-0.031); Immature Granulocyte Percent A 1.1 % (0-0.5); Lymphocytes Absolute Auto 1.05 K/mm3 (0.9-3.2); Lymphocytes Percent Auto 13.3 % (18.3-44.2); Mean Corpuscular HGB Conc 30.2 g/dl (32-36); Mean Corpuscular Hemoglobin 26.6 pg (26-34); Mean Corpuscular Volume 88.3 fl (80-100); Monocytes Absolute Auto 0.3 K/mm3 (0.1-0.6); Monocytes Percent Auto 4.3 % (2.6-8.5); Neutrophils Absolute Auto 5.9 K/mm3 (1.3-6.7); Neutrophils Percent Auto 75.1 % (45.5-73.1); Platelet Count Result 286 k/mm3 (150-375); Red Cell Distribution Width 14.3 % (11.5-14.5)
[2024-03-16 07:03] LABS: Albumin Level 2.8 g/dL (3.5-5.1); Alkaline Phosphatase 93 U/L (38-126); Anion Gap 7 mmol/L (4-12); Aspartate Amino Transferase 17 U/L (17-59); Bilirubin,Total 0.4 mg/dL (0.2-1.3); Blood Urea Nitrogen 7 mg/dL (9-20); Calcium 8.1 mg/dL (8.4-10.2); Carbon Dioxide 24 mmol/L (22-30); Chloride 107 mmol/L (98-107); Estimated CRCL calculation 78 ml/min; Estimated Glomerular Filt Rate > 60; Glucose 131 mg/dL (65-110); Potassium 3.2 mmol/L (3.4-5.0); Sodium 138 mmol/L (137-145)
[2024-03-16 07:05] LABS: Alanine Aminotransferase < 6 U/L (6-50)
[2024-03-16 07:40] LABS: Glucose Point of Care 127 mg/dl (65-105)
--- NOTE | 2024-03-16 08:01 | P.PNIM_ITS ---
Progress Note: A&P Assessment and Plan (1) Cholelithiasis and cholecystitis without obstruction: Qualifiers: Cholecystitis acuity: acute Cholelithiasis location: gallbladder Qualified Code(s): K80.00 - Calculus of gallbladder with acute cholecystitis without obstruction Code(s): K80.10 - Calculus of gallbladder with chronic cholecystitis without obstruction Status: Acute Assessment and Plan: Consult to GI appreciate recommendation and plan. CT abdomen showed likely acute cholecystitis -NPO---advanced to full liquids -blood cultures were not drawn prior to 1st dose zosyn, follow cultures. Previously gallbladder cultures were susceptible to augmentin -Zosyn changed to Augmentin per surgery. Culture growing ecoli, scant. susceptibilities pending -continue to monitor CBC, CMP - surgery recommended IR to place biliary drain as patient had an NSTEMI in May. during that time they had deferred stress testing. Gallbladder drain with yellow drainage, minimal sediment --RN instructed family on drain care. Home health after follow up (2) Fecal impaction: Code(s): K56.41 - Fecal impaction Status: Acute Assessment and Plan: as evidenced by CT scan -soap yuliana enema. minimal response. Had a large BM yesterday morning and small in the evening but abdomen still distended -continue docusate sod p.o. q 12 hrs, Senna HS<2 tabs BID, MiraLax daily<BID, add scheduled bisacodyl suppository BID for 2 days - Had 2 large BMs with slow improvement in abdominal distention -continue IVF (3) Urinary retention: Code(s): R33.9 - Retention of urine, unspecified Status: Acute Assessment and Plan: Dyer placed for retention. Constipation may be contributing. Had a BM yesterday. Dyer needed to be replaced overnight 2/2 urinary retention --Treatment of constipation --Failed void trial 03/15, Dyer replaced --Urology follow up for void trial (4) Acute respiratory failure: Code(s): J96.00 - Acute respiratory failure, unspecified whether with hypoxia or hypercapnia Status: Acute Assessment and Plan: 90% on 1L O2, no oxygen at home Treat constipation, repeat x-ray possible right lower lobe pneumonia--continue augmentin IS Home O2 eval (5) Hypokalemia: Code(s): E87.6 - Hypokalemia Status: Acute Assessment and Plan: Potassium 3.2 8/2 s/p 40meq Kcl, still 3.2 today --Check Plan Continue home medications: VTE Prophylaxis: SCD, Lovenox DIET: Pureed Code Status: DNI Time Spent With Patient Time: 45 minutes Subjective Date/time seen: 03/16/24 08:01 Interval history: Feeling ok. Still on 1L O2, 91-94%. Chest xray showed right basilar/right perihilar haziness. Left lung clear. He is eating well. Had a large BM, still with some abdominal distention. Minimal pain upper quadrant. Cholecystostomy tube is draining nonpurulent bile. No fever. White blood count is normal. Liver enzymes are normal. Potassium 3.2, repleting. . Review of Systems Review of Systems: All systems reviewed & are unremarkable except as noted in HPI and below Exam Narrative: General: Chronically ill, contracted, elderly, frail HEENT: normocephalic, atraumatic. Mucous membranes moist. EOMI, PERRLA, bilateral sclera anicteric, no conjunctival injection. Neck supple without JVD, lymphadenopathy, or bruit. Respiratory: clear but diminished on auscultation bilaterally. No rales/rhonic/wheezes. Cardiovascular: Regular rate and rhythm, normal S1-S2 upon auscultation. No murmurs, rubs, or clicks. PMI is nondisplaced, capillary refill less than 3 second. Abdomen: Soft, round, no pulsatile masses, slightly distended and tender to upper abdomen. No rebound, no guarding. No CVA tenderness, no hepato splenomegaly. Bowel sounds present to all four quadrants. No high pitch or tinkling sounds, resonant to percussion. Gallbladder drain with yellow fluid and sediment to right abdomen Extremities: No cyanosis, clubbing, or edema present. Pulses are palpable 2/2. Active ROM to all four extremities with generalized weakness. Hands are contracted. Neuro: drowsy PERRLA. Cranial nerves 2-12 intact without focal deficit. Skin: Warm, dry, and intact, without rash, erythema, or lesion. Lines: PIV Incisions: Psych: Delayed speech response, flat affect, no hallucinations, no dysarthria, drowsy Objective Data Vital Signs Vital Signs: Vital Signs - 24 hr 03/15/24 14:00 03/15/24 20:12 03/15/24 21:54 Temperature 97.2 F L 97.1 F L Pulse Rate 61 64 99 Respiratory Rate 16 14 Blood Pressure 123/69 160/73 H Pulse Oximetry 95 93 Oxygen Delivery Oxygen Flow Rate 03/15/24 22:02 03/16/24 06:00 03/16/24 07:57 Temperature 96.5 F L Pulse Rate 65 Respiratory Rate 16 Blood Pressure 153/67 H Pulse Oximetry 92 91 94 Oxygen Delivery Nasal Cannula Nasal Cannula Oxygen Flow Rate 1 1 Intake/Output Intake/Output: Intake & Output 03/13/24 03/14/24 03/15/24 03/16/24 23:59 23:59 23:59 23:59 Intake Total 1740 2800 1930 400 Output Total 1779 1332 1265 700 Balance -39 1468 665 -300 Meds/Results Medications: Active Medications Generic Name Dose Route Start Last Admin Trade Name Freq PRN Reason Stop Dose Admin Amantadine HCl 100 mg 03/12/24 09:00 03/15/24 08:15 Amantadine Hcl 100 Mg Capsule PO 100 mg DAILY JOSE DAVID Administration Amoxicillin/Clavulanate Potassium 1 tablet 03/15/24 21:00 03/15/24 21:55 Amoxicillin/Clavulanate K 875-125 Mg Tab PO 1 tablet Q12HR JOSE DAVID Administration Atorvastatin Calcium 40 mg 03/13/24 09:00 03/15/24 08:14 Atorvastatin 40 Mg Tablet PO 40 mg DAILY JOSE DAVID Administration Bisacodyl 10 mg 03/17/24 17:00 Bisacodyl 10 Mg Suppository RECTAL BID JOSE DAVID Carbidopa/Levodopa 2 tablet 03/11/24 21:25 03/15/24 21:55 Carbidopa/Levodopa 25/100 Mg Cr Tablet PO 2 tablet HS JOSE DAVID Administration Carbidopa/Levodopa 1 tablet 03/12/24 09:00 03/15/24 08:15 Carbidopa/Levodopa 25/100 Mg Tablet PO 1 tablet DAILY JOSE DAVID Administration Dextrose 12.5 gm 03/11/24 21:22 Dextrose 50% 25 Gm/50 Ml Syringe IV PUSH PRN PRN Hypoglycemia Protocol Enoxaparin Sodium 40 mg 03/16/24 09:00 Enoxaparin 40 Mg/0.4 Ml Syringe SUB-Q DAILY JOSE DAVID Escitalopram Oxalate 20 mg 03/13/24 09:00 03/15/24 08:14 Escitalopram Oxalate 10 Mg Tablet PO 20 mg DAILY JOSE DAVID Administration Gabapentin 100 mg 03/11/24 21:30 03/15/24 18:21 Gabapentin 100 Mg Capsule PO 100 mg TID JOSE DAVID Administration Glucagon 1 mg 03/11/24 21:22 Glucagon For Inj 1 Mg Vial IM PRN PRN Hypoglycemia Protocol Glucose 15 gm 03/11/24 21:22 Glucose Oral Gel 15 Gm Of Glucse In 37.5 Gm Tube PO PRN PRN Hypoglycemia Protocol Sodium Chloride 1,000 mls @ 75 mls/hr 03/11/24 15:50 03/15/24 11:39 Normal Saline Iv IV CONT 75 mls/hr .[id number] JOSE DAVID Administration Dextrose 1,000 mls @ 100 mls/hr 03/11/24 21:22 Dextrose 5% 1,000 Ml IVPB PRN PRN Hypoglycemia Protocol Insulin Glargine 10 units 03/12/24 09:00 03/15/24 08:19 Insulin Glargine (*Bkc) 100 Units/Ml SUB-Q 10 units DAILY JOSE DAVID Administration Lactulose 200 gm 03/14/24 10:06 Lactulose Enema 200 Gm/1,000 Ml Enema RECTAL BID PRN Constipation Memantine 10 mg 03/12/24 21:00 03/15/24 21:55 Memantine 10 Mg Tablet PO 10 mg Q12HR JOSE DAVID Administration Metoprolol Tartrate 25 mg 03/12/24 21:00 03/15/24 21:54 Metoprolol Tartrate 25 Mg Tablet PO 25 mg Q12H JOSE DAVID Administration Morphine Sulfate 2 mg 03/11/24 15:50 03/12/24 10:00 Morphine Sulfate (*Crx) 2 Mg/Ml Inj IV PUSH 2 mg Q2H PRN Administration Pain Rated 7-10 * Home Med * 1 cap 03/13/24 12:20 03/15/24 08:16 Dextromethorphan- PO 04/12/24 12:19 1 cap Quinidine [Nuedexta] DAILY JOSE DAVID Administration 20-10 Mg Cap Ondansetron HCl 4 mg 03/11/24 15:50 03/11/24 21:58 Ondansetron Inj 4 Mg/2 Ml Vial IV PUSH 4 mg Q4H PRN Administration Nausea Pantoprazole Sodium 40 mg 03/12/24 09:00 03/15/24 18:22 Pantoprazole 40 Mg Tablet PO 40 mg BID JOSE DAVID Administration Polyethylene Glycol 17 gm 03/14/24 17:00 03/15/24 18:22 Polyethylene Glycol 3350 17 Gm Powd.Pack PO 17 gm BID JOSE DAVID Administration Quetiapine Fumarate 75 mg 03/12/24 21:00 03/15/24 21:54 Quetiapine Fumarate 25 Mg Tablet PO 75 mg HS JOSE DAVID Administration Senna/Docusate Sodium 2 tab 03/14/24 17:00 03/15/24 18:22 Senna/Docusate Sodium Tablet PO 2 tab BID JOSE DAVID Administration Venlafaxine HCl 150 mg 03/12/24 09:00 03/15/24 08:14 Venlafaxine Hcl Xr 75 Mg Cap.Er.24h PO 150 mg DAILY JOSE DAVID Administration Vitamin B Complex/Folic Acid 1 cap 03/12/24 09:00 03/15/24 08:15 Vitamin B Cmplx/Vit C/Folic Ac 1 Capsule PO 1 cap DAILY JOSE DAVID Administration Radiology Results: ITS Impressions Abdomen/Pelvis CT 03/11/24 14:22 IMPRESSION: Likely acute cholecystitis. Stable complicated left upper pole renal cystic lesion. Prior recommendation for annual follow-up which should occur in September 2024 is unchanged. Likely fecal impaction. A rectal mass is not excluded. Associated sigmoid and rectal wall thickening, as can occur with early stercoral colitis. Chest X-Ray 03/11/24 14:34 IMPRESSION: No acute cardiopulmonary process. Cholecystostomy 03/13/24 13:58 IMPRESSION: 1. Successful ultrasound-guided cholecystostomy tube placement. 2. 29 mL bile was sent for aerobic, anaerobic, and fungal cultures. 3. The catheter will be managed by Dr. Salazar. A catheter cholangiogram may be performed not less than 48 hours after tube placement if clinically indicated to assess cystic duct patency. If cholecystectomy is not eventually performed and the infectious episode has resolved, the tube may be removed over a guidewire, preferably not less than 3 weeks after placement to allow time for a mature catheter tract to form to prevent bile leakage and peritonitis. Labs Labs: Laboratory Results - last 24 hr 03/15/24 03/15/24 03/15/24 11:16 17:03 19:54 WBC RBC Hgb Hct MCV MCH MCHC RDW Plt Count MPV Immature Gran % (Auto) Neut % (Auto) Lymph % (Auto) [place] % (Auto) Eos % (Auto) Baso % (Auto) Lymph # (Auto) [place] # (Auto) Eos # (Auto) Baso # (Auto) Abs Immat Gran (auto) Absolute Neuts (auto) Absolute Nucleated RBC Nucleated RBC % Sodium Potassium Chloride Carbon Dioxide Anion Gap BUN Creatinine Estim Creat Clear Calc Estimated GFR Glucose POC Capillary Glucose 206 H 163 H 179 H Calcium Total Bilirubin AST ALT Alkaline Phosphatase Total Protein Albumin 03/16/24 03/16/24 05:54 07:26 WBC 7.9 RBC 3.83 L Hgb 10.2 L Hct 33.8 L MCV 88.3 MCH 26.6 MCHC 30.2 L RDW 14.3 Plt Count 286 MPV 10.0 Immature Gran % (Auto) 1.1 H Neut % (Auto) 75.1 H Lymph % (Auto) 13.3 L [place] % (Auto) 4.3 Eos % (Auto) 5.8 H Baso % (Auto) 0.4 Lymph # (Auto) 1.05 [place] # (Auto) 0.3 Eos # (Auto) 0.5 H Baso # (Auto) 0.0 Abs Immat Gran (auto) 0.09 H Absolute Neuts (auto) 5.9 Absolute Nucleated RBC 0.000 Nucleated RBC % 0.0 Sodium 138 Potassium 3.2 L Chloride 107 Carbon Dioxide 24 Anion Gap 7 BUN 7 L Creatinine 0.80 Estim Creat Clear Calc 78 Estimated GFR > 60 Glucose 131 H POC Capillary Glucose 127 H Calcium 8.1 L Total Bilirubin 0.4 AST 17 ALT < 6 L Alkaline Phosphatase 93 Total Protein 6.0 L Albumin 2.8 L Quality VTE Prophylaxis VTE prophylaxis: pharmacologic ordered Hospitalist [facility] Advance Care Plan I have confirmed that the patient's Advanced Care Plan is present, code status is documented, or surrogate decision maker is listed in patient medical record.: Yes Medication Reconciliation I have utilized all available resources to obtain, update and review the patients current medications (includes all prescriptions, OTC, herbals, cannab is, and nutritional supplements).: Yes
[2024-03-16] MEDS: MEMANTINE 10 MG TABLET PO ×2 (09:30→20:22)
[2024-03-16] MEDS: METOPROLOL TARTRATE 25 MG TABLET PO ×2 (09:30→20:22)
[2024-03-16] MEDS: AMANTADINE HCL 100 MG CAPSULE PO (09:31)
[2024-03-16] MEDS: GABAPENTIN 100 MG CAPSULE PO ×3 (09:31→18:16)
[2024-03-16] MEDS: ESCITALOPRAM OXALATE 10 MG TABLET 20 MG PO (09:31)
[2024-03-16] MEDS: AMOXICILLIN/CLAVULANATE K 875-125 MG TAB 1 TABLET PO ×2 (09:31→20:22)
[2024-03-16] MEDS: VITAMIN B CMPLX/VIT C/FOLIC AC 1 CAPSULE 1 CAP PO (09:31)
[2024-03-16] MEDS: SENNA/DOCUSATE SODIUM TABLET 2 TAB PO ×2 (09:31→18:16)
[2024-03-16] MEDS: ATORVASTATIN 40 MG TABLET PO (09:31)
[2024-03-16] MEDS: CARBIDOPA/LEVODOPA 25/100 MG TABLET 1 TABLET PO (09:31)
[2024-03-16] MEDS: VENLAFAXINE HCL XR 75 MG CAP.ER.24H 150 MG PO (09:32)
[2024-03-16] MEDS: PANTOPRAZOLE 40 MG TABLET PO ×2 (09:32→18:16)
[2024-03-16] MEDS: INSULIN GLARGINE (*BKC) 100 UNITS/ML 10 UNITS SUB-Q (09:32)
[2024-03-16] MEDS: ENOXAPARIN 40 MG/0.4 ML SYRINGE SUB-Q (09:33)
[2024-03-16] MEDS: POTASSIUM CHLORIDE 20 MEQ PACKET (FOR LIQUID) 40 MEQ PO (09:37)
--- NOTE | 2024-03-16 11:39 | PCRCNOTE ---
HOME O2 EVAL COMPLETE, NO REQUIREMENTS. PT NON AMBULATORY
[2024-03-16 11:42] LABS: Glucose Point of Care 146 mg/dl (65-105)
[2024-03-16 12:07] LABS: Magnesium 1.9 mg/dL (1.6-2.3)
[2024-03-16] MEDS: POTASSIUM CHLORIDE 20 MEQ PACKET (FOR LIQUID) PO (13:08)
[2024-03-16 16:43] LABS: Glucose Point of Care 179 mg/dl (65-105)
[2024-03-16] MEDS: MAGNESIUM SULF 1 GM/D5W 100 ML 1 GM/100 ML BAG IVPB (18:15)
[2024-03-16] MEDS: polyethylene glycoL 3350 17 GM POWD.PACK PO (18:16)
[2024-03-16] MEDS: SODIUM CHLORIDE 0.9% IV 1,000 ML 75 ML IV CONT (18:25)
[2024-03-16] MEDS: QUEtiapine FUMARATE 25 MG TABLET 75 MG PO (20:21)
[2024-03-16] MEDS: CARBIDOPA/LEVODOPA 25/100 MG CR TABLET 2 TABLET PO (20:22)
[2024-03-16 20:42] LABS: Glucose Point of Care 176 mg/dl (65-105)
[2024-03-17 06:00] VITALS: BP 155/75; PULSE 68; RESP 20; TEMP 35.9; O2SAT 91
[2024-03-17 06:39] LABS: Basophils Absolute Auto 0.1 K/mm3 (0.0-0.1); Basophils Percent Auto 0.5 % (0.2-1.2); Eosinophils Absolute Auto 0.4 K/mm3 (0-0.3); Eosinophils Percent Auto 4.3 % (0-4.4); Hematocrit 32.2 % (42.0-52.0); Hemoglobin 9.9 g/dL (14.0-18.0); Immature Granulocyte Absolute 0.18 K/mm3 (0.00-0.031); Immature Granulocyte Percent A 1.9 % (0-0.5); Lymphocytes Absolute Auto 1.17 K/mm3 (0.9-3.2); Lymphocytes Percent Auto 12.5 % (18.3-44.2); Mean Corpuscular HGB Conc 30.7 g/dl (32-36); Mean Corpuscular Hemoglobin 26.8 pg (26-34); Monocytes Absolute Auto 0.4 K/mm3 (0.1-0.6); Neutrophils Absolute Auto 7.2 K/mm3 (1.3-6.7); Neutrophils Percent Auto 76.8 % (45.5-73.1); Platelet Count Result 300 k/mm3 (150-375); Red Cell Distribution Width 14.2 % (11.5-14.5); White Blood Count 9.4 K/mm3 (4.5-10.0)
[2024-03-17 06:49] LABS: Albumin Level 2.9 g/dL (3.5-5.1); Alkaline Phosphatase 88 U/L (38-126); Anion Gap 6 mmol/L (4-12); Aspartate Amino Transferase 20 U/L (17-59); Bilirubin,Total 0.4 mg/dL (0.2-1.3); Blood Urea Nitrogen 6 mg/dL (9-20); Calcium 7.9 mg/dL (8.4-10.2); Carbon Dioxide 23 mmol/L (22-30); Chloride 106 mmol/L (98-107); Estimated CRCL calculation 89 ml/min; Estimated Glomerular Filt Rate > 60; Glucose 133 mg/dL (65-110); Potassium 3.6 mmol/L (3.4-5.0); Sodium 135 mmol/L (137-145)
[2024-03-17 06:52] LABS: Alanine Aminotransferase < 6 U/L (6-50)
--- NOTE | 2024-03-17 06:55 | PC.NURSE ---
PCT reports what appears to be small amount of emesis on pts gown this am.
[2024-03-17 07:42] LABS: Glucose Point of Care 127 mg/dl (65-105)
--- NOTE | 2024-03-17 07:48 | PM.IMPN ---
Progress Note: A&P Assessment and Plan (1) Cholelithiasis and cholecystitis without obstruction: Qualifiers: Cholelithiasis location: gallbladder Cholecystitis acuity: acute Qualified Code(s): K80.00 - Calculus of gallbladder with acute cholecystitis without obstruction Code(s): K80.10 - Calculus of gallbladder with chronic cholecystitis without obstruction Status: Acute Assessment and Plan: Consult to GI appreciate recommendation and plan. CT abdomen showed likely acute cholecystitis -NPO---advanced to full liquids -blood cultures were not drawn prior to 1st dose zosyn, follow cultures. Previously gallbladder cultures were susceptible to augmentin -Zosyn changed to Augmentin per surgery. Culture growing ecoli, scant. susceptibilities pending -continue to monitor CBC, CMP - surgery recommended IR to place biliary drain as patient had an NSTEMI in May. during that time they had deferred stress testing. Gallbladder drain with yellow drainage, minimal sediment --RN instructed family on drain care. Home health after follow up (2) Fecal impaction: Code(s): K56.41 - Fecal impaction Status: Acute Assessment and Plan: as evidenced by CT scan -soap yuliana enema. minimal response. Had a large BM yesterday morning and small in the evening but abdomen still distended -continue docusate sod p.o. q 12 hrs, Senna HS<2 tabs BID, MiraLax daily<BID, add scheduled bisacodyl suppository BID for 2 days - Had 2 large BMs with slow improvement in abdominal distention -continue IVF (3) Urinary retention: Code(s): R33.9 - Retention of urine, unspecified Status: Acute Assessment and Plan: Dyer placed for retention. Constipation may be contributing. Had a BM yesterday. Dyer needed to be replaced overnight 2/2 urinary retention --Treatment of constipation --Failed void trial 03/15, Dyer replaced --Urology follow up for void trial (4) Acute respiratory failure: Code(s): J96.00 - Acute respiratory failure, unspecified whether with hypoxia or hypercapnia Status: Acute Assessment and Plan: 90% on 1L O2, no oxygen at home Treat constipation, repeat x-ray possible right lower lobe pneumonia--continue augmentin IS Home O2 eval (5) Hypokalemia: Code(s): E87.6 - Hypokalemia Status: Acute Assessment and Plan: Potassium 3.2 8/2 s/p 40meq Kcl, still 3.2 today --Check Plan Continue home medications: VTE Prophylaxis: SCD, Lovenox DIET: Pureed Code Status: DNI Subjective Date/time seen: 03/17/24 07:48 Interval history: Feeling ok. Still on 1L O2, 91-94%. Chest xray showed right basilar/right perihilar haziness. Left lung clear. He is eating well. Had a large BM, still with some abdominal distention. Minimal pain upper quadrant. Cholecystostomy tube is draining nonpurulent bile. No fever. White blood count is normal. Liver enzymes are normal. Potassium 3.2, repleting. . Review of Systems Review of Systems: All systems reviewed & are unremarkable except as noted in HPI and below Exam Narrative: General: Chronically ill, contracted, elderly, frail HEENT: normocephalic, atraumatic. Mucous membranes moist. EOMI, PERRLA, bilateral sclera anicteric, no conjunctival injection. Neck supple without JVD, lymphadenopathy, or bruit. Respiratory: clear but diminished on auscultation bilaterally. No rales/rhonic/wheezes. Cardiovascular: Regular rate and rhythm, normal S1-S2 upon auscultation. No murmurs, rubs, or clicks. PMI is nondisplaced, capillary refill less than 3 second. Abdomen: Soft, round, no pulsatile masses, slightly distended and tender to upper abdomen. No rebound, no guarding. No CVA tenderness, no hepatosplenomegaly. Bowel sounds present to all four quadrants. No high pitch or tinkling sounds, resonant to percussion. Gallbladder drain with yellow fluid and sediment to right abdomen Extremities: No cyanosis, clubbing, or edema present. Pulses are palpable 2/2. Active ROM to all four extremities with generalized weakness. Hands are contracted. Neuro: drowsy PERRLA. Cranial nerves 2-12 intact without focal deficit. Skin: Warm, dry, and intact, without rash, erythema, or lesion. Lines: PIV Incisions: Psych: Delayed speech response, flat affect, no hallucinations, no dysarthria, drowsy Objective Data Vital Signs Vital Signs: Vital Signs - 24 hr 03/16/24 07:57 03/16/24 09:30 03/16/24 11:39 Temperature Pulse Rate 68 70 Respiratory Rate Blood Pressure Pulse Oximetry 94 94 Oxygen Delivery Nasal Cannula Room Air Oxygen Flow Rate 1 03/16/24 14:00 03/16/24 20:22 03/16/24 19:55 Temperature 96.9 F L 97.1 F L Pulse Rate 65 65 65 Respiratory Rate 20 20 Blood Pressure 163/78 H 175/77 H Pulse Oximetry 95 92 Oxygen Delivery Oxygen Flow Rate 03/17/24 06:00 Temperature 96.6 F L Pulse Rate 68 Respiratory Rate 20 Blood Pressure 155/75 H Pulse Oximetry 91 Oxygen Delivery Oxygen Flow Rate Intake/Output Intake/Output: Intake & Output 03/14/24 03/15/24 03/16/24 03/17/24 23:59 23:59 23:59 23:59 Intake Total 2800 1930 2120 222 Output Total 1332 1265 1742 670 Balance 1468 665 854 -230 Meds/Results Medications: Active Medications Generic Name Dose Route Start Last Admin Trade Name Freq PRN Reason Stop Dose Admin Amantadine HCl 100 mg 03/12/24 09:00 03/16/24 09:31 Amantadine Hcl 100 Mg Capsule PO 100 mg DAILY JOSE DAVID Administration Amoxicillin/Clavulanate Potassium 1 tablet 03/15/24 21:00 03/16/24 20:22 Amoxicillin/Clavulanate K 875-125 Mg Tab PO 1 tablet Q12HR JOSE DAVID Administration Atorvastatin Calcium 40 mg 03/13/24 09:00 03/16/24 09:31 Atorvastatin 40 Mg Tablet PO 40 mg DAILY JOSE DAVID Administration Bisacodyl 10 mg 03/17/24 17:00 Bisacodyl 10 Mg Suppository RECTAL BID JOSE DAVID Carbidopa/Levodopa 2 tablet 03/11/24 21:25 03/16/24 20:22 Carbidopa/Levodopa 25/100 Mg Cr Tablet PO 2 tablet HS JOSE DAVID Administration Carbidopa/Levodopa 1 tablet 03/12/24 09:00 03/16/24 09:31 Carbidopa/Levodopa 25/100 Mg Tablet PO 1 tablet DAILY JOSE DAVID Administration Dextrose 12.5 gm 03/11/24 21:22 Dextrose 50% 25 Gm/50 Ml Syringe IV PUSH PRN PRN Hypoglycemia Protocol Enoxaparin Sodium 40 mg 03/16/24 09:00 03/16/24 09:33 Enoxaparin 40 Mg/0.4 Ml Syringe SUB-Q 40 mg DAILY JOSE DAVID Administration Escitalopram Oxalate 20 mg 03/13/24 09:00 03/16/24 09:31 Escitalopram Oxalate 10 Mg Tablet PO 20 mg DAILY JOSE DAVID Administration Gabapentin 100 mg 03/11/24 21:30 03/16/24 18:16 Gabapentin 100 Mg Capsule PO 100 mg TID JOSE DAVID Administration Glucagon 1 mg 03/11/24 21:22 Glucagon For Inj 1 Mg Vial IM PRN PRN Hypoglycemia Protocol Glucose 15 gm 03/11/24 21:22 Glucose Oral Gel 15 Gm Of Glucse In 37.5 Gm Tube PO PRN PRN Hypoglycemia Protocol Sodium Chloride 1,000 mls @ 75 mls/hr 03/11/24 15:50 03/16/24 18:25 Normal Saline Iv IV CONT 75 mls/hr .[id number] JOSE DAVID Administration Dextrose 1,000 mls @ 100 mls/hr 03/11/24 21:22 Dextrose 5% 1,000 Ml IVPB PRN PRN Hypoglycemia Protocol Insulin Glargine 10 units 03/12/24 09:00 03/16/24 09:32 Insulin Glargine (*Bkc) 100 Units/Ml SUB-Q 10 units DAILY JOSE DAVID Administration Lactulose 200 gm 03/14/24 10:06 Lactulose Enema 200 Gm/1,000 Ml Enema RECTAL BID PRN Constipation Memantine 10 mg 03/12/24 21:00 03/16/24 20:22 Memantine 10 Mg Tablet PO 10 mg Q12HR JOSE DAVID Administration Metoprolol Tartrate 25 mg 03/12/24 21:00 03/16/24 20:22 Metoprolol Tartrate 25 Mg Tablet PO 25 mg Q12H JOSE DAVID Administration Morphine Sulfate 2 mg 03/11/24 15:50 03/12/24 10:00 Morphine Sulfate (*Crx) 2 Mg/Ml Inj IV PUSH 2 mg Q2H PRN Administration Pain Rated 7-10 * Home Med * 1 cap 03/13/24 12:20 03/16/24 09:33 Dextromethorphan- PO 04/12/24 12:19 1 cap Quinidine [Nuedexta] DAILY JOSE DAVID Administration 20-10 Mg Cap Ondansetron HCl 4 mg 03/11/24 15:50 03/11/24 21:58 Ondansetron Inj 4 Mg/2 Ml Vial IV PUSH 4 mg Q4H PRN Administration Nausea Pantoprazole Sodium 40 mg 03/12/24 09:00 03/16/24 18:16 Pantoprazole 40 Mg Tablet PO 40 mg BID JOSE DAVID Administration Polyethylene Glycol 17 gm 03/14/24 17:00 03/16/24 18:16 Polyethylene Glycol 3350 17 Gm Powd.Pack PO 17 gm BID JOSE DAVID Administration Quetiapine Fumarate 75 mg 03/12/24 21:00 03/16/24 20:21 Quetiapine Fumarate 25 Mg Tablet PO 75 mg HS JOSE DAVID Administration Senna/Docusate Sodium 2 tab 03/14/24 17:00 03/16/24 18:16 Senna/Docusate Sodium Tablet PO 2 tab BID JOSE DAVID Administration Venlafaxine HCl 150 mg 03/12/24 09:00 03/16/24 09:32 Venlafaxine Hcl Xr 75 Mg Cap.Er.24h PO 150 mg DAILY JOSE DAVID Administration Vitamin B Complex/Folic Acid 1 cap 03/12/24 09:00 03/16/24 09:31 Vitamin B Cmplx/Vit C/Folic Ac 1 Capsule PO 1 cap DAILY JOSE DAVID Administration Radiology Results: ITS Impressions Abdomen/Pelvis CT 03/11/24 14:22 IMPRESSION: Likely acute cholecystitis. Stable complicated left upper pole renal cystic lesion. Prior recommendation for annual follow-up which should occur in September 2024 is unchanged. Likely fecal impaction. A rectal mass is not excluded. Associated sigmoid and rectal wall thickening, as can occur with early stercoral colitis. Cholecystostomy 03/13/24 13:58 IMPRESSION: 1. Successful ultrasound-guided cholecystostomy tube placement. 2. 29 mL bile was sent for aerobic, anaerobic, and fungal cultures. 3. The catheter will be managed by Dr. Salazar. A catheter cholangiogram may be performed not less than 48 hours after tube placement if clinically indicated to assess cystic duct patency. If cholecystectomy is not eventually performed and the infectious episode has resolved, the tube may be removed over a guidewire, preferably not less than 3 weeks after placement to allow time for a mature catheter tract to form to prevent bile leakage and peritonitis. Chest X-Ray 03/16/24 10:19 Impression: Mild right basilar pulmonary edema versus atelectasis, or possibly pneumonia. Correlate clinically. Abdomen X-Ray 03/16/24 11:24 Impression: Nonspecific bowel gas pattern. Questionable generalized ileus. Cholecystostomy tube. Labs Labs: Laboratory Results - last 24 hr 03/16/24 03/16/24 03/16/24 05:54 11:37 16:39 WBC RBC Hgb Hct MCV MCH MCHC RDW Plt Count MPV Immature Gran % (Auto) Neut % (Auto) Lymph % (Auto) [place] % (Auto) Eos % (Auto) Baso % (Auto) Lymph # (Auto) [place] # (Auto) Eos # (Auto) Baso # (Auto) Abs Immat Gran (auto) Absolute Neuts (auto) Absolute Nucleated RBC Nucleated RBC % Sodium Potassium Chloride Carbon Dioxide Anion Gap BUN Creatinine Estim Creat Clear Calc Estimated GFR Glucose POC Capillary Glucose 146 H 179 H Calcium Magnesium 1.9 Total Bilirubin AST ALT Alkaline Phosphatase Total Protein Albumin 03/16/24 03/17/24 03/17/24 20:06 06:04 07:33 WBC 9.4 RBC 3.70 L Hgb 9.9 L Hct 32.2 L MCV 87.0 MCH 26.8 MCHC 30.7 L RDW 14.2 Plt Count 300 MPV 10.0 Immature Gran % (Auto) 1.9 H Neut % (Auto) 76.8 H Lymph % (Auto) 12.5 L [place] % (Auto) 4.0 Eos % (Auto) 4.3 Baso % (Auto) 0.5 Lymph # (Auto) 1.17 [place] # (Auto) 0.4 Eos # (Auto) 0.4 H Baso # (Auto) 0.1 Abs Immat Gran (auto) 0.18 H Absolute Neuts (auto) 7.2 H Absolute Nucleated RBC 0.000 Nucleated RBC % 0.0 Sodium 135 L Potassium 3.6 Chloride 106 Carbon Dioxide 23 Anion Gap 6 BUN 6 L Creatinine 0.70 Estim Creat Clear Calc 89 Estimated GFR > 60 Glucose 133 H POC Capillary Glucose 176 H 127 H Calcium 7.9 L Magnesium Total Bilirubin 0.4 AST 20 ALT < 6 L Alkaline Phosphatase 88 Total Protein 6.0 L Albumin 2.9 L Quality VTE Prophylaxis VTE prophylaxis: pharmacologic ordered
[2024-03-17 08:45] VITALS: O2SAT 93
[2024-03-17 09:15] VITALS: PULSE 66
[2024-03-17] MEDS: SODIUM CHLORIDE 0.9% IV 1,000 ML 75 ML IV CONT (09:15)
[2024-03-17] MEDS: VENLAFAXINE HCL XR 75 MG CAP.ER.24H 150 MG PO (09:15)
[2024-03-17] MEDS: METOPROLOL TARTRATE 25 MG TABLET PO (09:15)
[2024-03-17] MEDS: polyethylene glycoL 3350 17 GM POWD.PACK PO (09:15)
[2024-03-17] MEDS: AMOXICILLIN/CLAVULANATE K 875-125 MG TAB 1 TABLET PO (09:16)
[2024-03-17] MEDS: MEMANTINE 10 MG TABLET PO (09:16)
[2024-03-17] MEDS: ESCITALOPRAM OXALATE 10 MG TABLET 20 MG PO (09:16)
[2024-03-17] MEDS: VITAMIN B CMPLX/VIT C/FOLIC AC 1 CAPSULE 1 CAP PO (09:16)
[2024-03-17] MEDS: AMANTADINE HCL 100 MG CAPSULE PO (09:16)
[2024-03-17] MEDS: GABAPENTIN 100 MG CAPSULE PO ×2 (09:16→14:58)
[2024-03-17] MEDS: CARBIDOPA/LEVODOPA 25/100 MG TABLET 1 TABLET PO (09:16)
[2024-03-17] MEDS: PANTOPRAZOLE 40 MG TABLET PO (09:16)
[2024-03-17] MEDS: SENNA/DOCUSATE SODIUM TABLET 2 TAB PO (09:16)
[2024-03-17] MEDS: ATORVASTATIN 40 MG TABLET PO (09:17)
[2024-03-17] MEDS: ENOXAPARIN 40 MG/0.4 ML SYRINGE SUB-Q (09:17)
[2024-03-17] MEDS: lisinopriL 10 MG TABLET PO (09:18)
[2024-03-17] MEDS: INSULIN GLARGINE (*BKC) 100 UNITS/ML 10 UNITS SUB-Q (09:18)
[2024-03-17 11:44] LABS: Glucose Point of Care 178 mg/dl (65-105)
[2024-03-17 14:00] VITALS: BP 149/68; PULSE 73; RESP 18; TEMP 36.2; O2SAT 100
[2024-03-17 17:08] LABS: Glucose Point of Care 157 mg/dl (65-105)
--- NOTE | 2024-04-06 16:21 | PM.DS ---
DS: Admitting Diagnosis Discharge Date 03/17/24 Admitting Diagnosis Cholelithiasis adn cholecystitis without obstruction DS: Discharge Diagnosis Discharge Diagnosis (1) Acute calculous cholecystitis: Code(s): K80.00 - Calculus of gallbladder with acute cholecystitis without obstruction Status: Acute (2) Fecal impaction: Code(s): K56.41 - Fecal impaction Status: Acute DS: Summary Hospital Course Reason for hospitalization: Acute on chronic cholecystitis, fecal impaction Hospital Course: Jayden Cherry was admitted for treatment of acute on chronic cholecystitis without obstruction. Also treated for a fecal impaction and urinary retention Cholelithiasis and cholecystitis without obstruction: GI consulted and appreciate recommendation and plan. CT abdomen showed likely acute cholecystitis. Surgery recommended IR place a biliary drain. Was not a surgical candidate due to NSTEMI in May. 03/13 Gallbladder culture grew ecoli, pansensitive. Family received instructions about drain care. ? 05/16 Blood cultures negative, drawn after 1st dose of zosyn. Previously gallbladder cultures were susceptible to augmentin.? 05/17 Culture grew: Clostridium perfringens, beta lactamase negative (does not rule out resistance) Klebsiella pneumonia Aeromonas caviae Zosyn changed to Augmentin, plan to continue BID for 3 weeks (not a firm stop) Follow up with surgery planned in 7-10 days Fecal impaction: as evidenced by CT scan.? Multiple Soap yuliana enema, minimal response. Had abdominal distention and required an aggressive bowel regimen. Continued ?docusate sod p.o. q 12 hrs, Senna HS<2 tabs BID, MiraLax daily<BID, add scheduled bisacodyl suppository BID for 2 days ?? Urinary retention: Retention of urine, unspecified. Cullen placed for retention. Constipation likely contributing. Was having regular BM?s prior to discharge. Failed a void trial 03/15 so Cullen was replaced due to urinary retention. ? Acute respiratory failure: Was requiring 90% on 1L O2, no oxygen at home. Weaned off. Treating right lower lobe pneumonia?Completing with Augmentin. Home O2 eval was done and he did not require oxygen at discharge. ?? Hypokalemia: Potassium low, repleted. Follow up labs in 1-2 weeks ? Status at Discharge Cognitive/behavioral status at discharge: Alert, slow responses, nonfocal Time Spent with Patient Time attestation: Total time spent providing and/or coordinating discharge services: Exam Narrative: General: Chronically ill, contracted, elderly, frail HEENT: normocephalic, atraumatic. Mucous membranes moist. EOMI, PERRLA, bilateral sclera anicteric, no conjunctival injection. Neck supple without JVD, lymphadenopathy, or bruit. Respiratory: clear but diminished on auscultation bilaterally. No rales/rhonic/wheezes. Cardiovascular: Regular rate and rhythm, normal S1-S2 upon auscultation. No murmurs, rubs, or clicks. PMI is nondisplaced, capillary refill less than 3 second. Abdomen: Soft, round, no pulsatile masses, slightly distended and tender to upper abdomen. No rebound, no guarding. No CVA tenderness, no hepatosplenomegaly. Bowel sounds present to all four quadrants. No high pitch or tinkling sounds, resonant to percussion. Gallbladder drain with yellow fluid and sediment to right abdomen Extremities: No cyanosis, clubbing, or edema present. Pulses are palpable 2/2. Active ROM to all four extremities with generalized weakness. Hands are contracted. Neuro: drowsy PERRLA. Cranial nerves 2-12 intact without focal deficit. Skin: Warm, dry, and intact, without rash, erythema, or lesion. Psych: Delayed speech response, flat affect, no hallucinations, no dysarthria, drowsy DS: Data Data Completed and Pending Labs on day of discharge: Preliminary micro results at discharge 03/13/24 11:32 Fungal Culture - Preliminary Gallbladder Fluid Discharge Plan Discharge Attending physician on discharge: Rita Pearson Consulting providers: Nicolas Salazar; Dm Barbosa; Jadyen Joel; Ernestine Cunningham; Elizabeth Ndiaye; Lexi Crystal; Farooq Harper Discharging Clinician: Rita Pearson Anticipated Discharge Date/Time: 03/17/24 11:23 Patient Disposition: Home Health Service Activity: no shower Diet: low fat Wound Care Instructions: other - see discharge instructions Discharge Instructions: Per Care Coordination: [facility] will contact you prior to their first visit. [facility] will follow for RN care for cholecystostomy tube at discharge. [facility] can be contacted at [phone]. Nursing please fax discharge paperwork to [phone]. Patient to sponge bath until cholecystostomy tube can be removed. Patient stay on low-fat bland diet. Follow up in Dr. Salazar is office in 7 to 10 days. Continue to empty drain and measure output. Keep a log and bring to your follow up appointment. Follow up with cardiology, Dr. Moy if you would like to consider a gallbladder removal surgery, Your culture grew ecoli that was not resistant to antibiotics You should follow up with urology in 1-2 weeks if possible for cullen removal, before 4 weeks. Continue tamsulosin to help with urination Started a low dose of lisinopril, start with 1/2 tab and can increase per primary if blood pressure is still elevated. Patient Instructions: Antibiotic Form Stand Alone Forms: General Discharge Information Follow-up/Referrals: Nicolas Salazar MD [Physician] - Discharge Medications: New amoxicillin-pot clavulanate 875-125 mg tablet 1 tablet PO Q12H Qty: 42 0RF bisacodyl 10 mg Suppository 10 mg RECTAL BID Qty: 10 2RF tamsulosin [Flomax] 0.4 mg capsule 0.4 mg PO HS Qty: 30 1RF lisinopril 10 mg tablet 5 mg PO DAILY Qty: 30 0RF Continued gabapentin 100 mg capsule 100 mg PO TID carbidopa-levodopa 50-200 mg tablet extended release 2 tablet PO HS venlafaxine 150 mg capsule,extended release 24hr 150 mg PO DAILY omeprazole 40 mg capsule,delayed release(DR/EC) 40 mg PO DAILY amantadine HCl 100 mg capsule 100 mg PO DAILY zolpidem 10 mg tablet 10 mg PO HS escitalopram oxalate 20 mg tablet 20 mg PO DAILY memantine 10 mg tablet 10 mg PO Q12H insulin degludec [Tresiba FlexTouch U-200] 200 unit/mL (3 mL) insulin pen 10 unit SUBCUT DAILY polyethylene glycol 3350 [Miralax] 17 gram Powder In Packet 17 g PO DAILY B complex-vitamin C-folic acid 100-1 mg Tablet 1 tablet PO DAILY carbidopa-levodopa [Sinemet] 25-100 mg Tablet 1 tablet PO DAILY quetiapine 25 mg tablet 75 mg PO HS atorvastatin 40 mg tablet 40 mg PO DAILY metoprolol tartrate 25 mg tablet 25 mg PO Q12H Nuedexta 20-10 mg capsule 1 cap PO DAILY Discontinued ibuprofen 200 mg Tablet 600 mg PO Q6H PRN (Reason: Pain) Date of admission: 03/12/24 13:06 Primary Care Provider: Pee,[place] Nicole Admitting Provider: Aida Wang Attending physician on admission: Rita Pearson Condition: Stable Quality VTE Prophylaxis VTE prophylaxis: pharmacologic ordered
== END 2024-03-17 17:55 | disposition home health service (06) | DRG 446 ==
LOC: ANHED 12:28 → ANH3MEDSUR 16:58
PROVIDERS: Nurse Practitioner; Nurse Practitioner Acute Care; Radiology Diagnostic Radiology; Surgery; Admitting Provider Family Medicine; Emergency Provider Emergency Medicine; PCP Internal Medicine; Visit Provider Nurse Practitioner Acute Care
PROC: 0F9430Z Drainage of Gallbladder with Drainage Device, Percutaneous Approach (ICD-10-PCS; principal; 2024-03-13 10:45)
DX: K80.00 Calculus of gallbladder with acute cholecystitis without obstruction (principal); E87.6 Hypokalemia; E11.9 Type 2 diabetes mellitus without complications; K56.41 Fecal impaction; M19.90 Unspecified osteoarthritis, unspecified site; R33.9 Retention of urine, unspecified; G20.A1 Parkinson's disease without dyskinesia, without mention of fluctuations; F02.80 Dementia in other diseases classified elsewhere, unspecified severity, without behavioral disturbance, psychotic disturbance, mood disturbance, and anxiety; Z96.82 Presence of neurostimulator; Z79.4 Long term (current) use of insulin
CPT/HCPCS: 36415; 36600; 47490; 71046; 74018; 74177; 80053; 81003; 82805; 82948; 83036; 83690; 83735; 85025; 85610; 85730; 86850; 86900; 86901; 87070; 87075; 87077; 87102; 87186; 87205; 87206; 93005; 94618; 94667; 94668; 96365; 96375; 96376; 99285; A9270; C1729; G0378; J1650; J1815; J2270; J2405; J2543; J3475; J7030; J7040; Q9967

== ENCOUNTER 2024-04-19 08:19 | Outpatient (CLI) | payer MEDICARE, SELFPAY ==
--- NOTE | ~2024-04-19 | XR_ITS ---
EXAMINATION: XR catheter cholangiogram DATE: 04/19/2024 09:39 INDICATION: Cholelithiasis with chronic cholecystitis TECHNIQUE: A total of 13 fluoroscopic images of the right upper quadrant were obtained during injecti on of 10 mL Omnipaque 240 water-soluble contrast into patient's existing cutaneous cholecystostomy tu be. The amount of fluoroscopy time used during this procedure was 0.5 minutes. COMPARISON: CT dated 03/11/2024 FINDINGS: Contrast fills the gallbladder extending into the cystic duct, common bile duct spilling into the duo denum. There is some reflux of contrast into the proximal intrahepatic biliary tree. No evident tammy docholithiasis or mucosal irregularity along the contrast opacified portions of the biliary ducts. No te there is a small contained outpouching of contrast along the cephalad margin of the gallbladder li jenise percent of the prior apparent defect in the gallbladder wall along the gallbladder fossa best ap preciated on coronal series 601, image 82 and likely sequela prior cholecystitis. IMPRESSION: 1. Nonobstructed cystic and common bile ducts with no evident choledocholithiasis or strictures. 2. Small contained outpouching of contrast along the hepatic side of the gallbladder fundus which carlos a ears to correspond to the site of a prior defect in the gallbladder wall as seen on CT dated 4 and likely sequela of prior acute cholecystitis. Reviewed, dictated and finalized at location A. IMPRESSION: 1. Nonobstructed cystic and common bile ducts with no evident choledocholithias is or strictures. 2. Small contained outpouching of contrast along the hepatic side of the gallbl adder fundus which appears to correspond to the site of a prior defect in the g allbladder wall as seen on CT dated 03/11/2024 and likely sequela of prior acute cholecystitis.
== END 2024-04-19 08:20 | disposition home or self-care (01) ==
PROVIDERS: PCP Internal Medicine; Visit Provider Surgery
DX: K80.10 Calculus of gallbladder with chronic cholecystitis without obstruction (principal)
CPT/HCPCS: 47531

== ENCOUNTER 2024-08-18 15:42 | Inpatient (IN) | payer MEDICARE, MEDICAID, SELFPAY ==
[2024-08-18] VITALS (9 sets, daily range): BP systolic 101–146; BP diastolic 57–69; PULSE 63–88; RESP 13–18; TEMP 36.7–37.3; O2SAT 89–100; BMI 26.9
--- NOTE | ~2024-08-18 | CT_ITS ---
EXAMINATION: CTA chest PE protocol DATE: 08/21/2024 16:41 INDICATION: Shortness of breath and hypoxia. TECHNIQUE: Computed tomography (CT) pulmonary angiogram of the chest was performed with 100 mL Omnipa que-350 intravenous contrast. Additional 3D reconstructions utilizing coronal maximum intensity proje ction (MIP) were performed. Automated exposure control and iterative reconstruction technique were em ployed. The dose-length product was 538.63 mGy-cm. COMPARISON: 05/16/2023 FINDINGS: No pulmonary embolism. Chronic elevation the right hemidiaphragm. There is consolidation with groundg lass opacities and mucous plugging in the right lower lobe suspicious for pneumonia. Is additional mi ld dependent opacities in the left lower lobe and right upper lobe which appear more likely to repres ent atelectasis. No pulmonary edema or pleural effusion. There are some bubbly mucus in the right ever nstem bronchus. Heart size is normal. Atherosclerotic coronary artery calcifications. No pericardial effusion. Thoracic aorta is normal in caliber with no dissection. Calcified left hilar and mediastina l lymph nodes consistent with old granulomatous disease. No pathologically enlarged thoracic lymphade nopathy. Small calcified gallstone in the dependent aspect of the normal-appearing gallbladder. Visua lized upper abdomen is otherwise unremarkable. Moderate to severe thoracic spondylosis with bridging osteophytes at multiple levels consistent with diffuse idiopathic skeletal hyperostosis (DISH). IMPRESSION: 1. No pulmonary embolism. 2. Right lower lobe pneumonia. 3. Chronic elevation the right hemidiaphragm. 4. Cholelithiasis. Reviewed, dictated and finalized at location A. ND SUPPORT EQUIPMENT FITTER
--- NOTE | ~2024-08-18 | XR_ITS ---
EXAMINATION: XR chest 1V portable DATE: 08/18/2024 16:27 INDICATION: Shortness of breath. Cough. TECHNIQUE: A single frontal view of the chest was obtained on 2 radiographs. COMPARISON: Chest 2 views 03/16/2024 FINDINGS: Again seen is elevation of right hemidiaphragm. There is mild atelectasis at right lung bas e. No pleural effusion or pneumothorax. The heart size is normal. There are electronic devices overly ing the chest bilaterally with electrodes in the neck. IMPRESSION: 1. Chronic elevation of right hemidiaphragm with mild atelectasis at right lung base. Reviewed, dictated and finalized at location A. CIDE DETECTIVE
--- NOTE | ~2024-08-18 | XR_ITS ---
MODIFIED ESOPHAGRAM HISTORY: Parkinson's and coughing with eating and drinking TECHNIQUE: Modified barium esophagram was performed on 08/23/2024. I administered fluoroscopy and perfo rmed the exam with speech pathologist. Patient was seated for lateral fluoroscopic imaging for inges tion of thin liquids, pudding, solids and quantified amounts, followed by thin liquids in uncontrolle d amounts. This was recorded on tape. A single fluoroscopic spot image was also recorded. The DAP for this procedure was 2.162 Gycm2. The amount of fluoroscopy time used during this procedure was 2.0 mi nutes. FINDINGS: Oral stage: Reduced lingual movement with difficulty masticating. Pharyngeal stage: There is reduced tongue base retraction. Sluggish epiglottic return. There is neal cular residue. No laryngeal penetration or aspiration. Cervical/esophageal stage: Adequate function. IMPRESSION: Mild oropharyngeal dysphagia without laryngeal penetration or aspiration. Please correla te with speech pathologist findings and specific feeding recommendations. Reviewed, dictated and finalized at location A. E MACHINE OPERATOR IMPRESSION: Mild oropharyngeal dysphagia without laryngeal penetration or aspir ation. Please correlate with speech pathologist findings and specific feeding recommendations.
--- NOTE | 2024-08-18 16:05 | ECG_ITS ---
Test Date: 2024-08-18 16:19:37 Measurements Intervals [place] Rate: 85 P: 44 LA: 146 QRS: 50 QRSD: 114 T: 58 QT: 338 QTc: 404 Interpretive Statements SIGNIFICANT BASELINE ARTIFACT SINUS RHYTHM INTRAVENTRICULAR CONDUCTION DELAY BASELINE ARTIFACT- I, II, III, AVR, AVL, AVF, V1-V6 BORDERLINE ECG Compared to ECG 03/11/2024 16:10:21 NO SIGNIFICANT CHANGE Electronically Signed On 08-19-2024 10:39:56 [employer] by Mor Clemens D.O.
[2024-08-18 16:44] LABS: Basophils Percent Auto 0.2 % (0.2-1.2); Eosinophils Percent Auto 0.7 % (0-4.4); Hematocrit 31.5 % (42.0-52.0); Hemoglobin 9.9 g/dL (14.0-18.0); Immature Granulocyte Absolute 0.01 K/mm3 (0.00-0.031); Immature Granulocyte Percent A 0.2 % (0-0.5); Lymphocytes Percent Auto 7.2 % (18.3-44.2); Mean Corpuscular HGB Conc 31.4 g/dl (32-36); Mean Corpuscular Hemoglobin 26.8 pg (26-34); Mean Corpuscular Volume 85.1 fl (80-100); Mean Platelet Volume 9.8 fl (7.4-10.4); Monocytes Absolute Auto 0.1 K/mm3 (0.1-0.6); Monocytes Percent Auto 2.9 % (2.6-8.5); Neutrophils Absolute Auto 3.7 K/mm3 (1.3-6.7); Neutrophils Percent Auto 88.8 % (45.5-73.1); Platelet Count Result 271 k/mm3 (150-375); Red Cell Distribution Width 14.4 % (11.5-14.5); White Blood Count 4.2 K/mm3 (4.5-10.0)
[2024-08-18 16:54] LABS: Alanine Aminotransferase 7 U/L (6-50); Albumin Level 3.5 g/dL (3.5-5.1); Alkaline Phosphatase 145 U/L (38-126); Anion Gap 9 mmol/L (4-12); Aspartate Amino Transferase 23 U/L (17-59); Bilirubin,Total 0.5 mg/dL (0.2-1.3); Blood Urea Nitrogen 24 mg/dL (9-20); Calcium 8.7 mg/dL (8.4-10.2); Carbon Dioxide 25 mmol/L (22-30); Chloride 102 mmol/L (98-107); Estimated CRCL calculation 62 ml/min; Estimated Glomerular Filt Rate > 60; Glucose 145 mg/dL (65-110); Potassium 3.9 mmol/L (3.4-5.0); Sodium 136 mmol/L (137-145)
[2024-08-18 17:06] LABS: Add Urine Microscopic? YES; Appearance Urine Clear (Clear); Bacteria Urine None Seen /hpf; Bilirubin Urine Negative (Negative); Blood Urine Negative (Negative); Color Urine Dark Yellow (Yellow); Glucose Urine UA 1+ mg/dL (Negative); Ketones Urine Trace mg/dL (Negative); Leukocyte Esterase Ur Negative LEU/UL (Negative); Need Manual Microscopic Reviewed; Nitrate Urine Negative (Negative); Protein Urine 1+ mg/dL (Negative); Specific Grav Ur 1.029 (1.001-1.035); Squamous Epithelial Cell Urine None Seen /hpf (Few); WBC Urine 0-5 /hpf (0-3)
[2024-08-18 17:19] LABS: Influenza A QL RT-PCR Positive (Negative); Influenza B QL RT-PCR Negative (Negative); RSV RNA, RT-PCR Negative (Negative); SARS-CoV-2 RNA PCR Negative (Negative)
--- OUTSIDE RECORDS SUMMARY | 2024-08-18 19:19 | XMS_ITS | Clinical Summary ---
Author Organization [facility] Address [address] [place] [id number] Care Team Providers Care Information Assurance Specialist Name Role Phone Phoenix Glasgow MD Primary Care Provider [phone] Moris Dhillon MD Unavailable [phone] Elizabeth Cordero OT Unavailable [phone] Jeff Hanley Unavailable Unavailable Corey Mcnamara MD Unavailable [phone] Allergies No known active allergies Medications zolpidem (AMBIEN) 10 mg tabletIndicatio ns:Sleep-Onset Insomnia take 1 tablet by oral route every bedtime 0 0 013 Active polyethylene glycol 3350 (MIRALAX ORAL)Indication s:constipation Take 1 Dose by mouth every morning constipation Active venlafaxine XR (EFFEXOR-XR) 150 mg 24 hr capsuleIndicati ons:major depressive disorder Take 1 capsule (150 mg total) by mouth every morning 1 019 Active memantine (NAMENDA) 10 mg tabletIndicatio ns:Moderate to Severe Alzheimer's Type Dementia Take 1 tablet (10 mg total) by mouth Take 1 tablet twice a day. 1 019 Active lancets miscIndications :type 2 diabetes mellitus Check blood sugar daily diagnosis code E11.9 100 each 021 Active ibuprofen (ADVIL,MOTRIN) 200 mg tab/capIndicati ons:Pain Take 2 tablet/capsule (400 mg total) by mouth 2 (two) times a day as needed for pain michell Gates/Dr Glasgow 06/04/21 315 pm Josiane Conn RN Active dextromethorpha n-quiNIDine (NUEDEXTA) 20-10 mg capsuleIndicati ons:Pseudobulba r Affect Take 1 capsule by mouth daily 90 capsule 3 022 Active flash glucose sensor (FreeStyle Juan 2 Sensor) kitIndications: DM 2 Place 1 application on the skin continuously. Indications: DM 2 Active gabapentin (NEURONTIN) 100 mg capsuleIndicati ons:Diabetic Peripheral Neuropathy Take 1 capsule (100 mg total) by mouth 3 (three) times a day 90 capsule 11 023 Active ciclopirox 1 % shampoo Apply 1 application onto scalp, ears and face 1-3 times weekly as needed. 024 Active triamcinolone (KENALOG) 0.1 % cream Apply topically twice daily to rash as needed. 024 Active escitalopram (LEXAPRO) 20 mg tablet Take 1 tablet (20 mg total) by mouth daily 024 Active cyanocobalamin (Vitamin B-12) 1,000 mcg tabletIndicatio ns:Prevention of Vitamin B12 Deficiency Take 1 tablet (1,000 mcg total) by mouth daily Active metoprolol tartrate (LOPRESSOR) 25 mg immediate release tablet TAKE 1 TABLET BY MOUTH TWICE A DAY 180 tablet 1 Active atorvastatin (LIPITOR) 40 mg tablet TAKE 1 TABLET BY MOUTH EVERY DAY 90 tablet 1 024 Active tamsulosin (FLOMAX) 0.4 mg extended release capsule Take 1 capsule (0.4 mg total) by mouth nightly Active carbidopa-levod opa CR (SINEMET CR) 50-200 mg per CR tabletIndicatio ns:Parkinsonism Take 1 tablet by mouth nightly 90 tablet 3 024 2024 Active pen needle, diabetic (BD Ultra-Fine Short Pen Needle) 31 gauge x 5/16 needleIndicatio ns:Diabetes Mellitus USE TO INJECT insulin once daily E11.9 100 each 3 Active amantadine (SYMMETREL) 100 mg capsule Take 1 capsule (100 mg total) by mouth scouring machine operator before breakfast 90 capsule 3 024 2024 Active carbidopa-levod opa (SINEMET) 25-100 mg per tabletIndicatio ns:Parkinsonism Take 1 tablet by mouth scouring machine operator before breakfast michell Kamara/Dr Bravo/Josiane Conn, RN 11/19/21 152 pm 90 tablet 1 Active omeprazole (PriLOSEC) 40 mg capsuleIndicati ons:heartburn TAKE 1 CAPSULE BY MOUTH EVERY DAY 90 capsule 1 Active insulin degludec (TRESIBA) 200 unit/mL (3 mL) pen for injectionIndica tions:Diabetes mellitus without complication (CMS/HCC) ([facility]) Inject 0.06 mL (12 Units total) under the skin daily Active insulin glargine 100 unit/mL (3 mL) pen for injectionIndica tions:Controlle d type 2 diabetes mellitus without complication, with long-term current use of insulin (CMS/[facility]) ([facility]) Inject 12 Units under the skin daily 12 mL Active QUEtiapine (SEROquel) 25 mg tablet Take 1 tablet (25 mg total) by mouth 3 (three) times a day Three tabs a night Active azithromycin (ZITHROMAX) 250 mg tabletIndicatio ns:Productive cough Take 2 tabs (500 mg) by mouth today, than 1 tab (250 mg) daily for 4 days. 6 tablet 025 2024 Active benzonatate (TESSALON) 200 mg capsuleIndicati ons:Cough Take 1 capsule (200 mg total) by mouth 3 (three) times a day as needed for cough for up to 7 days 21 capsule 025 2024 Active albuterol 2.5 mg /3 mL (0.083 %) nebulizer solutionIndicat ions:for wheezing Take 3 mL (2.5 mg total) by nebulization every 4 (four) hours as needed for wheezing 75 mL 1 025 2024 Active albuterol 2.5 mg /3 mL (0.083 %) nebulizer solutionIndicat ions:for wheezing Take 3 mL (2.5 mg total) by nebulization every 4 (four) hours as needed for wheezing 75 mL 1 023 2024 Discontinued(R eorder) aspirin 81 mg enteric coated tablet Take 1 tablet (81 mg total) by mouth daily 30 tablet 11 023 2024 Discontinued Hospital, Clinic, or Other Facility Administered Medication Ordered Dose Route Frequency Start Date End Date Status onabotulinumtoxin A (BOTOX) injection 400 UnitsIndications:Tor alessandro dystonia 400 Units IM Once for Clinic-Administer ed Medication 08/02/2024 08/01/2025 Active Active Problems Problem Noted Date Diagnosed Date Depression, major, in remission 07/17/2024 Assessment & Plan (07/17/2024 6:18 PM ELECTROMATIC TYPIST): Patient is maintained on citalopram 20 mg daily as effective in keeping his depression in remission Acute cholecystitis 05/14/2024 Assessment & Plan (05/14/2024 4:40 PM CDT): Patient is admitted to [facility] 03/11/2024 and discharged on 03/17/2024 diagnosed with acute on chronic cholecystitis. Dr. Salazar surgery in managing surgeon on consult... Patient a cholecystectomy tube placed by intervention Radiology.. Patient is comfortable at the time of my exam on 04/14/2024. Patient was poor surgical candidate. Also had concurrent fecal impaction which is now resolved Need for hepatitis B screening test 03/09/2024 Assessment & Plan (03/09/2024 5:51 PM CDT): Testing/screening for hepatitis-B requested per CDC guidelines Type 2 diabetes mellitus with chronic kidney dis ease 11/23/2023 Diabetic neuropathy, type II diabetes mellitus ( CMS/HCC) 11/23/2023 Dry skin 11/10/2023 Assessment & Plan (11/10/2023 3:46 PM CDT): Patient's complain of a excessive dry skin causes some itching. Recommend to [id number] products for them to try if this fails can follow-up with Dermatology. Products were Lubriderm and Eucerin. Polyneuropathy 11/05/2023 Bilateral carpal tunnel syndrome 11/05/2023 Status post non-ST elevation myocardial infarcti on (NSTEMI) 07/07/2023 Assessment & Plan (07/07/2023 11:24 AM ELECTROMATIC TYPIST): Admitted 05/17/2023 [facility] discharge on 05/26/[address] elevation myocardia infarction. Patient is asymptomatic at this time. Coronary artery disease invo lving yuhaaviatam coronary artery of yuhaaviatam heart without angina pectoris 06/23/2023 Assessment & Plan (07/17/2024 6:02 PM ELECTROMATIC TYPIST): Patient remains asymptomatic status post PR several years ago. Pressure is well controlled continue present therapy Assessment & Plan (03/09/2024 5:52 PM CDT): Patient continues on metoprolol 50 mg daily status post PR he is asymptomatic. Hereditary and idiopathic neuropathy 03/15/2023 Controlled type 2 diabetes m tracy without complication, with long-term current use of insulin ([facility]) 03/05/2023 Assessment & Plan (03/09/2024 5:49 PM CDT): Patient's CGM/ambulatory glucose profile reviewed he still has a small percentage 2% hypoglycemia. He is on 14 units of insulin. I am going to reduce his basal insulin 10 units because of hypoglycemia and I anticipate he will still have a good time in range of greater than 50% for someone 68 years old and disabled. Assessment & Plan (11/23/2023 4:42 PM CDT): Reviewed patient's CGM ambulatory glucose profile time in range is 76%, ranges 17% with 2% being very high , hypoglycemia 5% most hypoglycemic trends at this time reduce his insulin from 18 units of basal units per day to 14 units. The use of CGM on this patient were able to identify hypoglycemia frequency and make adjustments with his insulin dosage. Time of use of CGM is 97% proves he is very compliant in the use of CGM. He is severe Parkinson's does not have use of his upper extremities to carry out glucometer testing. Patient is compliant in keeping his appointments Assessment & Plan (03/05/2023 4:21 PM CDT): 59-year-old gentleman diabetic for over 5 years she is on long-term insulin use. Who has severe Parkinson's which limits his abilities to his glucometer. Very compliant in keeping his appointments. He had hypoglycemia on repeated occasions with symptoms. Use of the CGM has helped considerably.. His most recent CGM results from February 20 through March 05. Ambulatory glucose profile time in range 78%, high range 17% problem very high 2% low 5%. Average glucose 135 GMI 6 point variability 35 average glucose 135. Time since activity 60 %. With his Parkinson's has been difficult for him to scan as often as he should. Today I gave him sample of [email or web address] Juan 3 which is solve the problem of having to scan 4 times a day and therefore will increase his time since her activity. At this time I am going to reduce his insulin from 22 units daily down to 18 units daily because of his hypoglycemia Type 2 diabetes mellitus with hyperglycemia ([facility]) 03/05/2023 Assessment & Plan (07/17/2024 6:10 PM ELECTROMATIC TYPIST): Patient is ambulatory glucose profile reviewed recent holidays his glucose control has significantly changed from 74% in control to 30% in control/range no hypoglycemia. Patient's advised me she will dietary changes at s finish he is only taking 10 units of insulin we trying to avoid hypoglycemia his neurological deficits. When increase his insulin to 12 units daily. Patient is albumin creatinine ratios at 32. His EGFR is greater than 60. Lipid therapeutic range Assessment & Plan (05/14/2024 4:46 PM CDT): Patient's CGM results from February 15, 2024 through April 14, 2024 time in range 74% 4% hypoglycemia average glucose 140. Patient is to remain on 10 units of basal insulin daily Assessment & Plan (07/07/2023 11:19 AM ELECTROMATIC TYPIST): Diabetes very well controlled ambulatory CGM results time in range 76% , range 21% very high range 14 hypoglycemia 1%. No pattern identified to the hypoglycemia. Will reduce his insulin level by 4 units. Change from 20 units daily to 24 units daily no further recommendations. Chronic coughing 09/30/2022 Assessment & Plan (09/30/2022 11:25 AM CDT): Patient has a chronic cough that occurs with asthma. Is process of coughing he loses consciousness is half is throughout the day loss of consciousness about 20 seconds. He is in a motorized scooter/wheelchair secondary to advanced Parkinson's. This happened in my presence today is loss of conscious is sore like a seizure that has rolled back in his head patient aware knee comes around. Tessalon Perles were used to try to suppress cough which is help some. And albuterol had inhaler nebulizer has decreased frequency slightly to episodes of coughing and asthma. He is using this 2 times a day. Will refill tessalon Perles, prednisone 20 mg twice a day for 5 days and round of doxycycline. Mild intermittent asthma without complication Assessment & Plan (07/17/2024 6:13 PM ELECTROMATIC TYPIST): Patient's cough has greatly improved with the use of albuterol nebulizer continue present Assessment & Plan (09/30/2022 11:25 AM CDT): Please see note for September 29 2022 visit. Assessment & Plan (08/04/2022 5:27 PM ELECTROMATIC TYPIST): Patient has been having coughing wheezing shortness of breath for the past month when he coughs he passes out .. Patient has advanced Parkinson's. He was taken to the emergency room but the wait was too long any left shipping room supervisor did give him albuterol in ambulates in this relieved his coughing and shortness of breath. Patient has a nebulizer at home years back when a liquor blender prescribe it for another reason according to the .. Time he is in no distress. I am going to give him albutero solution l for the nebulizer samples to use this works he is to call me and I will prescribe this for him at home. Nebulizers probably lot easier use for he I do not think he has at much ability to take deep breaths . To use the routine albuterol health device will be difficult. COVID-19 virus detected 04/07/2021 Assessment & Plan (07/07/2023 11:25 AM ELECTROMATIC TYPIST): Patient recently had COVID 06/15/2023 he has had significant recovery 90% back to his baseline Assessment & Plan (04/07/2021 5:04 PM CDT): Rapid covid test= positive Pt given quarantine guidelines for the state of [place]. Advised to stay well hydrated and use tylenol for aches/pains. If any symptoms worsen, he must go to the ER. Richelle garcia to pharmacy for cough. Discussed the antibody infusion which he is interested in--nurses to call to set this up. COVID 04/07/2021 Hypertension, essential 06/12/2019 Assessment & Plan (07/07/2023 11:26 AM ELECTROMATIC TYPIST): Blood pressure remains well controlled no change in therapy Assessment & Plan (03/05/2023 4:13 PM CDT): Hypertension remains well controlled patient is tolerating medications no change in therapy Assessment & Plan (06/01/2022 6:20 PM ELECTROMATIC TYPIST): Blood pressure 100/54 pulse is 97 patient feels his normal self no change in therapy Assessment & Plan (05/06/2021 5:33 PM CDT): Discontinue metoprolol . Progress report in about 3 weeks on blood pressure readings Assessment & Plan (06/12/2019 6:03 PM ELECTROMATIC TYPIST): Patient recently been running elevated blood pressure 150-160 systolic patient has remote past history of orthostatic hypotension has not been a recent problem at this time will continue to observe his blood pressures no medications were given.. Has no cardiovascular symptoms or any significant headaches.. Patient's very advanced Parkinson's disease he has a brain stimulator placed. Gastroesophageal reflux disease 10/21/2018 Assessment & Plan (10/21/2018 5:25 PM CDT): Patient previously omeprazole from ear nose and throat physician. Patient along sees ear nose and throat. I will take over prescribing omeprazole for him. Which does help him with respect to heartburn esophagitis symptoms. Visual hallucination 09/23/2018 Status post deep brain stimulator placement 03/20 Assessment & Plan (08/14/2024 11:31 AM ELECTROMATIC TYPIST): Mr. Zepeda presented for further programming and a visit with Dr. Bravo. He is s/p Bilateral STN DBS (2012). Dr. Bravo ordered in home OT/PT/ST today. He was doing about the same overall. He continued to follow up in [place] clinic for neuropathy. His DBS was interrogated today and his system impedances were wnl. His left IPG was 2.80 and the right was 2.83. No changes were made to his stimulation. Recommendations Medications per Dr. Bravo today (he did not make changes ) In home OT/PT/ST per Dr. Bravo today Follow up in 6 months for DBS and sooner if needed Botox as planned Assessment & Plan (01/17/2024 3:02 PM CDT): Mr. Zepeda presented in the med off state for further programming. He is s/p Bilateral STN DBS (2012). He was doing fine overall. His started using an electronic lift to transfer him several months ago. He continued with botox and OT for his hand dexterity. His DBS was interrogated and his left IPG was 2.88 and the right was 2.89. His impedances were wnl. He was provided with a slight future increase in A, he stayed in C and had a lower setting in B. Recommendations Keep DBS on at all times No medication changes today Follow up in 07/[address] Bravo and DBs Continue botox and OT Assessment & Plan (07/26/2023 3:56 PM ELECTROMATIC TYPIST): Mr. Zepeda presented in the med off state for further programming. He is s/p Bilateral STN DBS (2012). He was doing fine overall. He had a hospitalization in May (heart attack, gallbladder problems and confusion) for about 10 days. He had a tube in his gallbladder as they did not want to do surgery and he was doing well with no problems after it was removed. He was getting OT. He continued to be wheelchair bound. His spirits were good. His DBS was interrogated and no changes were made to his stimulation. Recommendations Keep DBS on at all times No medication changes today Follow up in 6 months and sooner if needed Continue OT as planned Assessment & Plan (02/08/2023 3:29 PM CDT): Mr. Zepeda presented for further programming and a visit with Dr. Bravo. He was in the med off state. He is s/p bilateral STN DBS (2012). He continued to have good benefit from DBS. He had improved dexterity after his last DBS adjustment. He does plan on getting new motorized wheelchair soon. He does have a lemus time manipulating his current chair. Today, he wanted to try a slight increase in stimulation to help with his dexterity and mobility. His DBS was interrogated and his system and therapy impedance was wnl. He was provided with with a one tenth increase in C, his previous setting in B and a lower setting in A. He had slight improved dexterity and better movement in his left foot. There was no change in his speech. Recommendations: Keep DBS on at all times Medications per Dr. Bravo today Exercise and stretch as tolerated Fall precaution Follow up in 6 months and sooner if needed Assessment & Plan (07/27/2022 12:44 PM ELECTROMATIC TYPIST): Mr. Zepeda presented for further programming. Is IPG's were replaced 02/20/2022. He had worsening mobility and dexterity since his last visit. He had a few falls and near falls. He continued to use his Rollator at home and his motorized chair outside the home. He had in home PT that ended in June with some benefit, but not much. He was getting one session weekly . Today, he had poor dexterity, bradykinesia and rigidity. His DBS was interrogated and his stimulation was increased one tenth in group B, his previous setting in A and a future increase in C- bilaterally. He had improved dexterity after the increase and no side effects. Recommendations: 1. Keep DBS on at all times 2. May return to the previous setting if needed 3. Start in home PT/OT/ST- orders sent to [facility] home care today 4. Start APDA YouTube exercises 5. Continue the same levodopa IR/CR, amantadine and quetiapine 6. Follow up in 6 months for DBS and Dr. Bravo as scheduled Assessment & Plan (02/09/2022 11:12 AM CDT): Mr. Zepeda presented in the med off state to have his IPG's checked. He was present with his . He continued to have benefit from DBS therapy. Today on exam, he was in his motorized wheelchair. He had bradykinesia, rigidity and reduced dexterity. His DBS was interrogated and his left IPG was 2.60 and his right was 2.75. No changes made to his stimulation. We discussed the pros and cons of the DBS Electrical Engineering Director [employer] deep brain systems including battery size, battery longevity, unilateral vs. bilateral, rechargeable vs. primary cell, MRI compatibility, surgical issues, features, and programming features. We decided to proceed using the DBS Electrical Engineering Director [employer] DBS IPG type Activa SC implantable pulse generator (IPG). Mr. Jayden Zepeda and his Blank and the DBS team preferred the chosen device due to cognition. Mr. Jayden Zepeda was not a good candidate for rechargeable DBS therapy due to cognitive function. Recommendations: 1. Refer to Dr. Avery for bilateral IPG change COURTNEY 2. Keep DBS on at all times 3. May decrease levodopa CR to 1 tab at bedtime to help with morning time dyskinesia 4. Continue same levodopa IR, amantadine, Quetiapine and venlafaxine 5. Follow up in 6 months for DBS and sooner if needed Assessment & Plan (11/04/2021 12:45 PM CDT): Mr. Zepeda presented in the med ON state for further programming. He was present with his . He had been doing fantastic . He continued to have good benefit from DBS therapy. Today, he was in his motorized wheelchair and used his rollator when at home. He had dysarthria, bradykinesia, rigidity and reduced dexterity. His DBS was interrogated and his left IPG was 2.75 and his right IPG was 2.81. He had 3 groups and was in group B bilaterally. No changes were made to his stimulation. Recommendations: 1. Keep DBS on at all times 2. Start In home PT/ST/OT. He would like to go through [facility] Home Care- Order placed today 3. Same amantadine, levodopa, IR/CR, quetiapine and venlafaxine for now 4. Fall precaution 5. Check IPG especially for the left IPG in a month and At least 1-2 a month and left us know if it reaches 2.70 before next visit 6. Follow up in 3 months and sooner if needed Assessment & Plan (05/19/2021 10:44 AM CDT): Mr. Zepeda presented in the med OFF state for further programming. He continued to have some good benefit overall with DBS therapy, although he continued to have some imbalance issues. Today on exam he had rigidity, bradykinesia, mild right leg and arm tremor and reduced dexterity. He was in a motorized wheelchair today. His speech was hypophonic. His DBS was interrogated and he wanted to a 1/10th increase for both his DBS. We opted to make a small increase in Group B (3.0v) and gave an additional increase in Group C ( 3.1v). His previous settings were in Group A ( 2.9v). He had some improvement in bradykinesia and tremor after the changes. He tolerated the changes without any side effects. His left IPG is at 2.85 and right at 2.88. We discussed needing for IPG replacement once it gets to 2.70. He will be returning in October when we can check his IPG's again. He continued to have worsening memory , we will get NPT done at clinic today. Continue to follow with psychiatrist for mood. Continue PT and OT, exercise as tolerated. Strict fall precautions. Overall he remained very pleased with benefit from DBS therapy. Recommendations: 1. Keep dbs on at all times 2. May try the increase in group C or go to Group A ( previous setting) 3. Continue PT and OT 4. Same medications 5. Strict fall precaution 6. NPT in clinic today 7. Return as scheduled for further programming Assessment & Plan (04/21/2021 1:13 PM CDT): Mr. Zepeda presented in the med OFF state for further programming. He continued to have some good benefit overall with DBS therapy, although he continued to have some imbalance issues. His was present today and had some blood pressure readings from visiting nurse and also his had the blood pressure machine with her. He had some blood pressure drops, but only one day out of the four days where his blood pressure went from 130/72 on sitting to 98/50 on standing. He and his was encouraged to check his blood pressure sitting then standing daily for one week and let us know what the readings are or send via [employer]. Today on exam. He had rigidity, bradykinesia and reduced dexterity. He was in a motorized wheelchair today. His speech was hypophonic. His DBS was interrogated and for his left dbs, he was provided with a group C with a slightly higher stimulation that he wanted to try for over mobility. No changes were made to his right dbs as he already had a decrease and increase. Recommendations: 1. Keep dbs on at all times 2. May try the increase in group C bilaterally after several session of PT and if the increase make anything worse, go back to the previous setting 3. Continue PT and OT 4. Same medications 5. Increase water and salt intake for low blood pressure readings 6. Check blood pressures sitting then standing, record the readings and follow up up with us in one week 7. May consider starting fludrocortisone for orthostatic blood pressure 8. Fall precaution 9. Follow up in 4 weeks for dbs Assessment & Plan (10/23/2020 11:32 AM CDT): Mr. Zepeda presented in the med OFF state for further programming. He continued to have good benefit from DBS therapy. He had worsening progression in his balance. He had a visit with Dr. Bravo today. He used a wheelchair today. On exam today, he had very mild posture tremor in the right hand. He had reduced dexterity, bradykinesia and rigidity. His DBS was interrogated and his left IPG battery was 2.90 and his right IPG battery was 2.92. We made no changes to his stimulation today. Recommendations: 1. Keep DBS on at all times 2. Fall precaution 3. Medications per Dr. Bravo today 4. Start ST/PT per Dr. Bravo today Assessment & Plan (02/13/2020 4:02 PM CDT): Mr. Zepeda had increased bradykinesia with a history of hallucinations with increases in levodopa. We elected to make a conservative increase bilaterally today to help with overall mobility. He has been overstimulated in the past, so we increased conservatively and he has his prior setting as a backup bilaterally. He and his were given the option of adjusting levodopa by 1/2 tab bid prn. Overall, they remained pleased with his response to DBS therapy. He will be referred to ST, OT, PT in home. ?? Recommendations: 1. Keep DBS on at all times. May return to prior setting with any worsening. 2. Same levodopa 25/250 and levodopa CR 50/200 qhs. 3. Continue strict fall precautions and regular exercise/Rock Steady Boxing when able 4. In home PT/OT/ST and swallow evaluation 5. Follow up with pulmonology as scheduled. Assessment & Plan (08/01/2019 12:02 PM ELECTROMATIC TYPIST): Mr. Zepeda continue to manage reasonably well and had little motor fluctuation. No changes were made in medications today and he and his were given the option of adjusting levodopa by 1/2 tab bid prn or using any of the DBS settings. Overall, they remained pleased with his response to DBS therapy. Recommendations: 1. Keep DBS on at all times. May use any of the settings but log response. 2. Same levodopa 25/250 and levodopa CR 50/200 qhs. 3. Change second dose of amantadine from bedtime to supper. 4. Continue strict fall precautions and regular exercise/Rock Steady Boxing 5. Follow up with pulmonology as scheduled. Assessment & Plan (05/10/2019 12:12 PM CDT): Mr. Zepeda continue to manage reasonably well and felt overall his condition was improved with a reduction in bilateral DBS in November of this year. However, he does have bothersome left side tremor at times. We elected to increase the right DBS for left body slightly today and he tolerated this well without side effects. His A setting remains at 2.8 volts for the right DBS, but he was set to the B setting and it was increased to 2.9 volts. He was also given a C setting for the right DBS to try at home if needed and it was set at 3 volts. The left DBS was not changed today. Recommendations: 1. Keep DBS on at all times. 2. Same levodopa 25/250 and levodopa CR 50/200 qhs. 3. Same amantadine. 4. Continue strict fall precautions and regular exercise/Rock Steady Boxing. Assessment & Plan (03/29/2019 3:35 PM CDT): Assessment & Plan: Mr. Zepeda again seemed overstimulated since he had bilateral IPGs (was s/p the removal of the right IPG for infection and then was replaced). We elected to reduce his DBS bilaterally, but more reduction for the right DBS (left body). For the left DBS, he went home on the A setting, which was a reduction, but the B setting was his previous settings to use if needed. For the right DBS, he was given an A, B and C setting. He went home on the C setting for the right DBS, which is the lowest setting, but he has the option to change to his A, which is higher, but still less than initially today and then his B setting for the right DBS is the previous settings. He understood and the settings were wrote down for him and his . His was fluent with the patient programmer or analyst if they need to change settings. At the final settings, his tremor of the left arm was present, but mild. He would rather have a little tremor vs worsening speech and balance. He felt his tremor would improve with his levodopa dose. His dysarthria was reduced with the lower settings today. ?? Recommendations: 1. Keep DBS on at all times. May use A or B setting for the left DBS and may use A, B or C for the right DBS. 2. Same levodopa 25/250, but may add 0.5 tab midday. He is only taking levodopa IR qam and then levodopa CR qhs. 3. Same amantadine. 4. Strict fall precautions and chair exercises as tolerated. ?? Assessment & Plan (11/23/2018 2:45 PM CDT): Mr. Zepeda had worsening of dysarthria and dyskinesias/dystonia of his left side primarily since IPG replacement last week. We elected to reduce his DBS bilaterally, but more reduction for the right DBS (left body). For the left DBS, he went home on the A setting, which was a reduction, but the B setting was his previous settings to use if needed. For the right DBS, he was given an A, B and C setting. He went home on the C setting for the right DBS, which is the lowest setting, but he has the option to change to his A, which is higher, but still less than initially today and then his B setting for the right DBS is the previous settings. He understood and the settings were wrote down for him and his . His was fluent with the patient programmer or analyst if they need to change settings. At the final settings, his tremor was still well controlled and he had near resolution of the head/left shoulder dyskinesias and his dysarthria was reduced, but still present. His felt she could understand him much better at the final settings. Recommendations: 1. Keep DBS on at all times. May use A or B setting for the left DBS and may use A, B or C for the right DBS. 2. Return to his previous dosing of levodopa. 3. Same amantadine. 4. Strict fall precautions and chair exercises as tolerated. Assessment & Plan (10/05/2018 11:39 AM CDT): Mr. Zepeda had mild fluctuation and wasn't able to tolerate more medication or stimulation so no changes were made today. His right IPG was beginning to deplete so he was referred to Dr. Henning for bilateral IPG replacements in the next 4 to 6 weeks. He was encouraged to continue his efforts in ST and start PT as scheduled. Although he was frustrated by his mobility, he realized he had benefit from DBS therapy. Recommendations: 1. Keep stimulators turned on at all times. May use either A or B setting but notify DBS team 2. Continue levodopa as instructed but may decrease or increase dose by increments of 1/4 tablet at every other dose as needed for dyskinesia or stiffness, respectively. 3. Continue use of power chair for distances and cane or walker at all times Strict fall precautions 4. Continue venlafaxine 5. PT and ST as planned. 6. Refer to Dr. Avery for bilateral IPG replacements in the next 4 to 6 weeks. Incontinence of feces 10/19/2017 Assessment & Plan (11/08/2017 3:44 PM CDT): Severe parkinsons wheel chair dependent and unable to feel anal impulses liqid vs solid vs gas and unable to control spincters. Has gotten impacted on immodium and then goes days without bm until it all ooozes around the impaction. Last colon 4 yrs ago. Advised hi fiber diet and miralax on arising and placing on toilet 4 hours later to try to get colon empty in hopes of no further feczl output that day. So difficult for them to come here I advised they phone me to discuss progress and questions. Assessment & Plan (10/19/2017 6:58 PM CDT): Patient's very advanced Parkinson's disease he no longer knows when he has a bowel movement. This is come on last month. is using Imodium initially is helped is no longer helping made stools sticker he still has a problem advised him to eat increased Imodium to twice a day. Referral to GI. Other considerations to go to [employer] [facility] [employer] if Imodium fails prescriptions are written for disposable diapers/depends 200 per month. [place] given to the Medicare annual wellness visit, subsequent 08/09 Assessment & Plan (09/30/2022 11:46 AM CDT): Patient history and physical completed patient's health risk assessment health maintenance reviewed in addressed take health problems are addressed his Parkinson's managed by Yasmeen in [place] [facility]. Asthma associated with a chronic cough syncope Assessment & Plan (12/03/2020 6:28 PM CDT): History and physical completed health risk assessment health maintenance reviewed in addressed. Patient has had his COVID vaccine. Patient has a high risk for fall he has severe Parkinson's he walks with assistance of a walker. Assessment & Plan (10/21/2018 5:21 PM CDT): Patient is here for annual exam I reviewed his notes from his neurologist as well as the speech and physical therapy. Patient is coughing less than he once was doing with coughing often times lead to syncopal episodes in the past this seems to be improved. Patient was previously taking Botox injections by ear nose and throat this did not help him. Patient remains in a wheelchair significant disabled by advanced Parkinson's disease. He is in excellent is a very supportive very very well taking care Syncope and collapse 07/05/2017 Assessment & Plan (08/09/2017 10:19 AM ELECTROMATIC TYPIST): Most likely vasovagal. He used to take midodrine in the past but was stopped because his blood pressure was running high. Assessment & Plan (07/05/2017 10:48 AM ELECTROMATIC TYPIST): His syncope symptoms happen on coughing and emotional upset. Likely situational syncope however given the shortness of breath I cannot rule out underlying coronary artery disease and therefore will benefit from nuclear stress test to rule out ischemia. Pseudobulbar affect 06/30/2017 Lower urinary tract symptoms 06/14/2017 Encounter for Medicare annual wellness exam 12/17 Assessment & Plan (03/09/2024 5:46 PM CDT): History and physical completed health risk assessment health maintenance reviewed and addressed. Discussed in details immunization needs. Patient has shingles vaccine zoster 10 years ago. I recommend Shingrix at this time RSV vaccine flu vaccine pneumonia vaccine. Immunization records given to the she is advised she can receive these vaccines at [facility]. Patient's only new health problems mild TMJ is episodic. Patient has advanced Parkinson's deep brain stimulation therapy has been done. Communicates very slowly he is totally motorized wheelchair dependent. Assessment & Plan (06/01/2022 6:27 PM ELECTROMATIC TYPIST): 66-year-old gentleman here with his he has advanced Parkinson's has a deep brain stimulator place for several years. Is the health problems a diabetes and hypertension. Patient needs physical therapy again to help maintain his level function of Parkinson's will make his make a referral. Contact with and (suspected) exposure to other communicable diseases 12/28/2016 Assessment & Plan (12/29/2016 6:38 PM CDT): Hepatitis C antibody requested as recommended by the CDC. H/O urinary incontinence 12/28/2016 Assessment & Plan (12/29/2016 6:37 PM CDT): Patient will follow up Urology this week for his urinary incontinence Dyspnea, unspecified 12/28/2016 Assessment & Plan (04/29/2019 4:47 PM CDT): Patient's advised me that he found out his shortness of breath was anxiety and panic. He is short of breath he purposely takes deep breaths at this makes a big difference shortness of breath goes away most of the time. Since he has been able to control his shortness of breath he has not been having the syncopal episodes.. Assessment & Plan (08/09/2017 10:13 AM ELECTROMATIC TYPIST): Echocardiogram shows normal systolic function and grade 1 diastolic dysfunction. He also has vocal cord dysfunction. Follow up with Pulmonary to rule out pulmonary cause. Assessment & Plan (07/05/2017 10:48 AM ELECTROMATIC TYPIST): Will order an echocardiogram to assess cardiac function and pulmonary pressures. Also will order nuclear Lexiscan stress test to rule out ischemia as possible etiology. Assessment & Plan (12/29/2016 6:36 PM CDT): The patient is managed by pulmonology is benefitting from nebulizer treatment. 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 male who has dystonia secondary to Parkinson that has not responded to conservative measures and interferes with further progress in PT/OT and attainment and/or maintenance of motor skills. He is an appropriate candidate for botulinum injections. The risks, benefits, alternatives to chemodenervation were explained. A signed consent was obtained. The consenting adult understands that all general neurological issues are to be managed by the referring neurologist or physician. Botulinum toxin injected as follows with EMG Guidance (0 Units wasted): Botox 300 U injected into the following muscles using a 1 cc dilution: 40U Flexor Digitorum Profundus (left) 35U Flexor Digitorum Superficialis (left) 20U Flexor Carpi Radialis (right) 20U Flexor Carpi Ulnaris (right) 40U Flexor Digitorum Profundus (right) 60U Flexor Digitorum Superficialis (right) 5U Lumbricales I (left) 5U Lumbricales III (left) 5U Lumbricales IV (left) 5U Lumricales II (left) 5U Lumbricales III (right) 5U Lumbricales IV (right) 5U Lumricales II (right) 5U Interossei Dorsales I (left) 10U Interossei Dorsales II (left) 5U Interossei Dorsales III (left) 5U Interossei Dorsales IV (left) 10U Interossei Dorsales I (right) 5U Interossei Dorsales II (right) 5U Interossei Dorsales III (right) 5U Interossei Dorsales IV (right) Refer to Nikole Rose for further guidance and hand therapy. Refer to Dr. Corona for further evaluation of radiculopathy and sensorymotory polyneuropathy. 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 Jayden Zepeda is a 68 y.o. 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 He is an appropriate candidate for botulinum injections. The risks, benefits, alternatives to chemodenervation were explained. A signed consent was obtained. The consenting adult understands that all general neurological issues are to be managed by the referring neurologist or physician. Botulinum toxin injected as follows with EMG Guidance 0 Units wasted): Botox 400 U injected into the following muscles using a 1 cc dilution: 20U Flexor Digitorum Profundus (left) 35U Flexor Digitorum Superficialis (left) 40U Flexor Carpi Ulnaris (right) 30U Flexor Digitorum Profundus (right) 120U Flexor Digitorum Superficialis (right) 20U Pronator Teres (right) 5U Lumbricales I (left) 10U Lumbricales III (left) 10U Lumbricales IV (left) 10U Lumricales II (left) 15U Abductor Digiti Minimi (right) 20U Lumbricales III (right) 20U Lumbricales IV (right) 20U Lumricales II (right) 10U Interossei Dorsales I (right) 5U Interossei Dorsales II (right) 5U Interossei Dorsales III (right) 5U Interossei Dorsales IV (right) Refer to PT for further guidance and hand therapy. Nan Bravo MD Assessment & Plan (01/05/2024 4:30 PM CDT): Images from the original note were not included. Jayden Zepeda is a 68 y.o. 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 He is an appropriate candidate for botulinum injections. The risks, benefits, alternatives to chemodenervation were explained. A signed consent was obtained. The consenting adult understands that all general neurological issues are to be managed by the referring neurologist or physician. Botulinum toxin injected as follows with EMG Guidance 0 Units wasted): Botox 400 U injected into the following muscles using a 1 cc dilution: 20U Flexor Digitorum Profundus (left) 35U Flexor Digitorum Superficialis (left) 40U Flexor Carpi Ulnaris (right) 50U Flexor Digitorum Profundus (right) 100U Flexor Digitorum Superficialis (right) 20U Pronator Teres (right) 10U Lumbricales I (left) 10U Lumbricales III (left) 10U Lumbricales IV (left) 10U Lumricales II (left) 15U Lumbricales III (right) 15U Lumbricales IV (right) 15U Lumricales II (right) 5U Interossei Dorsales I (left) 10U Interossei Dorsales II (left) 5U Interossei Dorsales III (left) 5U Interossei Dorsales IV (left) 10U Interossei Dorsales I (right) 5U Interossei Dorsales II (right) 5U Interossei Dorsales III (right) 5U Interossei Dorsales IV (right) Refer to Nikole Rose for further guidance and hand therapy. Nan Bravo MD Assessment & Plan (10/06/2023 3:11 PM CDT): Images from the original note were not included. Jayden Zepeda is a 67 y.o. 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 He is an appropriate candidate for botulinum injections. The risks, benefits, alternatives to chemodenervation were explained. A signed consent was obtained. The consenting adult understands that all general neurological issues are to be managed by the referring neurologist or physician. We will need 400 units next time. Botulinum toxin injected as follows with EMG Guidance 0 Units wasted): Botox 300 U injected into the following muscles using a 1 cc dilution: 20U Flexor Digitorum Profundus (left) 35U Flexor Digitorum Superficialis (left) 20U Flexor Carpi Ulnaris (right) 25U Flexor Digitorum Profundus (right) 80U Flexor Digitorum Superficialis (right) 10U Lumbricales I (left) 10U Lumbricales III (left) 10U Lumbricales IV (left) 10U Lumricales II (left) 10U Lumbricales III (right) 10U Lumbricales IV (right) 10U Lumricales II (right) 5U Interossei Dorsales I (left) 10U Interossei Dorsales II (left) 5U Interossei Dorsales III (left) 5U Interossei Dorsales IV (left) 10U Interossei Dorsales I (right) 5U Interossei Dorsales II (right) 5U Interossei Dorsales III (right) 5U Interossei Dorsales IV (right) Refer to Nikole Rose for further guidance and hand therapy. Nan Bravo MD Assessment & Plan (04/07/2023 3:38 PM CDT): Images from the original note were not included. Jayden Zepeda is a 67 y.o. 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 He is an appropriate candidate for botulinum injections. The risks, benefits, alternatives to chemodenervation were explained. A signed consent was obtained. The consenting adult understands that all general neurological issues are to be managed by the referring neurologist or physician. Botulinum toxin injected as follows with EMG Guidance (35 Units wasted): Botox 165 U (amount wasted: 35 U) injected into the following muscles using a 1 cc dilution: 40U Flexor Digitorum Profundus (left) 40U Flexor Digitorum Profundus (right) 60U Flexor Digitorum Superficialis (right) 5U Interossei Dorsales I (left) 10U Interossei Dorsales II (left) 5U Interossei Dorsales III (left) 5U Interossei Dorsales IV (left) Refer to Nikole Rose for further guidance and hand therapy. 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 However he is on Flomax which can cause this as well. Mental hold Flomax see if there is a improvement he some urinary problems using depends. Metoprolol 25 mg daily discontinue Urge incontinence of urine 08/07/2014 Insomnia 07/05/2014 Vocal cord dysfunction 04/11/2014 Osteoarthritis 12/02/2013 Overview (10/23/2016): DJD (degenerative joint disease) Parkinson's disease 06/20/2012 Overview (10/28/2017): Description: deep brain stimulation Assessment & Plan (08/14/2024 10:52 AM ELECTROMATIC TYPIST): He had idiopathic PD s/p bilateral STN DBS with rigidity, bradykinesia, significant left sided dystonia and impaired postural reflexes as well as tremor that was dramatically better after DBS. However, he had an infection in the skin of the right battery and battery has been removed, he has completed IV antibiotics and is now on oral abx. His right brain stimulator and battery are still ON but he is having significantly more left sided tremor and rigidity. We will not change levodopa as higher doses caused bothersome dyskinesias as did adding agonists. Higher stimulation voltages have worsened dysarthria. He is currently treated for his depressive symptoms and in the past, took Neudexa for pseudobulbar affect with good benefit. His mood and spirits are good despite all of this . At this point, he can no longer walk without a one person assist, a gait belt and a walker. He can still complete transfers but he has frequent falls. His power chair has been very helpful. He would benefit from stretching exercises. Fall precautions to be maintained. He had peripheral neuropathy and will see neuromuscular on Wednesday. Assessment & Plan (03/09/2024 5:47 PM CDT): Most recent notes reviewed he goes to [facility] in [place] [facility]rology for treatment of his Parkinson's. Assessment & Plan (03/15/2023 8:31 AM CDT): He had idiopathic PD s/p bilateral STN DBS with rigidity, bradykinesia, significant left sided dystonia and impaired postural reflexes as well as tremor that was dramatically better after DBS. However, he had an infection in the skin of the right battery and battery has been removed, he has completed IV antibiotics and is now on oral abx. His right brain stimulator and battery are still ON but he is having significantly more left sided tremor and rigidity. We will attempt to increase levodopa since he is not currently having any dyskinesia at all and no other dose limiting side effects. We will continue Neupro but if dyskinesia worsens with more carbi/levo during this time, we may need to instead increase Neupro to try to control motor symptoms. Higher stimulation voltages have worsened dysarthria. He is currently treated for his depressive symptoms and in the past, took Neudexa for pseudobulbar affect with good benefit. His mood and spirits are good despite all of this . At this point, he can no longer walk without a one person assist, a gait belt and a walker. He can still complete transfers but he has frequent falls. His power chair has been very helpful. He would benefit from stretching exercises. Fall precautions to be maintained. He had peripheral neuropathy and will need an EMG/NCS and further evaluation. Assessment & Plan (09/30/2022 11:51 AM CDT): Parkinson's disease unable to ambulate blurred speech patient's managed by Neurology and [facility] Assessment & Plan (06/01/2022 6:25 PM ELECTROMATIC TYPIST): Patient continues under care of Neurology at [facility] Assessment & Plan (01/05/2022 1:32 PM CDT): He had idiopathic PD s/p bilateral STN DBS with rigidity, bradykinesia, significant left sided dystonia and impaired postural reflexes as well as tremor that was dramatically better after DBS. However, he had an infection in the skin of the right battery and battery has been removed, he has completed IV antibiotics and is now on oral abx. His right brain stimulator and battery are still ON but he is having significantly more left sided tremor and rigidity. We will attempt to increase levodopa since he is not currently having any dyskinesia at all and no other dose limiting side effects. We will continue Neupro but if dyskinesia worsens with more carbi/levo during this time, we may need to instead increase Neupro to try to control motor symptoms. ?? Higher stimulation voltages have worsened dysarthria. He is currently treated for his depressive symptoms and in the past, took Neudexa for pseudobulbar affect with good benefit. His mood and spirits are good despite all of this . At this point, he can no longer walk without a one person assist, a gait belt and a walker. He can still complete transfers but he has frequent falls. His power chair has been very helpful. He would benefit from stretching exercises. Fall precautions to be maintained. ?? Assessment & Plan (10/24/2020 10:01 AM CDT): He had idiopathic PD s/p bilateral STN DBS with rigidity, bradykinesia, significant left sided dystonia and impaired postural reflexes as well as tremor that was dramatically better after DBS. However, he had an infection in the skin of the right battery and battery has been removed, he has completed IV antibiotics and is now on oral abx. His right brain stimulator and battery are still ON but he is having significantly more left sided tremor and rigidity. We will attempt to increase levodopa since he is not currently having any dyskinesia at all and no other dose limiting side effects. We will continue Neupro but if dyskinesia worsens with more carbi/levo during this time, we may need to instead increase Neupro to try to control motor symptoms. ?? Higher stimulation voltages have worsened dysarthria. 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 I will restart this. His mood and spirits are good despite all of this . At this point, he can no longer walk without a one person assist, a gait belt and a walker. He can still complete transfers but he has frequent falls. His power chair has been very helpful. Myrbetriq was only mildly helpful for his OAB and rather expensive. I changed levodopa to 25/100 and increased th dose slightly. ?? Assessment & Plan (12/13/2018 3:25 PM CDT): He had idiopathic PD s/p bilateral STN DBS with rigidity, bradykinesia, significant left sided dystonia and impaired postural reflexes as well as tremor that was dramatically better after DBS. However, he had an infection in the skin of the right battery and battery has been removed, he has completed IV antibiotics and is now on oral abx. His right brain stimulator and battery are still ON but he is having significantly more left sided tremor and rigidity. We will attempt to increase levodopa since he is not currently having any dyskinesia at all and no other dose limiting side effects. We will continue Neupro but if dyskinesia worsens with more carbi/levo during this time, we may need to instead increase Neupro to try to control motor symptoms. Higher doses of stimulation have worsened dysarthria. 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 His mood and spirits are good despite all of this . At this point, he can no longer walk without a one person assist, a gait belt and a walker. He can still complete transfers but he has frequent falls. His power chair has been very helpful. Myrbetriq is only mildly helpful for his OAB. Recs: 1. Change levodopa doses as directed, watch for hallucinations or dyskinesia. 2. Same venlafaxine and continue f/u with psychiatrist. 3. Same rotigotine 6 mg patch. 4. Same amantadine, same Myrbetriq. 5. Start PT, rx given. Assessment & Plan (10/21/2018 5:31 PM CDT): Parking send managed by Neurology at [facility] Neurosurgery Department. Assessment & Plan (09/23/2018 1:23 PM ELECTROMATIC TYPIST): He had idiopathic PD s/p bilateral STN DBS with rigidity, bradykinesia, significant left sided dystonia and impaired postural reflexes. He could previously feel carbi/levo kick in and wear off but no longer notes that and in addition, he gets bothersome peak dose facial dystonia/dyskinesia so he chooses to take only one small dose of carbi/levo during the day in favor of only taking an IR dose at night. He has no dyskinesia. He also uses the Neupro 4 mg patch which they feel has been helpful. He does note some occasional hallucinations (bugs on the wall, animals) but these have not been scary. Since he is fairly disabled by his symptoms, we will try a bigger dose of Neupro but he will need to watch carefully for side effects, especially worsened hallucinations. Higher doses of stimulation have worsened dysarthria. He is currently treated for his depressive symptoms and takes Neudexa for pseudobulbar affect. He has found a new psychiatrist but is feeling a bit down lately on venlafaxine (max dose). At this point, he can no longer walk without a one person assist, a gait belt and a walker. He can still complete transfers but he has frequent falls. His power chair has been very helpful. Myrbetriq is only mildly helpful for his OAB. Recs: 1. Same levodopa. 2. Same venlafaxine and continue f/u with psychiatrist. 3. Increase rotigotine to 6 mg patch. Watch for side effects. 4. Same amantadine, same Nuedexta, same Myrbetriq. 5. Start PT, rx given. Assessment & Plan (12/29/2016 6:37 PM CDT): Neurology Alek has been following this gentleman for several years his appointment coming up in next 30 days. Resolved Problems Problem Noted Date Diagnosed Date Resolved Date Type 2 diabetes mellitus wit h chronic kidney disease, with long-term current use of insulin 03/05/2023 03/05/2023 Upper respiratory tract infection 09/30/2022 07/07/2023 Urinary tract infection without hematuria 03/26/2021 07/07/2023 Assessment & Plan (03/26/2021 12:15 PM CDT): Presumed urinary tract infection patient's status is changes had some aches and pains for last few days. Is very difficult to get a urine specimen him his advanced Parkinson's. He just had an felt himself for 5 days in terms of energy and aches and pains he is improved today. Possible UTI is the culprit. Will start this patient on Bactrim ds twice a day. Patient glucose levels have have not increased with recent symptoms. Trauma 02/03/2021 07/07/2023 Assessment & Plan (02/03/2021 6:00 PM CDT): Right shoulder pain approximate 2 weeks patient has severe Parkinson's he has a motorized wheelchair. Approximately 2 weeks ago he was on the floor his was trying to get him he was unable to assist her at this time he was 2 Abraham to give her any assist and she remembers a having the pool and live very vigorous early on right shoulder the getting back in position in bed. He does not recall hearing or click a pop and he was not alert enough to tell it does increase in pain.. This time patient's limited range of motion right shoulder go out about 30?? laterally about 60?? anterior proximal shoulder some reproducible pain on palpating over shoulder. X-rays were 2 did not show an acute fracture some osteoarthritis symptoms are present.. Patient's finding some relief with the topical creams . I have referred this patient orthopedic. Surgical site infection 12/04/201805/20 Overview (12/05/2018): Added automatically from request for surgery [id number] Assessment & Plan (12/26/2018 1:05 PM CDT): - Surgical incisions well healed with no signs of infection. No need for additional antibiotics at this time. - Right scalp incision cultured during last surgery and grew P acnes. This is likely a contaminant as it is normal skin elie. He received 1 week of ceftriaxone which would cover for P acnes but his 1 week of Bactrim did not provide coverage. He has done well for almost 2 weeks without any P acnes coverage which is also suggestive that the culture is showing normal skin elie and not a pathogen showing acute infection. - He has a retained electrode wire that was cut during debridement. There was no concern that infection tracked to wire, therefore he does not need chronic suppression. - Plans for reimplantation of IPG after several weeks of antibiotic holiday to assure clearance of infection. - Discussed with patient and the rational for treatment, culture results, importance of antibiotic holiday, risk of recurrent infection, signs/symptoms of recurrent infection, and to call ID clinic with any questions or concerns Diabetes mellitus without co mplication ([facility]) 11/15/2018 09/30/2022 Assessment & Plan (09/30/2022 11:30 AM CDT): Diabetes reasonably controlled CGM report 7% in target range 2% low/hypoglycemia 0% very low patient's glucose average is 150 glucose variability 33.4 glucose management indicated 6.9. Scanning activities 64% reduce his insulin because risk of hypoglycemia he is taking 20 units of basal insulin/Tresiba I am reduce this to 24 units. Assessment & Plan (08/04/2022 5:28 PM ELECTROMATIC TYPIST): Patient's glucose is dropping in the evening he is getting in the hypoglycemic range. About 17% of the time. Does not have severe hypoglycemia I reduced his basal insulin from 32 units daily down to 28 units. Assessment & Plan (06/01/2022 6:22 PM ELECTROMATIC TYPIST): Diabetes not controlled he is taking 30 units of insulin daily. I am going to set up freestyle Juan 2 increases insulin 34 units daily and remote monitor. Component Hgb A1C Latest Ref Rng & Units 4.0 - 5.6 % 11/14/2018 10.6 (H) 04/27/2019 7.9 (H) 12/29/2019 8.0 (H) 12/03/2020 10.2 (H) 04/29/2021 9.4 (H) 05/20/2022 8.6 (H) Assessment & Plan (05/06/2021 5:32 PM CDT): Patient's glucometer is reviewed results good his sugars usually running 80-140. At this time no change in therapy. He is on 30 units of insulin. Last HgbA1c was 9.4 this was prior to increasing his insulin to 30 units daily. Several months ago his HgbA1c was 10.3. Will see him back in 3 months repeat HgbA1c at that time. will continue to monitor glucometer readings in give he reports times on weekly and 30 day average . Assessment & Plan (03/26/2021 12:16 PM CDT): Patient's glucometer check today glucose running between 140-180, few times he has had a low 200s. No hypoglycemia low was glucose levels 110. Patient is on 24 units of basal insulin daily no change in therapy. He has appointment coming up in 6 weeks will check HgbA1c at that time. Assessment & Plan (02/03/2021 6:01 PM CDT): Patient is taking 16 units of insulin daily is not helping his glucose very much she still running to 220-250 range.. is advised to increase his insulin from 16 units to 20 units at about 4 days if he is not under 200 go up to 24 units of insulin progress report in about 10 -12 days Assessment & Plan (12/03/2020 6:28 PM CDT): Update patient's diabetes with laboratory studies today patient's sees a revival clerk and a hoist operator on annual basis. Assessment & Plan (12/29/2019 9:49 AM CDT): Patient has been advised by his revival clerk that he has neuropathy in his feet.. He is unable to feel the monofilament testing.. Patient's last HgbA1c was 7.9 plans today is doing update his HgbA1c also check his renal functions in lipid profile. Assessment & Plan (06/12/2019 6:01 PM ELECTROMATIC TYPIST): Patient's hemoglobin HgbA1c was 7.9 down from 10.2 few months ago. Patient started on Januvia 100 mg daily.. Patient has significant physical limitations therefore Glucophage/metformin is not option if he redevelops GI side effects knee the would SGOT 2 given frequency or urination and high risk for yeast infection. In fact he has had skin yeast infections in the past. Will continue to monitor HgbA1c. Samples of Januvia given the for the rest the year Assessment & Plan (04/29/2019 4:46 PM CDT): Will recheck a hemoglobin HgbA1c today. Patient is admitted to the hospital for a battery change on his stimulator of his brain for Parkinson's disease. He required insulin doing this temporary period to time the been checking his glucose at home he has [place] had [place] [id number] range recheck HgbA1c today patient cannot do any significant exercise due to his bands Parkinson's.. He is in a physical therapy program I exercise program called boxing for Parkinson's he knows that this program 3 days he has 4 episodes for about 15 minutes of box. He is enjoying it is helping his muscle tone. The importance of this he is getting more exercise. Assessment & Plan (11/15/2018 8:53 AM CDT): . Newly diagnosed diabetic he had a preop lab done on 11/10/2018 results showed a glucose of 351. Reviewed his chart glucose in 2017 was completely normal. Patient was scheduled for placement of a battery for deep brain stimulator on November 18. I would like to get his glucose down using rapid acting insulin so that this our outpatient procedure will be delayed.. Patient's is here who is his entry level she was taught how to give him insulin. Is given samples of an NovoLog aspart use in insulin pen and given samples. Patient's giving a standard form with the sliding scale at moderate risk. Patient's is advised to give him insulin before his evening meal and before his breakfast in the more. She is also check his insulin before each meal. She is to call on Wednesday with the results of her glucose findings of glucometer findings. Prescription was given for glucometer and strips according to his insurance plan. Advised the and the patient that no long-term goal maybe 2 cream on basal insulin rather than having rapid acting insulin. Hemoglobin HgbA1c was ordered at the time of dictation this HgbA1c is return to 10.6.. Will refer patient to clinical unit educator next week. Skin lesion of chest wall 10/21/2018 Assessment & Plan (10/21/2018 5:24 PM CDT): Patient is a lesion on his right chest wall just below the clavicle this lesion is suspicious for possible basal cell carcinoma.. ALSO HAS A LESION ON THE FACE LEFT TEMPORAL AREA JUST BELOW THE EYEBROW these lesions also potentially basal cell carcinoma. Patient had a basal cell carcinoma removed from the right chest wall in the past. At that time was done the same day he had is stimulated change better neurosurgeon. He is scheduled to get a repeat changes stimulated battery in mid November.. Advised the to contact the neuro surgeries office see if they can make arrangements with someone to also do this procedure of removing these lesions for his face and chest wall at the same time it was previously done in the past.. This patient is almost equivalent quadriplegic so getting him out house is difficult. Phalanx, proximal fracture of finger 12/22/2017 12/29/2019 Immunization due 12/28/2016 12/29/2019 Assessment & Plan (12/29/2016 6:38 PM CDT): Immunizations brought up-to-date. Sialorrhea 02/04/2016 07/07/2023 Splitting of urinary stream 08/07/2014 07/07/2023 Encounters Date Type Department Care Team Description 08/18/2024 Telephone [facility] Scheduling [address] [place] [address] Alejandro Corona MD Scheduling Appointments 08/17/2024 Telephone [facility] [address] [place] [address] Francine Leroy RN 08/15/2024 Telephone [facility] [address] [place] [phone] Cathy Estrada, OBI [facility] 08/14/2024 10:30 AM ELECTROMATIC TYPIST Procedure visit [facility] Movement Disorders [address] [place] [phone] Marcela Harrison NP Dystonia (Primary Dx); Polyneuropathy; Status post deep brain stimulator placement; Parkinson's disease without dyskinesia or fluctuating manifestations (HCC) 08/14/2024 10:00 AM ELECTROMATIC TYPIST Office Visit [facility] Movement [facility] [address] [place] [address] [phone] Nan Bravo MD Parkinson's disease without dyskinesia or fluctuating manifestations (HCC) (Primary Dx) 08/02/2024 Telephone [facility] [address] [place] [address] Phoenix Glasgow MD 07/31/2024 Telephone [facility] [address] [place] [address] Phoenix Glasgow MD 07/17/2024 2:30 PM ELECTROMATIC TYPIST Office Visit [facility] [address] [place] [address] Phoenix Glasgow MD Mild intermittent asthma without complication (Primary Dx); Diabetes mellitus without complication (CMS/HCC) (HCC); Depression, major, in remission (HCC) 06/26/2024 Orders Only [facility] Movement Disorders [address] [place] [address] 6th [place] [address] Nan Bravo MD Torsion dystonia 06/14/2024 8:45 AM ELECTROMATIC TYPIST Office Visit [facility] [address] [place] [address] Bill Moy MD Coronary artery disease involving yuhaaviatam coronary artery of yuhaaviatam heart without angina pectoris (Primary Dx); Hypertension, essential; Status post non-ST elevation myocardial infarction (NSTEMI); Neurogenic orthostatic hypotension (CMS/HCC) ([facility]); Parkinson's disease, unspecified whether dyskinesia present, unspecified whether manifestations fluctuate (HCC) 05/26/2024 1:00 PM ELECTROMATIC TYPIST Therapy [facility] Physical Therapy [address] [place] [address] [facility] 6th [place] [address] [place] [address] Deisy Quan, FRANCISCO J Torsion dystonia from Last 3 Months Immunizations Name Administration Dates Next Due Influenza, Quadrivalent, Chirsty l Culture-based MDCK, Antibiotic Free, Intramuscular 06/08/2017 Influenza, Quadrivalent, Christy l Culture-based MDCK, Preservative Free, Antibiotic Free, Intramuscular 06/08/2017 Influenza, Quadrivalent, Hig h Dose, Preservative Free, Intrr 07/06/2023,06/01/2022,04/09/2020 Influenza, Quadrivalent, Spl it, Preservative Free, Intramuscular 05/06/2021,04/17/2019,05/17/2018 Influenza, Trivalent, High D ose, Split, Preservative Free, Intramuscular 04/14/2024 Influenza, Trivalent, IM (MDV) 6,07/02/2016,05/14/2015,06/15,08/25/2013 Influenza, Trivalent, Preser vative Free, Intramuscular 07/01/2016,04/24/2015 Influenza, Unspecified 04/17/2019 Pneumococcal Conjugate PCV 13 12/28/2016 Pneumococcal Conjugate Pcv20 07/06/2023 Pneumococcal Polysaccharide PPV23 09/19/2014 ZOSTER LIVE 05/14/2015 Surgical History Surgery Date Site/Laterality Comments KNEE ARTHROPLASTY 07/19/2010 - 07/18/2011 Right Knee replacement VASECTOMY 07/19/1986 - 07/18/1987 Vasectomy INSERTION / REMOVAL CRANIAL DBS GENERATOR Generator replacement--2018, 2015, 2012 DEEP BRAIN STIMULATOR PLACEMENT 07/19/2010 - 07/18/2011 COLONOSCOPY 07/19/2015 - 07/18/2016 INGUINAL HERNIA REPAIR 07/19/2006 - 07/18/2007 Left BASAL CELL CARCINOMA EXCISION 07/19/2018 - 07/18/2019 Right neck BRAIN SURGERY 2012 Medical History Medical History Date Comments Parkinson disease (HCC) DXd 1999 -- Treated with Sinemet and amantadine s/p DBS ~2010 GERD (gastroesophageal reflux disease) History of basal cell carcinoma (BCC) BCC Neck s/p excision 2018 DM2 (diabetes mellitus, type 2) (HCC) Dxd 2018 Asthma Depression History of COVID-19 +COVID 05/07 21-- Pt denies any symptoms; Per pt was treated with monoclonal Ab Anxiety Neuromuscular disorder (HCC) Kidney stone Family History Medical History Relation Name Comments ALS Father Ryan Zepeda Diabetes Father Ryan Zepeda Diabetes type II Father Ryan Zepeda Rashes / Skin problems Father Ryan Zepeda Hearing loss Mother Temi Zepeda Heart attack Mother Temi Zepeda Diabetes Son Judy Osorio (sister) Anesthesia problems Neg Hx Relation Name Status Comments Father Ryan Zepeda Mother Temi Zepeda Son Judy Osorio (sister) Social History Tobacco Use Types Packs/Day Years Used Date Smoking Tobacco: Former Cigarettes 1 15 1 969 - 07/19/1986 Smokeless Tobacco: Never Tobacco Cessation:Counseling Given: Not Answered Alcohol Use Standard Drinks/Week Comments No 0 (1 standard drink = 0.6 oz pur e alcohol) OASIS D0700: Social Isolation Answer Da te Recorded Frequency of experiencing loneliness or isolatio n Never 09/02/2022 OASIS A1250: Transportation Answer Date Recorded Lack of Transportation (Medical) No 09/02/2022 Lack of Transportation (Non-Medical) No 09/02/2022 Patient Unable or Declines to Respond No 09/02/2022 OASIS B1300: Health Literacy Answer Sincere e Recorded Frequency of needing help to read materials from doctor or pharmacy Rarely 09/02/2022 AUDIT-C Answer Date Recorded Frequency of Alcohol Consumption Not on file 02/20/2022 Q2: How many drinks containi ng alcohol do you have on a typical day when you are drinking? Patient does not drink Frequency of Binge Drinking Not on file 11/2021 PHQ-2 Answer Date Recorded PHQ-2 Total Score (If total score is 3 or more points, staff should administer the PHQ-9) 4 03/09/2024 Sex and Gender Information Value Date Recorded Sex Assigned at Not on file Legal Sex Male 2:23 AM ELECTROMATIC TYPIST Gender Identity Male 10/22/2020 11:15 PM CDT Sexual Orientation Not on file Obstetrics History Last Filed Vital Signs Vital Sign Reading Time Taken Comments Blood Pressure 115/72 08/14/2024 10:15 AM ELECTROMATIC TYPIST Pulse 67 08/14/2024 10:15 AM ELECTROMATIC TYPIST Temperature 36.4 ??C (97.5 ??F) 07/17/2024 2:35 PM CS T Respiratory Rate 16 07/17/2024 2:35 PM ELECTROMATIC TYPIST Oxygen Saturation 99% 07/17/2024 2:35 PM ELECTROMATIC TYPIST Inhaled Oxygen Concentration - - Weight 95.3 kg (210 lb) 01/05/2024 3:39 PM CDT Height 177.8 cm (5' 10 ) 01/17/2024 1:43 PM CDT Body Mass Index 30.13 01/05/2024 3:39 PM CDT Plan of Treatment Health Maintenance Due Date Last Done Comments DTaP/Tdap/Td Vaccine (1 - Tdap) 1966 Zoster Vaccine (2 of 3) 07/09/2015 05/14/2015 Abdominal Aortic Aneurysm (A AA) Screen 11/13/2019 Foot Exam 12/28/2020 12/29/2019 Colon Cancer Screening-Colonoscopy 09/07/2023 09/07/2013 Dilated Eye Exam 03/01/2024 03/01/2023 Covid-19 Vaccine (3 - 2023-2 5 season) 2024 09/23/2020, 08/26/2020 Hemoglobin A1C 09/09/2024 03/09/2024, 01/2023, 05/20/2022, Additional history exists Depression Screening 03/09/2025 03/09/2024, 03/09/2024, 09/29/2022, Additional history exists Fall Risk Assessment 03/09/2025 03/09/2024, 09/29/2022, 06/01/2022, Additional history exists Well Visit 65+ 03/09/2025 03/09/2024, 09/16, 06/01/2022, Additional history exists eGFR 03/09/2025 03/09/2024, 08/2021, 04/29/2021, Additional history exists Lipid Panel 04/14/2025 04/14/2024, 04/20, 12/03/2020, Additional history exists Albumin Creatinine Ratio, Urine 04/25/2025 Prostate Cancer Screening-PSA 03/09/2026, 06/17/2018, 06/14/2017, Additional history exists Colon Cancer Screening-CT Colonography Discontinued 09/07/2013 Colon Cancer Screening-DNA Stool Discontinued 09/07/19 14 Colon Cancer Screening-FIT Discontinued 09/07/2013 Colon Cancer Screening-Sigmoidoscopy Discontinued 09/07/2013 Hepatitis C Screening Completed 12/28/2016, 016 Pneumococcal vaccine 65+ Completed 023, 12/28/2016, 09/19/2014 Hepatitis B Screening Completed 03/09/2024 Influenza Vaccine Completed 04/14/2024, , 06/01/2022, Additional history exists Medical Devices Implanted Type Area Electrical Engineering Director Device Identifier Shelf Expiration Date Model / Serial / Lot Knee Replacement Right: Knee Medtronic Activa In-08/19/2012 Implanted: 013 by Alejandro Avery MD (Quantity not on file) Right: Chest Medtronic Activa Sc-08/19/2012 Implanted: 013 by Alejandro Avery MD (Quantity not on file) Left: Chest Wall Medtronic Neuro [id number] Activa In 2.4inx2.2in .4in 1 Channel Quadripolar Multiprogram - [id number] - [id number] Implanted:Qty: 1 on 11/18/2018 at [facility] Right: Chest Medtronic Neuro 03/01/2020 [id number] / [id number] / Medtronic Neuro 41236-36 Dbs 3.8-1.3mm 1.5mm 60cm Quadripolar Distal Octapolar Proximal - [id number] - [id number] Implanted:Qty: 1 on 01/27/2019 by Alejandro Avery MD at [facility] Med[employer]onic Inc 04/01/2022 [id number] / [id number] / Medtronic Inc Stimulator Activa [id number] - [id number] - [id number] Implanted:Qty: 1 on 02/20/2022 by Alejandro Avery MD at [facility] Left: Chest [employer] Inc 05/15/2023 [id number] / [id number] / Med[employer]onic Inc Stimulator Activa [id number] - [id number] - [id number] Implanted:Qty: 1 on 02/20/2022 by Alejandro Avery MD at [facility] Right: Chest [employer] Inc 06/01/2023 [id number] / [id number] / Explanted Type Area Electrical Engineering Director Device Identifier Shelf Expiration Date Model / Serial / Lot Medtronic Neuro [id number] Activa Sc 2.4inx2.2in .4in 1 Channel Quadripolar Multiprogram - [id number] - [id number] Explanted:Qty: 1 on 11/18/2018 at [facility] Med[employer]onic Neuro [id number] / [id number] / Medtronic Neuro [id number] Activa Sc 2.4inx2.2in .4in 1 Channel Quadripolar Multiprogram - [id number] - [id number] Explanted:Qty: 1 on 11/18/2018 at [facility] [employer] Neuro [id number] / [id number] / [employer] [id number] Activa Sc 2.4inx2.2in .4in 1 Channel Quadripolar Multiprogram - [id number] - [id number] Implanted:Qty: 1 on 11/18/2018 at [facility] Explanted:Qty: 1 on 02/20/2022 at [facility] Left: Chest [employer] 03/15/2020 [id number] / [id number] / [employer] Neuro [id number] Activa Sc 2.4inx2.2in .4in 1 Channel Octapolar Multiprogram - [id number] - [id number] Implanted:Qty: 1 on 01/27/2019 by Alejandro Avery MD at [facility] Explanted:Qty: 1 on 02/20/2022 at [facility] [employer] 06/01/2020 [id number] / [id number] / Procedures Procedure Name Priority Date/Time Associated Diagnosis Comments ALBUMIN CREATININE RATIO, URINE Routine 04/25/2024 1:49 PM CDT Type 2 diabetes mellitus with hyperglycemia, with long-term current use of insulin (HCC) LIPID PANEL Routine 04/14/2024 1:48 PM CDT Coronary artery disease involving yuhaaviatam coronary artery of yuhaaviatam heart without angina pectoris EGFR Routine 03/09/2024 3:04 PM CDT Type 2 diabetes mellitus with hyperglycemia, with long-term current use of insulin (HCC) HEMOGLOBIN A1C Routine 03/09/2024 3:04 PM CDT Type 2 diabetes mellitus with hyperglycemia, with long-term current use of insulin (HCC) PSA SCREEN Routine 03/09/2024 3:04 PM CDT Prostate cancer screening HM DIABETES EYE EXAM Routine 03/01/2023 9:04 AM CDT HEPATITIS C ANTIBODY Routine 12/28/2016 11:53 AM CDT Contact with and (suspected) exposure to other communicable diseases COLONOSCOPY 09/07/2013 12:00 AM ELECTROMATIC TYPIST from Last 3 Months or Most Recently Relevant to Health Maintenance Results * Albumin Creatinine Ratio, Urine (04/25/2024 1:49 PM CDT) Albumin Ur 32.7 mg/L Comment: Interpretive Data No reference range established. Current interpretive data was last revised 2018. Testing performed by: [facility], [address] [place] [address], [place]., [address] Creatinine Ur 161.9 mg/dL JULIET KO Comment: Interpretive Data No reference range established. Current interpretive data was last revised 2018. Testing performed by: [facility], [address] [place] [address]., [address] Albumin Creatinine Ratio, Ur 20 1 - 29 mg/g JULIET Comment:Testing performed by : [facility], [address] [place] [address]., [address] Urine 04/25/2024 1:49 PM CDT 04/25/2024 5:16 PM CDT us Phoenix Glasgow MD LAB URINE ORDERABLES Final Result JULIET [id number] [place] [address] Department [place] [address] * (ABNORMAL) Lipid panel (04/14/2024 1:48 PM CDT) Cholesterol 104 30 - 199 mg/dL Comment: Interpretive Data Ages < or = 19 years ??Acceptable: ? <170 mg/dL ??Borderline high: ??170-199 mg/dL ??High: ? >or= 200 mg/dL Ages > or = 20 years ??Desirable: ?<200 mg/dL ??Borderline high: ??200-239 mg/dL ??High: ? >or= 240 mg/dL Literature References: 1. Expert Panel on Integrated Guidelines for Cardiovascular Health and Risk Reduction in Children and Adolescents. Pediatrics 2011;128:S213 2. NCEP Expert Panel. Circulation 2004;110:227 Current Interpretive Data was last revised on 2018. Testing performed by: [facility], [address] [place] [address]., [address] Triglycerides 157(H) <=149 mg/dL JULIET Comment: Interpretive Data Ages < or = 9 years ??Acceptable: ? <75 mg/dL ??Borderline high: ??75-99 mg/dL ??High: ? >or= 100 mg/dL Ages 10 to 20 years ??Acceptable: ? <90 mg/dL ??Borderline high: ??90-129 mg/dL ??High: ? >or= 130 mg/dL Ages > or = 20 years ??Desirable: ?<150 mg/dL ??Borderline high: ??150-199 mg/dL ??High: ? 200-499 mg/dL ?Very high: ?? >or= 499 mg/dL Literature References: 1. Expert Panel on Integrated Guidelines for Cardiovascular Health and Risk Reduction in Children and Adolescents. Pediatrics 2011;128:S213 2. NCEP Expert Panel. Circulation 2004;110:227 Current Interpretive Data was last revised on 2018. Testing performed by: [facility], [address] [place] [address]., [address] HDL 51 >=40 mg/dL JULIET Comment: Interpretive Data Ages < or = 19 years ??Acceptable: ? >45 mg/dL ??Borderline low: ?? 40-45 mg/dL ??Low: ? <40 mg/dL Ages > or = 20 years ??Desirable: ?>or= 60 mg/dL ??Low: ? <40 mg/dL Literature References: 1. Expert Panel on Integrated Guidelines for Cardiovascular Health and Risk Reduction in Children and Adolescents. Pediatrics 2011;128:S213 2. NCEP Expert Panel. Circulation 2004;110:227 Current Interpretive Data was last revised on 2018. Testing performed by: [facility], [address] [place] [address]., [address] LDL, calculated 27 <=129 mg/dL JULIET Comment: Interpretive Data Ages < or = 19 years ??Acceptable: ? <110 mg/dL ??Borderline high: ??110-129 mg/dL ??High: ?>or= 130 mg/dL Ages > or = 20 years ??Optimal: ? <100 mg/dL ??Near optimal: ?100-129 mg/dL ??Borderline high: ?? 130-159 mg/dL ??High: ?>160 mg/dL Calculated using the Nael LDL-C estimating equation. This equation was implemented on 2024. Prior to this date LDL-C was estimated using the Friedewald equation. Literature References: 1. Expert Panel on Integrated Guidelines for Cardiovascular Health and Risk Reduction in Children and Adolescents. Pediatrics 2011;128:S213 2. NCEP Expert Panel. Circulation 2004;110:227 3. Nael M et al. YOSSI Cardiol. 2019November 16;5(5):540-548. doi: 10.1001/jamacardio.2020.0013 Current Interpretive Data was last revised on 2024. Testing performed by: [address] [address] Non-HDL Cholesterol 53 mg/dL JULIET KO Comment: Interpretive Data Ages < or = 19 years ??Acceptable: ?<120 mg/dL ??Borderline high: ??120-144 mg/dL ??High: ?>145 mg/dL Ages > or = 20 years ??When triglycerides are >200 mg/dL, Non-HDL cholesterol is a secondary target of ? therapy with treatment goals that are 30 mg/dL greater than the LDL cholesterol target. ? Literature References: 1. Expert Panel on Integrated Guidelines for Cardiovascular Health and Risk Reduction in Children and Adolescents. Pediatrics 2011;128:S213 2. NCEP Expert Panel. Circulation 2004;110:227 Current Interpretive Data was last revised on 2018. Testing performed by: [address] [address] Chol/HDL ratio 2 JULIET Comment:Testing performed by : [address] [address] Blood 04/14/2024 1:48 PM CDT 04/14/2024 6:13 PM CDT us Phoenix Glasgow MD LAB BLOOD ORDERABLES Final Result JULIET [address] Department [place] [address] * eGFR (03/09/2024 3:04 PM CDT) eGFR >90 >=60 mL/min/1. 73 m2 Comment: Interpretive Data Reference Interval Normal ?>/= 90 mL/min/1.73m2 Mildly decreased* ? 60 - 89 mL/min/1.73m2 Mildly to moderately decreased ?45 - 59 mL/min/1.73m2 Moderately to severely decreased ??30 - 44 mL/min/1.73m2 Severely decreased ?15 - 29 mL/min/1.73m2 Kidney Failure ?< 15 ??mL/min/1.73m2 *Relative to young adult level Estimated glomerular filtration rate is determined by the 2020 CKD-EPI equation recommended by the National Kidney Foundation (A Unifying Approach to GFR Estimation: Recommendations of the NKF-ASK Task Force on Reassessing the Inclusion of Race in Diagnosing Kidney Disease, JASN 2020). The CKD-EPI equation should not be used for patients with unstable renal function and has not been validated in children and those over 70. Current interpretive data was last reviewed 2021. Testing performed by: [facility], [address] [place] [address]., [address] Blood 03/09/2024 3:04 PM CDT 03/09/2024 9:15 PM CDT us Phoenix Glasgow MD LAB BLOOD ORDERABLES Final Result [facility] [address] [facility] Department [place] [address] * PSA screen (03/09/2024 3:04 PM CDT) Pathologist [facility] PSA-Total 1.47 <=5.40 ng/mL Comment: Interpretive Data ?AGE ? SEX ?REFERENCE INTERVAL 0 minutes-150 years ?Female ?None 0 minutes-49 years ? Male ?None ? 50-59 years ? Male ?0-3.90 ? 60-69 years ? Male ?0-5.40 ? 70-79 years ? Male ?0-6.20 ? 80-150 years ?Male ?0-6.20 The Atif PSA Total assay procedure was used. Results from different manufacturers or methods may not be comparable. Serial testing should be performed using the same method. Current interpretive data last revised 21. Testing performed by: [address] [address] Blood 03/09/2024 3:04 PM CDT 03/09/2024 9:08 PM CDT Phoenix Glasgow MD LAB BLOOD ORDERABLES Final Result Performing Organization Address City/State/[facility] Co de Phone Number JULIET [address] [facility] Department [place] [address] * (ABNORMAL) Hemoglobin A1c (03/09/2024 3:04 PM CDT) Hgb A1C 8.9(H) 4.0 - 5.6 % Comment:Testing performed by : [address] [address] Estimated Average Glucose 209 mg/dL JULIET KO Comment: The ADA recommends reporting an estimated Average Glucose (eAG) with all Hemoglobin A1c results using the equation derived from a study of 507 normal and diabetic adults. ??Minority populations were underrepresented and children were not included. ?? (Diabetes Care 31:0803-5777, 2008). ??The eAG is not equivalent to a fasting glucose. Testing performed by: [address] [place]., [address] Blood 03/09/2024 3:04 PM CDT 03/09/2024 9:08 PM CDT Phoenix Glasgow MD LAB BLOOD ORDERABLES Final Result Performing Organization Address [facility] Co de Phone Number JULIET [address] [facility] Department [place] [address] * HM DIABETES EYE EXAM (03/01/2023 9:04 AM CDT) SCRIBED DIABETIC DILATED EYE EXAM Normal Historical Provider HEALTH MAINTENANCE Final Result * Hepatitis C antibody (12/28/2016 11:53 AM CDT) Hep C Ab NON-REACTI VE NON-REACTI VE [facility] SIGNAL TO CUT-OFF 0.02 <1.00 [facility] [place] Blood specimen (specimen) 12/28/2016 11:53 AM CDT 12/28/2016 11:53 AM CDT Narrative [facility] - 12/29/2016 7:35 AM CDT FASTING:NO Resulting Agency Comment Performing Organization Information: ?Site ID: [id number] ?Name: [facility] ?Address: [address] [place] [address] [place] [address] ?Director: Phoenix Flanagan D.O., MPH Phoenix Glasgow MD LAB MICROBIOLOGY - GENERAL ORDERABLES Final Result Performing Organization Address [facility] Co de Phone Number [facility] [place] * COLONOSCOPY (09/07/2013 12:00 AM ELECTROMATIC TYPIST) Anatomical Region Laterality Modality Other Narrative 09/07/2013 12:00 AM ELECTROMATIC TYPIST Ordered by an unspecified provider. Procedure Note ProviderNicholas MD - 09/07/2013 12:00 AM CST PROCEDURE REPORT Patient: JAYDEN ZEPEDA Account: [id number] Room No: : 1955 Patient Type: SDS Attend.: Dillon Eaton M.D. Admit Date: 09/07/2013 Dict.: Dillon Eaotn M.D. Disch. Date: 09/07/2013 NAME OF PROCEDURE: Colonoscopy. HISTORY: This is a 57-year-old male who presents for screeningcolonoscopy. PHYSICAL EXAMINATION: GENERAL: Well-developed male. LUNGS: Clear. CARDIOVASCULAR: Unremarkable. He has severe Parkinson's disease. Tremoris controlled by electrode stimulators. We were prepared to but did not haveto turn off the stimulators since we did not have to use cautery. PROCEDURE: On digital exam, no abnormalities are palpable. We insertedthe endoscope and advanced it to the cecum. The colon was adequately preppedand visualized. We carefully searched the colonic mucosa, could find noevidence of inflammation or neoplasia anywhere through the length of the bowel.The patient tolerated the procedure without difficulty. POSTOPERATIVE DIAGNOSIS: Normal colonoscopy. Dillon Eaton M.D. DR/richard TD: 09/08/2013 09:52 CC: Phoenix Glasgow M.D. Authenticated by Dillon Eaton MD On 09/11/2013 02:53:15 PM Historical Provider ENDOSCOPY PROCEDURES Angelic l Result from Last 3 Months or Most Recently Relevant to Health Maintenance Insurance COUNT INCLUDES THE [facility] MEDICARE T MEDICARE T MEDICARE AET MEDICARE T MEDICARE Advance Directives For more information, please contact: [phone] * Full Code (Latest Code Status on File) Date Activated Date Inactivated Comments 12/05/2018 7:24 AM 12/08/2018 7:58 PM Care Teams Information Assurance Specialist Relationship Specialty Start Date End Date Phoenix Glasgow MD PCP - General 10/26/16 Moris Dhillon MD [address] [place] [address] Surgeon Orthopedic Surgery 12/02/17 Elizabeth Cordero OT [address] [facility] [place] [address] Occupational Therapist Occupational Therapy 01/18/18 Jeff Hanley, RAIL SPLITTER Speech Language Pathologist Speech Therapy 06/16/18 Corey Mcnamara MD Consulting Physician Pulmonary Disease 09/28/18
--- OUTSIDE RECORDS SUMMARY | 2024-08-18 19:19 | XMS_ITS | Encounter Summary ---
Author Organization [facility] Healthcare Address [address] [place] [address] Care Team Providers Care Rubber Tire Curer Name Role Phone Phoenix Glasgow MD Primary Care Provider [phone] Moris Dhillon MD Unavailable [phone] Elizabeth Cordero OT Unavailable Jeff Hanley Unavailable Unavailable Corey Mcnamara MD Unavailable [phone] Encounter Details Date Type Department Care Team (Late st Contact Info) Description 08/17/2024 Telephone [facility] [address] [place] [address] Francine Leroy RN Social History Tobacco Use Types Packs/Day Years Used Date Smoking Tobacco: Former Cigarettes 1 15 1 969 - 07/19/1986 Smokeless Tobacco: Never Alcohol Use Standard Drinks/Week Comments No 0 [...] on file 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 6 tablet 08/17/2024 5 documented in this encounter Miscellaneous Notes * Telephone Encounter - Francine Leroy RN - 08/17/2024 4:04 PM TRANSMISSION BUILDER Called patient's about his cough. She said he always coughs but it is worse today. He is bringing up yellow phlegm. Granddaughter was diagnosed with influenza A last week and patient's has had Influenza A sinceSunday. Verbal orders received from Dr. Glasgow: Tamiflu 75 mg bid x 5 days Z pack Tessalon Perles 200 mg tid prn x 7 days Go to ER if he worsens. Notified her of orders from Dr. Glasgow and she voiced understanding. She denied any questions. Spoke to Dr. Glasgow about warning received with Tamiflu and amantidine. Verbal order received to discontinue ordering Tamiflu. Called patient's and notified her of cancel for the Tamiflu She voiced understanding. She is aware of both other prescriptions that were sent to the pharmacy. Advised her again to have patient go to ER if he worsens and she voiced understanding. SMISSION BUILDER * Telephone Encounter - Francine Leroy RN - 08/17/2024 3:51 PM TRANSMISSION BUILDER Images from the original note were not included. Es Cherry (proxy for Jayden Cherry) [facility]/ Clinical Pool (supporting Phoenix Glasgow MD)1 hour ago (2:28 PM) VE Jayden was a dry cough with yellow mucus. He is not running a fever. What should I give him for the cough. The oswaldo pills worked in the pastbut I would need a new script. Another concern is that we were exposed to Flu A on Sat. and I have had it since Wednesday. I don???t want him to get it. Let me know. Thank you Es SMISSION BUILDER documented in this encounter Plan of Treatment Not on file documented as of this encounter Visit Diagnoses Diagnosis Productive cough- Primary Cough Exposure to influenza Contact with or exposure to other viral diseases documented in this encounter Care Teams Rubber Tire Curer Relationship Specialty Start Date End Date Phoenix Glasgow MD PCP - General 10/26/16 Moris Dhillon MD [address] [facility] [place] [address] Surgeon Orthopedic Surgery 12/02/17 Elizabeth Cordero OT [address] [facility] [place] [address] Occupational Therapist Occupational Therapy 01/18/18 Jeff Hanley, COOKING TEACHER Speech Language Pathologist Speech Therapy 06/16/18 Corey Mcnamara MD Consulting Physician Pulmonary Disease 09/28/18 documented as of this encounter
--- OUTSIDE RECORDS SUMMARY | 2024-08-18 19:19 | XMS_ITS | Encounter Summary ---
Author Organization [facility] Address [address] [place] [address] Phone Care Team Providers Care Filler Shredder Machine Name Role Phone Phoenix Glasgow MD Primary Care Provider [phone] Moris Dhillon MD Unavailable [phone] Elizabeth Cordero OT Unavailable [phone] Jeff Hanley Unavailable Unavailable Corey Mcnamara MD Unavailable [phone] Reason for Visit * Reason Onset Date Comments Scheduling Appointments 08/18/2024 Encounter Details Date Type Department Care Team (Late st Contact Info) Description 08/18/2024 Telephone [facility] Scheduling [address] [place] [address] Alejandro Corona MD [address] [address] Scheduling Appointments Social History Tobacco Use Types Packs/Day Years [...] on file 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 FICATION DIRECTOR documented in this encounter Plan of Treatment Not on file documented as of this encounter Visit Diagnoses Not on filedocumented in this encounter Care Teams Filler Shredder Machine Relationship Specialty Start Date End Date Phoenix Glagsow MD PCP - General 10/26/16 Moris Dhillon MD [address] [facility] [address] [place] [address] Surgeon Orthopedic Surgery 12/02/17 Elizabeth Cordero OT [address] [facility] [place] [address] Occupational Therapist Occupational Therapy 01/18/18 Jeff Hanley, FLARER Speech Language Pathologist Speech Therapy 06/16/18 Corey Mcnamara MD Consulting Physician Pulmonary Disease 09/28/18 documented as of this encounter
--- OUTSIDE RECORDS SUMMARY | 2024-08-18 19:19 | XMS_ITS | Clinical Summary ---
Author Organization [facility] Address [facility] [place] [address] [place] [address] Care Team Providers Care Diagnostic Medical Sonographer Name Role Phone Phoenix Glasgow MD Primary Care Provider [phone] Medications mirabegron ER (MYRBETRIQ) 50 MG 24 hr tablet Take 50 mg by mouth daily. Active trospium (SANCTURA) 20 MG tablet Take 20 mg by mouth 2 (two) times daily. 04/29/2022 Active memantine (NAMENDA) 10 MG tablet Take 10 mg by mouth 2 (two) times daily. 05/09/2022 Active NUEDEXTA 20-10 MG Cap capsule Take 1 capsule by mouth daily. 05/07/2022 Active carbidopa-levod opa CR (SINEMET CR) 50-200 MG tablet Take 2 tablets by mouth nightly at bedtime. 03/14/2022 Active venlafaxine XR (EFFEXOR-XR) 150 MG 24 hr capsule Take 150 mg by mouth daily. Take with 75 mg tablet 04/02/2022 Active venlafaxine XR (EFFEXOR-XR) 75 MG 24 hr capsule Take 75 mg by mouth daily. Take with 150 mg tablet 02/20/2022 Active amantadine (SYMMETREL) 100 MG capsule Take 100 mg by mouth daily. 04/03/2022 Active TRESIBA FLEXTOUCH 100 UNIT/ML Solution Pen-injector injection Inject 30 Units into the skin daily. 05/04/2022 Active zolpidem (AMBIEN) 10 MG tablet Take 10 mg by mouth nightly at bedtime. 04/20/2022 Active omeprazole (PRILOSEC) 40 MG capsule Take 40 mg by mouth daily. 03/16/2022 Active Active Problems Problem Noted Date Diagnosed Date Hypertension, essential 06/12/2019 Overview (05/11/2022): Last Assessment & Plan: Discontinue metoprolol . Progress report in about 3 weeks on blood pressure readings Diabetes mellitus without complication ([facility]) 11/15/2018 Overview (05/11/2022): Last Assessment & Plan: Patient's glucometer is reviewed results good his [...] on weekly and 30 day average . Gastroesophageal reflux disease 10/21/2018 Overview (05/11/2022): Last Assessment & Plan: Patient previously omeprazole from ear nose and throat physician. Patient along sees ear nose and throat. I will take over prescribing omeprazole for him. Which does help him with respect to heartburn esophagitis symptoms. Syncope and collapse 07/05/2017 Overview (05/11/2022): Last Assessment & Plan: Most likely vasovagal. He used to take midodrine in the past but was stopped because his blood pressure was running high. Dyspnea, unspecified 12/28/2016 Overview (05/11/2022): Last Assessment & Plan: Patient's advised me that he found out his shortness of breath was anxiety and panic. He is short of breath he purposely takes deep breaths at this makes a big difference shortness of breath goes away most of the time. Since he has been able to control his shortness of breath he has not been having the syncopal episodes.. Parkinson's disease ([facility]) 06/20/2012 Overview (05/11/2022): Description: deep brain stimulation Last Assessment & Plan: He had idiopathic PD s/p bilateral STN [...] exercises. Fall precautions to be maintained. ?? Family History Medical History Relation Comments ALS Father Diabetes Father Heart Attack Mother Diabetes Sister 1 Transient ischemic attack Sister 1 Diabetes Sister 2 Hypertension Sister 2 Relation Status Comments Father (Age 80) Maternal Grandfather Maternal Grandmother Mother Alive Paternal Grandfather Paternal Grandmother Sister 1 Alive Sister 2 Alive Social History Tobacco Use Types Packs/Day Years Used Date Smoking Tobacco: Former Cigarettes Q uit: 1986 Smokeless Tobacco: Never Alcohol Use Standard Drinks/Week Comments Never 0 (1 standard drink = 0.6 oz pur e alcohol) Sex and Gender Information Value Date Recorded Sex Assigned at Not on file Legal Sex Male 2:25 PM CDT Gender Identity Not on file Sexual Orientation Not on file Last Filed Vital Signs Vital Sign Reading Time Taken Comments Blood Pressure 142/64 05/11/2022 11:09 AM CDT Pulse 96 05/11/2022 11:09 AM CDT Temperature - - Respiratory Rate - - Oxygen Saturation - - Inhaled Oxygen Concentration - - Weight 95.3 kg (210 lb) 05/11/2022 11:09 AM CDT home weight Height 177.8 cm (5' 10 ) 05/11/2022 11:09 AM CDT Body Mass Index 30.13 05/11/2022 11:09 AM CDT Plan of Treatment Health Maintenance Due Date Last Done Comments Colorectal Cancer Screening Colonoscopy (10 Years) 1954 Kidney Health Evaluation 1954 Lipid Panel 1954 Diabetes: Retinopathy Eye Exam 1972 Hepatitis C 1972 DTaP, Tdap and Td Vaccines (1 - Tdap) 1973 RSV Immunization or 60+ Years (1 - Risk 60-74 years 1-dose series) 2014 Zoster Vaccines (2 of 3) 07/09/2015 05/14/2015 AAA SCREENING 11/13/2019 Annual Medicare Wellness Visit 11/13/2019 Pneumococcal Vaccine: 65+ Years (3 of 3 - PPSV23 or PCV20) 11/13/2019 12/28/2016, 09/19/2014 Hemoglobin A1C 11/17/2022 05/20/2022, 04/18, 12/03/2020, Additional history exists COVID-19 Vaccine ( season) 2024 09/23/2020, 08/26/2020 Influenza Adult (#1) 2024 05/06/2021, 04/17/2019, 05/17/2018, Additional history exists Meningococcal B Vaccine Aged Out No l onger eligible based on patient's age to complete this topic Meningococcal Vaccine Aged Out No carmen shilo eligible based on patient's age to complete this topic RSV Immunizations Under 20 Months Aged Out No longer eligible based on patient's age to complete this topic Insurance [employer] Care Teams Diagnostic Medical Sonographer Relationship Specialty Start Date End Date Phoenix Glasgow MD [address] [place] [address] PCP - General INTERNAL MEDICINE 04/20/22
--- OUTSIDE RECORDS SUMMARY | 2024-08-18 19:19 | XMS_ITS | Encounter Summary ---
Author Organization [facility] Healthcare Address [address] [place] [address] Care Team Providers Care Fur Sorter Name Role Phone Phoenix Glasgow MD Primary Care Provider [phone] Moris Dhillon MD Unavailable [phone] Elizabeth Cordero OT Unavailable Jeff Hanley Unavailable Unavailable Corey Mcnamara MD Unavailable [phone] Encounter Details Date Type Department Care Team (Late st Contact Info) Description 03/07/2024 Orders Only [facility] Medical Group [facility] [address] [place] [address] Scanning, Provider Social History Tobacco Use Types Packs/Day Years [...] on file 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 Gender Identity Male 10/22/2020 11:15 PM CDT Sexual Orientation Not on file documented as of this encounter Plan of Treatment Not on file documented as of this encounter Procedures Procedure Name Priority Date/Time Associated Diagnosis Comments SCAN - LABS 03/07/2024 documented in this encounter Results * SCAN - LABS (03/07/2024) us Provider Scanning Final Result documented in this encounter Visit Diagnoses Not on filedocumented in this encounter Care Teams Fur Sorter Relationship Specialty Start Date End Date Phoenix Glasgow MD PCP - General 10/26/16 Moris Dhillon MD [address] [facility] [place] [address] Surgeon Orthopedic Surgery 12/02/17 Elizabeth Cordero OT [address] [facility] [place] [address] Occupational Therapist Occupational Therapy 01/18/18 Jeff Hanley, PATIENT OBSERVATION ASSISTANT Speech Language Pathologist Speech Therapy 06/16/18 Corey Mcnamara MD Consulting Physician Pulmonary Disease 09/28/18 documented as of this encounter
--- OUTSIDE RECORDS SUMMARY | 2024-08-18 19:19 | XMS_ITS | Encounter Summary ---
Author Organization [facility] Address [address] [place] [address] Phone Care Team Providers Care Slipcover Cutter Name Role Phone Phoenix Glasgow MD Primary Care Provider [phone] Moris Dhillon MD Unavailable [phone] Sherly Drake OT Unavailable [phone] Elizabeth Cordero OT Unavailable [phone] Jeff Hanley WEATHERSTRIP MACHINE OPERATOR Unavailable Unavailable Corey Mcnamara MD Unavailable [phone] Encounter Details Date Type Department Care Team (Late st Contact Info) Description 07/21/2017 Orders Only [facility] [address] [place] [address] Phoenix Glasgow MD [address] [place] [address] [place] [address] Social History Tobacco Use Types Packs/Day Years Used Date Smoking Tobacco: Former Cigarettes Q uit: 07/05/1980 Smokeless Tobacco: Never Alcohol Use Standard Drinks/Week Comments No 0 (1 standard drink = 0.6 oz pur e alcohol) Sex and Gender Information Value Date Recorded Sex Assigned at Not on file 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 Gender Identity Male 10/22/2020 11:15 PM CDT Sexual Orientation Not on file documented as of this encounter Plan of Treatment Not on file documented as of this encounter Procedures Procedure Name Priority Date/Time Associated Diagnosis Comments CARDIOLOGY DOCUMENT SCAN 07/21/2017 12:24 PM MACHINE UMBRELLA TIPPER documented in this encounter Results * SCAN - CARDIOLOGY (07/21/2017 12:24 PM MACHINE UMBRELLA TIPPER) Anatomical Region Laterality Modality Other us Phoenix Glasgow MD CV CARDIAC SERVICES PROCED URES Final Result documented in this encounter Visit Diagnoses Not on filedocumented in this encounter Additional Health Concerns Infection Onset Date Last Indicated Resolved Time COVID: Suspected 04/07/2021 04/07/2021 04/07/2021 3:18 PM CDT COVID19 04/07/2021 04/07/2021 04/21/2021 3:05 AM CDT COVID: Suspected 06/23/2022 06/23/2022 06/23/2022 9:18 PM MACHINE UMBRELLA TIPPER COVID: Suspected 09/29/2022 09/29/2022 09/29/2022 1:26 PM CDT documented as of this encounter Care Teams Slipcover Cutter Relationship Specialty Start Date End Date Phoenix Glasgow MD PCP - General 10/26/16 Moris Dhillon MD [address] [place] [address] Surgeon Orthopedic Surgery 12/02/17 Sherly Drake OT [address] [place] [address] Occupational Therapist Occupational Therapy 12/21/17 Elizabeth Cordero OT [address] [facility] [place] [address] Occupational Therapist Occupational Therapy 01/18/18 Jeff Hanley, WEATHERSTRIP MACHINE OPERATOR Speech Language Pathologist Speech Therapy 06/16/18 Corey Mcnamara MD Consulting Physician Pulmonary Disease 09/28/18 documented as of this encounter
--- OUTSIDE RECORDS SUMMARY | 2024-08-18 19:19 | XMS_ITS | Encounter Summary ---
Author Organization [facility] Healthcare Address [address] [place] [address] Care Team Providers Care Tool Machine Set Up Operator Name Role Phone Phoenix Glasgow MD Primary Care Provider [phone] Moris Dhillon MD Unavailable Elizabeth Cordero OT Unavailable Jeff Hanley Unavailable Unavailable Corey Mcnamara MD Unavailable [phone] Encounter Details Date Type Department Care Team (Late st Contact Info) Description 03/12/2024 Orders Only [facility] Medical Group [facility] [address] [place] [address] Scanning, Provider Social History Tobacco [...] on file 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 Gender Identity Male 10/22/2020 11:15 PM CDT Sexual Orientation Not on file documented as of this encounter Plan of Treatment Not on file documented as of this encounter Procedures Procedure Name Priority Date/Time Associated Diagnosis Comments SCAN - RADIOLOGY/IMAGING 03/12/2024 documented in this encounter Results * SCAN - RADIOLOGY/IMAGING (03/12/2024) Anatomical Region Laterality Modality Other us Provider Scanning Final Result documented in this encounter Visit Diagnoses Not on filedocumented in this encounter Care Teams Tool Machine Set Up Operator Relationship Specialty Start Date End Date Phoenix Glasgow MD PCP - General 10/26/16 Moris Dhillon MD [address] [facility] [address] [place] [address] Surgeon Orthopedic Surgery 12/02/17 Elizabeth Cordero OT [address] [place] [address] Occupational Therapist Occupational Therapy 01/18/18 Jeff Hanley, BREWERY PUMPER Speech Language Pathologist Speech Therapy 06/16/18 Corey Mcnamara MD Consulting Physician Pulmonary Disease 09/28/18 documented as of this encounter
--- OUTSIDE RECORDS SUMMARY | 2024-08-18 19:19 | XMS_ITS | Referral Summary ---
Author Organization [facility] Address [address] [place] [address] Care Team Providers Care Knot Tier Name Role Phone Phoenix Glasgow MD Primary Care Provider [phone] Moris Dhillon MD Unavailable Elizabeth Cordero OT Unavailable [phone] Jeff Hanley Unavailable Unavailable Corey Mcnamara MD Unavailable [phone] Encounters Date Type Department Care Team Description 08/18/2024 Telephone [facility] Scheduling [address] [place] [address] Alejandro Corona MD Scheduling Appointments 08/17/2024 Telephone [facility] [address] [place] [address] Francine Leroy RN 08/15/2024 Telephone [facility] [address] [place] [address] Cathy Estrada RN [facility] 08/14/2024 10:30 AM GRINDING ROOM INSPECTOR Procedure visit [facility] Movement Disorders [address] [facility] 7th [place] [address] Marcela Harrison NP Dystonia (Primary Dx); Polyneuropathy; Status post deep brain stimulator placement; Parkinson's disease without dyskinesia or fluctuating manifestations (HCC) 08/14/2024 10:00 AM GRINDING ROOM INSPECTOR Office Visit [facility] Movement Disorders [address] [place] [address] 7th [place] [address] Nan Bravo MD Parkinson's disease without dyskinesia or fluctuating manifestations (HCC) (Primary Dx) 08/02/2024 Telephone [facility] [address] [place] [address] Phoenix Glasgow MD 07/31/2024 Telephone [facility] [address] [place] [address] Phoenix Glasgow MD 07/17/2024 2:30 PM GRINDING ROOM INSPECTOR Office Visit [facility] [address] [place] [address] Phoenix Glasgow MD Mild intermittent asthma without complication (Primary Dx); Diabetes mellitus without complication (CMS/HCC) (HCC); Depression, major, in remission (HCC) 06/26/2024 Orders Only [facility] Movement Disorders [address] [place] [address] 6th [place] [address] [place] [address] Nan Bravo MD Torsion dystonia 06/14/2024 8:45 AM GRINDING ROOM INSPECTOR Office Visit [facility] Cardiology [address] [facility] [address] [place] [address] Bill Moy MD 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 (Primary Dx); Hypertension, essential; Status post non-ST elevation myocardial infarction (NSTEMI); Neurogenic orthostatic hypotension (CMS/HCC) (HCC); Parkinson's disease, unspecified whether dyskinesia present, unspecified whether manifestations fluctuate (HCC) 05/26/2024 1:00 PM GRINDING ROOM INSPECTOR Therapy [facility] Physical Therapy [address] [facility] 6th [place] [address] [place] [address] Deisy Quan, FRANCISCO J Torsion dystonia from Last 3 Months Allergies No known active allergies Medications zolpidem [...] michell Gates/Dr Glasgow 06/04/21 315 pm Josiane Conn, OBI Active dextromethorpha n-quiNIDine (NUEDEXTA) 20-10 mg capsuleIndicati [...] tablet (20 mg total) by mouth daily Active cyanocobalamin (Vitamin B-12) 1,000 mcg tabletIndicatio [...] 1 capsule (100 mg total) by mouth herbologist before breakfast 90 capsule 3 024 2024 Active carbidopa-levod opa (SINEMET) 25-100 mg per tabletIndicatio ns:Parkinsonism Take 1 tablet by mouth herbologist before breakfast michell Kamara/Dr Bravo/Josiane Conn RN 11/19/21 152 pm 90 tablet 1 024 Active omeprazole (PriLOSEC) 40 mg capsuleIndicati ons:heartburn TAKE 1 CAPSULE BY MOUTH EVERY DAY 90 capsule 1 Active insulin degludec (TRESIBA) 200 unit/mL (3 mL) pen for injectionIndica tions:Diabetes mellitus without complication (CMS/HCC) ([facility]) Inject 0.06 mL (12 Units total) under the skin daily Active insulin glargine 100 unit/mL (3 mL) pen for injectionIndica tions:Controlle d type 2 diabetes mellitus without complication, with long-term current use of insulin (CMS/HCC) ([facility]) Inject 12 Units under the skin daily 12 mL 025 Active QUEtiapine (SEROquel) 25 mg tablet Take 1 tablet (25 mg total) by mouth 3 (three) times a day Three tabs a night 024 Active azithromycin (ZITHROMAX) 250 mg tabletIndicatio ns:Productive [...] 07/17/2024 Assessment & Plan (07/17/2024 6:18 PM GRINDING ROOM INSPECTOR): Patient is maintained on citalopram 20 mg daily as effective in keeping his depression in remission Acute cholecystitis 05/14/2024 Assessment & Plan (05/14/2024 4:40 PM CDT): Patient is admitted to [facility] 03/11/2024 and discharged on 03/17/2024 diagnosed with [...] dry skin causes some itching. Recommend to [id number] products for them to try if this fails can follow-up with Dermatology. Products were Lubriderm and Eucerin. Polyneuropathy 11/05/2023 Bilateral carpal tunnel syndrome 11/05/2023 Status post non-ST elevation myocardial infarcti on (NSTEMI) 07/07/2023 Assessment & Plan (07/07/2023 11:24 AM GRINDING ROOM INSPECTOR): Admitted 05/17/2023 [facility] discharge on 05/26/[address] elevation myocardia infarction. Patient is asymptomatic at this time. Coronary artery disease invo lving blue lake coronary artery of blue lake heart without angina pectoris 06/23/2023 Assessment & Plan (07/17/2024 6:02 PM GRINDING ROOM INSPECTOR): Patient remains asymptomatic status post PR several years ago. Pressure is well controlled continue present therapy Assessment & Plan (03/09/2024 5:52 PM CDT): Patient continues on metoprolol 50 mg daily status post PR he is asymptomatic. Hereditary and idiopathic neuropathy 03/15/2023 Controlled type 2 diabetes m tracy without complication, with long-term current use of insulin ([facility]) 03/05/2023 Assessment & Plan (03/09/2024 5:49 PM [...] should. Today I gave him sample of freestyle Juan 3 which is solve the problem of having to scan 4 times a day and therefore will increase his time since her activity. At this time I am going to reduce his insulin from 22 units daily down to 18 units daily because of his hypoglycemia Type 2 diabetes mellitus with hyperglycemia ([facility]) 03/05/2023 Assessment & Plan (07/17/2024 6:10 PM GRINDING ROOM INSPECTOR): Patient is ambulatory glucose profile reviewed recent [...] daily Assessment & Plan (07/07/2023 11:19 AM GRINDING ROOM INSPECTOR): Diabetes very well controlled ambulatory CGM results [...] complication Assessment & Plan (07/17/2024 6:13 PM GRINDING ROOM INSPECTOR): Patient's cough has greatly improved with the use of albuterol nebulizer continue present Assessment & Plan (09/30/2022 11:25 AM CDT): Please see note for September 29 2022 visit. Assessment & Plan (08/04/2022 5:27 PM GRINDING ROOM INSPECTOR): Patient has been having coughing wheezing shortness of breath for the past month when he coughs he passes out .. Patient has advanced Parkinson's. He was taken to the emergency room but the wait was too long any left movie operator did give him albuterol in ambulates in this relieved his coughing and shortness of breath. Patient has a nebulizer at home years back when a food and beverage analyst prescribe it for another reason according to [...] 04/07/2021 Assessment & Plan (07/07/2023 11:25 AM GRINDING ROOM INSPECTOR): Patient recently had COVID 06/15/2023 he has had significant recovery 90% back to his baseline Assessment & Plan (04/07/2021 5:04 PM CDT): Rapid covid test= positive Pt given quarantine guidelines for the state of [place]. Advised to stay well hydrated and use tylenol for aches/pains. If any symptoms worsen, he must go to the ER. Richelle garcia to pharmacy for cough. Discussed the antibody infusion which he is interested in--nurses to call to set this up. COVID 04/07/2021 Hypertension, essential 06/12/2019 Assessment & Plan (07/07/2023 11:26 AM GRINDING ROOM INSPECTOR): Blood pressure remains well controlled no change in therapy Assessment & Plan (03/05/2023 4:13 PM CDT): Hypertension remains well controlled patient is tolerating medications no change in therapy Assessment & Plan (06/01/2022 6:20 PM GRINDING ROOM INSPECTOR): Blood pressure 100/54 pulse is 97 patient feels his normal self no change in therapy Assessment & Plan (05/06/2021 5:33 PM CDT): Discontinue metoprolol . Progress report in about 3 weeks on blood pressure readings Assessment & Plan (06/12/2019 6:03 PM GRINDING ROOM INSPECTOR): Patient recently been running elevated blood pressure [...] 03/20 Assessment & Plan (08/14/2024 11:31 AM GRINDING ROOM INSPECTOR): Mr. Zepeda presented for further programming and a visit with Dr. Braov. He is s/p Bilateral STN DBS (2012). Dr. Bravo ordered in home OT/PT/ST today. He was doing about the same overall. He continued to follow up in [place] clinic for neuropathy. His DBS was interrogated [...] OT Assessment & Plan (07/26/2023 3:56 PM GRINDING ROOM INSPECTOR): Mr. Zepeda presented in the med off [...] needed Assessment & Plan (07/27/2022 12:44 PM GRINDING ROOM INSPECTOR): Mr. Zepeda presented for further programming. Is [...] Start in home PT/OT/ST- orders sent to [facility] home care today 4. Start APDA [employer] exercises 5. Continue the same levodopa IR/CR, [...] the pros and cons of the DBS Dishcloth Folder [email or web address] deep brain systems including battery size, battery longevity, unilateral vs. bilateral, rechargeable vs. primary cell, MRI compatibility, surgical issues, features, and programming features. We decided to proceed using the DBS Dishcloth Folder [employer] DBS IPG type Activa SC implantable pulse [...] PT/ST/OT. He would like to go through [facility] Home Care- Order placed today 3. Same [...] what the readings are or send via [employer]. Today on exam. He had rigidity, bradykinesia [...] scheduled. Assessment & Plan (08/01/2019 12:02 PM GRINDING ROOM INSPECTOR): Mr. Zepeda continue to manage reasonably well [...] . His was fluent with the patient gis programmer if they need to change settings. At [...] . His was fluent with the patient gis programmer if they need to change settings. At [...] to GI. Other considerations to go to [facility] if Imodium fails prescriptions are written for disposable diapers/depends 200 per month. [place] given to the Medicare annual wellness visit, subsequent 08/09 Assessment & Plan (09/30/2022 11:46 AM CDT): Patient history and physical completed patient's health risk assessment health maintenance reviewed in addressed take health problems are addressed his Parkinson's managed by [facility] in [place] Neurology Department. Asthma associated with a chronic [...] 07/05/2017 Assessment & Plan (08/09/2017 10:19 AM GRINDING ROOM INSPECTOR): Most likely vasovagal. He used to take midodrine in the past but was stopped because his blood pressure was running high. Assessment & Plan (07/05/2017 10:48 AM GRINDING ROOM INSPECTOR): His syncope symptoms happen on coughing and [...] advised she can receive these vaccines at [facility]. Patient's only new health problems mild TMJ is episodic. Patient has advanced Parkinson's deep brain stimulation therapy has been done. Communicates very slowly he is totally motorized wheelchair dependent. Assessment & Plan (06/01/2022 6:27 PM GRINDING ROOM INSPECTOR): 66-year-old gentleman here with his he has [...] episodes.. Assessment & Plan (08/09/2017 10:13 AM GRINDING ROOM INSPECTOR): Echocardiogram shows normal systolic function and grade 1 diastolic dysfunction. He also has vocal cord dysfunction. Follow up with Pulmonary to rule out pulmonary cause. Assessment & Plan (07/05/2017 10:48 AM GRINDING ROOM INSPECTOR): Will order an echocardiogram to assess cardiac [...] 06/19/2015 Assessment & Plan (07/07/2023 2:36 PM GRINDING ROOM INSPECTOR): Jayden Zepeda is a 67 y.o. male [...] stimulation Assessment & Plan (08/14/2024 10:52 AM GRINDING ROOM INSPECTOR): He had idiopathic PD s/p bilateral STN [...] Most recent notes reviewed he goes to [facility] in [place] Department Neurology for treatment of his Parkinson's. [...] blurred speech patient's managed by Neurology and [facility] Assessment & Plan (06/01/2022 6:25 PM GRINDING ROOM INSPECTOR): Patient continues under care of Neurology at [facility] in [place]/[facility] Assessment & Plan (01/05/2022 1:32 PM CDT): [...] CDT): Parking send managed by Neurology at [place] and Neurosurgery Department. Assessment & Plan (09/23/2018 1:23 PM GRINDING ROOM INSPECTOR): He had idiopathic PD s/p bilateral STN [...] & Plan (12/29/2016 6:37 PM CDT): Neurology [place] has been following this gentleman for several [...] her at this time he was 2 Wednesday to give her any assist and she [...] (12/05/2018): Added automatically from request for surgery [id number] Assessment & Plan (12/26/2018 1:05 PM CDT): [...] or concerns Diabetes mellitus without co mplication ([facility]) 11/15/2018 09/30/2022 Assessment & Plan (09/30/2022 11:30 [...] units. Assessment & Plan (08/04/2022 5:28 PM GRINDING ROOM INSPECTOR): Patient's glucose is dropping in the evening he is getting in the hypoglycemic range. About 17% of the time. Does not have severe hypoglycemia I reduced his basal insulin from 32 units daily down to 28 units. Assessment & Plan (06/01/2022 6:22 PM GRINDING ROOM INSPECTOR): Diabetes not controlled he is taking 30 [...] with laboratory studies today patient's sees a circuit rider and a back hanger on annual basis. Assessment & Plan (12/29/2019 9:49 AM CDT): Patient has been advised by his circuit rider that he has neuropathy in his feet.. He is unable to feel the monofilament testing.. Patient's last HgbA1c was 7.9 plans today is doing update his HgbA1c also check his renal functions in lipid profile. Assessment & Plan (06/12/2019 6:01 PM GRINDING ROOM INSPECTOR): Patient's hemoglobin HgbA1c was 7.9 down from [...] [place] [address] range recheck HgbA1c today patient cannot do [...] delayed.. Patient's is here who is his radio tower technician she was taught how to give him [...] return to 10.6.. Will refer patient to paraeducator next week. Skin lesion of chest wall [...] 07/07/2023 Splitting of urinary stream 08/07/2014 07/07/2023 Immunizations Name Administration Dates Next Due Influenza, Quadrivalent, Christy l Culture-based MDCK, Antibiotic Free, Intramuscular 06/08/2017 [...] Pneumococcal Polysaccharide PPV23 09/19/2014 ZOSTER LIVE 05/14/2015 Social History Tobacco Use Types Packs/Day Years [...] on file Legal Sex Male 2:23 AM GRINDING ROOM INSPECTOR Gender Identity Male 10/22/2020 11:15 PM CDT Sexual Orientation Not on file Last Filed Vital Signs Vital Sign Reading Time Taken Comments Blood Pressure 115/72 08/14/2024 10:15 AM GRINDING ROOM INSPECTOR Pulse 67 08/14/2024 10:15 AM GRINDING ROOM INSPECTOR Temperature 36.4 ??C (97.5 ??F) 07/17/2024 2:35 PM CS T Respiratory Rate 16 07/17/2024 2:35 PM GRINDING ROOM INSPECTOR Oxygen Saturation 99% 07/17/2024 2:35 PM GRINDING ROOM INSPECTOR Inhaled Oxygen Concentration - - Weight 95.3 kg (210 lb) 01/05/2024 3:39 PM CDT Height 177.8 cm (5' 10 ) 01/17/2024 1:43 PM CDT Body Mass Index 30.13 01/05/2024 3:39 PM CDT Plan of Treatment Not on file Medical Devices Implanted Type Area Dishcloth Folder Device Identifier Shelf Expiration Date Model / Serial / Lot Knee Replacement Right: Knee Medtronic Activa Sc-08/19/2012 Implanted: 013 by Alejandor Avery MD (Quantity not on file) Right: Chest Medtronic Activa Sc-08/19/2012 Implanted: 013 by Alejandro Avery MD (Quantity not on file) Left: Chest Wall Medtronic Neuro [id number] Activa Sc 2.4inx2.2in .4in 1 Channel Quadripolar Multiprogram - [id number] - [id number] Implanted:Qty: 1 on 11/18/2018 at [facility] Right: Chest Medtronic Neuro 03/01/2020 46570 / [id number] / Medtronic Neuro 16796-09 Dbs 3.8-1.3mm 1.5mm 60cm Quadripolar Distal Octapolar Proximal - [id number] - [id number] Implanted:Qty: 1 on 01/27/2019 by Alejandro Avery MD at [facility] Medtronic Inc 04/01/2022 73709- 60 / [id number] / Medtronic Inc Stimulator Activa 56063 - [id number] - [id number] Implanted:Qty: 1 on 02/20/2022 by Alejandro Avery MD at [facility] Left: Chest Medtronic Inc 05/15/2023 59582 / [id number] / Medtronic Inc Stimulator Activa 11714 - [id number] - [id number] Implanted:Qty: 1 on 02/20/2022 by Alejandro Avery MD at [facility] Right: Chest Medtronic Inc 06/01/2023 88018 / [id number] / Explanted Type Area Dishcloth Folder Device Identifier Shelf Expiration Date Model / Serial / Lot Medtronic Neuro 36963 Activa Sc 2.4inx2.2in .4in 1 Channel Quadripolar Multiprogram - [id number] - [id number] Explanted:Qty: 1 on 11/18/2018 at [facility] Medtronic Neuro 18983 / [id number] / Medtronic Neuro 80451 Activa Sc 2.4inx2.2in .4in 1 Channel Quadripolar Multiprogram - [id number] - [id number] Explanted:Qty: 1 on 11/18/2018 at [facility] Medtronic Neuro 16673 / [id number] / Medtronic Neuro 94302 Activa Sc 2.4inx2.2in .4in 1 Channel Quadripolar Multiprogram - [id number] - [id number] Implanted:Qty: 1 on 11/18/2018 at [facility] Explanted:Qty: 1 on 02/20/2022 at [facility] Left: Chest Medtronic Neuro 03/15/2020 46335 / [id number] / Medtronic Neuro [id number] Activa Sc 2.4inx2.2in .4in 1 Channel Octapolar Multiprogram - [id number] - [id number] Implanted:Qty: 1 on 01/27/2019 by Alejandro Avery MD at [facility] Explanted:Qty: 1 on 02/20/2022 at [facility] Medtronic Inc 06/01/2020 49951 / [id number] / Procedures Procedure Name Priority Date/Time Associated Diagnosis Comments ALBUMIN CREATININE RATIO, URINE Routine 04/25/2024 1:49 PM CDT Type 2 diabetes mellitus with hyperglycemia, with long-term current use of insulin (HCC) LIPID PANEL Routine 04/14/2024 1:48 PM CDT 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 EGFR Routine 03/09/2024 [...] other communicable diseases COLONOSCOPY 09/07/2013 12:00 AM GRINDING ROOM INSPECTOR from Last 3 Months or Most Recently Relevant to Health Maintenance Results * Albumin Creatinine Ratio, Urine (04/25/2024 1:49 PM CDT) Albumin Ur 32.7 mg/L Comment: Interpretive Data No reference range established. Current interpretive data was last revised 2018. Testing performed by: [facility], [address] [place] [address]., [address] Creatinine Ur 161.9 mg/dL JULIET Comment: Interpretive Data No reference range established. Current interpretive data was last revised 2018. Testing performed by: [facility], [address] [place] [address]., [address] Albumin Creatinine Ratio, Ur 20 1 - 29 mg/g JULIET Comment:Testing performed by : [facility], [address] [place] [address]., [address] Urine 04/25/2024 1:49 PM CDT 04/25/2024 5:16 PM CDT us Phoenix Glasgow MD LAB URINE ORDERABLES Final Result [facility] [address] Department [place] [address] * (ABNORMAL) Lipid panel (04/14/2024 1:48 PM CDT) Pathologist [facility] Cholesterol 104 30 - 199 mg/dL Comment: [...] last revised on 2018. Testing performed by: [facility], [address] [place] [address]., [address] Triglycerides 157(H) <=149 mg/dL JULIET Comment: Interpretive [...] last revised on 2018. Testing performed by: [facility], [address] [place] [address]., [address] HDL 51 >=40 mg/dL JULIET Comment: Interpretive [...] last revised on 2018. Testing performed by: [facility], [address] [place] [address]., [address] LDL, calculated 27 <=129 mg/dL JULIET KO Comment: Interpretive Data Ages [...] 3. Nael M et al. YOSSI Cardiol. 2020 November 16;5(5):540-548. doi: 10.1001/jamacardio.2020.0013 Current Interpretive Data was last revised on 2024. Testing performed by: [facility], [address] [place] [address]., [address] Non-HDL Cholesterol 53 mg/dL JULIET KO Comment: [...] last revised on 2018. Testing performed by: [facility], [address] [place] [address]., [address] Chol/HDL ratio 2 JULIET KO Comment:Testing performed by : [facility], [address] [place] [address]., [address] Blood 04/14/2024 1:48 PM CDT 04/14/2024 6:13 PM CDT Phoenix Glasgow MD LAB BLOOD ORDERABLES Final Result JULIET [address] [facility] Department [place] [address] * eGFR (03/09/2024 3:04 PM CDT) eGFR [...] was last reviewed 2021. Testing performed by: [facility], [address] [place] [address]., [address] Blood 03/09/2024 3:0 4 PM CDT 03/09/2024 9:15 PM CDT Phoenix Glasgow MD LAB BLOOD ORDERABLES Final Result Performing Organization Address [facility] [place] [address] [address] [place] [address] * PSA screen (03/09/2024 3:04 PM CDT) PSA-Total 1.47 <=5.40 ng/mL Comment: Interpretive Data [...] data last revised 21. Testing performed by: [facility], [address] [place] [address]., [address] Blood 03/09/2024 3:04 PM CDT 03/09/2024 9:08 PM CDT us Phoenix Glasgow MD LAB BLOOD ORDERABLES Final Result Performing Organization Address [facility] [place] [address] [facility] Department [place] [address] * (ABNORMAL) Hemoglobin A1c (03/09/2024 3:04 PM CDT) [facility] Hgb A1C 8.9(H) 4.0 - 5.6 % Comment:Testing performed by : [facility], [address] [place] [address]., [address] Estimated Average Glucose 209 mg/dL JULIET KO Comment: The ADA recommends reporting an estimated Average Glucose (eAG) with all Hemoglobin A1c results using the equation derived from a study of 507 normal and diabetic adults. ??Minority populations were underrepresented and children were not included. ?? (Diabetes Care 31:0239-2087, 2007). ??The eAG is not equivalent to a fasting glucose. Testing performed by: [address] [address] Blood 03/09/2024 3:04 PM CDT 03/09/2024 9:08 PM CDT Phoenix Glasgow MD LAB BLOOD ORDERABLES Final Result JULIET [address] [facility] [place] [address] * DIABETES EYE EXAM (03/01/2023 9:04 AM CDT) [facility] SCRIBED DIABETIC DILATED EYE EXAM Normal Historical Provider HEALTH MAINTENANCE Final Result * Hepatitis C antibody (12/28/2016 11:53 AM CDT) [facility] Hep C Ab NON-REACTI VE NON-REACTI VE [facility] SIGNAL TO CUT-OFF 0.02 <1.00 [facility] [place] Blood specimen (specimen) 12/28/2016 11:53 AM CDT 12/28/2016 11:53 AM CDT Narrative [facility] - 12/29/2016 7:35 AM CDT FASTING:NO Resulting Agency Comment Performing Organization Information: ?Site ID: BRITT[facility] ?Name: [facility] ?Address: [address] [address] ?Director: Phoenix Flanagan D.O., MPH us Phoenix Glasgow MD LAB MICROBIOLOGY - GENERAL ORDERABLES Final Result [facility] * COLONOSCOPY (09/07/2013 12:00 AM GRINDING ROOM INSPECTOR) Anatomical Region Laterality Modality Other Narrative 09/07/2013 12:00 AM GRINDING ROOM INSPECTOR Ordered by an unspecified provider. Procedure Note ProviderNicholas MD - 09/07/2013 12:00 AM CST PROCEDURE REPORT Patient: JAYDEN ZEPEDA Account: [id number] Room No: : 1955 Patient Type: [facility] Attend.: Dillon Eaton M.D. Admit Date: 09/07/2013 Dict.: Dillon Eaton M.D. Disch. Date: 09/07/2013 NAME OF PROCEDURE: [...] Dillon Eaton MD On 09/11/2013 02:53:15 PM us Historical Provider ENDOSCOPY PROCEDURES Angelic l Result from Last 3 Months or Most Recently Relevant to Health Maintenance Insurance T MEDICARE T MEDICARE T MEDICARE MEDICARE MEDICARE Advance Directives For more information, please contact: [phone] * Full Code (Latest Code Status on File) Date Activated Date Inactivated Comments 12/05/2018 7:24 AM 12/08/2018 7:58 PM Care Teams Knot Tier Relationship Specialty Start Date End Date Phoenix Glasgow MD PCP - General 10/26/16 Moris Dhillon MD [address] [facility] [place] [address] Surgeon Orthopedic Surgery 12/02/17 Elizabeth Cordero, OT [address] [place] [address] Occupational Therapist Occupational Therapy 01/18/18 Jeff Hanley, KNIFE CHANGER Speech Language Pathologist Speech Therapy 06/16/18 Corey Mcnamara MD Consulting Physician Pulmonary Disease 09/28/18
--- NOTE | 2024-08-18 19:54 | ED.FEVER ---
HPI - Fever General Chief Complaint: Fever Stated Complaint: fever Time Seen by Provider: 08/18/24 19:09 History of Present Illness HPI Narrative: Patient is a 68-year-old male with history of Parkinson's disease who presents ER with fever and hypoxia. is had influenza as has another close family member. Started feeling unwell yesterday. Seen by PCP and started on azithromycin. Was not started on Tamiflu as it would interact with his amantadine. Patient has no complaints of pain but does report fever/cough. He has had no falls. Related Data Home Medications ?Medication ?Instructions ?Recorded ?Confirmed ?Last Taken ?Type amantadine HCl 100 mg capsule 100 mg PO DAILY 05/16/23 08/18/24 08/17/24 History carbidopa 25 mg-levodopa 100 mg 1 tablet PO DAILY 05/16/23 08/18/24 08/17/24 History tablet (Sinemet) carbidopa ER 50 mg-levodopa 200 mg 2 tablet PO HS 05/16/23 08/18/24 08/17/24 History tablet,extended release escitalopram oxalate 20 mg tablet 20 mg PO DAILY 05/16/23 08/18/24 08/17/24 History gabapentin 100 mg capsule 100 mg PO TID 05/16/23 08/18/24 08/17/24 History insulin degludec 200 unit/mL (3 10 unit subcut DAILY 05/16/23 08/18/24 08/17/24 History mL) subcutaneous pen (Tresiba FlexTouch U-200 insulin) memantine 10 mg tablet 10 mg PO Q12H 05/16/23 08/18/24 08/17/24 History omeprazole 40 mg capsule,delayed 40 mg PO DAILY 05/16/23 08/18/24 08/17/24 History release polyethylene glycol 3350 17 gram 17 g PO DAILY 05/16/23 08/18/24 08/17/24 History oral powder packet (Miralax) venlafaxine 150 mg 150 mg PO DAILY 05/16/23 08/18/24 08/17/24 History capsule,extended release 24 hr vitamin B complex-vitamin C 100 1 tablet PO DAILY 05/16/23 08/18/24 Unknown History mg-folic acid 1 mg tablet zolpidem 10 mg tablet 10 mg PO HS 05/16/23 08/18/24 08/17/24 History atorvastatin 40 mg tablet 40 mg PO DAILY 03/12/24 08/18/24 08/17/24 History dextromethorphan 20 mg-quinidine 1 cap PO DAILY 03/12/24 08/18/24 08/17/24 History 10 mg capsule (Nuedexta) metoprolol tartrate 25 mg tablet 25 mg PO Q12H 03/12/24 08/18/24 08/17/24 History quetiapine 25 mg tablet 75 mg PO HS 03/12/24 08/18/24 08/17/24 History Allergies Allergy/AdvReac Type Severity Reaction Status Date / Time No Known Allergies Allergy Unknown Verified 04/20/24 13:58 NKFA Allergy Unknown Unknown Uncoded 04/20/24 13:58 Review of Systems Review of Systems: All systems reviewed & are unremarkable except as noted in HPI and below Constitutional: Constitutional: Reports no additional constitutional complaints Cardiovascular: Cardiovascular: Reports no additional cardiovascular complaints Respiratory: Respiratory: Reports no additional respiratory complaints Gastrointestinal: Gastrointestinal: Reports no additional gastrointestinal complaints [facility] Past Medical History Medical History Arthritis Diabetes mellitus Kidney stones Parkinson's disease Right knee meniscal tear Surgical History Surgical History H/O arthroscopy of right knee Hx of transurethral resection of prostate S/P deep brain stimulator placement Family History Family History Mother Acute myocardial infarction Social History Social History Smoking status: Former smoker Alcohol intake: former Substance use: never Do You Feel Safe in your Home?: Yes Lack of Transportation: No Lack of Food: Never True Current Housing: I Have Housing Concerned About Future Housing: No Difficulty Paying Gas/Electric Bills: No Difficulty Paying for Meds: No Currently Unemployed: No Education: High School Diploma/GED Difficulty w/ Childcare or Family Care: No Gender identity (if verbalized by the patient): Male Spiritual care concerns: No Exam Narrative: GENERAL: Chronically ill-appearing, well-nourished, and in no acute distress. HEAD: Normocephalic, atraumatic. ENT: Mucous membranes moist. NECK: Supple. CHEST: Clear to auscultation. No respiratory distress. HEART: Regular rate and rhythm. Normal peripheral pulses. ABDOMEN: Soft, nontender, nondistended,. EXTREMITIES: Normal range of motion. No edema. SKIN: Warm, dry, no rash. NEURO: N Alert and oriented x3. PSYCH: Normal mood and affect. Course Reevaluation(s) Reevaluation #1: Oxygenation improved with nasal cannula O2. Admit to hospitalist service. Scheduled breathing treatments while in hospital. Hospitalist like to hold Tamiflu in favor of continuing patient's amantadine. Vital Signs Vital signs: Vital Signs Temperature 99.1 F 08/18/24 15:51 Pulse Rate 88 08/18/24 15:51 Respiratory Rate 15 08/18/24 15:51 Blood Pressure 114/59 L 08/18/24 15:51 Pulse Oximetry 89 L 08/18/24 15:51 Oxygen Delivery Room Air 08/18/24 15:51 Temperature 98.5 F 08/19/24 06:00 Pulse Rate 103 H 08/19/24 06:00 Respiratory Rate 14 08/19/24 06:00 Blood Pressure 175/83 H 08/19/24 06:00 Pulse Oximetry 100 08/19/24 06:00 Oxygen Delivery Nasal Cannula 08/18/24 21:57 Oxygen Flow Rate 2 08/18/24 21:57 MDM - Fever Lab Data 08/18/24 16:38 08/18/24 16:38 Labs: Lab Results 08/18/24 Range/Units 16:38 WBC 4.2 L (4.5-10.0) K/mm3 RBC 3.70 L (4.6-6.20) M/mm3 Hgb 9.9 L (14.0-18.0) g/dL Hct 31.5 L (42.0-52.0) % MCV 85.1 (80-100) fl MCH 26.8 (26-34) pg MCHC 31.4 L (32-36) g/dl RDW 14.4 (11.5-14.5) % Plt Count 271 (150-375) k/mm3 MPV 9.8 (7.4-10.4) fl Immature Gran % (Auto) 0.2 (0-0.5) % Neut % (Auto) 88.8 H (45.5-73.1) % Lymph % (Auto) 7.2 L (18.3-44.2) % [place] % (Auto) 2.9 (2.6-8.5) % Eos % (Auto) 0.7 (0-4.4) % Baso % (Auto) 0.2 (0.2-1.2) % Lymph # (Auto) 0.30 L (0.9-3.2) K/mm3 [place] # (Auto) 0.1 (0.1-0.6) K/mm3 Eos # (Auto) 0.0 (0-0.3) K/mm3 Baso # (Auto) 0.0 (0.0-0.1) K/mm3 Abs Immat Gran (auto) 0.01 (0.00-0.031) K/mm3 Absolute Neuts (auto) 3.7 (1.3-6.7) K/mm3 Absolute Nucleated RBC 0.000 (0.0-0.012) K/mm3 Nucleated RBC % 0.0 (0.0-0.2) % Sodium 136 L (137-145) mmol/L Potassium 3.9 (3.4-5.0) mmol/L Chloride 102 (98-107) mmol/L Carbon Dioxide 25 (22-30) mmol/L Anion Gap 9 (4-12) mmol/L BUN 24 H D (9-20) mg/dL Creatinine 1.03 (0.7-1.3) mg/dL Estim Creat Clear Calc 62 ml/min Estimated GFR > 60 (59 - ) Glucose 145 H (65-110) mg/dL Calcium 8.7 (8.4-10.2) mg/dL Total Bilirubin 0.5 (0.2-1.3) mg/dL AST 23 (17-59) U/L ALT 7 (6-50) U/L Alkaline Phosphatase 145 H (38-126) U/L Total Protein 7.0 (6.3-8.2) g/dL Albumin 3.5 (3.5-5.1) g/dL Urine Color Dark yellow (Yellow) Urine Appearance Clear (Clear) Urine pH 5.0 (5.0-9.0) Ur Specific [place] 1.029 (1.001-1.035) Urine Protein 1+ H (Negative) mg/dL Urine Glucose (UA) 1+ H (Negative) mg/dL Urine Ketones Trace H (Negative) mg/dL Ur Blood (Man) Negative (Negative) Urine Nitrate Negative (Negative) Urine Bilirubin Negative (Negative) Urine Urobilinogen 1.0 (<2.0) mg/dL Add Ur Microanalysis Reviewed Leukocyte Esterase Rfl Negative (Negative) NAYELY/UL Urine RBC 3-5 H (0-2) /hpf Urine WBC 0-5 (0-3) /hpf Ur Squamous Epith Cells None seen (Few) /hpf Urine Bacteria None seen /hpf Urine Casts 6-10 Influenza A (RT-PCR) Positive A (Negative) Influenza B (RT-PCR) Negative (Negative) RSV (RT-PCR) Negative (Negative) SARS-CoV-2 RNA (RT-PCR) Negative (Negative) Imaging Data Radiologist's impression: ITS Impressions Chest X-Ray 08/18/24 16:36 IMPRESSION: 1. Chronic elevation of right hemidiaphragm with mild atelectasis at right lung base. ECG Data EKG #1: ECG completion date: 08/18/24 ECG completion time: 16:19 EKG Interpretation: normal rate (85), sinus rhythm, non-specific ST changes, normal QRS, normal QT and other (Poor baseline) Discharge Plan Discharge Clinical Impression: Influenza A, Hypoxia Patient Disposition: Still a Patient Condition: Stable
--- NOTE | 2024-08-18 21:00 | PM.IMHP ---
H&P: HPI History of Present Illness Date/Time: 08/18/24 21:00 Chief Complaint: Generalized weakness Narrative: This is a 68-year-old male with past medical history significant for Parkinson's disease, dementia, coronary artery disease, diabetes mellitus, deep brain stimulator. Patient was brought to the emergency room due to altered mental status, generalized weakness, fever, patient was tested for influenza which was positive not placed on Tamiflu due to reaction with amantadine as per primary care physician. Most of the history has been obtained from medical records as patient can not really contribute in a meaningful way to history taking. Patient was prescribed azithromycin. Patient has been placed in observation for further evaluation management and treatment. EXAMINATION: XR chest 1V portable DATE: 08/18/2024 16:27 INDICATION: Shortness of breath. Cough. TECHNIQUE: A single frontal view of the chest was obtained on 2 radiographs. COMPARISON: Chest 2 views 03/16/2024 FINDINGS: Again seen is elevation of right hemidiaphragm. There is mild atelectasis at right lung base. No pleural effusion or pneumothorax. The heart size is normal. There are electronic devices overlying the chest bilaterally with electrodes in the neck. IMPRESSION: 1. Chronic elevation of right hemidiaphragm with mild atelectasis at right lung base. Review of Systems Review of Systems: ROS unobtainable: Yes unobtainable due to medical condition (Parkinson's dementia) [facility] Past Medical History Medical History Arthritis Diabetes mellitus Kidney stones Parkinson's disease Right knee meniscal tear Surgical History Surgical History H/O arthroscopy of right knee Hx of transurethral resection of prostate S/P deep brain stimulator placement Family History Family History Mother Acute myocardial infarction Social History Social History Smoking status: Former smoker Alcohol intake: former Substance use: never Do You Feel Safe in your Home?: Yes Lack of Transportation: No Lack of Food: Never True Current Housing: I Have Housing Concerned About Future Housing: No Difficulty Paying Gas/Electric Bills: No Difficulty Paying for Meds: No Currently Unemployed: No Education: High School Diploma/GED Difficulty w/ Childcare or Family Care: No Gender identity (if verbalized by the patient): Male Spiritual care concerns: No Meds Home Medications and Allergies Home Medications ?Medication ?Instructions ?Recorded ?Confirmed ?Type amantadine HCl 100 mg capsule 100 mg PO DAILY 05/16/23 08/18/24 History carbidopa 25 mg-levodopa 100 mg 1 tablet PO DAILY 05/16/23 08/18/24 History tablet (Sinemet) carbidopa ER 50 mg-levodopa 200 mg 2 tablet PO HS 05/16/23 08/18/24 History tablet,extended release escitalopram oxalate 20 mg tablet 20 mg PO DAILY 05/16/23 08/18/24 History gabapentin 100 mg capsule 100 mg PO TID 05/16/23 08/18/24 History insulin degludec 200 unit/mL (3 10 unit subcut DAILY 05/16/23 08/18/24 History mL) subcutaneous pen (Tresiba FlexTouch U-200 insulin) memantine 10 mg tablet 10 mg PO Q12H 05/16/23 08/18/24 History omeprazole 40 mg capsule,delayed 40 mg PO DAILY 05/16/23 08/18/24 History release polyethylene glycol 3350 17 gram 17 g PO DAILY 05/16/23 08/18/24 History oral powder packet (Miralax) venlafaxine 150 mg 150 mg PO DAILY 05/16/23 08/18/24 History capsule,extended release 24 hr vitamin B complex-vitamin C 100 1 tablet PO DAILY 05/16/23 08/18/24 History mg-folic acid 1 mg tablet zolpidem 10 mg tablet 10 mg PO HS 05/16/23 08/18/24 History atorvastatin 40 mg tablet 40 mg PO DAILY 03/12/24 08/18/24 History dextromethorphan 20 mg-quinidine 1 cap PO DAILY 03/12/24 08/18/24 History 10 mg capsule (Nuedexta) metoprolol tartrate 25 mg tablet 25 mg PO Q12H 03/12/24 08/18/24 History quetiapine 25 mg tablet 75 mg PO HS 03/12/24 08/18/24 History bisacodyl 10 mg rectal suppository 10 mg RECTAL BID #10 ea 03/17/24 08/18/24 Rx tamsulosin 0.4 mg capsule (Flomax) 0.4 mg PO HS #30 caps 03/17/24 08/18/24 Rx Allergies Allergy/AdvReac Type Severity Reaction Status Date / Time No Known Allergies Allergy Unknown Verified 04/20/24 13:58 NKFA Allergy Unknown Unknown Uncoded 04/20/24 13:58 Vital Signs Vital Signs - 24 hr 08/18/24 15:51 08/18/24 16:07 08/18/24 16:43 Temperature 99.1 F Pulse Rate 88 Respiratory Rate 15 14 Blood Pressure 114/59 L Pulse Oximetry 89 L 95 Oxygen Delivery Room Air Nasal Cannula Oxygen Flow Rate 2 08/18/24 16:44 08/18/24 17:40 08/18/24 18:13 Temperature Pulse Rate 63 80 74 Respiratory Rate 15 13 14 Blood Pressure 101/63 110/57 L 117/59 L Pulse Oximetry 95 94 96 Oxygen Delivery Oxygen Flow Rate Exam Narrative: Laying in bed Const: General: comfortable, no acute distress, well developed, alert, awake, ill appearing chronically and average body habitus Nutritional Appearance: average body habitus Orientation/consciousness: oriented to person and oriented to place HENMT: Head: normal to inspection, normocephalic and atraumatic Ears: hearing grossly normal bilaterally Face/Nose/Sinus: normal facial exam Face and sinus: normal facial exam Other: Masklike face Eyes: General: appearance normal, both eyes and all related structures Pupils: Equal, round and reactive pupils present EOM: EOMs intact bilaterally Neck: Neck: full ROM, no lymphadenopathy and no JVD Thyroid: thyroid normal Lymphatic: no lymphadenopathy noted Resp: Effort & Inspection: normal respiratory effort and able to speak in complete sentences Auscultation: clear to auscultation bilaterally Cardio: Jugular venous distension: no JVD Rate: regular rate Rhythm: regular rhythm Heart sounds: S1 normal heart sound present and S2 normal heart sound present GI: GI Palp: Yes Soft to palpation and Yes No hepatosplenomegaly present : General: Yes deferred Skin: Rashes: no rashes Wounds: no wounds Neuro: General: oriented to person, oriented to place and CN's II-XI intact bilaterally Cranial nerves: Yes CN's II-XII intact bilaterally and Yes Equal, round and reactive pupils present Cognition (Neuro): abnormal cognition (Lethargy) Speech: normal speech Gait exam (Neuro): Unable to assess gait Motor exam (neuro): 5/5 motor strength present throughout Extrem: General: normal to inspection, full ROM, no joint enlargement and no pedal edema H&P: Results Labs Labs: Short CBC 08/18/24 Range/Units 16:38 WBC 4.2 L (4.5-10.0) K/mm3 Hgb 9.9 L (14.0-18.0) g/dL Hct 31.5 L (42.0-52.0) % Plt Count 271 (150-375) k/mm3 BMP 08/18/24 16:38 Sodium 136 L Potassium 3.9 Chloride 102 Carbon Dioxide 25 BUN 24 H D Creatinine 1.03 Glucose 145 H Calcium 8.7 Liver Function 08/18/24 Range/Units 16:38 Total Bilirubin 0.5 (0.2-1.3) mg/dL AST 23 (17-59) U/L ALT 7 (6-50) U/L Alkaline Phosphatase 145 H (38-126) U/L Albumin 3.5 (3.5-5.1) g/dL Urine 08/18/24 Range/Units 16:38 Urine Color Dark yellow (Yellow) Urine Appearance Clear (Clear) Urine pH 5.0 (5.0-9.0) Ur Specific [place] 1.029 (1.001-1.035) Urine Protein 1+ H (Negative) mg/dL Urine Glucose (UA) 1+ H (Negative) mg/dL Assessment and Plan Assessment and plan (1) Influenza A: Code(s): J10.1 - Influenza due to other identified influenza virus with other respiratory manifestations Status: Acute Assessment and Plan: Placed in observation Supportive care Continue to monitor (2) Pneumonia: Qualifiers: Laterality: bilateral Lung location: unspecified part of lung Pneumonia type: due to unspecified organism Qualified Code(s): J18.9 - Pneumonia, unspecified organism Code(s): J18.9 - Pneumonia, unspecified organism Status: Acute Assessment and Plan: Due to 1. Continue to monitor (3) Diabetes mellitus: Code(s): E11.9 - Type 2 diabetes mellitus without complications Status: Chronic Assessment and Plan: Continue insulin Accu-Cheks AC and HS (4) Parkinson's disease: Qualifiers: Dyskinesia presence: with dyskinesia Fluctuating manifestations: with fluctuating manifestations Qualified Code(s): G20.B2 - Parkinson's disease with dyskinesia, with fluctuations Code(s): G20.A1 - Parkinson's disease without dyskinesia, without mention of fluctuations Status: Chronic Assessment and Plan: Continue carbidopa levodopa (5) Acute respiratory failure: Code(s): J96.00 - Acute respiratory failure, unspecified whether with hypoxia or hypercapnia Status: Acute Assessment and Plan: Patient on room air at the time of my visit Hospitalist MIPS Advance Care Plan I have confirmed that the patient's Advanced Care Plan is present, code status is documented, or surrogate decision maker is listed in patient medical record.: Yes Medication Reconciliation I have utilized all available resources to obtain, update and review the patients current medications (includes all prescriptions, OTC, herbals, cannabis, and nutritional supplements).: Yes
[2024-08-19] VITALS (12 sets, daily range): BP systolic 117–175; BP diastolic 65–83; PULSE 73–108; RESP 14–22; TEMP 36.9–37; O2SAT 93–100
[2024-08-19] MEDS: IPRATROPIUM 0.5 MG/ALBUTEROL SULFATE 2.5 MG AMPUL.NEB 3 ML INHALATION ×4 (03:54→21:13)
[2024-08-19 08:27] LABS: Glucose Point of Care 166 mg/dl (65-105)
[2024-08-19] MEDS: VENLAFAXINE HCL XR 75 MG CAP.ER.24H 150 MG PO (10:47)
[2024-08-19] MEDS: AMANTADINE HCL 100 MG CAPSULE PO (10:47)
[2024-08-19] MEDS: PANTOPRAZOLE 40 MG TABLET PO ×2 (10:47→21:30)
[2024-08-19] MEDS: GABAPENTIN 100 MG CAPSULE PO ×2 (10:47→17:37)
[2024-08-19] MEDS: MEMANTINE 10 MG TABLET PO ×2 (10:48→21:30)
[2024-08-19] MEDS: ESCITALOPRAM OXALATE 10 MG TABLET 20 MG PO (10:48)
[2024-08-19] MEDS: METOPROLOL TARTRATE 25 MG TABLET PO ×2 (10:48→21:30)
[2024-08-19] MEDS: CARBIDOPA/LEVODOPA 25/100 MG TABLET 1 TABLET PO (10:49)
[2024-08-19] MEDS: polyethylene glycoL 3350 17 GM POWD.PACK PO (10:49)
[2024-08-19 12:07] LABS: Glucose Point of Care 175 mg/dl (65-105)
--- NOTE | 2024-08-19 17:18 | P.PNIM_ITS ---
Progress Note: A&P Assessment and Plan (1) Influenza A: Code(s): J10.1 - Influenza due to other identified influenza virus with other respiratory manifestations Status: Acute Assessment and Plan: Placed in observation Supportive care Continue to monitor (2) Pneumonia: Qualifiers: Laterality: bilateral Lung location: unspecified part of lung Pneumonia type: due to unspecified organism Qualified Code(s): J18.9 - Pneumonia, unspecified organism Code(s): J18.9 - Pneumonia, unspecified organism Status: Acute Assessment and Plan: Due to 1. Continue to monitor (3) Diabetes mellitus: Code(s): E11.9 - Type 2 diabetes mellitus without complications Status: Chronic Assessment and Plan: Continue insulin Accu-Cheks AC and HS (4) Parkinson's disease: Qualifiers: Dyskinesia presence: with dyskinesia Fluctuating manifestations: with fluctuating manifestations Qualified Code(s): G20.B2 - Parkinson's disease with dyskinesia, with fluctuations Code(s): G20.A1 - Parkinson's disease without dyskinesia, without mention of fluctuations Status: Chronic Assessment and Plan: Continue carbidopa levodopa (5) Acute respiratory failure: Code(s): J96.00 - Acute respiratory failure, unspecified whether with hypoxia or hypercapnia Status: Acute Assessment and Plan: Patient on room air at the time of my visit Subjective Date/time seen: 08/19/24 17:18 Interval history: Patient has a long history of Parkinson's for about 20 years. Patient is taken care of by his who helps with all ADL. Patient is bedbound. Patient had a SD 2 years ago. Currently patient admitted due to influenza A and he is on 2 L and saturating 100%. Weaning down on oxygen. Possible discharge tomorrow. Review of Systems Review of Systems: ROS unobtainable: Yes unobtainable due to medical condition (Parkinson's dementia) Exam Narrative: Laying in bed Const: General: comfortable, no acute distress, well developed, alert, awake, ill appearing chronically and average body habitus Nutritional Appearance: average body habitus Orientation/consciousness: oriented to person and oriented to place HENMT: Head: normal to inspection, normocephalic and atraumatic Ears: hearing grossly normal bilaterally Face/Nose/Sinus: normal facial exam Face and sinus: normal facial exam Other: Masklike face Eyes: General: appearance normal, both eyes and all related structures Pupils: Equal, round and reactive pupils present EOM: EOMs intact bilaterally Neck: Neck: full ROM, no lymphadenopathy and no JVD Thyroid: thyroid normal Lymphatic: no lymphadenopathy noted Resp: Effort & Inspection: normal respiratory effort and able to speak in c omplete sentences Auscultation: clear to auscultation bilaterally Cardio: Jugular venous distension: no JVD Rate: regular rate Rhythm: regular rhythm Heart sounds: S1 normal heart sound present and S2 normal heart sound present : General: Yes deferred Skin: Rashes: no rashes Wounds: no wounds Neuro: General: oriented to person, oriented to place, CN's II-XI intact bilaterally and Unable to assess gait Cranial nerves: Yes CN's II-XII intact bilaterally and Yes Equal, round and reactive pupils present Cognition (Neuro): abnormal cognition (Lethargy) Speech: normal speech Gait exam (Neuro): Unable to assess gait Motor exam (neuro): 5/5 motor strength present throughout Extrem: General: normal to inspection, full ROM, no joint enlargement and no pedal edema Objective Data Vital Signs Vital Signs: Vital Signs - 24 hr 08/18/24 17:40 08/18/24 18:13 08/18/24 21:27 Temperature Pulse Rate 80 74 78 Respiratory Rate 13 14 16 Blood Pressure 110/57 L 117/59 L 120/63 Pulse Oximetry 94 96 97 Oxygen Delivery Oxygen Flow Rate 08/18/24 21:27 08/18/24 21:44 08/18/24 21:44 Temperature 98.1 F Pulse Rate 78 78 88 Respiratory Rate 16 16 18 Blood Pressure 120/63 146/69 H Pulse Oximetry 97 97 100 Oxygen Delivery Nasal Cannula Oxygen Flow Rate 2 08/18/24 21:57 08/19/24 03:54 08/19/24 06:00 Temperature 98.5 F Pulse Rate 78 103 H Respiratory Rate 16 20 14 Blood Pressure 175/83 H Pulse Oximetry 97 100 Oxygen Delivery Nasal Cannula Oxygen Flow Rate 2 08/19/24 08:01 08/19/24 08:01 08/19/24 08:11 Temperature Pulse Rate 98 108 H Respiratory Rate 22 H 20 Blood Pressure Pulse Oximetry 93 Oxygen Delivery Nasal Cannula Oxygen Flow Rate 2 08/19/24 13:44 08/19/24 13:52 08/19/24 14:00 Temperature 98.6 F Pulse Rate 80 76 76 Respiratory Rate 18 18 18 Blood Pressure 117/65 Pulse Oximetry 93 Oxygen Delivery Oxygen Flow Rate Intake/Output Intake/Output: Intake & Output 08/16/24 08/17/24 08/18/24 08/19/24 23:59 23:59 23:59 23:59 Intake Total 480 Output Total 50 150 Balance -50 330 Meds/Results Medications: Active Medications Generic Name Dose Route Start Last Admin Trade Name Freq PRN Reason Stop Dose Admin Acetaminophen 650 mg 08/18/24 20:25 Acetaminophen 325 Mg Tablet PO Q4H PRN Mild Pain (1-3) or Fever Hydrocodone Bitart/Acetaminophen 1 tab 08/18/24 20:25 Hydrocodone/Acetaminophen (*Crx) 5-325 Mg Tablet PO Q4H PRN Pain Rated 4-6 Albuterol/Ipratropium 3 ml 08/19/24 02:00 08/19/24 13:42 Ipratropium 0.5 Mg/Albuterol Sulfate 2.5 Mg Ampul.Neb 3 Ml INHALATION 3 ml Q6HRT JOSE DAVID Administration Amantadine HCl 100 mg 08/19/24 09:00 08/19/24 10:47 Amantadine Hcl 100 Mg Capsule PO 100 mg DAILY JOSE DAVID Administration Carbidopa/Levodopa 2 tablet 08/19/24 21:00 Carbidopa/Levodopa 25/100 Mg Cr Tablet PO HS JOSE DAVID Carbidopa/Levodopa 1 tablet 08/19/24 09:00 08/19/24 10:49 Carbidopa/Levodopa 25/100 Mg Tablet PO 1 tablet DAILY JOSE DAVID Administration Dextrose 12.5 gm 08/19/24 08:02 Dextrose 50% 25 Gm/50 Ml Syringe IV PUSH PRN PRN Hypoglycemia Protocol Escitalopram Oxalate 20 mg 08/19/24 09:00 08/19/24 10:48 Escitalopram Oxalate 10 Mg Tablet PO 20 mg DAILY JOSE DAVID Administration Gabapentin 100 mg 08/19/24 09:00 08/19/24 14:30 Gabapentin 100 Mg Capsule PO Not Given TID JOSE DAVID Glucose 15 gm 08/19/24 08:02 Glucose Oral Gel 15 Gm Of Glucse In 37.5 Gm Tube PO PRN PRN Hypoglycemia Protocol Dextrose 1,000 mls @ 100 mls/hr 08/19/24 08:02 Dextrose 5% 1,000 Ml IVPB PRN PRN Hypoglycemia Protocol Insulin Aspart 0 units 08/19/24 08:00 08/19/24 12:25 Insulin Aspart (*Bkc) 100 Units/Ml SUB-Q Not Given TIDWM [facility] Protocol Memantine 10 mg 08/19/24 09:00 08/19/24 10:48 Memantine 10 Mg Tablet PO 10 mg Q12HR JOSE DAVID Administration Metoprolol Tartrate 25 mg 08/19/24 09:00 08/19/24 10:48 Metoprolol Tartrate 25 Mg Tablet PO 25 mg Q12HR JOSE DAVID Administration Miscellaneous Information 0 each 08/19/24 00:01 Nuedexta Nonform Can Pt Bring From Home? XX 09/18/24 00:00 CLARIFY JOSE DAVID Miscellaneous Information 0 each 08/19/24 00:01 Tresiba (Will Sub With Lantus) Please Clarify How Many Units Pt Using External Med Vj XX 09/18/24 00:00 CLARIFY JOSE DAVID Non-Formulary Medication 1 cap 08/19/24 09:00 Dextromethorphan-Quinidine [Nuedexta] PO 09/18/24 08:59 DAILY [facility] Non-Formulary Medication 10 unit 08/19/24 09:00 Insulin Degludec [Tresiba Flextouch U-200] SUB-Q 09/18/24 08:59 DAILY [facility] Ondansetron HCl 4 mg 08/18/24 20:25 Ondansetron Inj 4 Mg/2 Ml Vial IV PUSH Q4H PRN Nausea Pantoprazole Sodium 40 mg 08/19/24 09:00 08/19/24 10:47 Pantoprazole 40 Mg Tablet PO 40 mg Q12HR JOSE DAVID Administration Polyethylene Glycol 17 gm 08/19/24 09:00 08/19/24 10:49 Polyethylene Glycol 3350 17 Gm Powd.Pack PO 17 gm DAILY JOSE DAVID Administration Quetiapine Fumarate 75 mg 08/19/24 21:00 Quetiapine Fumarate 25 Mg Tablet PO HS JOSE DAVID Tamsulosin HCl 0.4 mg 08/19/24 21:00 Tamsulosin Hcl 0.4 Mg Capsule PO HS JOSE DAVID Venlafaxine HCl 150 mg 08/19/24 09:00 08/19/24 10:47 Venlafaxine Hcl Xr 75 Mg Cap.Er.24h PO 150 mg DAILY JOSE DAVID Administration Radiology Results: ITS Impressions Chest X-Ray 08/18/24 16:36 IMPRESSION: 1. Chronic elevation of right hemidiaphragm with mild atelectasis at right lung base. Labs Labs: Laboratory Results - last 24 hr 08/18/24 08/19/24 08/19/24 16:38 08:10 12:03 POC Capillary Glucose 166 H 175 H Influenza A (RT-PCR) Positive A Influenza B (RT-PCR) Negative RSV (RT-PCR) Negative SARS-CoV-2 RNA (RT-PCR) Negative Hospitalist MIPS Advance Care Plan I have confirmed that the patient's Advanced Care Plan is present, code status is documented, or surrogate decision maker is listed in patient medical record.: Yes Medication Reconciliation I have utilized all available resources to obtain, update and review the patients current medications (includes all prescriptions, OTC, herbals, cannabis, and nutritional supplements).: Yes
[2024-08-19 18:09] LABS: Glucose Point of Care 162 mg/dl (65-105)
[2024-08-19 21:22] LABS: Glucose Point of Care 216 mg/dl (65-105)
[2024-08-19] MEDS: CARBIDOPA/LEVODOPA 25/100 MG CR TABLET 2 TABLET PO (21:29)
[2024-08-19] MEDS: TAMSULOSIN HCL 0.4 MG CAPSULE PO (21:30)
[2024-08-19] MEDS: QUEtiapine FUMARATE 25 MG TABLET 75 MG PO (21:30)
[2024-08-20] VITALS (14 sets, daily range): BP systolic 88–107; BP diastolic 52–60; PULSE 66–85; RESP 15–20; TEMP 36.5–37.1; O2SAT 91–96
[2024-08-20] MEDS: IPRATROPIUM 0.5 MG/ALBUTEROL SULFATE 2.5 MG AMPUL.NEB 3 ML INHALATION ×4 (01:57→20:29)
[2024-08-20 08:01] LABS: Hematocrit 33.8 % (42.0-52.0); Hemoglobin 10.1 g/dL (14.0-18.0); Mean Corpuscular HGB Conc 29.9 g/dl (32-36); Mean Corpuscular Hemoglobin 25.7 pg (26-34); Mean Platelet Volume 9.9 fl (7.4-10.4); Platelet Count Result 251 k/mm3 (150-375); Red Blood Count 3.93 M/mm3 (4.6-6.20); Red Cell Distribution Width 14.5 % (11.5-14.5); White Blood Count 3.1 K/mm3 (4.5-10.0)
[2024-08-20 08:07] LABS: Glucose Point of Care 158 mg/dl (65-105)
[2024-08-20 08:19] LABS: Albumin Level 3.2 g/dL (3.5-5.1); Alkaline Phosphatase 125 U/L (38-126); Anion Gap 8 mmol/L (4-12); Aspartate Amino Transferase 29 U/L (17-59); Bilirubin,Total 0.5 mg/dL (0.2-1.3); Blood Urea Nitrogen 19 mg/dL (9-20); Calcium 8.9 mg/dL (8.4-10.2); Carbon Dioxide 26 mmol/L (22-30); Chloride 102 mmol/L (98-107); Estimated CRCL calculation 56 ml/min; Estimated Glomerular Filt Rate > 60; Glucose 148 mg/dL (65-110); Potassium 4.2 mmol/L (3.4-5.0); Sodium 136 mmol/L (137-145)
[2024-08-20 08:30] LABS: Alanine Aminotransferase < 6 U/L (6-50)
[2024-08-20] MEDS: AMANTADINE HCL 100 MG CAPSULE PO (10:18)
[2024-08-20] MEDS: VENLAFAXINE HCL XR 75 MG CAP.ER.24H 150 MG PO (10:18)
[2024-08-20] MEDS: polyethylene glycoL 3350 17 GM POWD.PACK PO (10:19)
[2024-08-20] MEDS: CARBIDOPA/LEVODOPA 25/100 MG TABLET 1 TABLET PO (10:19)
[2024-08-20] MEDS: MEMANTINE 10 MG TABLET PO ×2 (10:19→22:15)
[2024-08-20] MEDS: PANTOPRAZOLE 40 MG TABLET PO ×2 (10:19→22:15)
[2024-08-20] MEDS: ESCITALOPRAM OXALATE 10 MG TABLET 20 MG PO (10:19)
[2024-08-20] MEDS: GABAPENTIN 100 MG CAPSULE PO ×3 (10:19→19:04)
[2024-08-20 12:43] LABS: Glucose Point of Care 200 mg/dl (65-105)
--- NOTE | 2024-08-20 14:09 | PM.IMPN ---
Progress Note: A&P Assessment and Plan (1) Influenza A: Code(s): J10.1 - Influenza due to other identified influenza virus with other respiratory manifestations Status: Acute Assessment and Plan: Placed in observation Supportive care Continue to monitor (2) Pneumonia: Qualifiers: Laterality: bilateral Lung location: unspecified part of lung Pneumonia type: due to unspecified organism Qualified Code(s): J18.9 - Pneumonia, unspecified organism Code(s): J18.9 - Pneumonia, unspecified organism Status: Acute Assessment and Plan: Due to 1. Continue to monitor (3) Diabetes mellitus: Code(s): E11.9 - Type 2 diabetes mellitus without complications Status: Chronic Assessment and Plan: Continue insulin Accu-Cheks AC and HS (4) Parkinson's disease: Qualifiers: Dyskinesia presence: with dyskinesia Fluctuating manifestations: with fluctuating manifestations Qualified Code(s): G20.B2 - Parkinson's disease with dyskinesia, with fluctuations Code(s): G20.A1 - Parkinson's disease without dyskinesia, without mention of fluctuations Status: Chronic Assessment and Plan: Continue carbidopa levodopa (5) Acute respiratory failure: Code(s): J96.00 - Acute respiratory failure, unspecified whether with hypoxia or hypercapnia Status: Acute Assessment and Plan: Patient on room air at the time of my visit Subjective Date/time seen: 08/20/24 14:09 Interval history: Patient has episodes of hypotension. Will continue monitor.Started on gentle hydration. Bladder scan shows 450ml. Will do Straight cath. Ordered ECHO .If necessary will start fluids.No tamiflu due to interaction with amantadine. Review of Systems Review of Systems: ROS unobtainable: Yes unobtainable due to medical condition (Parkinson's dementia) Exam Narrative: Laying in bed Const: General: comfortable, no acute distress, well developed, alert, awake, ill appearing chronically and average body habitus Nutritional Appearance: average body habitus Orientation/consciousness: oriented to person and oriented to place HENMT: Head: normal to inspection, normocephalic and atraumatic Ears: hearing grossly normal bilaterally Face/Nose/Sinus: normal facial exam Face and sinus: normal facial exam Other: Masklike face Eyes: General: appearance normal, both eyes and all related structures Pupils: Equal, round and reactive pupils present EOM: EOMs intact bilaterally Neck: Neck: full ROM, no lymphadenopathy and no JVD Thyroid: thyroid normal Lymphatic: no lymphadenopathy noted Resp: Effort & Inspection: normal respiratory effort and able to speak in complete sentences Auscultation: clear to auscultation bilaterally Cardio: Jugular venous distension: no JVD Rate: regular rate Rhythm: regular rhythm Heart sounds: S1 normal heart sound present and S2 normal heart sound present : General: Yes deferred Skin: Rashes: no rashes Wounds: no wounds Neuro: General: oriented to person, oriented to place, CN's II-XI intact bilaterally and Unable to assess gait Cranial nerves: Yes CN's II-XII intact bilaterally and Yes Equal, round and reactive pupils present Cognition (Neuro): abnormal cognition (Lethargy) Speech: normal speech Gait exam (Neuro): Unable to assess gait Motor exam (neuro): 5/5 motor strength present throughout Extrem: General: normal to inspection, full ROM, no joint enlargement and no pedal edema Objective Data Vital Signs Vital Signs: Vital Signs - 24 hr 08/19/24 21:15 08/19/24 21:15 08/19/24 21:24 Temperature Pulse Rate 73 80 Respiratory Rate 19 19 Blood Pressure Pulse Oximetry 93 Oxygen Delivery Nasal Cannula Oxygen Flow Rate 1 08/19/24 21:30 08/19/24 22:00 08/20/24 01:58 Temperature 98.4 F Pulse Rate 87 77 85 Respiratory Rate 14 16 Blood Pressure 149/83 H Pulse Oximetry 96 Oxygen Delivery Oxygen Flow Rate 08/20/24 02:02 08/20/24 05:58 08/20/24 08:38 Temperature 97.7 F Pulse Rate 79 66 Respiratory Rate 16 15 Blood Pressure 88/60 L Pulse Oximetry 96 94 Oxygen Delivery Nasal Cannula Oxygen Flow Rate 2 08/20/24 08:38 08/20/24 08:45 08/20/24 10:41 Temperature Pulse Rate 72 68 Respiratory Rate 16 16 Blood Pressure 95/52 L Pulse Oximetry 94 Oxygen Delivery Oxygen Flow Rate 08/20/24 13:59 Temperature Pulse Rate 76 Respiratory Rate 18 Blood Pressure Pulse Oximetry Oxygen Delivery Oxygen Flow Rate Intake/Output Intake/Output: Intake & Output 08/17/24 08/18/24 08/19/24 08/20/24 23:59 23:59 23:59 23:59 Intake Total 600 105 Output Total 50 150 250 Balance -50 450 -145 Meds/Results Medications: Active Medications Generic Name Dose Route Start Last Admin Trade Name Freq PRN Reason Stop Dose Admin Acetaminophen 650 mg 08/18/24 20:25 Acetaminophen 325 Mg Tablet PO Q4H PRN Mild Pain (1-3) or Fever Hydrocodone Bitart/Acetaminophen 1 tab 08/18/24 20:25 Hydrocodone/Acetaminophen (*Crx) 5-325 Mg Tablet PO Q4H PRN Pain Rated 4-6 Albuterol/Ipratropium 3 ml 08/19/24 02:00 08/20/24 13:58 Ipratropium 0.5 Mg/Albuterol Sulfate 2.5 Mg Ampul.Neb 3 Ml INHALATION 3 ml Q6HRT JOSE DAVID Administration Amantadine HCl 100 mg 08/19/24 09:00 08/20/24 10:18 Amantadine Hcl 100 Mg Capsule PO 100 mg DAILY JOSE DAVID Administration Carbidopa/Levodopa 2 tablet 08/19/24 21:00 08/19/24 21:29 Carbidopa/Levodopa 25/100 Mg Cr Tablet PO 2 tablet HS JOSE DAVID Administration Carbidopa/Levodopa 1 tablet 08/19/24 09:00 08/20/24 10:19 Carbidopa/Levodopa 25/100 Mg Tablet PO 1 tablet DAILY JOSE DAVID Administration Dextrose 12.5 gm 08/19/24 08:02 Dextrose 50% 25 Gm/50 Ml Syringe IV PUSH PRN PRN Hypoglycemia Protocol Escitalopram Oxalate 20 mg 08/19/24 09:00 08/20/24 10:19 Escitalopram Oxalate 10 Mg Tablet PO 20 mg DAILY JOSE DAVID Administration Gabapentin 100 mg 08/19/24 09:00 08/20/24 10:19 Gabapentin 100 Mg Capsule PO 100 mg TID JOSE DAVID Administration Glucose 15 gm 08/19/24 08:02 Glucose Oral Gel 15 Gm Of Glucse In 37.5 Gm Tube PO PRN PRN Hypoglycemia Protocol Dextrose 1,000 mls @ 100 mls/hr 08/19/24 08:02 Dextrose 5% 1,000 Ml IVPB PRN PRN Hypoglycemia Protocol Insulin Aspart 0 units 08/19/24 08:00 08/20/24 13:17 Insulin Aspart (*Bkc) 100 Units/Ml SUB-Q Not Given TIDWM JOSE DAVID Protocol Memantine 10 mg 08/19/24 09:00 08/20/24 10:19 Memantine 10 Mg Tablet PO 10 mg Q12HR JOSE DAVID Administration Metoprolol Tartrate 25 mg 08/19/24 09:00 08/20/24 10:31 Metoprolol Tartrate 25 Mg Tablet PO Not Given Q12HR JOSE DAVID Miscellaneous Information 0 each 08/19/24 00:01 Nuedexta Nonform Can Pt Bring From Home? XX 09/18/24 00:00 CLARIFY JOSE DAVID Miscellaneous Information 0 each 08/19/24 00:01 Tresiba (Will Sub With Lantus) Please Clarify How Many Units Pt Using External Med Vj XX 09/18/24 00:00 CLARIFY JOSE DAVID Non-Formulary Medication 1 cap 08/19/24 09:00 Dextromethorphan-Quinidine [Nuedexta] PO 09/18/24 08:59 DAILY JOSE DAVID Non-Formulary Medication 10 unit 08/19/24 09:00 Insulin Degludec [Tresiba Flextouch U-200] SUB-Q 09/18/24 08:59 DAILY JOSE DAVID Ondansetron HCl 4 mg 08/18/24 20:25 Ondansetron Inj 4 Mg/2 Ml Vial IV PUSH Q4H PRN Nausea Pantoprazole Sodium 40 mg 08/19/24 09:00 08/20/24 10:19 Pantoprazole 40 Mg Tablet PO 40 mg Q12HR JOSE DAVID Administration Perflutren Lipid Microsphere 0 ml 08/20/24 10:48 Perflutren Lipid Microspheres 1.5 Ml Vial Diluted To 10 Ml Total Volume IV PUSH 08/23/24 10:48 ONCE PRN adequate visualization Protocol Polyethylene Glycol 17 gm 08/19/24 09:00 08/20/24 10:19 Polyethylene Glycol 3350 17 Gm Powd.Pack PO 17 gm DAILY JOSE DAVID Administration Quetiapine Fumarate 75 mg 08/19/24 21:00 08/19/24 21:30 Quetiapine Fumarate 25 Mg Tablet PO 75 mg HS JOSE DAVID Administration Tamsulosin HCl 0.4 mg 08/19/24 21:00 08/19/24 21:30 Tamsulosin Hcl 0.4 Mg Capsule PO 0.4 mg HS JOSE DAVID Administration Venlafaxine HCl 150 mg 08/19/24 09:00 08/20/24 10:18 Venlafaxine Hcl Xr 75 Mg Cap.Er.24h PO 150 mg DAILY JOSE DAVID Administration Radiology Results: ITS Impressions Chest X-Ray 08/18/24 16:36 IMPRESSION: 1. Chronic elevation of right hemidiaphragm with mild atelectasis at right lung base. Labs Labs: Laboratory Results - last 24 hr 08/19/24 08/19/24 08/20/24 16:54 19:45 07:11 WBC 3.1 L RBC 3.93 L Hgb 10.1 L Hct 33.8 L MCV 86.0 MCH 25.7 L MCHC 29.9 L RDW 14.5 Plt Count 251 MPV 9.9 Sodium 136 L Potassium 4.2 Chloride 102 Carbon Dioxide 26 Anion Gap 8 BUN 19 Creatinine 1.14 Estim Creat Clear Calc 56 Estimated GFR > 60 Glucose 148 H POC Capillary Glucose 162 H 216 H Calcium 8.9 Total Bilirubin 0.5 AST 29 ALT < 6 L Alkaline Phosphatase 125 Total Protein 6.0 L Albumin 3.2 L 08/20/24 08/20/24 07:51 12:13 WBC RBC Hgb Hct MCV MCH MCHC RDW Plt Count MPV Sodium Potassium Chloride Carbon Dioxide Anion Gap BUN Creatinine Estim Creat Clear Calc Estimated GFR Glucose POC Capillary Glucose 158 H 200 H Calcium Total Bilirubin AST ALT Alkaline Phosphatase Total Protein Albumin Hospitalist MIPS Advance Care Plan I have confirmed that the patient's Advanced Care Plan is present, code status is documented, or surrogate decision maker is listed in patient medical record.: Yes Medication Reconciliation I have utilized all available resources to obtain, update and review the patients current medications (includes all prescriptions, OTC, herbals, cannabis, and nutritional supplements).: Yes
[2024-08-20 17:14] LABS: Glucose Point of Care 208 mg/dl (65-105)
[2024-08-20] MEDS: INSULIN ASPART (*BKC) 100 UNITS/ML SUB-Q (17:51)
[2024-08-20] MEDS: SODIUM CHLORIDE 0.9% IV 1,000 ML 50 ML IV CONT (17:52)
[2024-08-20] MEDS: CARBIDOPA/LEVODOPA 25/100 MG CR TABLET 2 TABLET PO (22:14)
[2024-08-20] MEDS: QUEtiapine FUMARATE 25 MG TABLET 75 MG PO (22:14)
[2024-08-20] MEDS: TAMSULOSIN HCL 0.4 MG CAPSULE PO (22:15)
[2024-08-21] VITALS (16 sets, daily range): BP systolic 90–118; BP diastolic 50–64; PULSE 67–98; RESP 17–20; TEMP 36.8–37.1; O2SAT 91–97
--- NOTE | 2024-08-21 | ECHO_ITS ---
Patient Info Name: Jayden Cherry Age: 68 years : 1955 Gender: Male Ht: 70 in Wt: 187 lbs BSA: 2.06 m2 HR: 88 bpm BP: 107 / 50 mmHg Technical Quality: Fair Exam Date: 08/21/2024 12:06 PM Exam Location: Echo Lab Patient Status: Outpatient Admit Date: 08/18/2024 Staff Ordering Physician: Klaus Guzman MD [employer] Advisor: Agusto Saxena RDCS Attending Provider: Antonia Oconnell MD Exam Type: CA echo doppler color flow Study Info Indications - R/O CHF Complete two-dimensional, color flow and Doppler transthoracic echocardiogram is performed. Summary 1. Very technically difficult study with limited views. 2. Left ventricular endocardium is not well visualized. Cannot estimate or calculate LVEF. Cannot assess for wall motion abnormalities. 3. Consider repeating TTE with Definity or consider alternative cardiac imaging to asses LVEF. Left Ventricle Left ventricular chamber dimension is normal. Left ventricular endocardium is not well visualized. Cannot estimate or calculate LVEF. Cannot assess for wall motion abnormalities. Right Ventricle Right ventricular chamber dimension is normal. Right ventricular systolic function is normal. Left Atria Left atrial chamber dimension is mildly enlarged. Right Atria Right atrial chamber dimension is normal. Aortic Valve The aortic valve is not well visualized. There is no aortic valve regurgitation. Pulmonic Valve The pulmonic valve is not well visualized. Mitral Valve The mitral valve has not well visualized. There is trace mitral valve regurgitation. Tricuspid Valve The tricuspid valve leaflets are not well visualized. There is trace tricuspid valve regurgitation. Pericardium/Pleural The pericardium appears epicardial fat pad. There is no pericardial effusion. Inferior Vena Cava Inferior vena cava is not well visualized. Left Ventricular Outflow Tract Name Value Normal LVOT 2D LVOT Diameter 2.2 cm LVOT Doppler LVOT Peak Gradient 3 mmHg LVOT Mean Gradient 2 mmHg LVOT VTI 19 cm LVOT VTI/AV VTI Ratio 1.1 LVOT Stroke Volume 69 ml LVOT CO 4.6 l/min LVOT CI 2.2 l/min/m2 Pulmonic Valve Name Value Normal RVOT Doppler RVOT Peak Gradient 1 mmHg PV Doppler PV Peak Gradient 2 mmHg Mitral Valve Name Value Normal MV Doppler MV Decel Callaway 167 cm/s2 MV PHT 58 ms MV Area (PHT) 3.8 cm2 4.0-5.0 MV Diastolic Function MV E Peak Velocity 33 cm/s MV A Peak Velocity 65 cm/s MV E/A 0.5 MV Decel Time 200 ms MV Annular TDI MV E/e' (Septal) 6.1 <=8.0 MV E/e' (Lateral) 4.8 <=8.0 MV E/e' (Average) 5.4 Aorta Name Value Normal Ascending Aorta Ao Root Diameter (MM) 3.5 cm Ao Root Diam Index (MM) 1.7 cm/m2 Aortic Valve Name Value Normal AV Doppler AV Peak Velocity 98 cm/s AV Peak Gradient 2 mmHg AV Mean Gradient 1 mmHg AV VTI 16 cm AV Area (Cont Eq VTI) 4.3 cm2 >=3.0 AV Area (Cont Eq Geoffrey) 4.3 cm2 AV Regurgitation 2D LVOT Area 3.7 cm2 Ventricles Name Value Normal LV Dimensions 2D/MM IVS Diastolic Thickness (2D) 1.1 cm 0.6-1.0 LVID Diastole (2D) 4.6 cm 4.2-5.8 LVIW Diastolic Thickness (2D) 1.8 cm 0.6-1.0 LVID Systole (2D) 3.0 cm 2.5-4.0 LVOT Diameter 2.2 cm LV Mass (2D Cubed) 267.13 g 88.00-224.00 LV Mass Index (2D Cubed) 130 g/m2 49-115 Relative Wall Thickness (2D) 0.76 LV Fractional Shortening/Ejection Fraction 2D/MM LV Fractional Shortening (2D) 35 % 25-43 LV EF (2D Teicholz) 64 % 52-72 LV Diastolic Volume (4C MOD) 83 ml LV EF (4C MOD) 44 % LV Diastolic Volume (2C MOD) 63 ml LV EF (2C MOD) 41 % LV Diastolic Volume (BP MOD) 72 ml 62-150 LV Diastolic Volume Index (BP MOD) 35 ml/m2 34-74 LV Systolic Volume (BP MOD) 44 ml 21-61 LV Systolic Volume Index (BP MOD) 21 ml/m2 11-31 LV EF (BP MOD) 39 % 52-72 LV Diastolic Length (4C) 7.9 cm LV Systolic Length (4C) 7.1 cm LV Stroke Volume (4C MOD) 37 ml Atria Name Value Normal LA Dimensions LA Dimension (MM) 3.8 cm 3.0-4.1 LA Volume (4C A-L) 39 ml LA Volume (BP A-L) 32 ml RA Dimensions RA Area (4C) 17.9 cm2 <=18.0 Report Signatures
[2024-08-21] MEDS: IPRATROPIUM 0.5 MG/ALBUTEROL SULFATE 2.5 MG AMPUL.NEB 3 ML INHALATION ×4 (02:23→21:17)
[2024-08-21 07:06] LABS: Hematocrit 34.8 % (42.0-52.0); Hemoglobin 10.6 g/dL (14.0-18.0); Mean Corpuscular HGB Conc 30.5 g/dl (32-36); Mean Corpuscular Hemoglobin 26.1 pg (26-34); Mean Corpuscular Volume 85.7 fl (80-100); Mean Platelet Volume 9.3 fl (7.4-10.4); Platelet Count Result 276 k/mm3 (150-375); Red Blood Count 4.06 M/mm3 (4.6-6.20); Red Cell Distribution Width 14.5 % (11.5-14.5); White Blood Count 3.7 K/mm3 (4.5-10.0)
[2024-08-21 07:20] LABS: Alanine Aminotransferase 7 U/L (6-50); Albumin Level 3.3 g/dL (3.5-5.1); Alkaline Phosphatase 121 U/L (38-126); Anion Gap 11 mmol/L (4-12); Aspartate Amino Transferase 29 U/L (17-59); Bilirubin,Total 0.5 mg/dL (0.2-1.3); Blood Urea Nitrogen 18 mg/dL (9-20); Calcium 8.7 mg/dL (8.4-10.2); Carbon Dioxide 22 mmol/L (22-30); Chloride 105 mmol/L (98-107); Estimated CRCL calculation 69 ml/min; Estimated Glomerular Filt Rate > 60; Glucose 154 mg/dL (65-110); Sodium 138 mmol/L (137-145)
[2024-08-21 08:05] LABS: Glucose Point of Care 156 mg/dl (65-105)
[2024-08-21] MEDS: polyethylene glycoL 3350 17 GM POWD.PACK PO (09:08)
[2024-08-21] MEDS: AMANTADINE HCL 100 MG CAPSULE PO (09:08)
[2024-08-21] MEDS: MEMANTINE 10 MG TABLET PO ×2 (09:08→22:25)
[2024-08-21] MEDS: VENLAFAXINE HCL XR 75 MG CAP.ER.24H 150 MG PO (09:08)
[2024-08-21] MEDS: ESCITALOPRAM OXALATE 10 MG TABLET 20 MG PO (09:09)
[2024-08-21] MEDS: CARBIDOPA/LEVODOPA 25/100 MG TABLET 1 TABLET PO (09:10)
[2024-08-21] MEDS: PANTOPRAZOLE 40 MG TABLET PO ×2 (09:10→22:25)
[2024-08-21] MEDS: GABAPENTIN 100 MG CAPSULE PO ×3 (09:10→16:48)
[2024-08-21] MEDS: INSULIN GLARGINE (*BKC) 100 UNITS/ML 12 UNITS SUB-Q (09:37)
[2024-08-21] MEDS: METOPROLOL TARTRATE 12.5 MG TABLET PO (09:42)
[2024-08-21 11:36] LABS: Glucose Point of Care 192 mg/dl (65-105)
--- NOTE | 2024-08-21 15:17 | PM.IMPN ---
Progress Note: A&P Assessment and Plan (1) Influenza A: Code(s): J10.1 - Influenza due to other identified influenza virus with other respiratory manifestations Status: Acute Assessment and Plan: Placed in observation Supportive care Continue to monitor (2) Pneumonia: Qualifiers: Laterality: bilateral Lung location: unspecified part of lung Pneumonia type: due to unspecified organism Qualified Code(s): J18.9 - Pneumonia, unspecified organism Code(s): J18.9 - Pneumonia, unspecified organism Status: Acute Assessment and Plan: Due to 1. Continue to monitor (3) Diabetes mellitus: Code(s): E11.9 - Type 2 diabetes mellitus without complications Status: Chronic Assessment and Plan: Continue insulin Accu-Cheks AC and HS (4) Parkinson's disease: Qualifiers: Dyskinesia presence: with dyskinesia Fluctuating manifestations: with fluctuating manifestations Qualified Code(s): G20.B2 - Parkinson's disease with dyskinesia, with fluctuations Code(s): G20.A1 - Parkinson's disease without dyskinesia, without mention of fluctuations Status: Chronic Assessment and Plan: Continue carbidopa levodopa (5) Acute respiratory failure: Code(s): J96.00 - Acute respiratory failure, unspecified whether with hypoxia or hypercapnia Status: Acute Assessment and Plan: Patient on room air at the time of my visit (6) Hypotension: Code(s): I95.9 - Hypotension, unspecified Status: Acute Assessment and Plan: Possibly due to autonomic neuropathy Ordered echocardiogram Subjective Date/time seen: 08/21/24 15:17 Interval history: Patient has episodes of hypertension and started on gentle fluid rehydration. Patient has episodes of hypoxemia. Ordered chest CTA to r/o PE. Ordered lactic acid, CRP, calcitonin. No episodes of fever.Lactic acid is normal, CRP is elevated. Review of Systems Review of Systems: ROS unobtainable: Yes unobtainable due to medical condition (Parkinson's dementia) Exam Narrative: Laying in bed Const: General: comfortable, no acute distress, well developed, alert, awake, ill appearing chronically and average body habitus Nutritional Appearance: average body habitus Orientation/consciousness: oriented to person and oriented to place HENMT: Head: normal to inspection, normocephalic and atraumatic Ears: hearing grossly normal bilaterally Face/Nose/Sinus: normal facial exam Face and sinus: normal facial exam Other: Masklike face Eyes: General: appearance normal, both eyes and all related structures Pupils: Equal, round and reactive pupils present EOM: EOMs intact bilaterally Neck: Neck: full ROM, no lymphadenopathy and no JVD Thyroid: thyroid normal Lymphatic: no lymphadenopathy noted Resp: Effort & Inspection: normal respiratory effort and able to speak in complete sentences Auscultation: clear to auscultation bilaterally Cardio: Jugular venous distension: no JVD Rate: regular rate Rhythm: regular rhythm Heart sounds: S1 normal heart sound present and S2 normal heart sound present : General: Yes deferred Skin: Rashes: no rashes Wounds: no wounds Neuro: General: oriented to person, oriented to place, CN's II-XI intact bilaterally and Unable to assess gait Cranial nerves: Yes CN's II-XII intact bilaterally and Yes Equal, round and reactive pupils present Cognition (Neuro): abnormal cognition (Lethargy) Speech: normal speech Gait exam (Neuro): Unable to assess gait Motor exam (neuro): 5/5 motor strength present throughout Extrem: General: normal to inspection, full ROM, no joint enlargement and no pedal edema Objective Data Vital Signs Vital Signs: Vital Signs - 24 hr 08/20/24 20:00 08/20/24 20:23 08/20/24 20:31 Temperature 98.7 F Pulse Rate 80 Respiratory Rate 17 Blood Pressure 107/55 L Pulse Oximetry 95 91 95 Oxygen Delivery Nasal Cannula Nasal Cannula Oxygen Flow Rate 1 2 08/20/24 20:31 08/20/24 20:39 08/21/24 02:24 Temperature Pulse Rate 78 80 70 Respiratory Rate 20 18 18 Blood Pressure Pulse Oximetry Oxygen Delivery Oxygen Flow Rate 08/21/24 02:35 08/21/24 04:20 08/21/24 08:00 Temperature 98.7 F Pulse Rate 73 88 Respiratory Rate 18 17 Blood Pressure 107/50 L Pulse Oximetry 92 Oxygen Delivery Room Air Oxygen Flow Rate 08/21/24 08:59 08/21/24 08:59 08/21/24 09:00 Temperature Pulse Rate 76 98 Respiratory Rate 20 Blood Pressure 105/52 L Pulse Oximetry 94 Oxygen Delivery Room Air Oxygen Flow Rate 08/21/24 09:42 08/21/24 12:00 08/21/24 13:59 Temperature Pulse Rate 98 76 74 Respiratory Rate 20 Blood Pressure 102/62 Pulse Oximetry 91 Oxygen Delivery Oxygen Flow Rate 08/21/24 14:16 Temperature Pulse Rate 81 Respiratory Rate 20 Blood Pressure Pulse Oximetry Oxygen Delivery Oxygen Flow Rate Intake/Output Intake/Output: Intake & Output 08/18/24 08/19/24 08/20/24 08/21/24 23:59 23:59 23:59 23:59 Intake Total 600 225 300 Output Total 50 150 650 0 Balance -50 450 -425 300 Meds/Results Medications: Active Medications Generic Name Dose Route Start Last Admin Trade Name Freq PRN Reason Stop Dose Admin Acetaminophen 650 mg 08/18/24 20:25 Acetaminophen 325 Mg Tablet PO Q4H PRN Mild Pain (1-3) or Fever Hydrocodone Bitart/Acetaminophen 1 tab 08/18/24 20:25 Hydrocodone/Acetaminophen (*Crx) 5-325 Mg Tablet PO Q4H PRN Pain Rated 4-6 Albuterol/Ipratropium 3 ml 08/19/24 02:00 08/21/24 13:57 Ipratropium 0.5 Mg/Albuterol Sulfate 2.5 Mg Ampul.Neb 3 Ml INHALATION 3 ml Q6HRT JSOE DAVID Administration Amantadine HCl 100 mg 08/19/24 09:00 08/21/24 09:08 Amantadine Hcl 100 Mg Capsule PO 100 mg DAILY JOSE DAVID Administration Carbidopa/Levodopa 2 tablet 08/19/24 21:00 08/20/24 22:14 Carbidopa/Levodopa 25/100 Mg Cr Tablet PO 2 tablet HS JOSE DAVID Administration Carbidopa/Levodopa 1 tablet 08/19/24 09:00 08/21/24 09:10 Carbidopa/Levodopa 25/100 Mg Tablet PO 1 tablet DAILY JOSE DAVID Administration Dextrose 12.5 gm 08/19/24 08:02 Dextrose 50% 25 Gm/50 Ml Syringe IV PUSH PRN PRN Hypoglycemia Protocol Escitalopram Oxalate 20 mg 08/19/24 09:00 08/21/24 09:09 Escitalopram Oxalate 10 Mg Tablet PO 20 mg DAILY JOSE DAVID Administration Gabapentin 100 mg 08/19/24 09:00 08/21/24 12:39 Gabapentin 100 Mg Capsule PO 100 mg TID JOSE DAVID Administration Glucose 15 gm 08/19/24 08:02 Glucose Oral Gel 15 Gm Of Glucse In 37.5 Gm Tube PO PRN PRN Hypoglycemia Protocol Dextrose 1,000 mls @ 100 mls/hr 08/19/24 08:02 Dextrose 5% 1,000 Ml IVPB PRN PRN Hypoglycemia Protocol Insulin Aspart 0 units 08/19/24 08:00 08/21/24 12:39 Insulin Aspart (*Bkc) 100 Units/Ml SUB-Q Not Given TIDWM JOSE DAVID Protocol Insulin Glargine 12 units 08/21/24 09:00 08/21/24 09:37 Insulin Glargine (*Bkc) 100 Units/Ml SUB-Q 12 units DAILY JOSE DAVID Administration Memantine 10 mg 08/19/24 09:00 08/21/24 09:08 Memantine 10 Mg Tablet PO 10 mg Q12HR JOSE DAVID Administration Metoprolol Tartrate 25 mg 08/19/24 09:00 08/21/24 09:25 Metoprolol Tartrate 25 Mg Tablet PO Not Given Q12HR JOSE DAVID Miscellaneous Information 0 each 08/19/24 00:01 08/20/24 20:00 Nuedexta Nonform Can Pt Bring From Home? XX 09/18/24 00:00 Not Given CLARIFY JOSE DAVID Non-Formulary Medication 1 cap 08/19/24 09:00 Dextromethorphan-Quinidine [Nuedexta] PO 09/18/24 08:59 DAILY JOSE DAVID Ondansetron HCl 4 mg 08/18/24 20:25 Ondansetron Inj 4 Mg/2 Ml Vial IV PUSH Q4H PRN Nausea Pantoprazole Sodium 40 mg 08/19/24 09:00 08/21/24 09:10 Pantoprazole 40 Mg Tablet PO 40 mg Q12HR JOSE DAVID Administration Perflutren Lipid Microsphere 0 ml 08/20/24 10:48 Perflutren Lipid Microspheres 1.5 Ml Vial Diluted To 10 Ml Total Volume IV PUSH 08/23/24 10:48 ONCE PRN adequate visualization Protocol Polyethylene Glycol 17 gm 08/19/24 09:00 08/21/24 09:08 Polyethylene Glycol 3350 17 Gm Powd.Pack PO 17 gm DAILY JOSE DAVID Administration Quetiapine Fumarate 75 mg 08/19/24 21:00 08/20/24 22:14 Quetiapine Fumarate 25 Mg Tablet PO 75 mg HS JOSE DAVID Administration Tamsulosin HCl 0.4 mg 08/19/24 21:00 08/20/24 22:15 Tamsulosin Hcl 0.4 Mg Capsule PO 0.4 mg HS JOSE DAVID Administration Venlafaxine HCl 150 mg 08/19/24 09:00 08/21/24 09:08 Venlafaxine Hcl Xr 75 Mg Cap.Er.24h PO 150 mg DAILY JOSE DAVID Administration Radiology Results: ITS Impressions Chest X-Ray 08/18/24 16:36 IMPRESSION: 1. Chronic elevation of right hemidiaphragm with mild atelectasis at right lung base. Labs Labs: Laboratory Results - last 24 hr 08/20/24 08/21/24 08/21/24 16:59 06:58 07:54 WBC 3.7 L RBC 4.06 L Hgb 10.6 L Hct 34.8 L MCV 85.7 MCH 26.1 MCHC 30.5 L RDW 14.5 Plt Count 276 MPV 9.3 Sodium 138 Potassium 4.0 Chloride 105 Carbon Dioxide 22 Anion Gap 11 BUN 18 Creatinine 0.92 Estim Creat Clear Calc 69 Estimated GFR > 60 Glucose 154 H POC Capillary Glucose 208 H 156 H Calcium 8.7 Total Bilirubin 0.5 AST 29 ALT 7 Alkaline Phosphatase 121 Total Protein 7.0 Albumin 3.3 L 08/21/24 11:26 WBC RBC Hgb Hct MCV MCH MCHC RDW Plt Count MPV Sodium Potassium Chloride Carbon Dioxide Anion Gap BUN Creatinine Estim Creat Clear Calc Estimated GFR Glucose POC Capillary Glucose 192 H Calcium Total Bilirubin AST ALT Alkaline Phosphatase Total Protein Albumin Hospitalist MIPS Advance Care Plan I have confirmed that the patient's Advanced Care Plan is present, code status is documented, or surrogate decision maker is listed in patient medical record.: Yes Medication Reconciliation I have utilized all available resources to obtain, update and review the patients current medications (includes all prescriptions, OTC, herbals, cannabis, and nutritional supplements).: Yes
[2024-08-21 16:19] LABS: Lactic Acid Reflex 1.4 mmol/L (0.7-2.0)
[2024-08-21 16:22] LABS: CRP 1.7 mg/dL (<1.0)
[2024-08-21 16:47] LABS: Glucose Point of Care 168 mg/dl (65-105)
[2024-08-21 22:14] LABS: Glucose Point of Care 177 mg/dl (65-105)
[2024-08-21] MEDS: TAMSULOSIN HCL 0.4 MG CAPSULE PO (22:25)
[2024-08-21] MEDS: CARBIDOPA/LEVODOPA 25/100 MG CR TABLET 2 TABLET PO (22:25)
[2024-08-21] MEDS: QUEtiapine FUMARATE 25 MG TABLET 75 MG PO (22:25)
[2024-08-22] VITALS (13 sets, daily range): BP systolic 84–129; BP diastolic 59–64; PULSE 56–86; RESP 14–20; TEMP 36.4–36.8; O2SAT 95–98
[2024-08-22] MEDS: IPRATROPIUM 0.5 MG/ALBUTEROL SULFATE 2.5 MG AMPUL.NEB 3 ML INHALATION ×4 (04:05→20:44)
[2024-08-22 08:10] LABS: Glucose Point of Care 147 mg/dl (65-105)
[2024-08-22] MEDS: polyethylene glycoL 3350 17 GM POWD.PACK PO (08:55)
[2024-08-22] MEDS: PANTOPRAZOLE 40 MG TABLET PO ×2 (08:55→22:27)
[2024-08-22] MEDS: MEMANTINE 10 MG TABLET PO ×2 (08:55→22:27)
[2024-08-22] MEDS: AMANTADINE HCL 100 MG CAPSULE PO (08:55)
[2024-08-22] MEDS: GABAPENTIN 100 MG CAPSULE PO ×3 (08:55→16:30)
[2024-08-22] MEDS: VENLAFAXINE HCL XR 75 MG CAP.ER.24H 150 MG PO (08:55)
[2024-08-22] MEDS: CARBIDOPA/LEVODOPA 25/100 MG TABLET 1 TABLET PO (08:55)
[2024-08-22] MEDS: METOPROLOL TARTRATE 25 MG TABLET PO (08:56)
[2024-08-22] MEDS: ESCITALOPRAM OXALATE 10 MG TABLET 20 MG PO (08:57)
[2024-08-22] MEDS: INSULIN GLARGINE (*BKC) 100 UNITS/ML 12 UNITS SUB-Q (08:58)
[2024-08-22 11:49] LABS: Glucose Point of Care 173 mg/dl (65-105)
[2024-08-22] MEDS: metroNIDAZOLE 500 MG/ISO 100ML 500 MG/100 ML BAG 100 MG IVPB ×2 (12:50→22:28)
[2024-08-22 17:27] LABS: Glucose Point of Care 148 mg/dl (65-105)
[2024-08-22 21:16] LABS: Glucose Point of Care 165 mg/dl (65-105)
[2024-08-22] MEDS: CARBIDOPA/LEVODOPA 25/100 MG CR TABLET 2 TABLET PO (22:27)
[2024-08-22] MEDS: QUEtiapine FUMARATE 25 MG TABLET 75 MG PO (22:27)
[2024-08-22] MEDS: TAMSULOSIN HCL 0.4 MG CAPSULE PO (22:28)
[2024-08-23] VITALS (7 sets, daily range): BP systolic 110–113; BP diastolic 58–68; PULSE 59–78; RESP 12–20; TEMP 36.3–36.7; O2SAT 90–98
[2024-08-23] MEDS: metroNIDAZOLE 500 MG/ISO 100ML 500 MG/100 ML BAG 100 MG IVPB ×2 (05:05→13:14)
[2024-08-23] MEDS: IPRATROPIUM 0.5 MG/ALBUTEROL SULFATE 2.5 MG AMPUL.NEB 3 ML INHALATION (07:57)
[2024-08-23] MEDS: GABAPENTIN 100 MG CAPSULE PO ×3 (09:02→17:30)
[2024-08-23] MEDS: AMANTADINE HCL 100 MG CAPSULE PO (09:02)
[2024-08-23] MEDS: VENLAFAXINE HCL XR 75 MG CAP.ER.24H 150 MG PO (09:02)
[2024-08-23] MEDS: PANTOPRAZOLE 40 MG TABLET PO (09:02)
[2024-08-23] MEDS: ESCITALOPRAM OXALATE 10 MG TABLET 20 MG PO (09:02)
[2024-08-23] MEDS: MEMANTINE 10 MG TABLET PO (09:02)
[2024-08-23] MEDS: CARBIDOPA/LEVODOPA 25/100 MG TABLET 1 TABLET PO (09:02)
[2024-08-23] MEDS: polyethylene glycoL 3350 17 GM POWD.PACK PO (09:02)
[2024-08-23] MEDS: METOPROLOL TARTRATE 25 MG TABLET PO (09:03)
[2024-08-23 09:10] LABS: Glucose Point of Care 122 mg/dl (65-105)
[2024-08-23] MEDS: INSULIN GLARGINE (*BKC) 100 UNITS/ML 12 UNITS SUB-Q (09:10)
--- NOTE | 2024-08-23 11:15 | PCRCNOTE ---
HOME O2 EVAL COMPLETE, NO REQUIREMENTS
--- NOTE | 2024-08-23 11:40 | P.PNIM_ITS ---
Progress Note: A&P Assessment and Plan (1) Influenza A: Code(s): J10.1 - Influenza due to other identified influenza virus with other respiratory manifestations Status: Acute Assessment and Plan: resolving (2) Pneumonia: Qualifiers: Laterality: bilateral Lung location: unspecified part of lung Pneumonia type: due to unspecified organism Qualified Code(s): J18.9 - Pneumonia, unspecified organism Code(s): J18.9 - Pneumonia, unspecified organism Status: Acute Assessment and Plan: Rocephin and Metronidazole started (3) Diabetes mellitus: Code(s): E11.9 - Type 2 diabetes mellitus without complications Status: Chronic Assessment and Plan: Continue insulin Accu-Cheks AC and HS (4) Parkinson's disease: Qualifiers: Dyskinesia presence: with dyskinesia Fluctuating manifestations: with fluctuating manifestations Qualified Code(s): G20.B2 - Parkinson's disease with dyskinesia, with fluctuations Code(s): G20.A1 - Parkinson's disease without dyskinesia, without mention of fluctuations Status: Chronic Assessment and Plan: Continue carbidopa levodopa (5) Acute respiratory failure: Code(s): J96.00 - Acute respiratory failure, unspecified whether with hypoxia or hypercapnia Status: Acute Assessment and Plan: Patient on room air at the time of my visit (6) Hypotension: Code(s): I95.9 - Hypotension, unspecified Status: Acute Assessment and Plan: Possibly due to autonomic neuropathy likely from Pneumonia Plan DVT prophylaxis on Sq Lvoenox Subjective Date/time seen: 08/22/24 11:40 DOS 08/22/24 Interval history: Comfortable at bedside noted patient is at baseline and tolerating pureed diet which is what he does at home Review of Systems Review of Systems: ROS unobtainable: Yes unobtainable due to medical condition (Parkinson's dementia) Exam Narrative: Laying in bed Const: General: comfortable, no acute distress, well developed, alert, awake, ill appearing chronically and average body habitus Nutritional Appearance: average body habitus Orientation/consciousness: oriented to person and oriented to place HENMT: Head: normal to inspection, normocephalic and atraumatic Ears: hearing grossly normal bilaterally Face/Nose/Sinus: normal facial exam Face and sinus: normal facial exam Other: Masklike face Eyes: General: appearance normal, both eyes and all related structures Pupils: Equal, round and reactive pupils present EOM: EOMs intact bilaterally Neck: Neck: full ROM, no lymphadenopathy and no JVD Thyroid: thyroid normal Lymphatic: no lymphadenopathy noted Resp: Effort & Inspection: normal respiratory effort and able to speak in complete sentences Auscultation: clear to auscultation bilaterally Cardio: Jugular venous distension: no JVD Rate: regular rate Rhythm: regular rhythm Heart sounds: S1 normal heart sound present and S2 normal heart sound present : General: Yes deferred Skin: Rashes: no rashes Wounds: no wounds Neuro: General: oriented to person, oriented to place, CN's II-XI intact bilaterally and Unable to assess gait Cranial nerves: Yes CN's II-XII intact bilaterally and Yes Equal, round and reactive pupils present Cognition (Neuro): abnormal cognition (Lethargy) Speech: normal speech Gait exam (Neuro): Unable to assess gait Motor exam (neuro): 5/5 motor strength present throughout Extrem: General: normal to inspection, full ROM, no joint enlargement and no pedal edema Objective Data Vital Signs Vital Signs: Vital Signs - 24 hr 08/22/24 14:00 08/22/24 14:01 08/22/24 14:09 Temperature 98.2 F Pulse Rate 64 64 56 L Respiratory Rate 16 18 18 Blood Pressure 84/63 L Pulse Oximetry 98 Oxygen Delivery Oxygen Flow Rate 08/22/24 20:00 08/22/24 20:44 08/22/24 20:44 Temperature Pulse Rate 70 Respiratory Rate 16 Blood Pressure Pulse Oximetry 98 95 Oxygen Delivery Nasal Cannula Nasal Cannula Oxygen Flow Rate 2 2 08/22/24 21:02 08/23/24 06:00 08/23/24 07:58 Temperature 97.6 F 97.3 F L Pulse Rate 68 73 Respiratory Rate 14 14 Blood Pressure 118/59 L 113/58 L Pulse Oximetry 98 98 94 Oxygen Delivery Nasal Cannula Oxygen Flow Rate 2 08/23/24 07:58 08/23/24 08:00 08/23/24 08:10 Temperature Pulse Rate 67 67 Respiratory Rate 12 12 Blood Pressure Pulse Oximetry 90 Oxygen Delivery Room Air Oxygen Flow Rate 08/23/24 09:03 08/23/24 11:13 Temperature Pulse Rate 78 66 Respiratory Rate Blood Pressure Pulse Oximetry 96 Oxygen Delivery Room Air Oxygen Flow Rate Intake/Output Intake/Output: Intake & Output 02/09/1208/21/24 08/22/24 08/23/24 23:59 23:59 23:59 23:59 Intake Total 827 192 8666 670 Output Total 650 500 650 400 Balance -425 60 946 270 Meds/Results Medications: Active Medications Generic Name Dose Route Start Last Admin Trade Name Freq PRN Reason Stop Dose Admin Acetaminophen 650 mg 08/18/24 20:25 Acetaminophen 325 Mg Tablet PO Q4H PRN Mild Pain (1-3) or Fever Hydrocodone Bitart/Acetaminophen 1 tab 08/18/24 20:25 Hydrocodone/Acetaminophen (*Crx) 5-325 Mg Tablet PO Q4H PRN Pain Rated 4-6 Albuterol/Ipratropium 3 ml 08/19/24 02:00 08/23/24 07:57 Ipratropium 0.5 Mg/Albuterol Sulfate 2.5 Mg Ampul.Neb 3 Ml INHALATION 3 ml Q6HRT JOSE DAVID Administration Amantadine HCl 100 mg 08/19/24 09:00 08/23/24 09:02 Amantadine Hcl 100 Mg Capsule PO 100 mg DAILY JOSE DAVID Administration Carbidopa/Levodopa 2 tablet 08/19/24 21:00 08/22/24 22:27 Carbidopa/Levodopa 25/100 Mg Cr Tablet PO 2 tablet HS JOSE DAVID Administration Carbidopa/Levodopa 1 tablet 08/19/24 09:00 08/23/24 09:02 Carbidopa/Levodopa 25/100 Mg Tablet PO 1 tablet DAILY JOSE DAVID Administration Dextrose 12.5 gm 08/19/24 08:02 Dextrose 50% 25 Gm/50 Ml Syringe IV PUSH PRN PRN Hypoglycemia Protocol Escitalopram Oxalate 20 mg 08/19/24 09:00 08/23/24 09:02 Escitalopram Oxalate 10 Mg Tablet PO 20 mg DAILY JOSE DAVID Administration Gabapentin 100 mg 08/19/24 09:00 08/23/24 09:02 Gabapentin 100 Mg Capsule PO 100 mg TID JOSE DAVID Administration Glucose 15 gm 08/19/24 08:02 Glucose Oral Gel 15 Gm Of Glucse In 37.5 Gm Tube PO PRN PRN Hypoglycemia Protocol Dextrose 1,000 mls @ 100 mls/hr 08/19/24 08:02 Dextrose 5% 1,000 Ml IVPB PRN PRN Hypoglycemia Protocol Metronidazole 500 mg in 100 mls @ 100 mls/hr 08/22/24 13:00 08/23/24 06:05 Flagyl 500 Mg/Iso Soln 100 Ml IVPB Infused Q8HR JOSE DAVID Infusion Ceftriaxone Sodium 1 gm in 50 mls @ 100 mls/hr 08/22/24 12:00 08/22/24 12:03 Rocephin 1 Gm/Ns 50 Ml IVPB 100 mls/hr Q24H JOSE DAVID Administration Insulin Aspart 0 units 08/19/24 08:00 08/23/24 09:09 Insulin Aspart (*Bkc) 100 Units/Ml SUB-Q Not Given TIDWM [facility] Protocol Insulin Glargine 12 units 08/21/24 09:00 08/23/24 09:10 Insulin Glargine (*Bkc) 100 Units/Ml SUB-Q 12 units DAILY JOSE DAVID Administration Memantine 10 mg 08/19/24 09:00 08/23/24 09:02 Memantine 10 Mg Tablet PO 10 mg Q12HR JOSE DAVID Administration Metoprolol Tartrate 25 mg 08/19/24 09:00 08/23/24 09:03 Metoprolol Tartrate 25 Mg Tablet PO 25 mg Q12HR JOSE DAVID Administration Ondansetron HCl 4 mg 08/18/24 20:25 Ondansetron Inj 4 Mg/2 Ml Vial IV PUSH Q4H PRN Nausea Pantoprazole Sodium 40 mg 08/19/24 09:00 08/23/24 09:02 Pantoprazole 40 Mg Tablet PO 40 mg Q12HR JOSE DAVID Administration Polyethylene Glycol 17 gm 08/19/24 09:00 08/23/24 09:02 Polyethylene Glycol 3350 17 Gm Powd.Pack PO 17 gm DAILY JOSE DAVID Administration Quetiapine Fumarate 75 mg 08/19/24 21:00 08/22/24 22:27 Quetiapine Fumarate 25 Mg Tablet PO 75 mg HS JOSE DAVID Administration Tamsulosin HCl 0.4 mg 08/19/24 21:00 08/22/24 22:28 Tamsulosin Hcl 0.4 Mg Capsule PO 0.4 mg HS JOSE DAVID Administration Venlafaxine HCl 150 mg 08/19/24 09:00 08/23/24 09:02 Venlafaxine Hcl Xr 75 Mg Cap.Er.24h PO 150 mg DAILY JOSE DAVID Administration Radiology Results: ITS Impressions Chest X-Ray 08/18/24 16:36 IMPRESSION: 1. Chronic elevation of right hemidiaphragm with mild atelectasis at right lung base. Chest CTA 08/21/24 16:50 IMPRESSION: 1. No pulmonary embolism. 2. Right lower lobe pneumonia. 3. Chronic elevation the right hemidiaphragm. 4. Cholelithiasis. Labs Labs: Laboratory Results - last 24 hr 08/22/24 08/22/24 08/22/24 11:44 17:25 20:15 POC Capillary Glucose 173 H 148 H 165 H 08/23/24 08:24 POC Capillary Glucose 122 H
[2024-08-23 11:47] LABS: Glucose Point of Care 188 mg/dl (65-105)
--- NOTE | 2024-08-23 11:48 | P.DS_ITS ---
DS: Admitting Diagnosis Discharge Date 08/23/24 Admitting Diagnosis Generalized weakness DS: Discharge Diagnosis Discharge Diagnosis (1) Hypotension: Code(s): I95.9 - Hypotension, unspecified Status: Acute (2) Acute respiratory failure: Code(s): J96.00 - Acute respiratory failure, unspecified whether with hypoxia or hypercapnia Status: Acute (3) Pneumonia: Qualifiers: Laterality: bilateral Lung location: unspecified part of lung Pneumonia type: due to unspecified organism Qualified Code(s): J18.9 - Pneumonia, unspecified organism Code(s): J18.9 - Pneumonia, unspecified organism Status: Acute DS: Summary Hospital Course Hospital Course: This is a 68-year-old male with past medical history significant for Parkinson's disease, dementia, coronary artery disease, diabetes mellitus, deep brain stimulator. Patient was brought to the emergency room due to altered mental status, generalized weakness, fever, patient was tested for influenza which was positive not placed on Tamiflu due to reaction with amantadine as per primary care physician. Most of the history has been obtained from medical records as patient can not really contribute in a meaningful way to history taking. Patient was prescribed azithromycin. Patient has been placed in observation for further evaluation management and treatment. CXR showed RLL pneumonia. Patient started on Rocephin and Flagyl. Today he is at baseline and noted he eats pureed diet at home. ST evaluated and recommended pureed diet. Patient discharged on 6 more days of Rocephin and Flagyl. noted they have full support at home to care for patient. Continue other home meds. F/u with PCP in 3-5 days. Time Spent with Patient Time attestation: Total time spent providing and/or coordinating discharge services: DS: Data Data Completed and Pending Labs on day of discharge: Labs from last 24 hours 08/23/24 08/23/24 08/22/24 11:44 08:24 20:15 POC Capillary Glucose 188 H 122 H 165 H 08/22/24 08/22/24 17:25 11:44 POC Capillary Glucose 148 H 173 H Discharge Plan Discharge Attending physician on discharge: Maria C Nur Discharging Clinician: Maria C Nur Anticipated Discharge Date/Time: 08/23/24 11:44 Patient Disposition: Home Health Service Activity: as tolerated Diet: other - see discharge instructions Discharge Instructions: Per Care Coordination: [facility] Home Health Care Resume [phone]. RN Please fax discharge orders to [phone]. Patient Instructions: Antibiotic Form Patient Language: Macedonian Stand Alone Forms: General Discharge Information Follow-up/Referrals: Pee,Phoenix Nicole MD [Primary Care Provider] - (F/u with PCP in 3-5 days ) Discharge Medications: New cefdinir 300 mg capsule 300 mg PO Q12H 6 Days Qty: 12 0RF metronidazole 500 mg tablet 500 mg PO Q8H 6 Days Qty: 18 0RF Continued gabapentin 100 mg capsule 100 mg PO TID carbidopa-levodopa 50-200 mg tablet extended release 2 tablet PO HS venlafaxine 150 mg capsule,extended release 24hr 150 mg PO DAILY omeprazole 40 mg capsule,delayed release(DR/EC) 40 mg PO DAILY amantadine HCl 100 mg capsule 100 mg PO DAILY zolpidem 10 mg tablet 10 mg PO HS escitalopram oxalate 20 mg tablet 20 mg PO DAILY memantine 10 mg tablet 10 mg PO Q12H insulin degludec [Tresiba FlexTouch U-200] 200 unit/mL (3 mL) insulin pen 10 unit SUBCUT DAILY polyethylene glycol 3350 [Miralax] 17 gram Powder In Packet 17 g PO DAILY B complex-vitamin C-folic acid 100-1 mg Tablet 1 tablet PO DAILY carbidopa-levodopa [Sinemet] 25-100 mg Tablet 1 tablet PO DAILY quetiapine 25 mg tablet 75 mg PO HS atorvastatin 40 mg tablet 40 mg PO DAILY metoprolol tartrate 25 mg tablet 25 mg PO Q12H Nuedexta 20-10 mg capsule 1 cap PO DAILY bisacodyl 10 mg Suppository 10 mg RECTAL BID Qty: 10 2RF tamsulosin [Flomax] 0.4 mg capsule 0.4 mg PO HS Qty: 30 1RF Date of admission: 08/22/24 09:34 Primary Care Provider: Pee,Phoenix Nicole Admitting Provider: Antonia Oconnell V. Attending physician on admission: Antonia Oconnell V. Condition: Stable
--- NOTE | 2024-08-23 12:50 | PCSTNOTE ---
Please refer to the Modified Barium Swallow Evaluation in the EMR. The above pt with a dx of Parkinson's disease and pneumonia was seen for a Modified Barium Swallow (MBS); RN also reported coughing with drinking. Poor dentition/missing teeth noted. The was seated upright for a lateral view and presented with thin liquids, pudding, and a crumbled cracker in controlled amounts via a spoon. He was also tested with thin liquids in uncontrolled amounts via a straw. Cup drinking was decided to be not an ideal method of intake due to poor labial seal. With the thin liquids and pudding trials, reduced lingual movement was exhibited which resulted in min oral residue which the pt independently dry swallowed and cleared. Due to the reduced lingual movement, the pt exhibited an inability to masticate the crumbled cracker which resulted in residual on the tongue which a liquid wash was used to clear. During the pharyngeal stage, intermittent vallecular residue was exhibited which is indicative of reduced tongue base retraction but the pt was able to clear it with an independent dry swallow. No laryngeal penetration or aspiration was exhibited throughout the course of the evaluation. Impression: Mild oral stage dysphagia; inability to masticate solids, oral residue. Recommendation: puree diet Level 4 with regular liquids No further ST
--- NOTE | 2024-08-23 16:13 | PCRCNOTE ---
Window of time for administration has passed. See next scheduled administration.
[2024-08-23 16:44] LABS: Glucose Point of Care 123 mg/dl (65-105)
[2024-08-27 16:04] LABS: Calcitonin <2 pg/mL (< OR = 10)
== END 2024-08-23 18:00 | disposition home health service (06) | DRG 193 ==
LOC: ANHED 19:17 → ANH3MEDSUR 21:05
PROVIDERS: Emergency Medicine; General Practice; Admitting Provider Internal Medicine; Emergency Provider Emergency Medicine; PCP Internal Medicine; Visit Provider Internal Medicine
DX: J10.00 Influenza due to other identified influenza virus with unspecified type of pneumonia (principal); J96.01 Acute respiratory failure with hypoxia; I95.9 Hypotension, unspecified; G20.A1 Parkinson's disease without dyskinesia, without mention of fluctuations; G90.9 Disorder of the autonomic nervous system, unspecified; F03.90 Unspecified dementia, unspecified severity, without behavioral disturbance, psychotic disturbance, mood disturbance, and anxiety; I25.10 Atherosclerotic heart disease of native coronary artery without angina pectoris; E11.9 Type 2 diabetes mellitus without complications; M19.90 Unspecified osteoarthritis, unspecified site; R33.9 Retention of urine, unspecified
CPT/HCPCS: 36415; 71045; 71275; 80053; 81001; 82308; 82948; 83605; 85025; 85027; 86140; 87637; 92611; 93005; 93306; 94618; 94640; 99285; A9270; G0378; J0696; J1815; J1836; J7030; Q9967

== ENCOUNTER 2025-01-09 11:06 | Outpatient (CLI) | payer MEDICARE, MEDICAID, SELFPAY ==
[2025-01-09 11:56] LABS: Cholesterol 105 mg/dL (0-200); HDL Direct 36 mg/dL; Triglycerides 113 mg/dL (<150)
[2025-01-09 12:06] LABS: LDL Cholesterol Direct 38 mg/dL
== END 2025-01-09 11:07 | disposition home or self-care (01) ==
PROVIDERS: PCP Internal Medicine; Visit Provider Internal Medicine Cardiovascular Disease
DX: I25.10 Atherosclerotic heart disease of native coronary artery without angina pectoris (principal)
CPT/HCPCS: 36415; 80061